=== PATIENT | female | born 1965 | race Caucasian/White ===

== ENCOUNTER 2017-11-04 12:25 | Emergency (ER) | payer SELFPAY ==
[2017-11-04] MEDS ORDERED: DIAZEPAM 5 MG TABLET ONE (14:01)
[2017-11-04] MEDS ORDERED: DEXAMETHASONE 10 MG/ML VIAL ONE (14:01)
[2017-11-04] MEDS ORDERED: NA CHLORIDE 0.9% 1,000 ML ONE (14:02)
[2017-11-04] MEDS ORDERED: MORPHINE 4 MG/ML SYR ONE (14:02)
[2017-11-04] MEDS ORDERED: KETOROLAC 30 MG/ML INJ ONE (14:02)
[2017-11-04] MEDS ORDERED: ONDANSETRON 4 MG/2 ML VIAL ONE (14:02)
[2017-11-04 14:11] LABS: Absolute Lymphocytes (CBC) 2.2 K/uL (0.7-4.9); Absolute Monocytes 0.5 K/uL (0.1-1.3); Absolute Neutrophil 5.7 K/uL (1.8-8.0); Basophils % 0.7 % (0-1.3); Eosinophils % 1.9 % (0-4.4); Hematocrit 48.3 % (36.0-45.0); Lymphocytes % 25.2 % (15.3-44.8); MCH 28.8 pg (27.0-35.0); MPV 9.6 fL (7.6-11.3); Monocytes % 6.2 % (3.3-12.3); RBC Red Blood Cell Count 5.62 M/uL (3.86-4.86)
[2017-11-04 14:25] LABS: Albumin 3.5 g/dL (3.4-5.0); Bilirubin Total 0.6 mg/dL (0.2-1.0); Potassium 4.2 mmol/L (3.5-5.1); Protein, Total 7.4 g/dL (6.4-8.2)
[2017-11-04 15:02] LABS: Urine Blood NEGATIVE (NEG); Urine Glucose TRACE (NEG); Urine Protein NEGATIVE (NEG)
--- NOTE | 2017-11-04 15:19 | RAD REPORT ---
EXAM DESCRIPTION: CT - Spine Lumbar Wo Con - 11/04/2017 2:54 pm CLINICAL HISTORY: Back pain, right lower extremity radiculopathy. COMPARISON: None. TECHNIQUE: Thin section axial imaging of the lumbar spine was performed. Sagittal and coronal recon struction images were generated and reviewed. All CT scans are performed using dose optimization technique as appropriate and may include automated exposure control or mA/KV adjustment according to patient size. FINDINGS: Lumbar bodies are normal in height and alignment. No fracture is identified. No lytic, s clerotic or expansile bony destructive process. No paraspinal mass or other paraspinal abnormality. No disc space narrowing and no degenerative gas in the disc space. No gross evidence of the large central canal disc herniation. Central canal detail is limited seconda ry to inherent CT technical limitation and large body habitus. IMPRESSION: CT lumbar spine study shows no significant bone, disc or soft tissue finding. Central ca nal detail is inherently limited.
--- NOTE | 2017-11-04 15:25 | EDPHYS ---
Physician Documentation [facility] Name: Anjana Cordova Age: 52 yrs Sex: Female : 1965 Arrival Date: 11/04/2017 Time: 12:26 Bed 25 Private MD: MARLYN ESTRELLA ED Physician Raul Urena HPI: 11/04 13:36 This 52 yrs old Female presents to ER via Ambulatory with complaints of Back maria de jesus Pain, Leg Pain. 13:36 The patient presents with pain that is acute, and decreased range of motion, and an maria de jesus injury. The symptoms are located in the low back, lumbar area and right low back. Onset: The symptoms/episode began/occurred 3 day(s) ago. The pain radiates to the lumbar area and left low back. Associated signs and symptoms: The patient has no apparent associated signs or symptoms. The problem was sustained when lifting boxes. Severity of symptoms: At their worst the symptoms were moderate, in the emergency department the symptoms are unchanged. The patient has not experienced similar symptoms in the past. 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 - Social history:: Smoking status: Patient/guardian denies using tobacco. - Ebola Screening: : Patient negative for fever greater than or equal to 101.5 degrees Fahrenheit, and additional compatible Ebola Virus Disease symptoms Patient denies exposure to infectious person Patient denies travel to an Ebola-affected area in the 21 days before illness onset No symptoms or risks identified at this time. - Family history:: not pertinent. ROS: 13:36 Constitutional: Negative for fever, chills, and weight loss, Eyes: Negative for injury, mariad e jesus pain, redness, and discharge, ENT: Negative for injury, pain, and discharge, Neck: Negative for injury, pain, and swelling, Cardiovascular: Negative for chest pain, palpitations, and edema, Respiratory: Negative for shortness of breath, cough, wheezing, and pleuritic chest pain, Abdomen/GI: Negative for abdominal pain, nausea, vomiting, diarrhea, and constipation, : Negative for injury, bleeding, discharge, and swelling, MS/Extremity: Negative for injury and deformity, Skin: Negative for injury, rash, and discoloration, Neuro: Negative for headache, weakness, numbness, tingling, and seizure, Psych: Negative for depression, anxiety, suicide ideation, homicidal ideation, and hallucinations, Allergy/Immunology: Negative for hives, rash, and allergies, Endocrine: Negative for neck swelling, polydipsia, polyuria, polyphagia, and marked weight changes, Hematologic/Lymphatic: Negative for swollen nodes, abnormal bleeding, and unusual bruising. 13:36 Back: Positive for pain at rest, pain with movement, of the lumbar area and left low back. Exam: 13:36 Constitutional: This is a well developed, well nourished patient who is awake, alert, maria de jesus and in no acute distress. Head/Face: Normocephalic, atraumatic. Eyes: Pupils equal round and reactive to light, extra-ocular motions intact. Lids and lashes normal. Conjunctiva and sclera are non-icteric and not injected. Cornea within normal limits. Periorbital areas with no swelling, redness, or edema. ENT: Nares patent. No nasal discharge, no septal abnormalities noted. Tympanic membranes are normal and external auditory canals are clear. Oropharynx with no redness, swelling, or masses, exudates, or evidence of obstruction, uvula midline. Mucous membranes moist. Neck: Trachea midline, no thyromegaly or masses palpated, and no cervical lymphadenopathy. Supple, full range of motion without nuchal rigidity, or vertebral point tenderness. No Meningismus. Chest/axilla: Normal chest wall appearance and motion. Nontender with no deformity. No lesions are appreciated. Cardiovascular: Regular rate and rhythm with a normal S1 and S2. No gallops, murmurs, or rubs. Normal PMI, no JVD. No pulse deficits. Respiratory: Lungs have equal breath sounds bilaterally, clear to auscultation and percussion. No rales, rhonchi or wheezes noted. No increased work of breathing, no retractions or nasal flaring. Abdomen/GI: Soft, non-tender, with normal bowel sounds. No distension or tympany. No guarding or rebound. No evidence of tenderness throughout. Female : Normal external genitalia. Skin: Warm, dry with normal turgor. Normal color with no rashes, no lesions, and no evidence of cellulitis. MS/ Extremity: Pulses equal, no cyanosis. Neurovascular intact. Full, normal range of motion. Neuro: Awake and alert, GCS 15, oriented to person, place, time, and situation. Cranial nerves II-XII grossly intact. Motor strength 5/5 in all extremities. Sensory grossly intact. Cerebellar exam normal. Normal gait. 13:36 Back: pain, that is moderate, ROM is painful, normal spinal alignment noted, CVA tenderness, is absent, vertebral tenderness, is appreciated at L1, L2, L3, L4 and L5, muscle spasm, is appreciated in the lumbar area and right low back. Vital Signs: 12:34 BP 214 / 101; Pulse 91; Resp 17; Temp 98.6; Pulse Ox 98% on R/A; Weight 117.93 kg; aj Height 5 ft. 5 in. (165.10 cm); 14:23 BP 184 / 82; Pulse 70; Resp 16; Pulse Ox 97% ; kr2 15:27 BP 162 / 70; Pulse 68; Resp 17; Pulse Ox 97% on R/A; kr2 12:34 Body Mass Index 43.27 (117.93 kg, 165.10 cm) MDM: 13:27 Patient medically screened. [facility] 13:41 Data reviewed: vital signs, nurses notes, lab test result(s), radiologic studies, CT maria de jesus scan. 11/04 13:35 Order name: CBC with Diff; Complete Time: 14:19 [facility] 11/04 13:35 Order name: Comprehensive Metabolic Panel; Complete Time: 15:05 [facility] 11/04 13:48 Order name: CT Lumbar Spine Wo Con; Complete Time: 15:20 [facility] 11/04 14:23 Order name: Urine Dipstick--Ancillary (enter results); Complete Time: 15:05 11/04 13:35 Order name: Urine Dipstick-Ancillary (obtain specimen); Complete Time: 14:24 [facility] Administered Medications: 14:15 Drug: Valium 5 mg Route: PO; kr2 15:25 Follow up: Response: No adverse reaction; Pain is decreased kr2 14:20 Drug: NS 0.9% 1000 ml Route: IV; Rate: 1 bolus; Site: right antecubital; kr2 15:27 Follow up: Response: No adverse reaction; IV Status: Completed infusion kr2 14:20 Drug: TORadol 30 mg Route: IVP; Site: right antecubital; kr2 15:00 Follow up: Response: No adverse reaction; Pain is decreased kr2 14:21 Drug: Zofran 4 mg Route: IVP; Site: right antecubital; kr2 15:00 Follow up: Response: No adverse reaction kr2 14:23 Drug: morphine 4 mg Route: IVP; Site: right antecubital; kr2 15:00 Follow up: Response: No adverse reaction; Pain is decreased kr2 14:24 Drug: Decadron - Dexamethasone 10 mg Route: IVP; Site: right antecubital; kr2 15:00 Follow up: Response: No adverse reaction kr2 Disposition: 11/04/17 15:25 Discharged to Home. Impression: Low back pain, Sciatica, left side, Obesity, unspecified. - Condition is Stable. - Discharge Instructions: Back Pain, Adult, Chronic Back Pain, Musculoskeletal Pain, Obesity, Adult, Sciatica, Back Injury Prevention, [id number], Back Pain, Adult, [id number]. - Prescriptions for Ibuprofen 600 mg Oral Tablet - take 1 tablet by ORAL route every 8 hours As needed take with food; 24 tablet. Tylenol- Codeine #3 300-30 mg Oral Tablet - take 2 tablet by ORAL route every 6 hours As needed; 30 tablet. Valium 5 mg Oral Tablet - take 1 tablet by ORAL route every 8 hours As needed; 20 tablet. Medrol (Arsh) 4 mg Oral Tablets, Dose Pack - take 1 tablet by ORAL route as directed - follow package instructions; 1 packet. - Medication Reconciliation Form, Thank You Letter, Antibiotic Education, Prescription Opioid Use form. - Follow up: MARLYN ESTRELLA; When: 48 Hours; Reason: Recheck today's complaints, Continuance of care, Re-evaluation by your physician. - Problem is new. - Symptoms have improved. Signatures: Dispatcher [employer] EDBonita Pandya RN RN aj Anderson, Corey, MD MD cha Reaves, Karey, RN RN kr2 Corrections: (The following items were deleted from the chart) 15:36 15:25 11/04/2017 15:25 Discharged to Home. Impression: Low back pain; Sciatica, left kr2 side; Obesity, unspecified. Condition is Stable. Discharge Instructions: Back Pain, Adult, Chronic Back Pain, Musculoskeletal Pain, Obesity, Adult, Sciatica, Back Injury Prevention, [id number], Back Pain, Adult, [id number]. Prescriptions for Ibuprofen 600 mg Oral Tablet - take 1 tablet by ORAL route every 8 hours As needed take with food; 24 tablet, Tylenol-Codeine #3 300-30 mg Oral Tablet - take 2 tablet by ORAL route every 6 hours As needed; 30 tablet, Valium 5 mg Oral Tablet - take 1 tablet by ORAL route every 8 hours As needed; 20 tablet, Medrol (Arsh) 4 mg Oral Tablets, Dose Pack - take 1 tablet by ORAL route as directed - follow package instructions; 1 packet. and Forms are Medication Reconciliation Form, Thank You Letter, Antibiotic Education, Prescription Opioid Use. Follow up: MARLYN ESTRELLA; When: 48 Hours; Reason: Recheck today's complaints, Continuance of care, Re-evaluation by your physician. Problem is new. Symptoms have improved. maria de jesus
--- NOTE | 2017-11-04 15:25 | ER ---
Nurse's Notes [facility] Name: Anjana Cordova Age: 52 yrs Sex: Female : 1965 Arrival Date: 11/04/2017 Time: 12:26 Bed 25 Private MD: MARLYN ESTRELLA Diagnosis: Low back pain;Sciatica, left side;Obesity, unspecified Presentation: 11/04 12:33 Presenting complaint: Patient states: Lower back pain that radiates down right leg, aj starting Friday. Transition of care: patient was not received from another setting of care. Onset of symptoms was November 02, 2017. Risk Assessment: Do you want to hurt yourself or someone else? Patient reports no desire to harm self or others. Initial Sepsis Screen: Does the patient meet any 2 criteria? No. Patient's initial sepsis screen is negative. Does the patient have a suspected source of infection? No. Patient's initial sepsis screen is negative. Care prior to arrival: None. 12:33 Method Of Arrival: Ambulatory 12:33 Acuity: HAWK 3 aj Triage Assessment: 12:34 General: Appears in no apparent distress. uncomfortable, Behavior is calm, cooperative, aj appropriate for age. Pain: Complains of pain in coccyx, right lower back, right gluteus anil and right gluteal fold. Neuro: Level of Consciousness is awake, alert, obeys commands, Oriented to person, place, time, situation, Appropriate for age. Respiratory: Airway is patent Respiratory effort is even, unlabored, Respiratory pattern is regular, symmetrical. Derm: Skin is intact, is healthy with good turgor, Skin is pink, warm \\T\\ dry. normal. Musculoskeletal: Range of motion: intact in all extremities, Reports pain in coccyx, right lower back, right gluteus anil and right gluteal fold. 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 - Social history:: Smoking status: Patient/guardian denies using tobacco. - Ebola Screening: : Patient negative for fever greater than or equal to 101.5 degrees Fahrenheit, and additional compatible Ebola Virus Disease symptoms Patient denies exposure to infectious person Patient denies travel to an Ebola-affected area in the 21 days before illness onset No symptoms or risks identified at this time. - Family history:: not pertinent. Screenin:30 Abuse screen: Denies threats or abuse. Denies injuries from another. Nutritional kr2 screening: No deficits noted. Tuberculosis screening: No symptoms or risk factors identified. Fall Risk None identified. Assessment: 13:30 General: Appears in no apparent distress. uncomfortable, well groomed, well developed, kr2 Behavior is calm, cooperative, appropriate for age. Pain: Complains of pain in lower back Pain radiates to right leg. Pain: Pain currently is 8 out of 10 on a pain scale. Neuro: Level of Consciousness is awake, alert, obeys commands, Oriented to person, place, time, situation, Appropriate for age. Cardiovascular: Capillary refill < 3 seconds in bilateral fingers. Respiratory: Airway is patent Respiratory effort is even, unlabored, Respiratory pattern is regular, symmetrical. EENT: Oral mucosa is moist. Derm: Skin is intact, is healthy with good turgor, Skin is pink, warm \\T\\ dry. Musculoskeletal: Circulation, motion, and sensation intact. 15:00 Reassessment: Patient appears in no apparent distress at this time. Patient and/or kr2 family updated on plan of care and expected duration. Pain level reassessed. Patient is alert, oriented x 3, equal unlabored respirations, skin warm/dry/pink. Patient states feeling better. Patient states symptoms have improved. Vital Signs: 12:34 BP 214 / 101; Pulse 91; Resp 17; Temp 98.6; Pulse Ox 98% on R/A; Weight 117.93 kg; aj Height 5 ft. 5 in. (165.10 cm); 14:23 BP 184 / 82; Pulse 70; Resp 16; Pulse Ox 97% ; kr2 15:27 BP 162 / 70; Pulse 68; Resp 17; Pulse Ox 97% on R/A; kr2 12:34 Body Mass Index 43.27 (117.93 kg, 165.10 cm) ED Course: 12:26 Patient arrived in ED. sb2 12:26 MARLYN ESTRELLA is Private Physician. sb2 12:34 Triage completed. aj 12:34 Arm band placed on right wrist. Patient placed in waiting room, Patient notified of aj wait time. 13:27 Raul Urena MD is Attending Physician. maria de jesus 13:30 Patient has correct armband on for positive identification. Call light in reach. kr2 Patient sitting up in chair, "I am more comfortable that way right now". Pulse ox on. NIBP on. Door closed. Verbal reassurance given. 13:41 Ileana Sen, [place] is Primary Nurse. kr2 13:58 Initial lab(s) drawn, by me, sent to lab. Inserted saline lock: 22 gauge in right tm3 antecubital area, using aseptic technique. 14:55 CT Lumbar Spine Wo Con In Process Unspecified. EDMS 15:25 MARLYN ESTRELLA is Referral Physician. maria de jesus 15:35 No provider procedures requiring assistance completed. IV discontinued, intact, kr2 bleeding controlled, No redness/swelling at site. Pressure dressing applied. Administered Medications: 14:15 Drug: Valium 5 mg Route: PO; kr2 15:25 Follow up: Response: No adverse reaction; Pain is decreased kr2 14:20 Drug: NS 0.9% 1000 ml Route: IV; Rate: 1 bolus; Site: right antecubital; kr2 15:27 Follow up: Response: No adverse reaction; IV Status: Completed infusion kr2 14:20 Drug: TORadol 30 mg Route: IVP; Site: right antecubital; kr2 15:00 Follow up: Response: No adverse reaction; Pain is decreased kr2 14:21 Drug: Zofran 4 mg Route: IVP; Site: right antecubital; kr2 15:00 Follow up: Response: No adverse reaction kr2 14:23 Drug: morphine 4 mg Route: IVP; Site: right antecubital; kr2 15:00 Follow up: Response: No adverse reaction; Pain is decreased kr2 14:24 Drug: Decadron - Dexamethasone 10 mg Route: IVP; Site: right antecubital; kr2 15:00 Follow up: Response: No adverse reaction kr2 Outcome: 15:25 Discharge ordered by . maria de jesus 15:36 Discharged to home ambulatory, with family. kr2 15:36 Condition: good 15:36 Discharge instructions given to patient, Instructed on discharge instructions, follow up and referral plans. Demonstrated understanding of instructions, follow-up care, medications, Prescriptions given X 4. 15:36 Patient left the ED. kr2 Signatures: Dispatcher [employer] EDCarlito Ovalle tm3 Bonita Padron RN RN aj Anderson, Corey, MD MD cha Reaves, Karey, RN RN kr2 Esther Webster sb2
== END 2017-11-04 15:36 | disposition home or self-care (01) ==
LOC: ER 12:25
DX: M54.42 Lumbago with sciatica, left side (principal); E11.9 Type 2 diabetes mellitus without complications; I10 Essential (primary) hypertension; E66.9 Obesity, unspecified; Z68.41 Body mass index [BMI] 40.0-44.9, adult; Z79.4 Long term (current) use of insulin
CPT/HCPCS: 36415; 72131; 80053; 81003; 85025; 96361; 96374; 96375; 99284; J1100; J2405; J7030

== ENCOUNTER 2018-03-11 22:33 | Emergency (ER) | payer SELFPAY ==
--- NOTE | 2018-03-12 00:47 | ER ---
Nurse's Notes [facility] Name: Anjana Cordova Age: 52 yrs Sex: Female : 1965 Arrival Date: 03/11/2018 Time: 22:36 Bed Treatment Private MD: Diagnosis: Cutaneous abscess of limb Presentation: 03/12 00:02 Presenting complaint: Patient states: Got bit by a spider 3 days ago and not is ao painfully and throbbing. Patient report the site is turning black. Transition of care: patient was not received from another setting of care. Onset of symptoms was March 08, 2018. Risk Assessment: Do you want to hurt yourself or someone else? Patient reports no desire to harm self or others. Initial Sepsis Screen: Does the patient meet any 2 criteria? No. Patient's initial sepsis screen is negative. Does the patient have a suspected source of infection? No. Patient's initial sepsis screen is negative. Care prior to arrival: None. 00:02 Method Of Arrival: Ambulatory ao 00:02 Acuity: HAWK 4 ao Triage Assessment: 00:34 General: Appears uncomfortable, obese, Behavior is calm, cooperative, appropriate for fc age. Pain: Complains of pain in dorsal aspect of right forearm Pain currently is 9 out of 10 on a pain scale. Quality of pain is described as burning, Pain began 1 week ago Is continuous, Aggravated by palpation. EENT: No deficits noted. Neuro: Level of Consciousness is awake, alert, obeys commands, Oriented to person, place, time, situation. Cardiovascular: No deficits noted. Respiratory: No deficits noted. GI: No deficits noted. : No deficits noted. Derm: Skin is pink, warm \T\ dry. Abscess located on dorsal aspect of right forearm is dime sized, has purulent drainage, is red, is raised, was lanced by patient prior to arrival. Musculoskeletal: Circulation, motion, and sensation intact. Capillary refill < 3 seconds, Range of motion: intact in all extremities. 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 - Social history:: Smoking status: Patient uses tobacco products, smokes one pack cigarettes per day. Patient/guardian denies using alcohol, street drugs. - Ebola Screening: : Patient negative for fever greater than or equal to 101.5 degrees Fahrenheit, and additional compatible Ebola Virus Disease symptoms Patient denies exposure to infectious person Patient denies travel to an Ebola-affected area in the 21 days before illness onset. Screenin:35 Abuse screen: Denies threats or abuse. Nutritional screening: No deficits noted. fc Tuberculosis screening: No symptoms or risk factors identified. Fall Risk None identified. Assessment: 00:35 Reassessment: No changes from previously documented assessment. Patient and/or family fc updated on plan of care and expected duration. Pain level reassessed. Patient is alert, oriented x 3, equal unlabored respirations, skin warm/dry/pink. 00:40 Reassessment: Dr Joshi in to see and examine pt. fc 01:00 Reassessment: Pt wanting to be tested for staph and is concerned about the pain. fc Discussed with Dr Joshi and pt will be covered by discharge antibiotics for staph and can take Alleve OTC. Vital Signs: 00:05 BP 152 / 87; Pulse 84; Resp 20; Temp 98.0; Pulse Ox 100% on R/A; Weight 120.2 kg; ao Height 5 ft. 6 in. (167.64 cm); Pain 10/10; 00:05 Body Mass Index 42.77 (120.20 kg, 167.64 cm) ao ED Course: 03/11 22:36 Patient arrived in ED. ds1 03/12 00:04 Triage completed. ao 00:07 Arm band placed on right wrist. Patient placed in waiting room. ao 00:35 Patient has correct armband on for positive identification. Bed in low position. Call fc light in reach. 00:36 No provider procedures requiring assistance completed. fc 00:38 Akshat Joshi MD is Attending Physician. ps1 00:52 Patient did not have IV access during this emergency room visit. fc Administered Medications: No medications were administered Outcome: 00:45 Discharge ordered by . ps1 00:52 Discharged to home ambulatory, with family. fc 00:52 Condition: good 00:52 Discharge instructions given to patient, family, Instructed on discharge instructions, follow up and referral plans. medication usage, wound care, Demonstrated understanding of instructions, follow-up care, medications, wound care, Prescriptions given X 2. 01:04 Patient left the ED. Signatures: Romina Wiley RN RN Marguerite Eason ds1 Lucius Simon RN RN ao Singer, Phillip, MD MD ps1
--- NOTE | 2018-03-12 00:47 | EDPHYS ---
Physician Documentation [facility] Name: Anjana Cordova Age: 52 yrs Sex: Female : 1965 Arrival Date: 03/11/2018 Time: 22:36 Bed Treatment Private MD: ED Physician Akshat Joshi HPI: 03/12 00:42 This 52 yrs old Female presents to ER via Ambulatory with complaints of ps1 Spider /Diabetic. 00:42 patient has a small abscess that she pulled a plug out of today and now red and ps1 burning. Thinks it may be a spider bite. Appears healing and non purulent at this time. No fever. Has diabetes. . 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 - Social history:: Smoking status: Patient uses tobacco products, smokes one pack cigarettes per day. Patient/guardian denies using alcohol, street drugs. - Ebola Screening: : Patient negative for fever greater than or equal to 101.5 degrees Fahrenheit, and additional compatible Ebola Virus Disease symptoms Patient denies exposure to infectious person Patient denies travel to an Ebola-affected area in the 21 days before illness onset. ROS: 00:42 Constitutional: Negative for fever, chills, and weight loss, Eyes: Negative for injury, ps1 pain, redness, and discharge, Cardiovascular: Negative for chest pain, palpitations, and edema, Respiratory: Negative for shortness of breath, cough, wheezing, and pleuritic chest pain, Abdomen/GI: Negative for abdominal pain, nausea, vomiting, diarrhea, and constipation, MS/Extremity: Negative for injury and deformity. 00:42 Skin: Positive for abscess, ulceration. Exam: 00:42 Constitutional: This is a well developed, well nourished patient who is awake, alert, ps1 and in no acute distress. Head/Face: Normocephalic, atraumatic. Eyes: Pupils equal round and reactive to light, extra-ocular motions intact. Lids and lashes normal. Conjunctiva and sclera are non-icteric and not injected. Chest/axilla: Normal chest wall appearance and motion. Nontender with no deformity. No lesions are appreciated. Cardiovascular: Regular rate and rhythm. No gallops, murmurs, or rubs. Normal PMI, no JVD. No pulse deficits. Respiratory: Lungs have equal breath sounds bilaterally, clear to auscultation and percussion. No rales, rhonchi or wheezes noted. No increased work of breathing, no retractions or nasal flaring. Abdomen/GI: Soft, non-tender, with normal bowel sounds. No distension or tympany. No guarding or rebound. No evidence of tenderness throughout. MS/ Extremity: Pulses equal, no cyanosis. Neurovascular intact. Full, normal range of motion. 00:42 Skin: Appearance: normal except for affected area, abscess, that is small, of the dorsal aspect of right forearm. Vital Signs: 00:05 BP 152 / 87; Pulse 84; Resp 20; Temp 98.0; Pulse Ox 100% on R/A; Weight 120.2 kg; ao Height 5 ft. 6 in. (167.64 cm); Pain 10/10; 00:05 Body Mass Index 42.77 (120.20 kg, 167.64 cm) ao MDM: 00:42 Data reviewed: vital signs, nurses notes, and as a result, I will discharge patient, ps1 administer antibiotics keflex and bactrim. 00:45 Patient medically screened. ps1 Administered Medications: No medications were administered Disposition: 03/12/18 00:45 Discharged to Home. Impression: Cutaneous abscess of limb. - Condition is Stable. - Discharge Instructions: Skin Abscess. - Prescriptions for Keflex 500 mg Oral Capsule - take 1 capsule by ORAL route every 8 hours for 10 days; 30 capsule. Bactrim DS 800- 160 mg Oral Tablet - take 1 tablet by ORAL route every 12 hours for 10 days; 20 tablet. - Medication Reconciliation Form, Thank You Letter, Antibiotic Education, Prescription Opioid Use form. - Follow up: Private Physician; When: As needed; Reason: Recheck today's complaints, Continuance of care, Re-evaluation by your physician. Follow up: Emergency Department; When: As needed; Reason: Fever > 102 F, Worsening of condition. - Problem is new. - Symptoms are unchanged. Signatures: Romina Wiley RN RN fc Lucius Simon RN RN Akshat Chanel MD MD ps1 Corrections: (The following items were deleted from the chart) 01:04 00:45 03/12/2018 00:45 Discharged to Home. Impression: Cutaneous abscess of limb. fc Condition is Stable. Forms are Medication Reconciliation Form, Thank You Letter, Antibiotic Education, Prescription Opioid Use. Follow up: Private Physician; When: As needed; Reason: Recheck today's complaints, Continuance of care, Re-evaluation by your physician. Follow up: Emergency Department; When: As needed; Reason: Fever > 102 F, Worsening of condition. Problem is new. Symptoms are unchanged. ps1
== END 2018-03-12 01:04 | disposition home or self-care (01) ==
LOC: ER 22:33
DX: L02.413 Cutaneous abscess of right upper limb (principal); I10 Essential (primary) hypertension; E11.9 Type 2 diabetes mellitus without complications; F17.210 Nicotine dependence, cigarettes, uncomplicated; Z79.4 Long term (current) use of insulin
CPT/HCPCS: 99282

== ENCOUNTER 2018-05-19 12:31 | Emergency (ER) | payer SELFPAY ==
[2018-05-19] MEDS ORDERED: HYDROCODONE/APAP 10/325 TAB ONE (13:17)
[2018-05-19] MEDS ORDERED: DIAZEPAM 5 MG TABLET ONE (13:18)
[2018-05-19] MEDS ORDERED: KETOROLAC 30 MG/ML INJ ONE (14:21)
--- NOTE | 2018-05-19 15:29 | RAD REPORT ---
EXAM DESCRIPTION: RAD - Knee Right 3 View - 05/19/2018 3:06 pm CLINICAL HISTORY: injury, pain COMPARISON: Knee Right 3 View dated 08/20/2015; Knee Right 3 View dated 11/16/2014 FINDINGS: No bone or joint abnormality of the right knee is seen. No joint effusion.
--- NOTE | 2018-05-19 15:30 | RAD REPORT ---
EXAM DESCRIPTION: RAD - Lumbar Spine 3 Views - 05/19/2018 3:06 pm CLINICAL HISTORY: fall, back pain Radiculopathy COMPARISON: No comparisons FINDINGS: Vertebral body heights appear maintained. No compression fracture noted. Disc thinning is present with small endplate osteophytes at L4-5 and L5-S1. No spondylolysis or spondylolisthesis. IUD is present in the pelvis. IMPRESSION: Mild lower lumbar spondylosis.
--- NOTE | 2018-05-19 15:51 | ER ---
Nurse's Notes [facility] Name: Anjana Cordova Age: 52 yrs Sex: Female : 1965 Arrival Date: 05/19/2018 Time: 12:35 Bed 16 Private MD: MARLYN ESTRELLA Diagnosis: Internal derangement of knee;Sprain of ligaments of lumbar spine Presentation: 05/19 12:44 Presenting complaint: Patient states: Reports low back pain and right knee pain after aj lifting grandchild this AM. Also reports "bulge" to right lower abdomen. Transition of care: patient was not received from another setting of care. Onset of symptoms was May 19, 2018. Risk Assessment: Do you want to hurt yourself or someone else? Patient reports no desire to harm self or others. Initial Sepsis Screen: Does the patient meet any 2 criteria? No. Patient's initial sepsis screen is negative. Does the patient have a suspected source of infection? No. Patient's initial sepsis screen is negative. Care prior to arrival: None. 12:44 Method Of Arrival: Ambulatory aj 12:44 Acuity: HAWK 4 aj Triage Assessment: 12:45 General: Appears in no apparent distress. comfortable, Behavior is calm, cooperative, aj appropriate for age. Pain: Complains of pain in back. Neuro: Level of Consciousness is awake, alert, obeys commands, Oriented to person, place, time, situation, Appropriate for age. Respiratory: Airway is patent Respiratory effort is even, unlabored, Respiratory pattern is regular, symmetrical. Derm: Skin is intact, is healthy with good turgor, Skin is pink, warm \\T\\ dry. normal. Musculoskeletal: Reports pain in back. 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 - Social history:: Smoking status: Patient uses tobacco products, smokes one pack cigarettes per day. - Ebola Screening: : Patient negative for fever greater than or equal to 101.5 degrees Fahrenheit, and additional compatible Ebola Virus Disease symptoms Patient denies exposure to infectious person Patient denies travel to an Ebola-affected area in the 21 days before illness onset No symptoms or risks identified at this time. Screenin:50 Abuse screen: Denies threats or abuse. Nutritional screening: No deficits noted. rb1 Tuberculosis screening: No symptoms or risk factors identified. Fall Risk Fall in past 12 months (25 points). No secondary diagnosis (0 pts). No IV (0 pts). Ambulatory Aid- None/Bed Rest/Nurse Assist (0 pts). Gait- Normal/Bed Rest/Wheelchair (0 pts) Mental Status- Oriented to own ability (0 pts). Total Storey Fall Scale indicates Low Risk Score (25-44 pts). Fall prevention measures have been instituted. Side Rails Up X 2 Placed close to Nursing Station 1:1 attendant Assigned to Pt. Frequent Obs/Assesments occuring Family Present and informed to notify staff if they need to leave bedside As available Patient and Family Educated on Fall Prevention Program and strategies. Assessment: 12:50 General: Appears uncomfortable, obese, Behavior is calm, cooperative. Pain: Complains rb1 of pain in back and right knee Pain currently is 9 out of 10 on a pain scale. Pain began This morning. Neuro: Level of Consciousness is awake, alert, obeys commands, Oriented to person, place, time, situation. Cardiovascular: Capillary refill < 3 seconds is brisk in bilateral fingers. Respiratory: Airway is patent Respiratory effort is even, unlabored, Respiratory pattern is regular, symmetrical. GI: No signs and/or symptoms were reported involving the gastrointestinal system. : No signs and/or symptoms were reported regarding the genitourinary system. Derm: Skin is pink, warm \\T\\ dry. Musculoskeletal: Range of motion: intact in all extremities. 13:30 Reassessment: Patient appears in no apparent distress at this time. No changes from rb1 previously documented assessment. 14:32 Reassessment: Pt. went to X-ray. rb1 15:10 Reassessment: Patient appears in no apparent distress at this time. Patient and/or rb1 family updated on plan of care and expected duration. Pain level reassessed. Patient is alert, oriented x 3, equal unlabored respirations, skin warm/dry/pink. 15:30 Reassessment: Patient appears in no apparent distress at this time. Patient and/or rb1 family updated on plan of care and expected duration. Pain level reassessed. Patient is alert, oriented x 3, equal unlabored respirations, skin warm/dry/pink. 16:15 Reassessment: Patient appears in no apparent distress at this time. No changes from rb1 previously documented assessment. Daughter at bedside. Vital Signs: 12:45 BP 145 / 73; Pulse 94; Resp 20; Temp 98.7; Pulse Ox 98% on R/A; Weight 117.93 kg; aj Height 5 ft. 5 in. (165.10 cm); 13:45 BP 147 / 74; Pulse 91; Resp 18; Pulse Ox 100% on R/A; rb1 14:45 BP 143 / 71; Pulse 89; Resp 17; Pulse Ox 99% on R/A; rb1 15:45 BP 139 / 65; Pulse 78; Resp 18; Pulse Ox 100% on R/A; Pain 5/10; rb1 16:20 BP 141 / 66; Pulse 74; Resp 19; Pulse Ox 99% ; rb1 12:45 Body Mass Index 43.27 (117.93 kg, 165.10 cm) ED Course: 12:35 Patient arrived in ED. sb2 12:36 MARLYN ESTRELLA is Private Physician. sb2 12:45 Triage completed. aj 12:45 Arm band placed on right wrist. Patient placed in an exam room. 12:47 Yung Conde PA is PHCP. [facility] 12:47 Akshat Joshi MD is Attending Physician. [facility] 12:50 Patient has correct armband on for positive identification. Bed in low position. Call [facility] light in reach. Side rails up X 1. Pulse ox on. NIBP on. 13:04 Rochelle Morales, RN is Primary Nurse. rb1 15:07 Lumbar Spine (3 Views) XRAY In Process Unspecified. EDMS 15:07 Knee Right 3 View XRAY In Process Unspecified. EDMS 15:50 Ankur Robles MD is Referral Physician. [facility] 16:26 No provider procedures requiring assistance completed. Patient did not have IV access rb1 during this emergency room visit. Administered Medications: 13:10 Drug: [place] 10 mg-325 mg 1 tabs Route: PO; rb1 13:45 Follow up: Response: No adverse reaction; Pain is unchanged, physician notified rb1 13:10 Drug: Valium 5 mg Route: PO; rb1 13:45 Follow up: Response: No adverse reaction rb1 14:15 Drug: Ketorolac 60 mg Route: IM; Site: right gluteus; aa5 15:10 Follow up: Response: No adverse reaction; Pain is decreased rb1 Outcome: 15:51 Discharge ordered by MD. acevedo 16:26 Patient left the ED. ms 16:26 Discharged to home ambulatory, with family. rb1 16:26 Condition: stable 16:26 Discharge instructions given to patient, Instructed on discharge instructions, follow up and referral plans. medication usage, Demonstrated understanding of instructions, follow-up care, medications, Prescriptions given X 2. Signatures: Dispatcher [employer] Bonita Olsen RN RN aj Mickail, Joel, PA PA jmm Solis, Maria ms Calderon, Audri RN RN aa5 Rochelle Morales RN RN rb1 Esther Webster sb2
--- NOTE | 2018-05-19 15:51 | EDPHYS ---
Physician Documentation [facility] Name: Anjana Cordova Age: 52 yrs Sex: Female : 1965 Arrival Date: 05/19/2018 Time: 12:35 Bed 16 Private MD: MARLYN ESTRELLA ED Physician Akshat Joshi HPI: 05/19 12:54 This 52 yrs old Female presents to ER via Ambulatory with complaints of Fall jmm Injury - KNEE,BACK. 12:54 Details of fall: The patient fell from an upright position. Onset: The symptoms/episode jmm began/occurred acutely, just prior to arrival. This is a 52 year old female with a history of dm, htn that presents to the ED with complaints of pain to her right lower back, right knee, and right lower abdomen after a fall which occurred just prior to arrival. Patient states she lost balance while holding her grandchild falling against furniture and the hardwood floor. . 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 - Social history:: Smoking status: Patient uses tobacco products, smokes one pack cigarettes per day. - Ebola Screening: : Patient negative for fever greater than or equal to 101.5 degrees Fahrenheit, and additional compatible Ebola Virus Disease symptoms Patient denies exposure to infectious person Patient denies travel to an Ebola-affected area in the 21 days before illness onset No symptoms or risks identified at this time. ROS: 12:54 Constitutional: Negative for fever, chills, and weight loss, Cardiovascular: Negative jmm for chest pain, palpitations, and edema, Respiratory: Negative for shortness of breath, cough, wheezing, and pleuritic chest pain. 12:54 Back: Positive for pain with movement. 12:54 MS/extremity: Positive for decreased range of motion, pain. 12:54 All other systems are negative. Exam: 12:54 Head/Face: atraumatic. Eyes: EOMI, no conjunctival erythema appreciated ENT: Moist jmm Mucus Membranes Neck: Trachea midline, Supple Chest/axilla: Normal chest wall appearance and motion. Cardiovascular: Regular rate and rhythm. No edema appreciated Respiratory: Normal respirations, no respiratory distress appreciated 12:54 Constitutional: The patient appears alert, awake, uncomfortable. 12:54 Abdomen/GI: right lower abdomen and groin are soft, mildly tender to palpation, no mass is appreciated. 12:54 Back: ROM is normal, right lower paraspinal lumbar pain on palpation. 12:54 Musculoskeletal/extremity: right anterior knee is tender to palpation, no swelling or ecchymosis is appreciated. 12:54 Skin: Appearance: Color: Temperature: normal temperature. 12:54 Neuro: Orientation: is normal, Mentation: is normal, Memory: is normal. 12:54 Psych: Behavior/mood is pleasant, cooperative. Vital Signs: 12:45 BP 145 / 73; Pulse 94; Resp 20; Temp 98.7; Pulse Ox 98% on R/A; Weight 117.93 kg; aj Height 5 ft. 5 in. (165.10 cm); 13:45 BP 147 / 74; Pulse 91; Resp 18; Pulse Ox 100% on R/A; rb1 14:45 BP 143 / 71; Pulse 89; Resp 17; Pulse Ox 99% on R/A; rb1 15:45 BP 139 / 65; Pulse 78; Resp 18; Pulse Ox 100% on R/A; Pain 5/10; rb1 16:20 BP 141 / 66; Pulse 74; Resp 19; Pulse Ox 99% ; rb1 12:45 Body Mass Index 43.27 (117.93 kg, 165.10 cm) aj MDM: 12:54 Patient medically screened. [facility] 15:48 Data reviewed: vital signs, nurses notes. Counseling: I had a detailed discussion with kristina the patient and/or guardian regarding: the historical points, exam findings, and any diagnostic results supporting the discharge/admit diagnosis, lab results, radiology results, the need for outpatient follow up, to return to the emergency department if symptoms worsen or persist or if there are any questions or concerns that arise at home. Response to treatment: the patient's symptoms have mildly improved after treatment. ED course: Imaging studies negative. Patient is advised to follow up with orthopedics for further evaluation. . 05/19 13:00 Order name: Lumbar Spine (3 Views) XRAY; Complete Time: 15:35 [facility] 05/19 13:00 Order name: Knee Right 3 View XRAY; Complete Time: 15:32 [facility] 05/19 15:38 Order name: Knee Immobilizer; Complete Time: 19:16 [facility] Administered Medications: 13:10 Drug: [place] 10 mg-325 mg 1 tabs Route: PO; rb1 13:45 Follow up: Response: No adverse reaction; Pain is unchanged, physician notified rb1 13:10 Drug: Valium 5 mg Route: PO; rb1 13:45 Follow up: Response: No adverse reaction rb1 14:15 Drug: Ketorolac 60 mg Route: IM; Site: right gluteus; aa5 15:10 Follow up: Response: No adverse reaction; Pain is decreased rb1 Disposition: 20:34 Co-signature as Attending Physician, Akshat Joshi MD Available for consultation at [facility] all times . Disposition: 05/19/18 15:51 Discharged to Home. Impression: Internal derangement of knee, Sprain of ligaments of lumbar spine. - Condition is Stable. - Discharge Instructions: Back Pain, Adult, Knee Pain. - Prescriptions for orphenadrine citrate 100 mg Oral Tablet Sustained Release - take 1 tablet by ORAL route 2 times per day As needed; 20 tablet. Tylenol- Codeine #3 300-30 mg Oral Tablet - take 1 tablet by ORAL route every 6 hours As needed; 12 tablet. - Medication Reconciliation Form, Thank You Letter, Antibiotic Education, Prescription Opioid Use form. - Follow up: Ankur Robles MD; When: 2 - 3 days; Reason: Recheck today's complaints, Continuance of care, Re-evaluation by your physician. Signatures: Dispatcher [employer] Bonita Olsen, RN Yung Monroe PA PA Radha Zhao [email or web address], RN RN aa5 Rochelle Morales, RN RN rb1 Akshat Joshi MD MD ps1 Corrections: (The following items were deleted from the chart) 16:26 15:51 05/19/2018 15:51 Discharged to Home. Impression: Internal derangement of knee; ms Sprain of ligaments of lumbar spine. Condition is Stable. Forms are Medication Reconciliation Form, Thank You Letter, Antibiotic Education, Prescription Opioid Use. Follow up: Dr. Ankur Robles; When: 2 - 3 days; Reason: Recheck today's complaints, Continuance of care, Re-evaluation by your physician. kristina
== END 2018-05-19 16:26 | disposition home or self-care (01) ==
LOC: ER 12:31
DX: M23.91 Unspecified internal derangement of right knee (principal); S39.012A Strain of muscle, fascia and tendon of lower back, initial encounter; W18.30XA Fall on same level, unspecified, initial encounter; E11.9 Type 2 diabetes mellitus without complications; I10 Essential (primary) hypertension; F32.9 Major depressive disorder, single episode, unspecified; Z79.4 Long term (current) use of insulin
CPT/HCPCS: 72100; 96372; 99284

== ENCOUNTER 2018-10-31 14:44 | Emergency (ER) | payer SELFPAY ==
[2018-10-31] MEDS ORDERED: MORPHINE 4 MG/ML SYR ONE (16:08)
--- NOTE | 2018-10-31 17:09 | RAD REPORT ---
EXAM DESCRIPTION: RAD - C Spine Ap/Lat - 10/31/2018 4:58 pm CLINICAL HISTORY: Neck pain status post injury FINDINGS: No fracture or dislocation seen. Mild to moderate spondylosis involves the cervical spine
--- NOTE | 2018-10-31 17:11 | RAD REPORT ---
EXAM DESCRIPTION: RAD - Shoulder Left 2 View - 10/31/2018 4:53 pm CLINICAL HISTORY: Left shoulder pain FINDINGS: No fracture or dislocation is seen.
--- NOTE | 2018-10-31 17:20 | RAD REPORT ---
EXAM DESCRIPTION: RAD - Elbow Left 3 View - 10/31/2018 4:56 pm CLINICAL HISTORY: Left elbow pain status post trauma FINDINGS: No acute fracture or dislocation 4 centimeter bony structure within the distal diaphysis of the left humerus presumably the sequela of old trauma. If the patient has not had a fracture in this region then nonemergent MRI would be recom mended
--- NOTE | 2018-10-31 17:34 | RAD REPORT ---
EXAM DESCRIPTION: RAD - Humerus Left - 10/31/2018 5:24 pm CLINICAL HISTORY: Left arm pain FINDINGS: No acute fracture or dislocation seen. Deformity and Bony formation along mid to distal left humerus likely secondary to an old fracture. Pl ease refer to the left elbow x-ray report for recommendation
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
[2018-10-31] MEDS ORDERED: HYDROCODONE/APAP 10/325 TAB ONE (17:52)
== END 2018-10-31 18:20 | disposition home or self-care (01) ==
LOC: ER 14:44
DX: S46.912A Strain of unspecified muscle, fascia and tendon at shoulder and upper arm level, left arm, initial encounter (principal); W22.8XXA Striking against or struck by other objects, initial encounter; Y93.9 Activity, unspecified; Y92.009 Unspecified place in unspecified non-institutional (private) residence as the place of occurrence of the external cause; Z79.4 Long term (current) use of insulin; I10 Essential (primary) hypertension; F17.210 Nicotine dependence, cigarettes, uncomplicated; E11.9 Type 2 diabetes mellitus without complications
CPT/HCPCS: 72040; 96374; 99284

== ENCOUNTER 2019-01-08 01:56 | Emergency (ER) | payer SELFPAY ==
[2019-01-08] MEDS ORDERED: PROMETHAZINE 25 MG/ML VIAL ONE (02:35)
[2019-01-08] MEDS ORDERED: CIPROFLOXACIN HCL 500 MG TAB ONE (02:35)
[2019-01-08] MEDS ORDERED: LIDOCAINE 2% MPF 5 ML VIAL ONE (02:35)
[2019-01-08] MEDS ORDERED: MEPERIDINE HCL 50 MG/ML ONE (02:35)
[2019-01-08] MEDS ORDERED: CEFTRIAXONE 1000 MG/VIAL ONE (02:35)
--- NOTE | 2019-01-08 02:43 | EDPHYS ---
Physician Documentation [facility] Name: Anjana Cordova Age: 53 yrs Sex: Female : 1965 Arrival Date: 01/08/2019 Time: 01:59 Bed 6 Private MD: HAMLET Physician Raul Urena HPI: 01/08 02:36 This 53 yrs old Female presents to ER via Ambulatory with complaints of maria de jesus Headache, Lower Back Pain. 02:36 The patient complains of pain to the top of head, forehead, left frontal area, left maria de jesus side of the back of head, left occipital area, left base of the skull, right frontal area, right side of the back of head, right occipital area and right base of the skull. The patient describes the headache as constant. Onset: The symptoms/episode began/occurred 1 day(s) ago. Associated signs and symptoms: The patient has no apparent associated signs or symptoms. Severity of symptoms: At its worst the pain was moderate, in the emergency department the pain is unchanged. The symptoms are alleviated by nothing. the symptoms are aggravated by nothing. Historical: - Allergies: 02:15 No Known Allergies; fc - Home Meds: 02:15 Insulin: Novolin 70/30 Sub-Q 30 units in am and 15 units in pm [Active]; lisinopril 10 fc mg Oral tab 1 tab as needed [Active]; - PMHx: 02:15 Depression; Hypertension; Diabetes - IDDM; fc - PSHx: 02:15 left arm surg; Cholecystectomy; ; fc - Immunization history:: Last tetanus immunization: up to date Flu vaccine is not up to date. - Social history:: Smoking status: Patient uses tobacco products, smokes one pack cigarettes per day. Patient/guardian denies using alcohol, street drugs. - Ebola Screening: : Patient negative for fever greater than or equal to 101.5 degrees Fahrenheit, and additional compatible Ebola Virus Disease symptoms Patient denies exposure to infectious person Patient denies travel to an Ebola-affected area in the 21 days before illness onset. - Family history:: not pertinent. ROS: 02:36 Constitutional: Negative for fever, chills, and weight loss, Eyes: Negative for injury, maria de jesus pain, redness, and discharge, ENT: Negative for injury, pain, and discharge, Neck: Negative for injury, pain, and swelling, Cardiovascular: Negative for chest pain, palpitations, and edema, Respiratory: Negative for shortness of breath, cough, wheezing, and pleuritic chest pain, Abdomen/GI: Negative for abdominal pain, nausea, vomiting, diarrhea, and constipation, Back: Negative for injury and pain, : Negative for injury, bleeding, discharge, and swelling, MS/Extremity: Negative for injury and deformity, Skin: Negative for injury, rash, and discoloration, Psych: Negative for depression, anxiety, suicide ideation, homicidal ideation, and hallucinations, Allergy/Immunology: Negative for hives, rash, and allergies, Endocrine: Negative for neck swelling, polydipsia, polyuria, polyphagia, and marked weight changes, Hematologic/Lymphatic: Negative for swollen nodes, abnormal bleeding, and unusual bruising. 02:36 Neuro: Positive for headache. Exam: 02:36 Constitutional: This is a well developed, well nourished patient who is awake, alert, maria de jesus and in no acute distress. Head/Face: Normocephalic, atraumatic. Eyes: Pupils equal round and reactive to light, extra-ocular motions intact. Lids and lashes normal. Conjunctiva and sclera are non-icteric and not injected. Cornea within normal limits. Periorbital areas with no swelling, redness, or edema. ENT: Nares patent. No nasal discharge, no septal abnormalities noted. Tympanic membranes are normal and external auditory canals are clear. Oropharynx with no redness, swelling, or masses, exudates, or evidence of obstruction, uvula midline. Mucous membranes moist. Neck: Trachea midline, no thyromegaly or masses palpated, and no cervical lymphadenopathy. Supple, full range of motion without nuchal rigidity, or vertebral point tenderness. No Meningismus. Chest/axilla: Normal chest wall appearance and motion. Nontender with no deformity. No lesions are appreciated. Cardiovascular: Regular rate and rhythm with a normal S1 and S2. No gallops, murmurs, or rubs. Normal PMI, no JVD. No pulse deficits. Respiratory: Lungs have equal breath sounds bilaterally, clear to auscultation and percussion. No rales, rhonchi or wheezes noted. No increased work of breathing, no retractions or nasal flaring. Abdomen/GI: Soft, non-tender, with normal bowel sounds. No distension or tympany. No guarding or rebound. No evidence of tenderness throughout. Female : Normal external genitalia. Skin: Warm, dry with normal turgor. Normal color with no rashes, no lesions, and no evidence of cellulitis. MS/ Extremity: Pulses equal, no cyanosis. Neurovascular intact. Full, normal range of motion. Neuro: Awake and alert, GCS 15, oriented to person, place, time, and situation. Cranial nerves II-XII grossly intact. Motor strength 5/5 in all extremities. Sensory grossly intact. Cerebellar exam normal. Normal gait. Psych: Awake, alert, with orientation to person, place and time. Behavior, mood, and affect are within normal limits. 02:36 Back: pain, that is very mild, ROM is normal, normal spinal alignment noted, CVA tenderness, that is mild, that is moderate, is noted bilaterally, vertebral tenderness, is not appreciated, muscle spasm, is not present, Straight leg raises: Vital Signs: 02:00 BP 191 / 94; Pulse 84; Resp 18; Temp 97.0(O); Pulse Ox 99% on R/A; Weight 117.93 kg fc (R); Height 5 ft. 5 in. (165.10 cm) (R); Pain 10/10; 02:23 BP 175 / 86; Pulse 81; Resp 18; Pulse Ox 99% on R/A; aa1 02:00 Body Mass Index 43.27 (117.93 kg, 165.10 cm) MDM: 02:17 Patient medically screened. [facility] 02:38 Data reviewed: vital signs, nurses notes, lab test result(s), urinalysis. [facility] 01/08 02:11 Order name: Urine Culture [facility] 01/08 02:11 Order name: Urine Microscopic Only [facility] 01/08 02:52 Order name: Urine Dipstick--Ancillary (enter results) [facility] [place] 01/08 02:11 Order name: Urine Dipstick-Ancillary (obtain specimen); Complete Time: 02:22 [facility] Administered Medications: 02:40 Drug: Demerol 50 mg {Note: RASS 0.} Route: IM; Site: right deltoid; aa1 03:00 Follow up: Response: No adverse reaction; Medication administered at discharge. aa1 02:40 Drug: Phenergan 25 mg Route: IM; Site: right deltoid; aa1 03:00 Follow up: Response: No adverse reaction; Medication administered at discharge. aa1 02:40 Drug: Cipro 500 mg Route: PO; aa1 03:00 Follow up: Response: No adverse reaction; Medication administered at discharge. aa1 02:41 Drug: Rocephin (cefTRIAXone) 1 grams Route: IM; Site: right gluteus; aa1 03:00 Follow up: Response: No adverse reaction; Medication administered at discharge. aa1 Disposition: 01/08/19 02:40 Discharged to Home. Impression: Headache, Urinary tract infection, site not specified, Type 1 diabetes mellitus. - Condition is Stable. - Discharge Instructions: Dysuria, General Headache Without Cause, Urinary Tract Infection, Adult, Urinary Tract Infection, Adult, [id number], General Headache Without Cause, [id number]. - Prescriptions for Tylenol- Codeine #3 300-30 mg Oral Tablet - take 2 tablets by ORAL route every 6 hours As needed; 20 tablet. Zofran 4 mg Oral Tablet - take 1 tablet by ORAL route every 12 hours As needed; 20 tablet. Cipro 500 mg Oral Tablet - take 1 tablet by ORAL route every 12 hours for 7 days; 14 tablet. Fluconazole 200 mg Oral Tablet - take 1 tablet by ORAL route once daily; 3 tablet. - Medication Reconciliation Form, Thank You Letter, Antibiotic Education, Prescription Opioid Use form. - Follow up: Private Physician; When: 2 - 3 days; Reason: Recheck today's complaints, Continuance of care, Re-evaluation by your physician. - Problem is new. - Symptoms have improved. Signatures: Dispatcher [employer] Lisa Ramirez RN RN aa1 Raul Urena MD MD cha Therrien, Shelly, AIRLINE STATION AGENT-C AIRLINE STATION AGENT-Juliow Romina Wiley RN RN fc Corrections: (The following items were deleted from the chart) 03:02 02:40 01/08/2019 02:40 Discharged to Home. Impression: Headache; Urinary tract aa1 infection, site not specified; Type 1 diabetes mellitus. Condition is Stable. Forms are Medication Reconciliation Form, Thank You Letter, Antibiotic Education, Prescription Opioid Use. Follow up: Private Physician; When: 2 - 3 days; Reason: Recheck today's complaints, Continuance of care, Re-evaluation by your physician. Problem is new. Symptoms have improved. maria de jesus
--- NOTE | 2019-01-08 02:43 | ER ---
Nurse's Notes [facility] Name: Anjana Cordova Age: 53 yrs Sex: Female : 1965 Arrival Date: 01/08/2019 Time: 01:59 Bed 6 Private MD: Diagnosis: Headache;Urinary tract infection, site not specified;Type 1 diabetes mellitus Presentation: 01/08 02:00 Presenting complaint: Patient states: that for the past 2 days she has been having a fc migraine. Then today she started noticing that she was having lower back pain with frequency. But states that she feels as if she can't go when she tries. Transition of care: patient was not received from another setting of care. Onset of symptoms was January 06, 2019. Risk Assessment: Do you want to hurt yourself or someone else? Patient reports no desire to harm self or others. Initial Sepsis Screen: Does the patient meet any 2 criteria? No. Patient's initial sepsis screen is negative. Does the patient have a suspected source of infection? No. Patient's initial sepsis screen is negative. Care prior to arrival: None. 02:00 Method Of Arrival: Ambulatory fc 02:00 Acuity: HAWK 3 fc Triage Assessment: 02:00 Headache History: The patient has had previous headaches and this one is similar to previous episodes. Historical: - Allergies: 02:15 No Known Allergies; fc - Home Meds: 02:15 Insulin: Novolin 70/30 Sub-Q 30 units in am and 15 units in pm [Active]; lisinopril 10 fc mg Oral tab 1 tab as needed [Active]; - PMHx: 02:15 Depression; Hypertension; Diabetes - IDDM; fc - PSHx: 02:15 left arm surg; Cholecystectomy; ; fc - Immunization history:: Last tetanus immunization: up to date Flu vaccine is not up to date. - Social history:: Smoking status: Patient uses tobacco products, smokes one pack cigarettes per day. Patient/guardian denies using alcohol, street drugs. - Ebola Screening: : Patient negative for fever greater than or equal to 101.5 degrees Fahrenheit, and additional compatible Ebola Virus Disease symptoms Patient denies exposure to infectious person Patient denies travel to an Ebola-affected area in the 21 days before illness onset. - Family history:: not pertinent. Screenin:13 Abuse screen: Denies threats or abuse. Nutritional screening: No deficits noted. Tuberculosis screening: No symptoms or risk factors identified. Fall Risk None identified. Assessment: 02:10 General: Appears in no apparent distress. comfortable, Behavior is calm, cooperative, aa1 appropriate for age. Pain: Complains of pain in top of head, scalp and low back area Pain began 2-3 days ago. Is continuous. Neuro: Level of Consciousness is awake, alert, obeys commands, Oriented to person, place, time, situation, Moves all extremities. Full function Gait is steady, Speech is normal. Neuro: Reports headache. Cardiovascular: Heart tones S1 S2 present. Respiratory: Airway is patent Respiratory effort is even, unlabored, Respiratory pattern is regular, symmetrical. GI: No signs and/or symptoms were reported involving the gastrointestinal system. : Reports urgency, urinary frequency. EENT: No signs and/or symptoms were reported regarding the EENT system. Derm: Skin is intact, is healthy with good turgor, Skin is pink, warm \T\ dry. Musculoskeletal: Circulation, motion, and sensation intact. Capillary refill < 3 seconds. 03:00 Reassessment: Patient appears in no apparent distress at this time. Patient is alert, aa1 oriented x 3, equal unlabored respirations, skin warm/dry/pink. Discussed d/c \T\ f/u instructions with pt \T\ family; denies questions or concerns at this time. Vital Signs: 02:00 BP 191 / 94; Pulse 84; Resp 18; Temp 97.0(O); Pulse Ox 99% on R/A; Weight 117.93 kg fc (R); Height 5 ft. 5 in. (165.10 cm) (R); Pain 10/10; 02:23 BP 175 / 86; Pulse 81; Resp 18; Pulse Ox 99% on R/A; aa1 02:00 Body Mass Index 43.27 (117.93 kg, 165.10 cm) ED Course: 01:59 Patient arrived in ED. ds1 02:00 Arm band placed on Patient placed in an exam room, on a stretcher. fc 02:09 Lisa Gutierrez, RN is Primary Nurse. aa1 02:10 No provider procedures requiring assistance completed. aa1 02:12 Triage completed. fc 02:13 Patient has correct armband on for positive identification. Bed in low position. Call light in reach. Pulse ox on. NIBP on. 02:17 Raul Urena MD is Attending Physician. [facility] 02:22 Urine Culture Sent. aa 02:22 Urine Microscopic Only Sent. aa 02:22 Urine collected: clean catch specimen, cloudy. aa1 02:40 Patient did not have IV access during this emergency room visit. aa1 Administered Medications: 02:40 Drug: Demerol 50 mg {Note: RASS 0.} Route: IM; Site: right deltoid; aa1 03:00 Follow up: Response: No adverse reaction; Medication administered at discharge. aa1 02:40 Drug: Phenergan 25 mg Route: IM; Site: right deltoid; aa1 03:00 Follow up: Response: No adverse reaction; Medication administered at discharge. aa 02:40 Drug: Cipro 500 mg Route: PO; aa1 03:00 Follow up: Response: No adverse reaction; Medication administered at discharge. aa1 02:41 Drug: Rocephin (cefTRIAXone) 1 grams Route: IM; Site: right gluteus; aa1 03:00 Follow up: Response: No adverse reaction; Medication administered at discharge. aa1 Outcome: 02:40 Discharge ordered by . [facility] 03:00 Discharged to home ambulatory, with family. aa1 03:00 Condition: good 03:00 Discharge instructions given to patient, family, Instructed on discharge instructions, follow up and referral plans. medication usage, Demonstrated understanding of instructions, follow-up care, medications, Prescriptions given X 4. 03:02 Patient left the ED. aa1 Signatures: Lisa Gutierrez, RN RN aa1 Raul Urena MD MD cha Chretien, Felicia, RN RN Marguerite Eason ds1
[2019-01-08 03:03] LABS: Urine Blood 3+ (NEG); Urine Glucose 2+ (NEG); Urine Protein 1+ (NEG)
[2019-01-08 03:04] LABS: Urine Culture Reflex Order NOT NEEDED
[2019-01-08 03:07] LABS: Urine Bacteria 20-50 /HPF (<20); Urine RBC >50 /HPF (NONE SEEN)
[2019-01-08 03:21] VITALS: TEMP 97; O2SAT 99
[2019-01-08 03:23] VITALS: BP 175/86
== END 2019-01-08 03:02 | disposition home or self-care (01) ==
LOC: ER 01:56
DX: N39.0 Urinary tract infection, site not specified (principal); R51 Headache; E10.8 Type 1 diabetes mellitus with unspecified complications; I10 Essential (primary) hypertension; F17.210 Nicotine dependence, cigarettes, uncomplicated; Z79.4 Long term (current) use of insulin
CPT/HCPCS: 81003; 81015; 87077; 87086; 87088; 87186; 96372; 99284; J2175; J2550

== ENCOUNTER 2019-05-03 12:13 | Emergency (ER) | payer SELFPAY ==
[2019-05-03] MEDS ORDERED: HYDROCODONE/APAP 7.5/325 MG TAB ONE (12:50)
--- NOTE | 2019-05-03 13:58 | RAD REPORT ---
EXAM DESCRIPTION: RAD - Humerus Right - 05/03/2019 1:51 pm CLINICAL HISTORY: PAIN Fall, pain COMPARISON: None FINDINGS: Right humerus, forearm and hand - multiple projections are submitted No fracture or dislocation seen.
--- NOTE | 2019-05-03 14:11 | EDPHYS ---
Physician Documentation [facility] Name: Anjana Cordova Age: 53 yrs Sex: Female : 1965 Arrival Date: 05/03/2019 Time: 12:16 Bed 18 Private MD: ED Physician Enedelia Olivo HPI: 05/03 12:55 This 53 yrs old Female presents to ER via Ambulatory with complaints of Hand kb Injury. 12:55 The patient or guardian complains of decreased range of motion, pain, swelling. The kb complaints affect the anterior aspect of right shoulder, right hand, right upper arm and right forearm. Context: The problem was sustained at home, resulted from a fall. Onset: The symptoms/episode began/occurred this morning. Treatment prior to arrival includes: no previous treatment. Modifying factors: The symptoms are alleviated by nothing. the symptoms are aggravated by movement. Associated signs and symptoms: Pertinent positives: decreased range of motion, pain, swelling. Severity of symptoms: At their worst the symptoms were moderate, in the emergency department the symptoms are unchanged. The patient has not experienced similar symptoms in the past. The patient has not recently seen a physician. Pt reports she was going to walk the dog and it pulled her down some stairs. complains of decreased ROM and tenderness of right shoulder, pain to right upper arm and forearm, and pain, decreased ROM and swelling to right hand. Historical: - Allergies: 12:33 No Known Allergies; ss - PMHx: 12:33 Depression; Diabetes - IDDM; Hypertension; ss - PSHx: 12:33 left arm surg; Cholecystectomy; ; ss - Immunization history:: Adult Immunizations up to date. - Social history:: Smoking status: Patient reports the use of cigarette tobacco products, smokes one-half pack cigarettes per day. - Ebola Screening: : Patient denies exposure to infectious person Patient denies travel to an Ebola-affected area in the 21 days before illness onset. ROS: 12:53 Constitutional: Negative for fever, chills, and weight loss, Cardiovascular: Negative kb for chest pain, palpitations, and edema, Respiratory: Negative for shortness of breath, cough, wheezing, and pleuritic chest pain, Abdomen/GI: Negative for abdominal pain, nausea, vomiting, diarrhea, and constipation, Back: Negative for injury and pain, Neuro: Negative for headache, weakness, numbness, tingling, and seizure. 12:53 MS/extremity: Positive for decreased range of motion, pain, swelling, tenderness, of the right arm. Exam: 12:53 Constitutional: This is a well developed, well nourished patient who is awake, alert, kb and in no acute distress. Head/Face: Normocephalic, atraumatic. ENT: Nares patent. No nasal discharge, no septal abnormalities noted. Tympanic membranes are normal and external auditory canals are clear. Oropharynx with no redness, swelling, or masses, exudates, or evidence of obstruction, uvula midline. Mucous membranes moist. Neck: Trachea midline, no thyromegaly or masses palpated, and no cervical lymphadenopathy. Supple, full range of motion without nuchal rigidity, or vertebral point tenderness. No Meningismus. Chest/axilla: Normal chest wall appearance and motion. Nontender with no deformity. No lesions are appreciated. Cardiovascular: Regular rate and rhythm with a normal S1 and S2. No gallops, murmurs, or rubs. Normal PMI, no JVD. No pulse deficits. Respiratory: Lungs have equal breath sounds bilaterally, clear to auscultation and percussion. No rales, rhonchi or wheezes noted. No increased work of breathing, no retractions or nasal flaring. Abdomen/GI: Soft, non-tender, with normal bowel sounds. No distension or tympany. No guarding or rebound. No evidence of tenderness throughout. Neuro: Awake and alert, GCS 15, oriented to person, place, time, and situation. Cranial nerves II-XII grossly intact. Motor strength 5/5 in all extremities. Sensory grossly intact. Cerebellar exam normal. Normal gait. 12:53 Musculoskeletal/extremity: Extremities: grossly normal except: noted in the right arm: decreased ROM, pain, tenderness, ROM: limited active range of motion, in the anterior aspect of right shoulder, Circulation is intact in all extremities. Sensation intact. Vital Signs: 12:30 BP 161 / 86; Pulse 90; Resp 17; Temp 97.9(TE); Pulse Ox 99% ; Weight 120.2 kg; Height 5 ss ft. 5 in. (165.10 cm); Pain 10/10; 14:03 BP 168 / 81; Pulse 76; Resp 16; Pulse Ox 96% ; bp 15:20 BP 138 / 69; Pulse 75; Resp 16; Temp 98; Pulse Ox 96% ; mg2 12:30 Body Mass Index 44.10 (120.20 kg, 165.10 cm) ss MDM: 12:36 Patient medically screened. kb 12:54 Data reviewed: vital signs, nurses notes. Data interpreted: Pulse oximetry: on room air kb is 99 %. Interpretation: normal. Counseling: I had a detailed discussion with the patient and/or guardian regarding: the historical points, exam findings, and any diagnostic results supporting the discharge/admit diagnosis, radiology results, the need for outpatient follow up, a family practitioner, to return to the emergency department if symptoms worsen or persist or if there are any questions or concerns that arise at home. 05/03 12:42 Order name: Humerus Right XRAY; Complete Time: 14:04 kb 05/03 12:42 Order name: Forearm Right XRAY kb 05/03 12:42 Order name: Hand Right 3 View XRAY kb 05/03 14:18 Order name: Sling; Complete Time: 15:19 kb Administered Medications: 12:49 Drug: [place] (7.5 mg-325 mg) 1 tabs Route: PO; bp 14:53 Follow up: Response: Pain is decreased mg2 14:55 Drug: Flexeril 10 mg Route: PO; mg2 15:19 Follow up: Response: Pain is decreased mg2 Disposition: 15:51 Co-signature as Attending Physician, Enedelia Olivo MD. ma2 Disposition: 05/03/19 14:10 Discharged to Home. Impression: Pain in right arm. - Condition is Stable. - Discharge Instructions: Musculoskeletal Pain. - Prescriptions for Cyclobenzaprine 10 mg Oral Tablet - take 1 tablet by ORAL route every 8 hours As needed; 21 tablet. Diclofenac Sodium 75 mg Oral Tablet, Delayed Release (E.C.) - take 1 tablet by ORAL route 2 times per day As needed; 30 tablet. - Medication Reconciliation Form, Thank You Letter, Antibiotic Education, Prescription Opioid Use form. - Follow up: Emergency Department; When: As needed; Reason: Worsening of condition. Follow up: Private Physician; When: 2 - 3 days; Reason: Recheck today's complaints, Continuance of care, Re-evaluation by your physician. Signatures: Dispatcher [employer] Althea Mancia FNP-C FNP-Terrie Walker, RN RN ss Zana Duarte RN RN bp Enedelia Olivo MD MD ma2 Arash Lerma RN RN mg2 Corrections: (The following items were deleted from the chart) 15:26 14:10 05/03/2019 14:10 Discharged to Home. Impression: Pain in right arm. Condition is mg2 Stable. Forms are Medication Reconciliation Form, Thank You Letter, Antibiotic Education, Prescription Opioid Use. Follow up: Emergency Department; When: As needed; Reason: Worsening of condition. Follow up: Private Physician; When: 2 - 3 days; Reason: Recheck today's complaints, Continuance of care, Re-evaluation by your physician. kb
--- NOTE | 2019-05-03 14:11 | ER ---
Nurse's Notes [facility] Name: Anjana Cordova Age: 53 yrs Sex: Female : 1965 Arrival Date: 05/03/2019 Time: 12:16 Bed 18 Private MD: Diagnosis: Pain in right arm Presentation: 05/03 12:32 Presenting complaint: Patient states: R shoulder, arm and wrist pain that began at 0930 ss after getting pulled down steps by dog. Transition of care: patient was not received from another setting of care. Onset of symptoms was May 03, 2019. Risk Assessment: Do you want to hurt yourself or someone else? Patient reports no desire to harm self or others. Initial Sepsis Screen: Does the patient meet any 2 criteria? No. Patient's initial sepsis screen is negative. Does the patient have a suspected source of infection? No. Patient's initial sepsis screen is negative. Care prior to arrival: None. 12:32 Method Of Arrival: Ambulatory ss 12:32 Acuity: HAWK 4 ss Triage Assessment: 12:36 General: Appears in no apparent distress. comfortable, Behavior is cooperative, bp appropriate for age, anxious. Pain: Complains of pain in right arm. EENT: No deficits noted. Neuro: No deficits noted. Cardiovascular: No deficits noted. Respiratory: No deficits noted. GI: No signs and/or symptoms were reported involving the gastrointestinal system. : No signs and/or symptoms were reported regarding the genitourinary system. Derm: No deficits noted. Musculoskeletal: Circulation, motion, and sensation intact. Range of motion: intact in all extremities. Injury Description: RUE PAIN. Historical: - Allergies: 12:33 No Known Allergies; ss - PMHx: 12:33 Depression; Diabetes - IDDM; Hypertension; ss - PSHx: 12:33 left arm surg; Cholecystectomy; ; ss - Immunization history:: Adult Immunizations up to date. - Social history:: Smoking status: Patient reports the use of cigarette tobacco products, smokes one-half pack cigarettes per day. - Ebola Screening: : Patient denies exposure to infectious person Patient denies travel to an Ebola-affected area in the 21 days before illness onset. Screenin:37 Abuse screen: Denies threats or abuse. Denies injuries from another. Nutritional bp screening: No deficits noted. Tuberculosis screening: No symptoms or risk factors identified. Fall Risk None identified. Assessment: 12:37 General: SEE TRIAGE NOTE. bp 13:30 Reassessment: XRAY AT B/S. bp 15:21 Reassessment: PT D/C HOME AMBULATORY WITH FAMILY, DX WITH MUSCULOSKELETAL PAIN. mg2 Vital Signs: 12:30 BP 161 / 86; Pulse 90; Resp 17; Temp 97.9(TE); Pulse Ox 99% ; Weight 120.2 kg; Height 5 ss ft. 5 in. (165.10 cm); Pain 10/10; 14:03 BP 168 / 81; Pulse 76; Resp 16; Pulse Ox 96% ; bp 15:20 BP 138 / 69; Pulse 75; Resp 16; Temp 98; Pulse Ox 96% ; mg2 12:30 Body Mass Index 44.10 (120.20 kg, 165.10 cm) ss ED Course: 12:16 Patient arrived in ED. ds1 12:30 Arm band placed on left wrist. ss 12:33 Triage completed. ss 12:35 Zana Duarte, MARIETTA is Primary Nurse. bp 12:36 Althea Mo FNP-C is PHCP. kb 12:36 Enedelia Olivo MD is Attending Physician. kb 12:37 Patient has correct armband on for positive identification. Bed in low position. Call bp light in reach. Side rails up X2. 13:49 Humerus Right XRAY In Process Unspecified. EDMS 13:49 Forearm Right XRAY In Process Unspecified. EDMS 13:49 Hand Right 3 View XRAY In Process Unspecified. EDMS 15:21 No provider procedures requiring assistance completed. Patient did not have IV access mg2 during this emergency room visit. Administered Medications: 12:49 Drug: [place] (7.5 mg-325 mg) 1 tabs Route: PO; bp 14:53 Follow up: Response: Pain is decreased mg2 14:55 Drug: Flexeril 10 mg Route: PO; mg2 15:19 Follow up: Response: Pain is decreased mg2 Outcome: 14:10 Discharge ordered by MD. kb 15:21 Discharged to home ambulatory, with family. mg2 15:21 Condition: stable 15:21 Discharge instructions given to patient, Instructed on discharge instructions, follow up and referral plans. medication usage, Demonstrated understanding of instructions, follow-up care, medications, Prescriptions given X 2. 15:26 Patient left the ED. mg2 Signatures: Dispatcher [employer] EDMS Althea Mo, BOX ANNEALER-C BOX ANNEALER-Marguerite Uribe ds1 Terrie Gaxiola RN RN ss Zana Duarte, MARIETTA RN bp Arash Lerma, RN RN mg2
[2019-05-03] MEDS ORDERED: CYCLOBENZAPRINE 10 MG TAB ONE (15:01)
--- NOTE | 2019-05-03 15:04 | RAD REPORT ---
EXAM DESCRIPTION: RAD - Forearm Right - 05/03/2019 1:48 pm CLINICAL HISTORY: PAIN Fall, pain COMPARISON: None FINDINGS: Right humerus, forearm and hand - multiple projections are submitted No fracture or dislocation seen.
--- NOTE | 2019-05-03 15:05 | RAD REPORT ---
EXAM DESCRIPTION: RAD - Hand Right 3 View - 05/03/2019 1:49 pm CLINICAL HISTORY: PAIN Fall, pain COMPARISON: None FINDINGS: Right humerus, forearm and hand - multiple projections are submitted No fracture or dislocation seen.
[2019-05-03 16:51] VITALS: O2SAT 96
[2019-05-03 16:59] VITALS: BP 138/69; TEMP 98
== END 2019-05-03 15:26 | disposition home or self-care (01) ==
LOC: ER 12:13
DX: M79.601 Pain in right arm (principal); I10 Essential (primary) hypertension; F17.210 Nicotine dependence, cigarettes, uncomplicated
CPT/HCPCS: 99283

== ENCOUNTER 2020-01-06 13:49 | Emergency (ER) | payer SELFPAY ==
--- NOTE | 2020-01-06 16:00 | RAD REPORT ---
EXAM DESCRIPTION: RAD - Humerus Left - 01/06/2020 3:53 pm CLINICAL HISTORY: Left arm pain FINDINGS: Deformity involves the mid to distal right humerus secondary to an old fracture. No acute fracture seen
--- NOTE | 2020-01-06 16:02 | RAD REPORT ---
EXAM DESCRIPTION: RAD - Forearm Left - 01/06/2020 3:53 pm CLINICAL HISTORY: Left forearm pain status post injury FINDINGS: No fracture or dislocation seen
--- NOTE | 2020-01-06 16:04 | RAD REPORT ---
EXAM DESCRIPTION: RAD -Hand Left 3 View - 01/06/2020 3:53 pm CLINICAL HISTORY: Left hand pain status post injury FINDINGS: No fracture or dislocation is seen.
--- NOTE | 2020-01-06 16:13 | RAD REPORT ---
EXAM DESCRIPTION: CT - Head C Spine Mpr Wo Con - 01/06/2020 3:51 pm CLINICAL HISTORY: Head and neck injury status post fall. Head and neck pain COMPARISON: None. TECHNIQUE: Computed axial tomography of the head and cervical spine was obtained. Sagittal and coronal reconstruction was performed. All CT scans are performed using dose optimization technique as appropriate and may include automated exposure control or mA/KV adjustment according to patient size. FINDINGS: An intracranial bleed is not seen. The ventricles are normal in caliber. An extra-axial fl uid collection is not noted.Fluid within the visualized sinuses and mastoids is not seen A cervical fracture is not visualized. No dislocation is noted. Spondylosis involves the cervical spi ne IMPRESSION: No acute intracranial abnormality is seen. A cervical fracture is not visualized. If the patient continues to have symptoms to suggest intracra nial /spinal cord pathology then MRI would be recommended
--- NOTE | 2020-01-06 16:27 | ER ---
Nurse's Notes [facility] Name: Anjana Cordova Age: 54 yrs Sex: Female : 1965 Arrival Date: 01/06/2020 Time: 13:49 Bed 7 Private MD: Diagnosis: Contusion of left elbow;Fall on same level from slipping, tripping and stumbling Presentation: 01/05 14:05 Chief complaint: Patient states: C/o L elbow pain, R knee pain and neck pain that began ss after falling from standing in shower 2 hours ago. Coronavirus screen: Client denies travel out of the [place] in the last 14 days. Ebola Screen: Patient denies exposure to infectious person. Patient denies travel to an Ebola-affected area in the 21 days before illness onset. Initial Sepsis Screen: Does the patient meet any 2 criteria? No. Patient's initial sepsis screen is negative. Does the patient have a suspected source of infection? No. Patient's initial sepsis screen is negative. Risk Assessment: Do you want to hurt yourself or someone else? Patient reports no desire to harm self or others. Onset of symptoms was January 06, 2020. 14:05 Method Of Arrival: Ambulatory ss 14:05 Acuity: HAWK 3 ss Triage Assessment: 16:50 General: Behavior is calm, cooperative, appropriate for age. tw2 FRUIT GROWER: 16:02 LMP N/A - tw2 Historical: - Allergies: 14:07 No Known Allergies; ss - PMHx: 14:07 Depression; Diabetes - IDDM; Hypertension; ss - PSHx: 14:07 left arm surg; Cholecystectomy; ; ss - Immunization history:: Adult Immunizations up to date. - Social history:: Smoking status: Patient reports the use of cigarette tobacco products, smokes one-half pack cigarettes per day. Screenin:01 Abuse screen: Denies threats or abuse. Nutritional screening: No deficits noted. tw2 Tuberculosis screening: No symptoms or risk factors identified. Fall Risk None identified. Assessment: 14:55 General: Appears in no apparent distress. uncomfortable, obese, well groomed. Pain: tw2 Complains of pain in left elbow. Neuro: Level of Consciousness is awake, alert, obeys commands, Oriented to person, place, time, situation. Cardiovascular: Patient's skin is warm and dry. Respiratory: Airway is patent Respiratory effort is even, unlabored, Respiratory pattern is regular, symmetrical. GI: No signs and/or symptoms were reported involving the gastrointestinal system. : No signs and/or symptoms were reported regarding the genitourinary system. EENT: No signs and/or symptoms were reported regarding the EENT system. Derm: No signs and/or symptoms reported regarding the dermatologic system. Musculoskeletal: Circulation, motion, and sensation intact. Range of motion: limited in left elbow. 16:00 Reassessment: Patient appears in no apparent distress at this time. No changes from tw2 previously documented assessment. Patient and/or family updated on plan of care and expected duration. Pain level reassessed. Patient is alert, oriented x 3, equal unlabored respirations, skin warm/dry/pink. 16:50 Reassessment: Patient appears in no apparent distress at this time. No changes from tw2 previously documented assessment. Patient and/or family updated on plan of care and expected duration. Pain level reassessed. Patient is alert, oriented x 3, equal unlabored respirations, skin warm/dry/pink. Vital Signs: 14:05 BP 194 / 108; Pulse 92; Resp 20; Temp 98.8(TE); Pulse Ox 98% on R/A; Weight 122.47 kg; ss Height 5 ft. 5 in. (165.10 cm); Pain 10/10; 16:00 BP 126 / 82; Pulse 58; Resp 16; Pulse Ox 97% on R/A; tw2 16:50 BP 133 / 87; Pulse 77; Resp 16; Pulse Ox 99% on R/A; tw2 14:05 Body Mass Index 44.93 (122.47 kg, 165.10 cm) ED Course: 13:49 Patient arrived in ED. ag5 14:07 Triage completed. ss 14:07 Arm band placed on right wrist. 14:50 Bed in low position. Call light in reach. Pulse ox on. NIBP on. tw2 15:01 Tresa Deluca, MARIETTA is Primary Nurse. tw2 15:02 Althea Mo FNP-C is PHCP. kb 15:02 Michael Ott MD is Attending Physician. kb 15:51 CT Head C Spine In Process Unspecified. EDMS 15:53 Humerus Left XRAY In Process Unspecified. EDMS 15:53 Forearm Left XRAY In Process Unspecified. EDMS 15:53 Hand Left 3 View XRAY In Process Unspecified. EDMS 16:49 No provider procedures requiring assistance completed. Patient did not have IV access tw2 during this emergency room visit. Administered Medications: 15:20 Drug: [place] (7.5 mg-325 mg) 1 tabs {Note: RASS 0.} Route: PO; tw2 16:44 Follow up: Response: No adverse reaction; Pain is decreased; RASS: Alert and Calm (0) tw2 16:36 Drug: Flexeril 10 mg Route: PO; tw2 16:50 Follow up: Response: No adverse reaction tw2 Outcome: 16:26 Discharge ordered by . juaquin 16:49 Discharged to home ambulatory. tw2 16:49 Condition: stable 16:49 Discharge instructions given to patient, Instructed on discharge instructions, follow up and referral plans. no drinking with medication, no driving heavy equipment, medication usage, safety practices, Demonstrated understanding of instructions, follow-up care, medications, Prescriptions given X 2. 16:51 Patient left the ED. tw2 Signatures: Dispatcher [employer] EDMS Althea Mo, MERCHANDISING EXECUTION ASSOCIATE-C MERCHANDISING EXECUTION ASSOCIATE-Terrie Walker RN RN Tresa Deluca RN RN tw2 Moris Feliciano 5
--- NOTE | 2020-01-06 16:27 | EDPHYS ---
Physician Documentation [facility] Name: Anjana Cordova Age: 54 yrs Sex: Female : 1965 Arrival Date: 01/06/2020 Time: 13:49 Bed 7 Private MD: ED Physician Michael Ott HPI: 01/05 17:15 This 54 yrs old Female presents to ER via Ambulatory with complaints of Fall kb Injury, Elbow Injury, Head Injury-Adult. 17:15 Details of fall: The patient fell from an upright position, while standing. Onset: The kb symptoms/episode began/occurred just prior to arrival. Associated injuries: The patient sustained neck injury, pain, pain with movement, left arm, decreased range of motion, painful injury. Severity of symptoms: At their worst the symptoms were moderate, in the emergency department the symptoms are unchanged. The patient has not experienced similar symptoms in the past. The patient has not recently seen a physician. Pt reports she slipped on some soap and fell. Not sure if she hit her head or not, no loc. states she moved her neck really fast and now has pain. Reports she hit her elbow on shower wall and now has pain radiating up and down arm and pain with ROM of elbow.. 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 - Social history:: Smoking status: Patient reports the use of cigarette tobacco products, smokes one-half pack cigarettes per day. ROS: 17:14 Constitutional: Negative for fever, chills, and weight loss, Cardiovascular: Negative kb for chest pain, palpitations, and edema, Respiratory: Negative for shortness of breath, cough, wheezing, and pleuritic chest pain, Abdomen/GI: Negative for abdominal pain, nausea, vomiting, diarrhea, and constipation, Skin: Negative for injury, rash, and discoloration, Neuro: Negative for headache, weakness, numbness, tingling, and seizure. 17:14 MS/extremity: Positive for injury or acute deformity, decreased range of motion, pain, swelling, tenderness, of the left arm. Exam: 17:14 Constitutional: This is a well developed, well nourished patient who is awake, alert, kb and in no acute distress. Head/Face: Normocephalic, atraumatic. Chest/axilla: Normal chest wall appearance and motion. Nontender with no deformity. No lesions are appreciated. Cardiovascular: Regular rate and rhythm with a normal S1 and S2. No gallops, murmurs, or rubs. Normal PMI, no JVD. No pulse deficits. Respiratory: Lungs have equal breath sounds bilaterally, clear to auscultation and percussion. No rales, rhonchi or wheezes noted. No increased work of breathing, no retractions or nasal flaring. Abdomen/GI: Soft, non-tender, with normal bowel sounds. No distension or tympany. No guarding or rebound. No evidence of tenderness throughout. Skin: Warm, dry with normal turgor. Normal color with no rashes, no lesions, and no evidence of cellulitis. Neuro: Awake and alert, GCS 15, oriented to person, place, time, and situation. Cranial nerves II-XII grossly intact. Motor strength 5/5 in all extremities. Sensory grossly intact. Cerebellar exam normal. Normal gait. 17:14 Musculoskeletal/extremity: Extremities: grossly normal except: noted in the left tricep, left elbow, left hand and palmar aspect of left forearm: decreased ROM, pain, swelling, tenderness, ROM: limited active range of motion due to pain, in the left elbow, Circulation is intact in all extremities. Sensation intact. Vital Signs: 14:05 BP 194 / 108; Pulse 92; Resp 20; Temp 98.8(TE); Pulse Ox 98% on R/A; Weight 122.47 kg; ss Height 5 ft. 5 in. (165.10 cm); Pain 10/10; 16:00 BP 126 / 82; Pulse 58; Resp 16; Pulse Ox 97% on R/A; tw2 16:50 BP 133 / 87; Pulse 77; Resp 16; Pulse Ox 99% on R/A; tw2 14:05 Body Mass Index 44.93 (122.47 kg, 165.10 cm) MDM: 15:03 Patient medically screened. kb 16:16 Data reviewed: vital signs, nurses notes. Data interpreted: Pulse oximetry: on room air kb is 97 %. Interpretation: normal. Counseling: I had a detailed discussion with the patient and/or guardian regarding: the historical points, exam findings, and any diagnostic results supporting the discharge/admit diagnosis, radiology results, the need for outpatient follow up, a orthopedic surgeon, to return to the emergency department if symptoms worsen or persist or if there are any questions or concerns that arise at home. 01/05 15:06 Order name: CT Head C Spine; Complete Time: 16:15 kb 01/05 15:06 Order name: Humerus Left XRAY; Complete Time: 16:07 kb 01/05 15:06 Order name: Forearm Left XRAY; Complete Time: 16:07 kb 01/05 15:06 Order name: Hand Left 3 View XRAY; Complete Time: 16:07 kb 01/05 16:28 Order name: Sling; Complete Time: 16:43 kb Administered Medications: 15:20 Drug: [place] (7.5 mg-325 mg) 1 tabs {Note: RASS 0.} Route: PO; tw2 16:44 Follow up: Response: No adverse reaction; Pain is decreased; RASS: Alert and Calm (0) tw2 16:36 Drug: Flexeril 10 mg Route: PO; tw2 16:50 Follow up: Response: No adverse reaction tw2 Disposition: 17:34 Co-signature as Attending Physician, Michael Ott MD. rn Disposition: 01/06/20 16:26 Discharged to Home. Impression: Contusion of left elbow, Fall on same level from slipping, tripping and stumbling. - Condition is Stable. - Discharge Instructions: Musculoskeletal Pain, Contusion, [id number], Fall Prevention in the Home, [id number]. - Prescriptions for Cyclobenzaprine 10 mg Oral Tablet - take 1 tablet by ORAL route every 8 hours As needed; 21 tablet. Diclofenac Sodium 75 mg Oral Tablet, Delayed Release (E.C.) - take 1 tablet by ORAL route 2 times per day As needed; 30 tablet. - Medication Reconciliation Form, Thank You Letter, Antibiotic Education, Prescription Opioid Use form. - Follow up: Emergency Department; When: As needed; Reason: Worsening of condition. Follow up: Private Physician; When: 2 - 3 days; Reason: Recheck today's complaints, Continuance of care, Re-evaluation by your physician. Signatures: Dispatcher [employer] EDAZ Althea Mo, VENETIAN BLIND MAKER-C VENETIAN BLIND MAKER-Ckb Michael Ott MD MD rn Smirch, Shelby, RN RN Tresa Reynaga RN RN tw2 Corrections: (The following items were deleted from the chart) 16:51 16:26 01/06/2020 16:26 Discharged to Home. Impression: Contusion of left elbow; Fall on tw2 same level from slipping, tripping and stumbling. Condition is Stable. Forms are Medication Reconciliation Form, Thank You Letter, Antibiotic Education, Prescription Opioid Use. Follow up: Emergency Department; When: As needed; Reason: Worsening of condition. Follow up: Private Physician; When: 2 - 3 days; Reason: Recheck today's complaints, Continuance of care, Re-evaluation by your physician. kb
[2020-01-06] MEDS ORDERED: CYCLOBENZAPRINE 10 MG TAB ONE (16:44)
[2020-01-06 17:19] VITALS: BP 133/87; O2SAT 99
[2020-01-06 17:20] VITALS: TEMP 98.8
== END 2020-01-06 16:51 | disposition home or self-care (01) ==
LOC: ER 13:49
DX: S50.02XA Contusion of left elbow, initial encounter (principal); W01.0XXA Fall on same level from slipping, tripping and stumbling without subsequent striking against object, initial encounter; Y93.E1 Activity, personal bathing and showering; Y92.9 Unspecified place or not applicable; I10 Essential (primary) hypertension; F17.210 Nicotine dependence, cigarettes, uncomplicated
CPT/HCPCS: 70450; 72125; 99284

== ENCOUNTER 2020-07-06 18:23 | Emergency (ER) | payer SELFPAY ==
--- OUTSIDE RECORDS SUMMARY | 2020-07-06 18:26 | XMS REPORT | Continuity of Care Document ---
:[address] [facility] t Address [address] [place] [address] Care Team Providers Name Role Phone Unavailable Unavailable Unavailable Problems Condition Condition Condition Status Onset Resolution Last Treating Co mments Source Name Details Category Date Date Treatment Clinician Date Type 2 Type 2 Problem Active [facility] diabetes Diabetes da mellitus [facility] Allergic Allergic Problem Active [facility] rhinitis Rhinitis [facility] Abscess Abscess Problem Active [facility] Insect Insect Problem Active [facility] bite - Bite - da wound Wound Medical Group Allergies, Adverse Reactions, Alerts This patient has no known allergies or adverse reactions. Social History Smoking Status Start Date Stop Date Source Current Every Day Smoker [facility] Medications Ordered Filled Start Stop Current Ordering Indication Dosage Frequency Signature Comments Components Source Medication Medication Date Date Medication? Clinician (SIG) Name Name metformin metformin No metformin [facility] ER 1,000 mg ER 1,000 mg ER 1,000 da tablet,exte tablet,exte mg M edical nded nded tablet,ext Group release release ended 24hr Take 1 24hr Take 1 release tablet tablet 24hr Take every day every day 1 tablet by oral by oral every day route. route. by oral route. Mirena 20 Mirena 20 No Mirena 20 [facility] mcg/24 mcg/24 mcg/24 da hours (6 hours (6 hours (6 Med ical yrs) 52 mg yrs) 52 mg yrs) 52 mg Group intrauterin intrauterin intrauteri e device e device ne device Novolog Mix Novolog Mix No Novolog [facility] 70-30 70-30 Mix 70-30 da FlexPen FlexPen FlexPen Medica l U-100 U-100 U-100 Group Insulin 100 Insulin 100 Insulin unit/mL unit/mL 100 subcutaneou subcutaneou unit/mL s pen s pen subcutaneo us pen Novolog Mix Novolog Mix No Novolog [facility] 70-30 U-100 70-30 U-100 Mix 70-30 da Insulin 100 Insulin 100 U-100 Medical unit/mL unit/mL Insulin Group subcutaneou subcutaneou 100 s solution s solution unit/mL subcutaneo us solution paroxetine paroxetine No paroxetine [facility] 20 mg 20 mg 20 mg da tablet TAKE tablet TAKE tablet Medical 1 TABLET BY 1 TABLET BY TAKE 1 Group MOUTH ONCE MOUTH ONCE TABLET BY DAILY DAILY MOUTH ONCE DAILY ProAir HFA ProAir HFA No ProAir HFA [facility] 90 90 90 da mcg/actuati mcg/actuati mcg/actuat Medical on aerosol on aerosol ion Janette up inhaler inhaler aerosol Inhale 2 Inhale 2 inhaler puffs every puffs every Inhale 2 4-6 hours 4-6 hours puffs by by every 4-6 inhalation inhalation hours by route as route as inhalation needed. needed. route as needed. Tylenol-Cod Tylenol-Cod No Tylenol-Co [facility] eine #3 300 eine #3 300 deine #3 da mg-30 mg mg-30 mg 300 mg-30 Me dical tablet 1-2 tablet 1-2 mg tablet Group tabs p.o. q tabs p.o. q 1-2 tabs 6 hours PRN 6 hours PRN p.o. q 6 pain pain hours PRN pain albuterol albuterol No albuterol [facility] sulfate 2.5 sulfate 2.5 sulfate da mg/3 mL mg/3 mL 2.5 mg/3 Medic al (0.083 %) (0.083 %) mL (0.083 Group solution solution %) for for solution nebulizatio nebulizatio for n Inhale 3 n Inhale 3 nebulizati mL 3 times mL 3 times on Inhale a day by a day by 3 mL 3 nebulizatio nebulizatio times a n route as n route as day by needed. needed. nebulizati on route as needed. amlodipine amlodipine No amlodipine [facility] 5 mg tablet 5 mg tablet 5 mg d a TAKE 1 TAKE 1 tablet Medical TABLET BY TABLET BY TAKE 1 Janette up MOUTH ONCE MOUTH ONCE TABLET BY DAILY DAILY MOUTH ONCE DAILY atorvastati atorvastati No atorvastat [facility] n 20 mg n 20 mg in 20 mg da tablet TAKE tablet TAKE tablet Medical 1 TABLET BY 1 TABLET BY TAKE 1 Group MOUTH AT MOUTH AT TABLET BY NIGHT NIGHT MOUTH AT NIGHT ibuprofen ibuprofen No ibuprofen [facility] 600 mg 600 mg 600 mg da tablet TAKE tablet TAKE tablet Medical 1 TABLET BY 1 TABLET BY TAKE 1 Group MOUTH EVERY MOUTH EVERY TABLET BY 6 HOURS 6 HOURS MOUTH NEEDED FOR NEEDED FOR EVERY 6 PAIN PAIN HOURS NEEDED FOR PAIN ibuprofen ibuprofen No 1 TID ibuprofen [facility] 800 mg 800 mg 800 mg da tablet Take tablet Take tablet Medical 1 tablet 3 1 tablet 3 Take 1 G roup times a day times a day tablet 3 by oral by oral times a route. route. day by oral route. lisinopril lisinopril No lisinopril [facility] 20 mg 20 mg 20 mg da tablet TAKE tablet TAKE tablet Medical 1 TABLET BY 1 TABLET BY TAKE 1 Group MOUTH ONCE MOUTH ONCE TABLET BY DAILY DAILY MOUTH ONCE DAILY metformin metformin No metformin [facility] 1,000 mg 1,000 mg 1,000 mg da tablet TAKE tablet TAKE tablet Medical 1 TABLET BY 1 TABLET BY TAKE 1 Group MOUTH TWICE MOUTH TWICE TABLET BY DAILY DAILY MOUTH TWICE DAILY Vital Signs Vital Name Observation Time Observation Value Comments Source BP Diastolic 2020-04-21 00:00:00 81 mm[Hg] [facility] Height 2020-04-21 00:00:00 65 [in_i] [facility] BMI (Body Mass 2020-04-21 00:00:00 44.1 kg/m2 [facility]) Group BP Systolic 2020-04-21 00:00:00 163 mm[Hg] [facility] Body Weight 2020-04-21 00:00:00 265 [lb_av] [facility] BP Diastolic 2020-02-21 00:00:00 87 mm[Hg] [facility] Height 2020-02-21 00:00:00 65 [in_i] [facility] BMI (Body Mass 2020-02-21 00:00:00 44.1 kg/m2 [facility] BP Systolic 2020-02-21 00:00:00 144 mm[Hg] [facility] Body Weight 2020-02-21 00:00:00 265 [lb_av] [facility] BP Diastolic 2020-01-31 00:00:00 98 mm[Hg] [facility] BP Systolic 2020-01-31 00:00:00 185 mm[Hg] [facility] Body Weight 2020-01-31 00:00:00 275.7 [lb_av] [facility] Procedures Procedure Date / Time Performed Performing Clinician [facility] US, transvaginal 2020-02-21 00:00:00 [facility] US, transvaginal 2020-01-31 00:00:00 [facility] Caesarean [facility] Cholecystectomy [facility] Encounters Start End Encounter Admission Attending Care Care Encounter Source Date/Time Date/Time Type Type Clinicians Facility Department ID 2020-04-21 2020-04-21 [facility] [place] - [id number] [facility] 00:00:00 00:00:00 Ivelisse Markham Medicirene lagunas MD: [address] [id number] , Ph. [phone] 2020-02-21 2020-02-21 [facility] [place] - [id number] [facility] 00:00:00 00:00:00 Ivelisse Markham MD: [address] [address] , Ph. [phone] 2020-01-31 2020-01-31 [facility] [place] - [id number] M [facility] 00:00:00 00:00:00 Ivelisse Markham Medicirene lagunas MD: [address] [id number] , Ph. [phone] Results Test Description Test Time Test Comments Results Result Comments Source Mullerian inhibiting substance [Mass/volume] in Serum or Plasma 2020-01-31 09:32:00 Test Item Value Reference Range Interpretation Comme nts Mullerian inhibiting substance [Moles/volume] in Serum or Plasma (test <0.015 . code = 33879-0) [facility] Serum or [id number] 09:32:00 Test Item Value Reference Range Interpretation Comments Mullerian inhibiting substance <0.015 . [Moles/volume] in Serum or Plasma (test code = 77118-6) [facility]
[2020-07-06 20:40] LABS: Basophils % 0.8 % (0-1.3); Hematocrit 42.3 % (36.0-45.0); Lymphocytes % 30.5 % (15.3-44.8); MPV 9.1 fL (7.6-11.3); RBC Red Blood Cell Count 4.98 M/uL (3.86-4.86)
[2020-07-06] MEDS ORDERED: KETOROLAC 30 MG/ML INJ ONE (20:47)
[2020-07-06 20:53] LABS: BUN Blood Urea Nitrogen 14 mg/dL (7-18); Bicarbonate 30 mmol/L (21-32); Glucose Level 60 mg/dL (74-106); Potassium 4.1 mmol/L (3.5-5.1); Sodium Level 143 mmol/L (136-145)
--- NOTE | 2020-07-06 21:00 | RAD REPORT ---
EXAM DESCRIPTION: CT - Head C Spine Cap Edwar Newman - 07/06/2020 8:40 pm CLINICAL HISTORY: trauma, rlq abd pain right sided chest pain;Pain COMPARISON: No comparisons TECHNIQUE: Axial [address] head images were obtained. Axial [address] cervical spine images were obtaine d with sagittal and coronal reconstruction images reviewed. During dynamic enhancement of 100mL non-i onic contrast, axial 5 mm images of the chest, abdomen and pelvis were obtained. Biphasic technique p erformed of the abdomen and pelvis. All CT scans are performed using dose optimization technique as appropriate and may include automated exposure control or mA/KV adjustment according to patient size. FINDINGS: No intracranial hemorrhage, mass or edema. No midline shift or abnormal fluid collection. Mastoid air cells and paranasal sinuses are clear. No skull fracture. CT cervical spine imaging shows normal height. Normal alignment of the vertebrae. No disc space narro wing. No paraspinal mass or hematoma seen. Central canal detail is inherently limited. Concerns for t raumatic disc herniation or traumatic cord injury can be further addressed with MR imaging. CT chest shows no pneumothorax, pulmonary contusion or pleural fluid collection. No mediastinal hemat andrew and the aorta and pulmonary arteries are unremarkable. No chest will mass or abnormal axillary fi nding. No displaced rib fracture or other significant bony finding. CT abdomen and pelvis show no injury to solid abdominal viscera. Gallbladder is absent. No biliary tr ee dilatation. No bowel injury or significant finding. Diverticulosis present without diverticulitis. No free air, free fluid or abnormal stranding. No urinary bladder abnormality. Uterus and ovaries sh ow no suspicious findings. No significant bony finding. No significant vascular finding. IMPRESSION: No significant CT Head finding. No significant CT Cervical Spine finding. No significant CT Chest finding. No significant CT Abdomen and Pelvis finding.
[2020-07-06] MEDS ORDERED: HYDROCODONE/APAP 10/325 TAB ONE (21:56)
--- NOTE | 2020-07-06 22:58 | ER ---
Nurse's Notes [facility] Name: Anjana Cordova Age: 54 yrs Sex: Female : 1965 Arrival Date: 07/06/2020 Time: 18:25 Bed 25 Private MD: Diagnosis: Abrasion of right upper arm;Abrasion, right knee;Contusion of abdominal wall;Other sprain of right shoulder joint Presentation: 07/06 18:45 Chief complaint: Patient states: I was on a zero turn shade bander and I didn't know what ca1 happened, happened too fast. My was showing me how to use it then I got stuck under my grand daughter's trampoline, they have to help me to get out of. I did not fell off the shade bander. C/O pain on neck, R arm, R hip, R knee, R abdominal area. Denies hitting head. Denies LOC. 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 Coronavirus screen: Client denies travel out of the [place] in the last 14 days. At this time, the client does not indicate any symptoms associated with coronavirus-19. Ebola Screen: Patient negative for fever greater than or equal to 101.5 degrees Fahrenheit, and additional compatible Ebola Virus Disease symptoms Patient denies exposure to infectious person. Patient denies travel to an Ebola-affected area in the 21 days before illness onset. No symptoms or risks identified at this time. Initial Sepsis Screen: Does the patient meet any 2 criteria? No. Patient's initial sepsis screen is negative. Does the patient have a suspected source of infection? No. Patient's initial sepsis screen is negative. Risk Assessment: Do you want to hurt yourself or someone else? Patient reports no desire to harm self or others. Onset of symptoms was July 06, 2020. 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 - Social history:: Smoking status: Patient reports the use of cigarette tobacco products, smokes one pack cigarettes per day. Patient/guardian denies using alcohol, street drugs, The patient lives with family. - Family history:: not pertinent. Screenin:57 Abuse screen: Denies threats or abuse. Denies injuries from another. Nutritional zb screening: No deficits noted. Tuberculosis screening: No symptoms or risk factors identified. Fall Risk None identified. Assessment: 20:30 General: Appears in no apparent distress. uncomfortable, Behavior is calm, cooperative, zb appropriate for age. Pain: Complains of pain in neck, right upper quadrant, right lower quadrant, right arm and right leg Pain does not radiate. Pain currently is 10 out of 10 on a pain scale. Quality of pain is described as sharp, tender, Alleviated by nothing. Aggravated by increased activity. Neuro: Level of Consciousness is awake, alert, obeys commands, Oriented to person, place, situation, Director [employer] are equal bilaterally Moves all extremities. Full function. Cardiovascular: Heart tones S1 S2 present Capillary refill < 3 seconds Patient's skin is warm and dry. Respiratory: Airway is patent Respiratory effort is even, unlabored, Respiratory pattern is regular, symmetrical, Breath sounds are clear bilaterally. GI: Abdomen is obese, bruised on right lower quadrant and left lower quadrant. : No deficits noted. Derm: Bruising that is bright red, dark purple, on abdomen and right leg. Musculoskeletal: Range of motion: intact in all extremities. 21:30 Reassessment: Patient appears in no apparent distress at this time. Patient and/or iw family updated on plan of care and expected duration. Pain level reassessed. Patient is alert, oriented x 3, equal unlabored respirations, skin warm/dry/pink. 21:44 Reassessment: pt requesting more pain medication, has not had any relief, Dr. Smalls iw notified, verbal order for Hinckley 10 mg PO given now. Vital Signs: 18:45 BP 138 / 84; Pulse 98; Resp 16 S; Temp 98.1(TE); Pulse Ox 95% on R/A; Weight 120.2 kg ca1 (R); Height 5 ft. 6 in. (167.64 cm) (R); Pain 9/10; 20:57 BP 155 / 54; Pulse 80; Resp 16; Pulse Ox 94% on R/A; zb 18:45 Body Mass Index 42.77 (120.20 kg, 167.64 cm) ca1 ED Course: 18:25 Patient arrived in ED. am2 18:49 Triage completed. ca1 18:50 Arm band placed on right wrist. ca1 19:45 Enedelia Smalls MD is Attending Physician. ma2 19:54 Ofelia Fletcher RN is Primary Nurse. zb 20:29 Inserted saline lock: 20 gauge in right forearm, using aseptic technique. Blood dh4 collected. 20:40 CT Traumagram (Head C Spine CAP W Con) In Process Unspecified. EDMS 20:57 Patient has correct armband on for positive identification. Bed in low position. Call zb light in reach. Side rails up X 1. Pulse ox on. NIBP on. Door closed. Noise minimized. 21:37 Shoulder Right (2 View) XRAY In Process Unspecified. EDMS 21:37 Knee Right 2 View XRAY In Process Unspecified. EDMS 22:15 Primary Nurse role handed off by Ofelia Fletcher RN iw 22:15 Ann Ferrara RN is Primary Nurse. iw 23:08 No provider procedures requiring assistance completed. IV discontinued, intact, iw bleeding controlled, No redness/swelling at site. Pressure dressing applied. Administered Medications: 20:59 Drug: TORadol 30 mg Route: IVP; Site: right antecubital; zb 21:44 Follow up: Response: No adverse reaction; Pain is unchanged, physician notified iw 21:44 Drug: Hinckley 10 mg-325 mg 1 tabs Route: PO; iw 22:15 Follow up: Response: No adverse reaction iw Outcome: 22:57 Discharge ordered by . ma2 23:08 Discharged to home ambulatory, with family. iw 23:08 Condition: good 23:08 Discharge instructions given to patient, Instructed on discharge instructions, follow up and referral plans. medication usage, Demonstrated understanding of instructions, follow-up care, medications, Prescriptions given X 1. 23:09 Patient left the ED. iw Signatures: Dispatcher [employer] EDMS Ann Ferrara RN RN iw Bonita Kenny am2 Enedelia Smalls MD MD ma2 Acob, Cheryl, RN RN ca1 Lion Latif 4 Brown, Ofelia, RN RN zb Corrections: (The following items were deleted from the chart) 19:12 18:45 Chief complaint: Patient states: I was on a zero turn shade bander and I didn't ca1 know what happened, happened too fast. My was showing me how to use it then I got stuck under my grand daughter's trampoline, they have to help me to get out of. I did not fell off the shade bander. C/O pain on neck, R arm, R hip, R knee, R abdominal area. Denies hitting head. Denies LOC. ca1 22:13 21:44 Reassessment: Patient appears in no apparent distress at this time. Patient iw and/or family updated on plan of care and expected duration. Pain level reassessed. Patient is alert, oriented x 3, equal unlabored respirations, skin warm/dry/pink. iw
--- NOTE | 2020-07-06 22:58 | EDPHYS ---
Physician Documentation [facility] Name: Anjana Cordova Age: 54 yrs Sex: Female : 1965 Arrival Date: 07/06/2020 Time: 18:25 Bed 25 Private MD: ED Physician Enedelia Olivo HPI: 07/06 21:27 This 54 yrs old Female presents to ER via Wheelchair with complaints of Fall ma2 Injury, Arm Pain, Right side pain, Knee Pain. 21:27 Details of fall: The patient fell from seated position. Onset: The symptoms/episode ma2 began/occurred suddenly, 1 day(s) ago. Severity of symptoms: At their worst the symptoms were mild, in the emergency department the symptoms are unchanged. The patient has not experienced similar symptoms in the past. 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 - Social history:: Smoking status: Patient reports the use of cigarette tobacco products, smokes one pack cigarettes per day. Patient/guardian denies using alcohol, street drugs, The patient lives with family. - Family history:: not pertinent. ROS: 21:27 Constitutional: Negative for fever, chills, and weight loss. ma2 21:27 All other systems are negative. Exam: 21:27 Constitutional: This is a well developed, well nourished patient who is awake, alert, ma2 and in no acute distress. Head/Face: Normocephalic, atraumatic. Eyes: Pupils equal round and reactive to light, extra-ocular motions intact. Lids and lashes normal. Conjunctiva and sclera are non-icteric and not injected. Cornea within normal limits. Periorbital areas with no swelling, redness, or edema. ENT: Nares patent. No nasal discharge, no septal abnormalities noted. Tympanic membranes are normal and external auditory canals are clear. Oropharynx with no redness, swelling, or masses, exudates, or evidence of obstruction, uvula midline. Mucous membranes moist. Neck: Trachea midline, no thyromegaly or masses palpated, and no cervical lymphadenopathy. Supple, full range of motion without nuchal rigidity, or vertebral point tenderness. No Meningismus. Chest/axilla: Normal chest wall appearance and motion. Nontender with no deformity. No lesions are appreciated. Cardiovascular: Regular rate and rhythm with a normal S1 and S2. No gallops, murmurs, or rubs. Normal PMI, no JVD. No pulse deficits. Respiratory: Lungs have equal breath sounds bilaterally, clear to auscultation and percussion. No rales, rhonchi or wheezes noted. No increased work of breathing, no retractions or nasal flaring. Abdomen/GI: Soft, non-tender, with normal bowel sounds. No distension or tympany. No guarding or rebound. No evidence of tenderness throughout. Skin: abrasions to right abdomin and both right knee and upper arm, otherwise Warm, dry with normal turgor. Normal color with no rashes, no lesions, and no evidence of cellulitis. MS/ Extremity: right shoulder pain, otherwise Pulses equal, no cyanosis. Neurovascular intact. Full, normal range of motion. Neuro: Awake and alert, GCS 15, oriented to person, place, time, and situation. Cranial nerves II-XII grossly intact. Motor strength 5/5 in all extremities. Sensory grossly intact. Cerebellar exam normal. Normal gait. Vital Signs: 18:45 BP 138 / 84; Pulse 98; Resp 16 S; Temp 98.1(TE); Pulse Ox 95% on R/A; Weight 120.2 kg ca1 (R); Height 5 ft. 6 in. (167.64 cm) (R); Pain 9/10; 20:57 BP 155 / 54; Pulse 80; Resp 16; Pulse Ox 94% on R/A; zb 18:45 Body Mass Index 42.77 (120.20 kg, 167.64 cm) ca1 MDM: 19:45 Patient medically screened. oh2 21:27 Differential diagnosis: abrasion, closed head injury, contusion, fracture. [facility] 22:57 Data reviewed: vital signs, nurses notes. Counseling: I had a detailed discussion with ma2 the patient and/or guardian regarding: the historical points, exam findings, and any diagnostic results supporting the discharge/admit diagnosis, the presence of at least one elevated blood pressure reading (>120/80) during this emergency department visit, the need for outpatient follow up. Response to treatment: the patient's symptoms have markedly improved after treatment. 07/06 20:06 Order name: CBC with Diff [facility] 07/06 20:06 Order name: Basic Metabolic Panel [facility] 07/06 20:06 Order name: Type And Screen [facility] 07/06 20:06 Order name: CBC with Automated Diff; Complete Time: : [facility] 07/06 20:06 Order name: Basic Metabolic Panel; Complete Time: : [facility] 07/06 20:07 Order name: Type and Screen; Complete Time: : [facility] 07/06 20:06 Order name: CT Traumagram (Head C Spine CAP W Con); Complete Time: : [facility] 07/06 20:06 Order name: Labs collected and sent; Complete Time: : [facility] 07/06 20:06 Order name: Shoulder Right (2 View) XRAY [facility] 07/06 20:06 Order name: Knee Right 2 View XRAY [facility] Administered Medications: 20:59 Drug: TORadol 30 mg Route: IVP; Site: right antecubital; zb 21:44 Follow up: Response: No adverse reaction; Pain is unchanged, physician notified iw 21:44 Drug: West 10 mg-325 mg 1 tabs Route: PO; iw 22:15 Follow up: Response: No adverse reaction iw Disposition: 07/06/20 22:57 Discharged to Home. Impression: Abrasion of right upper arm, Abrasion, right knee, Contusion of abdominal wall, Other sprain of right shoulder joint. - Condition is Stable. - Discharge Instructions: Muscle Pain, Adult, Contusion, [id number]. - Prescriptions for Diclofenac Sodium 75 mg Oral Tablet Sustained Release - take 1 tablet by ORAL route 2 times per day; 30 tablet. - Medication Reconciliation Form, Thank You Letter, Antibiotic Education, Prescription Opioid Use form. - Follow up: Private Physician; When: Tomorrow; Reason: Continuance of care. Signatures: Dispatcher [employer] Ann Johnston RN RN iw Alzahri, Mohammad, MD MD oh2 Sarah Gutiérrez RN RN ca1 Brown, Zipporah, RN RN zb Corrections: (The following items were deleted from the chart) 23:09 22:57 07/06/2020 22:57 Discharged to Home. Impression: Abrasion of right upper arm; iw Abrasion, right knee; Contusion of abdominal wall; Other sprain of right shoulder joint. Condition is Stable. Discharge Instructions: Muscle Pain, Adult, Contusion, [id number]. Prescriptions for Diclofenac Sodium 75 mg Oral Tablet Sustained Release - take 1 tablet by ORAL route 2 times per day; 30 tablet. and Forms are Medication Reconciliation Form, Thank You Letter, Antibiotic Education, Prescription Opioid Use. Follow up: Private Physician; When: Tomorrow; Reason: Continuance of care. ma2
[2020-07-07 02:04] VITALS: TEMP 98.1
[2020-07-07 02:16] VITALS: BP 155/54; O2SAT 94
--- NOTE | 2020-07-07 09:00 | RAD REPORT ---
EXAM DESCRIPTION: RAD - Shoulder Right 2 View - 07/06/2020 9:37 pm CLINICAL HISTORY: PAIN COMPARISON: No comparisons FINDINGS: Mild AC joint degenerative changes are present. No acute fracture or dislocation seen.
--- NOTE | 2020-07-07 09:09 | RAD REPORT ---
EXAM DESCRIPTION: RAD - Knee Right 2 View - 07/06/2020 9:37 pm CLINICAL HISTORY: PAIN COMPARISON: Knee Right 3 View dated 05/19/2018; Knee Right 3 View dated 08/20/2015 FINDINGS: No acute fracture or dislocation seen. Small suprapatellar joint effusion.
== END 2020-07-06 23:09 | disposition home or self-care (01) ==
LOC: ER 18:23
DX: S43.491A Other sprain of right shoulder joint, initial encounter (principal); S40.811A Abrasion of right upper arm, initial encounter; S80.211A Abrasion, right knee, initial encounter; S30.1XXA Contusion of abdominal wall, initial encounter; I10 Essential (primary) hypertension; F17.210 Nicotine dependence, cigarettes, uncomplicated; W18.30XA Fall on same level, unspecified, initial encounter; Y93.9 Activity, unspecified; Y92.9 Unspecified place or not applicable
CPT/HCPCS: 36415; 70450; 71260; 72125; 74177; 80048; 82565; 85025; 86850; 86900; 86901; 96374; 99284; Q9967

== ENCOUNTER 2021-04-23 12:19 | Emergency (ER) | payer BC ==
--- OUTSIDE RECORDS SUMMARY | 2021-04-23 12:25 | XMS REPORT | Continuity of Care Document ---
:1965 [address] [facility] t Address [address] [place] [address] Care Team Providers Name Role Phone CAROLINE Attending Clinician Unavailable Rutledge_L Attending Clinician Unavailable Shield Attending Clinician Unavailable CAROLINE Admitting Clinician Unavailable Ruttoño_L Admitting Clinician Unavailable Shield Admitting Clinician Unavailable Payers Payer Name Policy Type Policy Number Effective Date Expiration Date S ource Problems Condition Condition Condition Status Onset Resolution [...] Source BP Diastolic 2020-04-21 00:00:00 81 mm[Hg] [facility] Height 2020-04-21 00:00:00 65 [in_i] [facility] BMI (Body Mass 2020-04-21 00:00:00 44.1 kg/m2 [facility] Medical Index) Group BP Systolic 2020-04-21 00:00:00 163 mm[Hg] [facility] Body Weight 2020-04-21 00:00:00 265 [lb_av] [facility] BP Diastolic 2020-02-21 00:00:00 87 mm[Hg] [facility] Height 2020-02-21 00:00:00 65 [in_i] [facility] BMI (Body Mass 2020-02-21 00:00:00 44.1 kg/m2 [facility] [employer] [facility]) Group BP Systolic 2020-02-21 00:00:00 144 mm[Hg] [facility] Body Weight 2020-02-21 00:00:00 265 [lb_av] [facility] BP Diastolic 2020-01-31 00:00:00 98 mm[Hg] [facility] BP Systolic 2020-01-31 00:00:00 185 mm[Hg] [facility] Body Weight 2020-01-31 00:00:00 275.7 [lb_av] [facility] Procedures Procedure Date / Time Performed Performing Clinician [facility] [place], transvaginal 2020-02-21 00:00:00 [facility] US, transvaginal 2020-01-31 00:00:00 [facility] Caesarean Section [facility] Encounters Start End Encounter Admission Attending Care Care Encounter Source Date/Time Date/Time Type Type Clinicians Facility Department ID 2020-07-19 2020-07-19 Outpatient KAYLIE_MARIANNAI [facility]ANYA [facility] [id number] [place] 12:41:00 12:41:00 [facility] 0407 da [facility] 2020-06-04 2020-06-04 Outpatient Rutledge_L [facility] [id number] [place] 12:22:00 12:22:00 [id number] 2020-04-21 2020-04-21 Outpatient Rutledge_L [facility] [id number] [place] 02:20:00 02:20:00 0108 [facility] 2020-04-21 2020-04-21 [facility] [place] - [id number] M [place] 00:00:00 00:00:00 [facility] janneth ROBERTSON: [address] [facility] [address] [place] [address] , Ph. [phone] 2020-04-17 2020-04-17 Outpatient Rutledge_L [facility] [id number] [place] 11:05:00 11:05:00 0104 [facility] 2020-03-26 2020-03-26 Outpatient Rutledge_L [facility] [id number] [place] 03:57:00 03:57:00 [id number] [facility] 2020-03-01 2020-03-01 Outpatient Rutledge_L [facility] [id number] [place] 02:21:00 02:21:00 [id number] [facility] 2020-02-21 2020-02-21 Outpatient Rutledge_L [facility] [address] [place] 11:57:00 11:57:00 [id number] [facility] 2020-02-21 2020-02-21 Lacy [facility] [place] - [id number] M at[place] 00:00:00 00:00:00 [facility] lagunas MD: [address] [address] , Ph. [phone] 2020-02-15 2020-02-15 Outpatient Rutledge_L MMG [facility] [id number] [place] 11:06:00 11:06:00 1103 [facility] 2020-02-13 2020-02-13 Outpatient Rutledge_L [facility] [id number] [place] 01:16:00 01:16:00 [id number] [facility] 2020-01-31 2020-01-31 Outpatient Rutledge_L [facility] [address] [place] 11:16:00 11:16:00 [id number] [facility] 2020-01-31 2020-01-31 Lacy [facility] [place] - [id number] M [place] 00:00:00 00:00:00 [facility] Pr[facility] lagunas MD: [address] [facility] Suite [facility], [place] [address] , Ph. [phone] 2020-01-25 2020-01-25 [facility] [id number] [place] 12:46:00 12:46:00 1013 [facility] 2019-12-27 2019-12-27 Out[facility] [id number] [place] 04:57:00 04:57:00 [id number] [facility] Results Test Description Test Time Test Comments Results Result Comments Source Mullerian inhibiting substance [Mass/volume] in Serum or Plasma 2020-01-31 09:32:00 Test Item Value Reference Range Interpretation Comme nts Mullerian inhibiting substance [Moles/volume] in Serum or Plasma (test <0.015 . code = 91742-1) [facility]/volume[facility] in Serum or [id number] 09:32:00 Test Item Value Reference Range Interpretation Comments Mullerian inhibiting substance <0.015 . [Moles/volume] in Serum or Plasma (test code = 33782-0) [facility]
--- NOTE | 2021-04-23 12:42 | ER ---
Nurse's Notes [facility] Name: Anjana Cordova Age: 55 yrs Sex: Female : 1965 Arrival Date: 04/23/2021 Time: 12:26 Bed 12 Private MD: Diagnosis: Acute suppurative otitis media Presentation: 04/23 12:30 Chief complaint: Patient states: R ear pain, swelling, and decreased hearing since ll1 Friday night. No fever. Coronavirus screen: Vaccine status: Patient reports receiving the 2nd dose of the covid vaccine. Client denies travel out of the [place] in the last 14 days. At this time, the client does not indicate any symptoms associated with coronavirus-19. Ebola Screen: Patient denies travel to an Ebola-affected area in the 21 days before illness onset. Initial Sepsis Screen: Does the patient meet any 2 criteria? HR > 90 bpm. No. Patient's initial sepsis screen is negative. Does the patient have a suspected source of infection? Yes: Other: ear pain. Risk Assessment: Do you want to hurt yourself or someone else? Patient reports no desire to harm self or others. Onset of symptoms was April 20, 2021. 12:30 Method Of Arrival: Ambulatory ll1 12:30 Acuity: HAWK 4 ll1 Historical: - Allergies: 12:32 No Known Allergies; ll1 - PMHx: 12:32 Depression; Diabetes - IDDM; Hypertension; ll1 - PSHx: 12:32 section; Cholecystectomy; L arm; ll1 - Immunization history:: Client reports receiving the 2nd dose of the Covid vaccine, Flu vaccine is not up to date. - Social history:: Smoking status: Patient reports the use of cigarette tobacco products, smokes one-half pack cigarettes per day. Screenin:47 Abuse screen: Denies threats or abuse. Nutritional screening: No deficits noted. ll3 Tuberculosis screening: No symptoms or risk factors identified. Fall Risk None identified. Assessment: 12:45 General: Appears in no apparent distress. uncomfortable, Behavior is calm, cooperative. ll3 Pain: Complains of pain in right ear Pain currently is 10 out of 10 on a pain scale. Neuro: Level of Consciousness is awake, alert, obeys commands, Oriented to person, place, time, situation, Reports dizziness, Feeling drunk. Cardiovascular: Patient's skin is warm and dry. Respiratory: Respiratory effort is even, unlabored, Respiratory pattern is regular, symmetrical. EENT: Ear canal w/ drainage noted from right ear Reports decreased hearing in right ear pain in right ear. Derm: Skin is pink, warm \T\ dry. Vital Signs: 12:30 BP 165 / 97; Pulse 98; Resp 18; Temp 97.0; Pulse Ox 98% ; Weight 120.66 kg; Height 5 ll1 ft. 6 in. (167.64 cm); Pain 10/10; 12:30 Body Mass Index 42.93 (120.66 kg, 167.64 cm) ll1 ED Course: 12:26 Patient arrived in ED. mr 12:32 Triage completed. ll1 12:32 Arm band placed on Patient placed in an exam room, on a stretcher. ll1 12:33 Lazaro Yancey PA is PHCP. jr8 12:33 Michael Ott MD is Attending Physician. jr8 12:33 Jennifer Gasca RN is Primary Nurse. ll3 12:42 Cheryl Ramirez MD is Referral Physician. jr8 12:47 Patient has correct armband on for positive identification. Bed in low position. Call ll3 light in reach. Side rails up X 1. 12:47 No provider procedures requiring assistance completed. ll3 13:37 Patient did not have IV access during this emergency room visit. ll3 Administered Medications: 12:52 Drug: Ketorolac 30 mg Route: IM; Site: left gluteus; ll3 12:59 Follow up: Response: No adverse reaction ll3 13:37 Drug: Teachey (HYDROcodone-acetaminophen) 10 mg-325 mg 1 tabs Route: PO; ll3 13:37 Follow up: Response: No adverse reaction ll3 Outcome: 12:42 Discharge ordered by . jr8 13:37 Discharged to home ambulatory, with family. ll3 13:37 Condition: stable 13:37 Discharge instructions given to patient, Instructed on discharge instructions, follow up and referral plans. medication usage, Demonstrated understanding of instructions, follow-up care, medications, Prescriptions given X 3. 13:38 Patient left the ED. ll3 Signatures: Michelle Us mr Lazaro Yancey PA PA jr8 Kade Edward RN RN ll1 Elo Jennifer, RN RN ll3
--- NOTE | 2021-04-23 12:43 | EDPHYS ---
Physician Documentation [facility] Name: Anjana Cordova Age: 55 yrs Sex: Female : 1965 Arrival Date: 04/23/2021 Time: 12:26 Bed 12 Private MD: ED Physician Michael Ott HPI: 04/23 13:30 This 55 yrs old Female presents to ER via Ambulatory with complaints of Ear Pain, jr8 Drainage From Ear. 13:30 Onset: The symptoms/episode began/occurred acutely, 2 day(s) ago. Modifying factors: jr8 The symptoms are alleviated by nothing, the symptoms are aggravated by touching. Associated signs and symptoms: The patient has no apparent associated signs or symptoms. Severity of symptoms: At their worst the symptoms were moderate in the emergency department the symptoms are unchanged. The patient has not experienced similar symptoms in the past. The patient has not recently seen a physician. Historical: - Allergies: 12:32 No Known Allergies; ll1 - PMHx: 12:32 Depression; Diabetes - IDDM; Hypertension; ll1 - PSHx: 12:32 section; Cholecystectomy; L arm; ll1 - Immunization history:: Client reports receiving the 2nd dose of the Covid vaccine, Flu vaccine is not up to date. - Social history:: Smoking status: Patient reports the use of cigarette tobacco products, smokes one-half pack cigarettes per day. ROS: 13:30 Eyes: Negative for injury, pain, redness, and discharge, Neck: Negative for injury, jr8 pain, and swelling, Cardiovascular: Negative for chest pain, palpitations, and edema, Respiratory: Negative for shortness of breath, cough, wheezing, and pleuritic chest pain, Abdomen/GI: Negative for abdominal pain, nausea, vomiting, diarrhea, and constipation, Back: Negative for injury and pain, MS/Extremity: Negative for injury and deformity, Skin: Negative for injury, rash, and discoloration, Neuro: Negative for headache, weakness, numbness, tingling, and seizure. 13:30 ENT: Positive for ear pain. Exam: 13:30 Constitutional: This is a well developed, well nourished patient who is awake, alert, jr8 and in no acute distress. Eyes: Pupils equal round and reactive to light, extra-ocular motions intact. Lids and lashes normal. Conjunctiva and sclera are non-icteric and not injected. Cornea within normal limits. Periorbital areas with no swelling, redness, or edema. Neck: Trachea midline, no thyromegaly or masses palpated, and no cervical lymphadenopathy. Supple, full range of motion without nuchal rigidity, or vertebral point tenderness. No Meningismus. Cardiovascular: Regular rate and rhythm with a normal S1 and S2. No gallops, murmurs, or rubs. Normal PMI, no JVD. No pulse deficits. Respiratory: Lungs have equal breath sounds bilaterally, clear to auscultation and percussion. No rales, rhonchi or wheezes noted. No increased work of breathing, no retractions or nasal flaring. Skin: Warm, dry with normal turgor. Normal color with no rashes, no lesions, and no evidence of cellulitis. MS/ Extremity: Pulses equal, no cyanosis. Neurovascular intact. Full, normal range of motion. Neuro: Awake and alert, GCS 15, oriented to person, place, time, and situation. Cranial nerves II-XII grossly intact. Motor strength 5/5 in all extremities. Sensory grossly intact. 13:30 ENT: External ear(s): are unremarkable, Ear canal(s): are normal, clear, TM's: bulging, on the right, dullness, on the right, erythema, that is moderate, on the right, fluid levels, on the right, Examination of the other ear shows no obvious abnormality, Nose: is normal, Mouth: is normal, Posterior pharynx: is normal. Vital Signs: 12:30 BP 165 / 97; Pulse 98; Resp 18; Temp 97.0; Pulse Ox 98% ; Weight 120.66 kg; Height 5 ll1 ft. 6 in. (167.64 cm); Pain 10/10; 12:30 Body Mass Index 42.93 (120.66 kg, 167.64 cm) ll1 MDM: 12:33 Patient medically screened. 8 12:41 Data reviewed: vital signs, nurses notes, and as a result, I will discharge patient. jr8 Data interpreted: Pulse oximetry: on room air is 98 %. Interpretation: normal. Counseling: I had a detailed discussion with the patient and/or guardian regarding: the historical points, exam findings, and any diagnostic results supporting the discharge/admit diagnosis, the need for outpatient follow up, an ENT specialist, to return to the emergency department if symptoms worsen or persist or if there are any questions or concerns that arise at home. Administered Medications: 12:52 Drug: Ketorolac 30 mg Route: IM; Site: left gluteus; ll3 12:59 Follow up: Response: No adverse reaction ll3 13:37 Drug: [place] (HYDROcodone-acetaminophen) 10 mg-325 mg 1 tabs Route: PO; ll3 13:37 Follow up: Response: No adverse reaction ll3 Disposition: 15:17 Co-signature as Attending Physician, Michael Ott MD I agree with the assessment and rn plan of care. Attestation: The patient's history, exam findings, diagnostics, and a summary of any interventions or procedures was reviewed in detail with Lazaro ELLINGTON. Disposition Summary: 04/23/21 12:42 Discharge Ordered Location: Home jr8 Problem: new jr8 Symptoms: have improved jr8 Condition: Stable jr8 Diagnosis - Acute suppurative otitis media jr8 Followup: jr8 - With: Cheryl Ramirez MD - When: 1 week - Reason: Recheck today's complaints, Continuance of care, Re-evaluation by your physician Discharge Instructions: - Discharge Summary Sheet jr8 - Otitis Media, Adult jr8 Forms: - Medication Reconciliation Form jr8 - Thank You Letter jr8 - Antibiotic Education jr8 - Prescription Opioid Use jr8 Prescriptions: - Augmentin 875-125 mg Oral Tablet - take 1 tablet by ORAL route every 12 hours for 10 days; 20 tablet; Refills: 0, jr8 Product Selection Permitted - Ibuprofen 800 mg Oral Tablet - take 1 tablet by ORAL route every 12 hours As needed take with food; 20 tablet; jr8 Refills: 0, Product Selection Permitted - Diflucan 150 mg Oral Tablet - take 1 tablet by ORAL route one time for 1 day; 1 tablet; Refills: 0, Product jr8 Selection Permitted Signatures: Michael Ott MD MD rn Roszak, Josh, PA PA jr8 Kade Edward RN RN ll1 Jennifer Gasca RN RN ll3
[2021-04-23] MEDS ORDERED: KETOROLAC 30 MG/ML INJ ONE (12:45)
[2021-04-23] MEDS ORDERED: HYDROCODONE/APAP 10/325 TAB ONE (13:30)
[2021-04-23 14:11] VITALS: BP 165/97; TEMP 97; O2SAT 98
== END 2021-04-23 13:38 | disposition home or self-care (01) ==
LOC: ER 12:19
DX: H66.009 Acute suppurative otitis media without spontaneous rupture of ear drum, unspecified ear (principal); E11.9 Type 2 diabetes mellitus without complications; I10 Essential (primary) hypertension
CPT/HCPCS: 96372; 99283

== ENCOUNTER 2021-10-15 22:26 | Emergency (ER) | payer BC ==
[2021-10-16] MEDS ORDERED: dexAMETHasone 10 MG/ML VIAL ONE (00:13)
[2021-10-16] MEDS ORDERED: MORPHINE 4 MG/ML SYR ONE (00:13)
[2021-10-16] MEDS ORDERED: DIAZEPAM 2 MG TABLET ONE (00:14)
[2021-10-16] MEDS ORDERED: NA CHLORIDE 0.9% 500 ML ONE (00:14)
[2021-10-16] MEDS ORDERED: KETOROLAC 30 MG/ML INJ ONE (00:14)
[2021-10-16] MEDS ORDERED: ONDANSETRON 4 MG/2 ML VIAL ONE ×2 (00:14→01:31)
[2021-10-16 00:32] LABS: Absolute Lymphocytes (CBC) 3.2 K/uL (0.7-4.9); Lymphocytes % 33.4 % (15.3-44.8); MCV 85.7 fL (80-100); MPV 9.4 fL (7.6-11.3)
[2021-10-16 00:53] LABS: Albumin 3.3 g/dL (3.4-5.0); Bilirubin Total 0.3 mg/dL (0.2-1.0)
[2021-10-16 01:09] LABS: Potassium 3.8 mmol/L (3.5-5.1)
--- NOTE | 2021-10-16 01:27 | EDPHYS ---
Physician Documentation [facility] Name: Anjana Cordova Age: 56 yrs Sex: Female : 1965 Arrival Date: 10/15/2021 Time: 22:29 Bed 15 Private MD: ED Physician Raul Urena HPI: 10/15 23:40 This 56 yrs old Female presents to ER via Wheelchair with complaints of Fall maria de jesus Injury, Back Injury. 23:40 Details of fall: The patient fell from an upright position, while walking. Onset: The maria de jesus symptoms/episode began/occurred just prior to arrival. Associated injuries: The patient sustained injury to the low back, decreased range of motion, pain, tenderness. Severity of symptoms: At their worst the symptoms were moderate, in the emergency department the symptoms have resolved. The patient has not experienced similar symptoms in the past. Historical: - Allergies: 22:54 No Known Allergies; jb4 - PMHx: 22:54 Depression; Diabetes - IDDM; Hypertension; jb4 - PSHx: 22:54 Cholecystectomy; section; L arm; jb4 - Immunization history:: Adult Immunizations up to date. - Social history:: Smoking status: Patient reports the use of cigarette tobacco products, smokes one-half pack cigarettes per day. ROS: 23:41 Constitutional: Negative for fever, chills, and weight loss, Eyes: Negative for injury, maria de jesus pain, redness, and discharge, ENT: Negative for injury, pain, and discharge, Neck: Negative for injury, pain, and swelling, Cardiovascular: Negative for chest pain, palpitations, and edema, Respiratory: Negative for shortness of breath, cough, wheezing, and pleuritic chest pain, Abdomen/GI: Negative for abdominal pain, nausea, vomiting, diarrhea, and constipation, : Negative for injury, bleeding, discharge, and swelling, Skin: Negative for injury, rash, and discoloration, Neuro: Negative for headache, weakness, numbness, tingling, and seizure, Psych: Negative for depression, anxiety, suicide ideation, homicidal ideation, and hallucinations, Allergy/Immunology: Negative for hives, rash, and allergies, Endocrine: Negative for neck swelling, polydipsia, polyuria, polyphagia, and marked weight changes, Hematologic/Lymphatic: Negative for swollen nodes, abnormal bleeding, and unusual bruising. 23:41 Back: Positive for decreased range of motion, pain at rest, of the lumbar area and left low back. 23:41 MS/extremity: Positive for decreased range of motion, pain, swelling, tenderness, of the left hip. Exam: 23:41 Constitutional: This is a well developed, well nourished patient who is awake, alert, maria de jesus and in no acute distress. Head/Face: Normocephalic, atraumatic. Eyes: Pupils equal round and reactive to light, extra-ocular motions intact. Lids and lashes normal. Conjunctiva and sclera are non-icteric and not injected. Cornea within normal limits. Periorbital areas with no swelling, redness, or edema. ENT: Nares patent. No nasal discharge, no septal abnormalities noted. Tympanic membranes are normal and external auditory canals are clear. Oropharynx with no redness, swelling, or masses, exudates, or evidence of obstruction, uvula midline. Mucous membranes moist. Neck: Trachea midline, no thyromegaly or masses palpated, and no cervical lymphadenopathy. Supple, full range of motion without nuchal rigidity, or vertebral point tenderness. No Meningismus. Chest/axilla: Normal chest wall appearance and motion. Nontender with no deformity. No lesions are appreciated. Cardiovascular: Regular rate and rhythm with a normal S1 and S2. No gallops, murmurs, or rubs. Normal PMI, no JVD. No pulse deficits. Respiratory: Lungs have equal breath sounds bilaterally, clear to auscultation and percussion. No rales, rhonchi or wheezes noted. No increased work of breathing, no retractions or nasal flaring. Abdomen/GI: Soft, non-tender, with normal bowel sounds. No distension or tympany. No guarding or rebound. No evidence of tenderness throughout. Back: No spinal tenderness. No costovertebral tenderness. Full range of motion. Female : Normal external genitalia. Neuro: Awake and alert, GCS 15, oriented to person, place, time, and situation. Cranial nerves II-XII grossly intact. Motor strength 5/5 in all extremities. Sensory grossly intact. Cerebellar exam normal. Normal gait. Psych: Awake, alert, with orientation to person, place and time. Behavior, mood, and affect are within normal limits. 23:41 Musculoskeletal/extremity: Circulation is intact in all extremities. Sensation intact. Compartment Syndrome exam of affected extremity: is normal. Weight bearing: is unable to bear weight, DVT Exam: no swelling, negative Homans' sign noted on exam, no appreciated bluish discoloration, no erythema, no increased warmth, pain, tenderness. 23:41 Skin: Appearance: Color: normal in color. Vital Signs: 22:51 BP 184 / 83; Pulse 92; Resp 20; Temp 97.1(TE); Pulse Ox 94% on R/A; Weight 108.41 kg jb4 (R); Height 5 ft. 5 in. (165.10 cm) (R); Pain 10/10; 10/16 02:05 BP 153 / 78; Pulse 77; Resp 16; Pulse Ox 94% on R/A; jb4 10/15 22:51 Body Mass Index 39.77 (108.41 kg, 165.10 cm) jb4 MDM: 10/15 23:30 Patient medically screened. [facility] 23:41 Differential diagnosis: hip fracture, intertrochanteric fracture, femoral neck maria de jesus fracture, femoral shaft fracture, bursitis, arthritis, strain. Differential diagnosis: contusion, fracture, multiple trauma, sprain, strain. Data reviewed: vital signs, nurses notes, lab test result(s), radiologic studies, CT scan, plain films. Data interpreted: cafeteria monitor: rate is 92 beats/min, rhythm is regular, Pulse oximetry: on room air is 94 %. Test interpretation: by ED physician or midlevel provider: plain radiologic studies. Counseling: I had a detailed discussion with the patient and/or guardian regarding: the historical points, exam findings, and any diagnostic results supporting the discharge/admit diagnosis, lab results, radiology results, the need for outpatient follow up, for definitive care, a family practitioner, a orthopedic surgeon. 10/15 23:39 Order name: CBC with Diff; Complete Time: 01:13 [facility] 10/15 23:39 Order name: Comprehensive Metabolic Panel; Complete Time: 01:13 [facility] 10/15 23:39 Order name: CT Lumbar Spine Wo Con maria de jesus 10/15 23:39 Order name: CT Pelvis wo Cont [facility] 10/15 23:39 Order name: Hip Left 2 View XRAY maria de jesus 10/15 23:41 Order name: Knee Right 3 View XRAY [facility] Administered Medications: 10/16 00:19 Drug: Ketorolac 30 mg Route: IVP; Site: right forearm; vc1 00:19 Drug: morphine 4 mg Route: IVP; Infused Over: 4 mins; Site: right forearm; vc1 00:19 Drug: Zofran (Ondansetron) 4 mg Route: IVP; Site: right forearm; vc1 00:19 Drug: Valium (diazepam) 5 mg Route: PO; vc1 00:19 Drug: Decadron - Dexamethasone 10 mg Route: IVP; Site: right forearm; vc1 00:42 Drug: NS 0.9% 500 ml Route: IV; Rate: bolus; Site: right forearm; vc1 01:35 Drug: Dilaudid (HYDROmorphone) 1 mg Route: IVP; Site: right forearm; vc1 01:35 Drug: Zofran (Ondansetron) 4 mg Route: IVP; Site: right wrist; vc1 Disposition Summary: 10/16/21 01:26 Discharge Ordered Location: Home maria de jesus Problem: new maria de jesus Symptoms: have improved maria de jesus Condition: Stable maria de jesus Diagnosis - Fall on same level, unspecified maria de jesus - Contusion of lower back and pelvis maria de jesus - Low back pain maria de jesus - Other injury of muscle, fascia and tendon of lower back maria de jesus - Contusion of right knee maria de jesus - Type 2 diabetes mellitus with hyperglycemia maria de jesus Followup: maria de jesus - With: Private Physician - When: 2 - 3 days - Reason: Recheck today's complaints, Continuance of care, Re-evaluation by your physician Followup: maria de jesus - With: - When: 2 - 3 days - Reason: Recheck today's complaints, Continuance of care, Re-evaluation by your physician Discharge Instructions: - Discharge Summary Sheet maria de jesus - Acute Back Pain, Adult maria de jesus - Musculoskeletal Pain maria de jesus - Hyperglycemia maria de jesus - Obesity, Adult maria de jesus - Obesity, Adult, [id number] maria de jesus - Radicular Pain maria de jesus Forms: - Medication Reconciliation Form maria de jesus - Thank You Letter maria de jesus - Antibiotic Education maria de jesus - Prescription Opioid Use maria de jesus Prescriptions: - Ibuprofen 600 mg Oral Tablet - take 1 tablet by ORAL route every 6 hours As needed take with food; 30 tablet; maria de jesus Refills: 0, Product Selection Permitted - Valium 5 mg Oral Tablet - take 1 tablet by ORAL route every 8 hours As needed; 20 tablet; Refills: 0, maria de jesus Product Selection Permitted - Medrol (Arsh) 4 mg Oral Tablets, Dose Pack - take 1 tablet by ORAL route as directed - follow package instructions; 1 maria de jesus packet; Refills: 0, Product Selection Permitted - Tylenol-Codeine #3 300 mg-30 mg Oral - take 2 tablet by ORAL route every 6 hours; 24 tablet; Refills: 0, Product maria de jesus Selection Permitted Signatures: Dispatcher [employer] Raul Yancey MD MD cha Bryson, James RN RN jb4 Lynn Thompson RN RN vc1
--- NOTE | 2021-10-16 01:27 | ER ---
Nurse's Notes [facility] Name: Anjana Cordova Age: 56 yrs Sex: Female : 1965 Arrival Date: 10/15/2021 Time: 22:29 Bed 15 Private MD: Diagnosis: Fall on same level, unspecified;Contusion of lower back and pelvis;Low back pain;Other injury of muscle, fascia and tendon of lower back;Contusion of right knee;Type 2 diabetes mellitus with hyperglycemia Presentation: 10/15 22:51 Chief complaint: Patient states: I stepped in a puddle of water and slipped on the jb4 floor. I landed on my back and hit my leg. Currently my lower back and left arm and right knee are hurting. Coronavirus screen: At this time, the client does not indicate any symptoms associated with coronavirus-19. Ebola Screen: No symptoms or risks identified at this time. Initial Sepsis Screen: Does the patient meet any 2 criteria? HR > 90 bpm. Yes Does the patient have a suspected source of infection? No. Patient's initial sepsis screen is negative. Risk Assessment: Do you want to hurt yourself or someone else? Patient reports no desire to harm self or others. Onset of symptoms was October 15, 2021. Transition of care: patient was not received from another setting of care. 22:51 Method Of Arrival: Wheelchair jb4 22:51 Acuity: HAWK 3 jb4 Historical: - Allergies: 22:54 No Known Allergies; jb4 - PMHx: 22:54 Depression; Diabetes - IDDM; Hypertension; jb4 - PSHx: 22:54 Cholecystectomy; section; L arm; jb4 - Immunization history:: Adult Immunizations up to date. - Social history:: Smoking status: Patient reports the use of cigarette tobacco products, smokes one-half pack cigarettes per day. Screenin/05 02:05 Abuse screen: Denies threats or abuse. Nutritional screening: No deficits noted. jb4 Tuberculosis screening: No symptoms or risk factors identified. Fall Risk None identified. Assessment: 02:05 Reassessment: Patient appears in no apparent distress at this time. Patient and/or jb4 family updated on plan of care and expected duration. Pain level reassessed. Patient is alert, oriented x 3, equal unlabored respirations, skin warm/dry/pink. Vital Signs: 10/15 22:51 BP 184 / 83; Pulse 92; Resp 20; Temp 97.1(TE); Pulse Ox 94% on R/A; Weight 108.41 kg jb4 (R); Height 5 ft. 5 in. (165.10 cm) (R); Pain 10/10; 07 02:05 BP 153 / 78; Pulse 77; Resp 16; Pulse Ox 94% on R/A; jb4 10/15 22:51 Body Mass Index 39.77 (108.41 kg, 165.10 cm) jb4 ED Course: 10/15 22:29 Patient arrived in ED. bp1 22:54 Triage completed. jb4 22:54 Arm band placed on left wrist. jb4 23:30 Raul Urena MD is Attending Physician. [facility] 23:40 Lynn Thompson RN is Primary Nurse. vc1 07 00:32 Hip Left 2 View XRAY In Process Unspecified. EDMS 00:33 Knee Right 3 View XRAY In Process Unspecified. EDMS 00:47 CT Lumbar Spine Wo Con In Process Unspecified. EDMS 00:47 CT Pelvis wo Cont In Process Unspecified. EDMS 01:26 Sebastien Steiner MD is Referral Physician. [facility] 02:05 Patient has correct armband on for positive identification. Bed in low position. Call jb4 light in reach. Side rails up X 1. Client placed on continuous cardiac and pulse oximetry monitoring. NIBP monitoring applied. 02:05 IV discontinued, intact, bleeding controlled, No redness/swelling at site. Pressure jb4 dressing applied. Administered Medications: 00:19 Drug: Ketorolac 30 mg Route: IVP; Site: right forearm; vc1 00:19 Drug: morphine 4 mg Route: IVP; Infused Over: 4 mins; Site: right forearm; vc1 00:19 Drug: Zofran (Ondansetron) 4 mg Route: IVP; Site: right forearm; vc1 00:19 Drug: Valium (diazepam) 5 mg Route: PO; vc1 00:19 Drug: Decadron - Dexamethasone 10 mg Route: IVP; Site: right forearm; vc1 00:42 Drug: NS 0.9% 500 ml Route: IV; Rate: bolus; Site: right forearm; vc1 01:35 Drug: Dilaudid (HYDROmorphone) 1 mg Route: IVP; Site: right forearm; vc1 01:35 Drug: Zofran (Ondansetron) 4 mg Route: IVP; Site: right wrist; vc1 Medication: 02:05 VIS not applicable for this client. jb4 Outcome: 01:26 Discharge ordered by . maria de jesus 02:05 Discharged to home via wheelchair, with family. jb4 02:05 Condition: stable 02:05 Discharge instructions given to patient, Instructed on discharge instructions, follow up and referral plans. no drinking with medication, no driving heavy equipment, medication usage, Demonstrated understanding of instructions, follow-up care, medications, Prescriptions given X 4. 02:07 Patient left the ED. jb4 Signatures: Dispatcher [employer] EDMS Raul Urena MD MD cha Bryson, James RN RN jb4 Marita Tyler Vanessa RN RN vc1
[2021-10-16] MEDS ORDERED: HYDROMORPHONE HCL 1 MG/ML INJ ONE (01:31)
[2021-10-16 02:55] VITALS: TEMP 97.1; O2SAT 94
[2021-10-16 02:56] VITALS: BP 153/78
--- NOTE | 2021-10-16 12:52 | RAD REPORT ---
EXAM DESCRIPTION: CT - Spine Lumbar Wo Con - 10/16/2021 6:56 am CLINICAL HISTORY: Lumbar radiculopathy, trauma COMPARISON: None. TECHNIQUE: Contiguous axial images of lumbar spine were obtained utilizing 2 mm slice thickness at 2 mm interval reconstruction. In addition multiplanar reformats in the sagittal and coronal plane were generated and reviewed This exam was performed according to our departmental dose-optimization protocol, which includes auto mated exposure control, adjustment of the mA and/or kV according to patient size and/or use of iterat prudencio reconstruction technique. FINDINGS: There is anatomic alignment of the lumbar spine. Vertebral body height is preserved withou t evidence of acute fracture or subluxation. Minimal anterior spondylosis at L3 and L4 vertebral bodi es. Minimal degenerative changes/vacuum effect is noted at L3/L4 L4/L5. No retroperitoneal or wilber charles abnormality is seen. L1-2: Unremarkable L2-3: Unremarkable L3-4: Unremarkable L4-5: Unremarkable L5-S1: Unremarkable IMPRESSION: No acute fracture or subluxation of the lumbar spine. Minimal anterior spondylosis at L3/L4 and L4/L5. Electronically signed by: Deng Draper MD 10/16/2021 1:01 AM CDT Due to temporary technical issues with the PACS/Fluency reporting system, reports are being signed by the in house radiologist without review as a courtesy to ensure prompt reporting. The interpreting r adiologist is fully responsible for the content of the report.
--- NOTE | 2021-10-16 12:57 | RAD REPORT ---
EXAM DESCRIPTION: CT - Pelvis Wo Cont - 10/16/2021 6:55 am CLINICAL HISTORY: 56 years Female Pelvic trauma TECHNIQUE: Axial CT imaging of the pelvis was performed without intravenous contrast. Sagittal and coronal reconstructed images were then performed. The CT study is performed according to ALARA (as l ow as reasonably achievable) or ALARA/IMAGE GENTLY, with automatic adjustment of mA and/or kV accordi ng to patient size. Performed on: 10/16/2021 at 12:39 AM Comparison: X-ray left hip performed on 10/16/2021 at 12:37 AM FINDINGS: Bones: There is no evidence of fracture or dislocation. Bone mineralization is normal. The re are mild degenerative changes of the hip joints with minimal hypertrophic spurring and subchondral cyst formation. There are no pathologic lytic or sclerotic bone lesions. There are mild vacuum maria de jesus nges involving the sacroiliac joints. There are mild degenerative changes of the facet joints involvi ng the lower lumbar spine. Soft tissues: No focal soft tissue swelling is identified. No focal soft tissue mass lesions or fluid collections are seen. There is no evidence of a joint effusion. The visualized structures within the pelvis are unremarkable. The appendix is normal as visualized. IMPRESSION: 1. No evidence of acute fracture or dislocation. 2. Mild degenerative changes of the pelvis and hip joints. Electronically signed by: Kate Motley DO 10/16/2021 1:29 AM CDT Due to temporary technical issues with the PACS/Fluency reporting system, reports are being signed by the in house radiologist without review as a courtesy to ensure prompt reporting. The interpreting r adiologist is fully responsible for the content of the report.
--- NOTE | 2021-10-16 12:59 | RAD REPORT ---
EXAM DESCRIPTION: RAD - Knee Right 3 View - 10/16/2021 12:31 am CLINICAL HISTORY: 56 years, Female, PAIN COMPARISON: None. FINDINGS: 3 X-ray views of the right knee (Frontal, lateral and oblique views) were performed. There is no evidence for fracture or dislocation. There are no gross intraosseous lesions. . Minima l early spurring is identified within the lateral compartment of the right knee. No gross soft tissue abnormality is identified. There is no joint effusion. There is no periostitis. IMPRESSION: No acute bony abnormality. Electronically signed by: Deng Draper MD 10/16/2021 12:43 AM CDT Due to temporary technical issues with the PACS/Fluency reporting system, reports are being signed by the in house radiologist without review as a courtesy to ensure prompt reporting. The interpreting r adiologist is fully responsible for the content of the report.
--- NOTE | 2021-10-16 13:08 | RAD REPORT ---
EXAM DESCRIPTION: RAD - Hip Left 2 View - 10/16/2021 12:31 am CLINICAL HISTORY: 56 years, Female, PAIN COMPARISON: None FINDINGS: 2 views of the hip (frontal view of the left hip and frogleg view of the left hip) were ob tained. No areas of acute bony injuries were demonstrated. There are minimal degenerative changes lef t hip 2 with minimal spur and tiny subchondral cyst anterior superior aspect of the acetabulum No juhi ss soft tissue abnormality is identified. There are no gross intraosseous lesions. No periosteal reaction were seen. No definitive displaced fracture are identified, if symptoms persist, clinical co rrelation and/or further evaluation with CT scan and/or MRI could be of assistance. IMPRESSION: No acute bony injuries were demonstrated. Minimal degenerative changes. Electronically signed by: Deng Draper MD 10/16/2021 12:42 AM CDT Due to temporary technical issues with the PACS/Fluency reporting system, reports are being signed by the in house radiologist without review as a courtesy to ensure prompt reporting. The interpreting r adiologist is fully responsible for the content of the report.
== END 2021-10-16 02:07 | disposition home or self-care (01) ==
LOC: ER 22:26
DX: S39.092A Other injury of muscle, fascia and tendon of lower back, initial encounter (principal); S30.0XXA Contusion of lower back and pelvis, initial encounter; S80.01XA Contusion of right knee, initial encounter; E11.65 Type 2 diabetes mellitus with hyperglycemia; W18.30XA Fall on same level, unspecified, initial encounter; I10 Essential (primary) hypertension; F17.210 Nicotine dependence, cigarettes, uncomplicated
CPT/HCPCS: 85025; 36415; 80053; 72131; 72192; 73502; 73562; J1100; J1170; J7040; J2405 ×2; 99283

== ENCOUNTER 2021-10-26 17:26 | Emergency (ER) | payer BC ==
[2021-10-26] MEDS ORDERED: HYDROCODONE/APAP 10/325 TAB ONE (20:02)
--- NOTE | 2021-10-26 20:44 | RAD REPORT ---
EXAM DESCRIPTION: CTSpine Lumbar Wo Con10/26/2021 8:28 pm CLINICAL HISTORY: Fall with back pain and radiculopathy COMPARISON: October 16, 2021 TECHNIQUE: Computed axial tomography lumbar spine was obtained with coronal and sagittal reconstruct ion. All CT scans are performed using dose optimization technique as appropriate and may include automated exposure control or mA/KV adjustment according to patient size. FINDINGS: No fracture is seen. No dislocation Disc desiccation L3-4. Disc bulge, ligamentum flavum facet hypertrophy. The thecal sac measures appro ximately 8.5 millimeters. There may be a small right lateral disc herniation. Disc bulge, ligamentum flavum facet hypertrophy L4-5 IMPRESSION: Negative for a lumbar fracture. Spondylosis L3-4 resulting in mild central spinal stenosis. There may also be a small right lateral h erniation. If patient's symptoms persist MRI would recommended
--- NOTE | 2021-10-26 21:20 | RAD REPORT ---
EXAM DESCRIPTION: RAD - Hip Right 2 View - 10/26/2021 9:06 pm CLINICAL HISTORY: Right hip pain FINDINGS: No fracture or dislocation is seen.
--- NOTE | 2021-10-26 21:20 | RAD REPORT ---
EXAM DESCRIPTION: RAD - Pelvis - 10/26/2021 9:06 pm CLINICAL HISTORY: Pelvic pain status post injury FINDINGS: No fracture or dislocation is seen.
[2021-10-26] MEDS ORDERED: DIAZEPAM 5 MG TABLET ONE (22:10)
[2021-10-26] MEDS ORDERED: MORPHINE 2 MG/ML SYR ONE (22:13)
[2021-10-26] MEDS ORDERED: dexAMETHasone 10 MG/ML VIAL ONE (22:13)
[2021-10-26] MEDS ORDERED: MORPHINE 4 MG/ML SYR ONE (22:13)
--- NOTE | 2021-10-26 22:35 | ER ---
Nurse's Notes [facility] Name: Anjana Cordova Age: 56 yrs Sex: Female : 1965 Arrival Date: 10/26/2021 Time: 17:31 Bed Treatment Private MD: Diagnosis: Fall on same level from slipping, tripping and stumbling with subsequent striking against object;Contusion of hip-lower back;Other intervertebral disc displacement, lumbar region Presentation: 10/26 18:08 Chief complaint: Patient states: October fell , hurt her back, was seen here and iw was doing better, but grandkids have new puppy and today she slipped in the urine , now my back hurts worse and I can't step down on my right leg and it's numb. 18:08 Acuity: HAWK 3 iw 18:08 Method Of Arrival: Wheelchair iw 18:09 Coronavirus screen: At this time, the client does not indicate any symptoms associated iw with coronavirus-19. Ebola Screen: Patient negative for fever greater than or equal to 101.5 degrees Fahrenheit, and additional compatible Ebola Virus Disease symptoms Patient denies exposure to infectious person. Patient denies travel to an Ebola-affected area in the 21 days before illness onset. No symptoms or risks identified at this time. Initial Sepsis Screen: Does the patient meet any 2 criteria? No. Patient's initial sepsis screen is negative. Does the patient have a suspected source of infection? No. Patient's initial sepsis screen is negative. Risk Assessment: Do you want to hurt yourself or someone else? Patient reports no desire to harm self or others. Onset of symptoms was October 26, 2021. Historical: - Allergies: 18:10 No Known Allergies; iw - PMHx: 18:10 Depression; Diabetes - IDDM; Hypertension; iw - PSHx: 18:10 section; Cholecystectomy; L arm; iw - Immunization history:: Adult Immunizations up to date. - Social history:: Smoking status: Patient reports the use of cigarette tobacco products, smokes one pack cigarettes per day. Screenin:03 Abuse screen: Denies threats or abuse. Denies injuries from another. Nutritional lg3 screening: No deficits noted. Tuberculosis screening: No symptoms or risk factors identified. Fall Risk Fall in past 12 months (25 points). Total Storey Fall Scale indicates Low Risk Score (25-44 pts). Side Rails Up X 2 Frequent Obs/Assesments occuring Family Present and informed to notify staff if they need to leave bedside. Assessment: 20:03 General: Appears in no apparent distress. uncomfortable, Behavior is calm, cooperative. lg3 Pain: Complains of pain in low back area Pain radiates to right leg Pain currently is 10 out of 10 on a pain scale. Neuro: No deficits noted. Level of Consciousness is awake, alert, obeys commands, Oriented to person, place, time, situation. Cardiovascular: No deficits noted. Denies chest pain, shortness of breath, Capillary refill < 3 seconds Clubbing of nail beds is absent JVD is absent Patient's skin is warm and dry. Respiratory: No deficits noted. Airway is patent Trachea midline Respiratory effort is even, unlabored, Respiratory pattern is regular, symmetrical, Breath sounds are clear bilaterally. GI: No deficits noted. No signs and/or symptoms were reported involving the gastrointestinal system. Abdomen is round non-distended. : No deficits noted. No signs and/or symptoms were reported regarding the genitourinary system. EENT: No deficits noted. No signs and/or symptoms were reported regarding the EENT system. Derm: No deficits noted. No signs and/or symptoms reported regarding the dermatologic system. Skin is intact, is healthy with good turgor, Skin is dry, Skin temperature is warm. Musculoskeletal: Reports weakness in right leg pain in low back area. 22:25 Reassessment: Patient appears in no apparent distress at this time. No changes from lg3 previously documented assessment. Patient and/or family updated on plan of care and expected duration. Pain level reassessed. Patient is alert, oriented x 3, equal unlabored respirations, skin warm/dry/pink. Vital Signs: 18:09 BP 112 / 68; Pulse 102; Resp 16; Temp 98.1; Pulse Ox 98% on R/A; iw 22:25 BP 118 / 76; Pulse 88; Resp 16; Pulse Ox 99% on R/A; lg3 ED Course: 17:31 Patient arrived in ED. ja2 18:09 Triage completed. iw 18:10 Arm band placed on. iw 19:31 Rohit Burnett MD is Attending Physician. 7 19:41 Barbara Mendiola, RN is Primary Nurse. lg3 20:03 Patient has correct armband on for positive identification. Bed in low position. Call lg3 light in reach. Side rails up X2. Client placed on continuous cardiac and pulse oximetry monitoring. NIBP monitoring applied. Door closed. Noise minimized. Warm blanket given. Family accompanied patient. 20:30 CT Lumbar Spine Wo Con In Process Unspecified. EDMS 21:08 XRAY Hip RIGHT 2 view In Process Unspecified. EDMS 21:08 XRAY Pelvis In Process Unspecified. EDMS 22:26 No provider procedures requiring assistance completed. Patient did not have IV access lg3 during this emergency room visit. 22:32 Julio Benito MD is Referral Physician. [facility] 22:32 Brice Rodriguez MD is Referral Physician. 7 Administered Medications: 20:03 Drug: [place] (HYDROcodone-acetaminophen) 10 mg-325 mg 1 tabs Route: PO; lg3 22:25 Follow up: Response: No adverse reaction lg3 22:24 Drug: Decadron (dexamethasone) 10 mg Route: IM; Site: left gluteus; lg3 22:25 Follow up: Response: No adverse reaction lg3 22:24 Drug: morphine 5 mg Route: IM; Site: right gluteus; lg3 22:25 Follow up: Response: No adverse reaction lg3 22:24 Drug: Valium (diazepam) 5 mg Route: PO; lg3 22:25 Follow up: Response: No adverse reaction lg3 Medication: 22:26 VIS not applicable for this client. lg3 Outcome: 22:35 Discharge ordered [address] . [facility] 22:55 Discharged to home via wheelchair, with family. lg3 22:55 Condition: stable 22:55 Discharge instructions given to patient, Instructed on discharge instructions, follow up and referral plans. medication usage, Demonstrated understanding of instructions, follow-up care, medications, Prescriptions given X 4. 22:56 Patient left the ED. lg3 Signatures: Dispatcher [employer] EDAnn Lange RN RN iw Barbara Mendiola RN RN lg3 Rohit Burnett MD MD 7 Shayy Dsouza2 Corrections: (The following items were deleted from the chart) 18:10 18:08 Chief complaint: Patient states: October fell , hurt her back, was seen here iw and was doing better, but grandkids have new puppy and she slipped in the urine , no my back hurts worse and I can't step down on my right leg and it's numb iw
--- NOTE | 2021-10-26 22:35 | EDPHYS ---
Physician Documentation [facility] Name: Anjana Cordova Age: 56 yrs Sex: Female : 1965 Arrival Date: 10/26/2021 Time: 17:31 Bed Treatment Private MD: ED Physician Rohit Burnett HPI: 10/26 19:55 This 56 yrs old Female presents to ER via Wheelchair with complaints of Fall Injury, mh7 Back Pain, Leg Pain. 19:55 Details of fall: The patient fell from an upright position, while walking, and struck 7 [address] margaret. Onset: The symptoms/episode began/occurred today, at 15:00. Associated injuries: The patient sustained injury to the low back, pain, pain with movement. Severity of symptoms: At their worst the symptoms were moderate, earlier today, in the emergency department the symptoms are unchanged. The patient has experienced a previous episode, approximately 2 weeks ago. States that she slipped on wet floor and injured her lower back. Denies any head trauma or LOC. Denies any bladder or bowel retention/incontinence, numbness/tingling, or weakness.. Historical: - Allergies: 18:10 No Known Allergies; iw - PMHx: 18:10 Depression; Diabetes - IDDM; Hypertension; iw - PSHx: 18:10 section; Cholecystectomy; L arm; iw - Immunization history:: Adult Immunizations up to date. - Social history:: Smoking status: Patient reports the use of cigarette tobacco products, smokes one pack cigarettes per day. ROS: 19:55 Constitutional: Negative for fever, chills, and weight loss, Eyes: Negative for injury, mh7 pain, redness, and discharge, ENT: Negative for injury, pain, and discharge, Neck: Negative for injury, pain, and swelling, Cardiovascular: Negative for chest pain, palpitations, and edema, Respiratory: Negative for shortness of breath, cough, wheezing, and pleuritic chest pain, Abdomen/GI: Negative for abdominal pain, nausea, vomiting, diarrhea, and constipation, : Negative for injury, bleeding, discharge, and swelling, Skin: Negative for injury, rash, and discoloration, Neuro: Negative for headache, weakness, numbness, tingling, and seizure, Psych: Negative for depression, anxiety, suicide ideation, homicidal ideation, and hallucinations, Allergy/Immunology: Negative for hives, rash, and allergies, Endocrine: Negative for neck swelling, polydipsia, polyuria, polyphagia, and marked weight changes, Hematologic/Lymphatic: Negative for swollen nodes, abnormal bleeding, and unusual bruising. Exam: 19:55 Head/Face: Normocephalic, atraumatic. Eyes: Pupils equal round and reactive to light, mh7 extra-ocular motions intact. Lids and lashes normal. Conjunctiva and sclera are non-icteric and not injected. Cornea within normal limits. Periorbital areas with no swelling, redness, or edema. ENT: Nares patent. No nasal discharge, no septal abnormalities noted. Tympanic membranes are normal and external auditory canals are clear. Oropharynx with no redness, swelling, or masses, exudates, or evidence of obstruction, uvula midline. Mucous membranes moist. Neck: Trachea midline, no thyromegaly or masses palpated, and no cervical lymphadenopathy. Supple, full range of motion without nuchal rigidity, or vertebral point tenderness. No Meningismus. Chest/axilla: Normal chest wall appearance and motion. Nontender with no deformity. No lesions are appreciated. Cardiovascular: Regular rate and rhythm with a normal S1 and S2. No gallops, murmurs, or rubs. Normal PMI, no JVD. No pulse deficits. Respiratory: Lungs have equal breath sounds bilaterally, clear to auscultation and percussion. No rales, rhonchi or wheezes noted. No increased work of breathing, no retractions or nasal flaring. Abdomen/GI: Soft, non-tender, with normal bowel sounds. No distension or tympany. No guarding or rebound. No evidence of tenderness throughout. 19:55 Skin: Warm, dry with normal turgor. Normal color with no rashes, no lesions, and no evidence of cellulitis. Psych: Awake, alert, with orientation to person, place and time. Behavior, mood, and affect are within normal limits. 19:55 Constitutional: The patient appears in no acute distress, alert, awake, uncomfortable. 19:55 Back: pain, that is moderate, of the lumbar area and right low back, ROM is painful, with all movement, normal spinal alignment noted, CVA tenderness, is absent, vertebral tenderness, is appreciated at low back area, muscle spasm, is not present, Straight leg raises: of both lower extremities does not illicit pain. 19:55 Musculoskeletal/extremity: Extremities: noted in the right hip: tenderness, ROM: limited active range of motion due to pain, in the right hip, limited passive range of motion due to pain, in the right hip, Circulation is intact in all extremities. Sensation intact. Compartment Syndrome exam of affected extremity: is normal. no numbness, no tingling, no sensation deficit, no palor, no weak pulses, Joints: the right hip displays painful range of motion, tenderness, Weight bearing: able to fully bear weight, Tendon exam: specific tendon testing normal through active and passive range of motion 19:55 Neuro: Orientation: is normal, Mentation: is normal, Memory: is normal, Cranial nerves: grossly normal, Cerebellar function: is grossly normal, Motor: is normal, Sensation: is normal, Gait: limited by pain, seizure activity, is not displayed by the patient, Abnormal movements: there are no abnormal movements. Vital Signs: 18:09 BP 112 / 68; Pulse 102; Resp 16; Temp 98.1; Pulse Ox 98% on R/A; iw 22:25 BP 118 / 76; Pulse 88; Resp 16; Pulse Ox 99% on R/A; lg3 MDM: 22:30 Differential diagnosis: abrasion, contusion, fracture, sprain, strain. Data reviewed: [facility] vital signs, nurses notes, radiologic studies, CT scan, plain films. Data interpreted: Pulse oximetry: on room air is 99 %. Interpretation: normal. Counseling: I had a detailed discussion with the patient and/or guardian regarding: the historical points, exam findings, and any diagnostic results supporting the discharge/admit diagnosis, radiology results, the need for outpatient follow up, a orthopedic surgeon, to return to the emergency department if symptoms worsen or persist or if there are any questions or concerns that arise at home. Response to treatment: the patient's symptoms have markedly improved after treatment. 22:35 Patient medically screened. [facility] 10/26 19:49 Order name: CT Lumbar Spine Wo Con; Complete Time: 21:43 3 10/26 20:03 Order name: XRAY Hip RIGHT 2 view; Complete Time: 21:43 3 10/26 20:03 Order name: XRAY Pelvis; Complete Time: 21:43 lg3 Administered Medications: 20:03 Drug: [place] (HYDROcodone-acetaminophen) 10 mg-325 mg 1 tabs Route: PO; lg3 22:25 Follow up: Response: No adverse reaction lg3 22:24 Drug: Decadron (dexamethasone) 10 mg Route: IM; Site: left gluteus; lg3 22:25 Follow up: Response: No adverse reaction lg3 22:24 Drug: morphine 5 mg Route: IM; Site: right gluteus; lg3 22:25 Follow up: Response: No adverse reaction lg3 22:24 Drug: Valium (diazepam) 5 mg Route: PO; lg3 22:25 Follow up: Response: No adverse reaction lg3 Disposition Summary: 10/26/21 22:35 Discharge Ordered Location: Home [facility] Problem: new 7 Symptoms: have improved mh Condition: Stable mh7 Diagnosis - Fall on same level from slipping, tripping and stumbling with subsequent striking mh7 against object - Contusion of hip - lower back 7 - Other intervertebral disc displacement, lumbar region [facility] Followup: [facility] - With: Private Physician - When: 1 - 2 days - Reason: Worsening of condition, Recheck today's complaints, Continuance of care, Re-evaluation by your physician Followup: [facility] - With: Julio Benito MD - When: 1 - 2 days - Reason: Worsening of condition, Recheck today's complaints, Continuance of care, Re-evaluation by your physician Followup: [facility] - With: Brice Rodriguez MD - When: 1 - 2 days - Reason: Worsening of condition, Recheck today's complaints Discharge Instructions: - Discharge Summary Sheet [facility] - Acute Back Pain, Adult 7 - Contusion, [id number] [facility] - Fall Prevention in the Home, Adult, [id number] [facility] - Herniated Disk, [id number] [facility] Forms: - Medication Reconciliation Form [facility] - Thank You Letter [facility] - Antibiotic Education [facility] - Prescription Opioid Use [facility] Prescriptions: - Ibuprofen 800 mg Oral Tablet - take 1 tablet by ORAL route every 8 hours As needed take with food; 15 tablet; [facility] Refills: 0, Product Selection Permitted - Cyclobenzaprine 10 mg Oral Tablet - take 1 tablet by ORAL route every 8 hours As needed; 15 tablet; Refills: 0, [facility] Product Selection Permitted - Medrol (Arsh) 4 mg Oral Tablets, Dose Pack - take 1 tablet by ORAL route as directed - follow package instructions; 1 [facility] packet; Refills: 0, Product Selection Permitted - Tylenol-Codeine #3 300 mg-30 mg Oral - take 2 tablet by ORAL route every 6 hours As needed; 20 tablet; Refills: 0, mh7 Product Selection Permitted Signatures: Dispatcher [employer] Ann Johnston RN RN iw Barbara Mendiola RN RN lg3 Rohit Burnett MD MD [facility]
[2021-10-26 23:08] VITALS: TEMP 98.1
[2021-10-26 23:10] VITALS: BP 118/76; O2SAT 99
== END 2021-10-26 22:56 | disposition home or self-care (01) ==
LOC: ER 17:26
DX: S30.0XXA Contusion of lower back and pelvis, initial encounter (principal); S70.01XA Contusion of right hip, initial encounter; M51.26 Other intervertebral disc displacement, lumbar region; W01.10XA Fall on same level from slipping, tripping and stumbling with subsequent striking against unspecified object, initial encounter; E11.9 Type 2 diabetes mellitus without complications; I10 Essential (primary) hypertension; F17.210 Nicotine dependence, cigarettes, uncomplicated
CPT/HCPCS: 72131; 72170; 73502; 96372; 99283; J1100; J2270

== ENCOUNTER 2021-11-23 17:23 | Emergency (ER) | payer BC ==
--- OUTSIDE RECORDS SUMMARY | 2021-11-23 17:26 | XMS REPORT | Continuity of Care Document ---
:1965 Author Organization [facility] t Address [facility] [address] [place] [address] Care Team Providers Name Role Phone Shield Attending Clinician Unavailable Rutledge_L Attending Clinician Unavailable KAYLIE_DANYA Attending Clinician Unavailable Shield Admitting Clinician Unavailable Rutledge_L Admitting Clinician Unavailable KAYLIE_DANYA Admitting Clinician Unavailable Payers Payer Name Policy Type Policy Number Effective Date Expiration Date Ivan jones [place] [id number] 2021 00:00:00 [place] ([place] Problems Condition Condition Condition Status Onset Resolution [...] Smoking Status Start Date Stop Date Source Heavy Tobacco Smoker [facility] Medications Ordered Filled Start Stop Current Ordering Indication Dosage Frequency Signature Comments Components Source Medication Medication Date Date Medication? Clinician (SIG) Name Name Novolog Mix Novolog Mix No Novolog [facility] 70-30 U-100 70-30 U-100 7-18 Mix 70-30 da Insulin 100 Insulin 100 00:00: U-100 Medical unit/mL unit/mL 00 Insulin Group subcutaneou subcutaneou 100 s solution s solution unit/mL subcutaneo us solution phentermine phentermine No phentermin [facility] 37.5 mg 37.5 mg e 37.5 mg da tablet TAKE tablet TAKE tablet Medical 1 TABLET BY 1 TABLET BY TAKE 1 Group MOUTH ONCE MOUTH ONCE TABLET BY DAILY DAILY MOUTH ONCE DAILY Soma 350 mg Soma 350 mg No 1 TID Soma 350 [facility] tablet Take tablet Take mg tablet da 1 tablet 3 1 tablet 3 Take 1 M edical times a day times a day tablet 3 Group by oral by oral times a route as route as day by needed. needed. oral route as needed. acetaminoph acetaminoph No acetaminop [facility] en 300 en 300 hen 300 da mg-codeine mg-codeine mg-codeine Medical 15 mg 15 mg 15 mg Group tablet TAKE tablet TAKE tablet 1 TABLET BY 1 TABLET BY TAKE 1 MOUTH EVERY MOUTH EVERY TABLET BY 6 HOURS 6 HOURS MOUTH NEEDED FOR NEEDED FOR EVERY 6 PAIN PAIN HOURS NEEDED FOR PAIN acetaminoph acetaminoph No acetaminop [place] en 300 en 300 hen 300 da mg-codeine mg-codeine mg-codeine Medical 30 mg 30 mg 30 mg Group tablet TAKE tablet TAKE tablet 2 TABLETS 2 TABLETS TAKE 2 BY MOUTH BY MOUTH TABLETS BY EVERY 6 EVERY 6 MOUTH HOURS FOR HOURS FOR EVERY 6 PAIN PAIN HOURS FOR CONTROL CONTROL PAIN CONTROL amlodipine amlodipine No amlodipine [facility] 5 mg [...] TABLET BY NIGHT NIGHT MOUTH AT NIGHT cyclobenzap cyclobenzap No cyclobenza [place] rine 10 mg rine 10 mg brandon 10 da tablet TAKE tablet TAKE mg tablet Medical 1 TABLET BY 1 TABLET BY TAKE 1 Group MOUTH EVERY MOUTH EVERY TABLET BY 8 HOURS 8 HOURS MOUTH NEEDED FOR NEEDED FOR EVERY 8 MUSCLE MUSCLE HOURS SPASM SPASM NEEDED FOR MUSCLE SPASM diazepam 5 diazepam 5 No diazepam 5 [facility] mg tablet mg tablet mg tablet da Take 1 Take 1 Take 1 Medical tablet tablet tablet Group twice a day twice a day twice a by oral by oral day by route as route as oral route needed. needed. as needed. ibuprofen ibuprofen No ibuprofen [facility] 600 mg 600 mg 600 mg da tablet TAKE tablet TAKE tablet Medical 1 TABLET BY 1 TABLET BY TAKE 1 Group MOUTH EVERY MOUTH EVERY TABLET BY 6 HOURS 6 HOURS MOUTH NEEDED FOR NEEDED FOR EVERY 6 PAIN PAIN HOURS CONTROL CONTROL NEEDED FOR TAKE WITH TAKE WITH PAIN FOOD FOOD CONTROL TAKE WITH FOOD lisinopril lisinopril No lisinopril [facility] 20 mg [...] Time Observation Value Comments Source BP Diastolic 2021-11-14 00:00:00 88 mm[facility]Hg] [facility] Height 2021-11-14 00:00:00 65 [in_i] [facility] BMI (Body Mass 2021-11-14 00:00:00 38.4 kg/m2 [facility] Medical Index) Group BP Systolic 2021-11-14 00:00:00 138 mm[Hg[facility] Body Weight 2021-11-14 00:00:00 3696 [oz_av] [facility] BP Diastolic 2021-10-29 00:00:00 85 mm[Hg] [facility] Height 2021-10-29 00:00:00 65 [in_i] [facility] BMI (Body Mass 2021-10-29 00:00:00 38.3 kg/m2 [facility] Medical Index) Group BP Systolic 2021-10-29 00:00:00 137 mm[Hg] [facility] Body Weight 2021-10-29 00:00:00 3680 [oz_av] [facility] BP Diastolic 2020-04-21 00:00:00 81 mm[Hg] [facility] Height 2020-04-21 00:00:00 65 [in_i] [facility] BMI (Body Mass 2020-04-21 00:00:00 44.1 kg/m2 [facility] BP Systolic 2020-04-21 00:00:00 163 mm[Hg] [facility] Body Weight 2020-04-21 00:00:00 265 [lb_av] [facility] BP Diastolic 2020-02-21 00:00:00 87 mm[Hg] [facility] Height 2020-02-21 00:00:00 65 [in_i] [facility] BMI (Body Mass 2020-02-21 00:00:00 44.1 kg/m2 [facility] BP Systolic 2020-02-21 00:00:00 144 mm[Hg] [facility] Body Weight 2020-02-21 00:00:00 265 [lb_av] [facility] BP Systolic 2020-01-31 00:00:00 185 mm[Hg] [facility] Body Weight 2020-01-31 00:00:00 275.7 [lb_av] [facility] BP Diastolic 2020-01-31 00:00:00 98 mm[Hg] [facility] Procedures Procedure Date / Time Performed Performing Clinician [facility] e unlisted imaging order 2021-10-29 00:00:00 [facility] US, transvaginal 2020-02-21 00:00:00 [facility] US, transvaginal 2020-01-31 00:00:00 [facility] Caesarean [facility] Plan of Care Planned Activity Planned Date Details Comments Source Instructions [facility] Encounters Start End Encounter Admission Attending Care Care Encounter Source Date/Time Date/Time Type Type Clinicians Facility Department ID 2021-11-14 2021-11-14 Outpatient Shield [facility] [id number] [facility] 00:00:00 00:00:00 0803 [facility] 2021-11-14 2021-11-14 [place] - [id number] M [facility] 00:00:00 00:00:00 Discovery flo Leon LEATHER STAMPER: 600 [facility] [address], [place] [address] , Ph. 2021-10-30 2021-10-30 Outpatient Rutledge_L MMG MMG 1777 [facility] 05:47:00 05:47:00 0726 [facility] 2021-10-29 2021-10-29 Outpatient Rutledge_L MMG MMG 1777 [place] 02:23:00 02:23:00 0718 [facility] 2021-10-29 2021-10-29 Marbella MM [place] - [id number] M [facility] 00:00:00 00:00:00 Discovery flo Leon LEATHER STAMPER: 600 [facility] [address], [facility] [address] , Ph. 2020-07-19 2020-07-19 Outpatient LISTER_DANIEL [place] [id number] [facility] 12:41:00 12:41:00 SSA 0407 [facility] Outre [facility] Program 2020-06-04 2020-06-04 Outpatient Rutledge_L MMG MMG 1777 [place] 12:22:00 12:22:00 0221 [facility] 2020-04-21 2020-04-21 Outpatient Rutledge_L MMG MMG 1777 [place] 02:20:00 02:20:00 0108 [facility] 2020-04-21 2020-04-21 Lacy [facility] [place] - [id number] M [facility] 00:00:00 00:00:00 Hugh Pradhan, Medical Medica janneth MD: [address] [facility] [address] [address] , Ph. [phone] 2020-04-17 2020-04-17 Outpatient Rutledge_L MMG MMG 1777 [place] 11:05:00 11:05:00 0104 [facility] 2020-03-26 2020-03-26 Outpatient Rutledge_L MMG MMG 1777 [place] 03:57:00 03:57:00 1213 [facility] 2020-03-01 2020-03-01 Outpatient Rutledge_L MMG MMG 1777 [place] 02:21:00 02:21:00 1118 [facility] 2020-02-21 2020-02-21 Outpatient Rutledge_L MMG MMG 1777 [place] 11:57:00 11:57:00 1109 [facility] 2020-02-21 2020-02-21 Lacy MMG [place] - [id number] M [facility] 00:00:00 00:00:00 Hugh Pradhan Medical Med[facility] janneth MD: [address] [address] , Ph. [phone] 2020-02-15 2020-02-15 Outpatient Rutledge_L MMG MMG 1777 [place] 11:06:00 11:06:00 1103 [facility] 2020-02-13 2020-02-13 Outpatient Rutledge_L MMG MMG 1777 [place] 01:16:00 01:16:00 1101 [facility] 2020-01-31 2020-01-31 Outpatient Rutledge_L MMG MMG 1777 [place] 11:16:00 11:16:00 1019 [facility] 2020-01-31 2020-01-31 Lacy [facility] [place] - [id number] M [facility] 00:00:00 00:00:00 Hugh Pradhan [facility] janneth MD: [address] [address] , Ph. [phone] 2020-01-25 2020-01-25 Outpatient Shield MMG MMG [id number] [place] 12:46:00 12:46:00 1013 [facility] 2019-12-27 2019-12-27 Outpatient Shield MMG MMG [id number] [place] 04:57:00 04:57:00 0914 [facility] Results Test Description Test Time Test Comments Results Result Comments Source Erythrocyte sedimentation rate 2021-11-06 01:27:00 Test Item Value Reference Range Interpretation Comme nts Erythrocyte sedimentation rate by Photometric method (test code = 42 mm/HR 0-40 H 01453-2) [facility] Reflex Culture panel - Urine 2021-10-30 01:24:00 Test Item Value Reference Range Interpretation Comments Color of Urine by Auto (test yellow code = 79209-9) Appearance of Urine (test code clear clear = 5767-9) Glucose [Presence] in Urine by =4+ (1000 negative Automated test strip (test code = 29903-8) Bilirubin.total [Mass/volume] negative negative in Urine (test code = 1978-6) Ketones [Mass/volume] in Urine =2 negative H by Automated test strip (test code = 25678-7) Specific gravity of Urine by 1.032 1.003-1.030 H Automated test strip (test code = 28720-2) blood urine (test code = blood negative negative urine) pH of Urine (test code = 6.000 5-9 2756-5) protein urine (UA) (test code = trace negative protein urine (UA)) Urobilinogen [Presence] in =2.0 0.2-1.0 H Urine (test code = 45790-4) Nitrite [Presence] in Urine by negative negative Test strip (test code = 5802-4) Leukocyte esterase [Presence] negative negative in Urine by Automated test strip (test code = 02477-8) Erythrocytes [#/volume] in =1-5 0-5 Urine by Automated count (test code = 798-9) Leukocytes [#/area] in Urine =6-10 0-5 H sediment by Automated count (test code = 79682-1) Epithelial cells [Presence] in =6-10 0-5 Urine sediment by Light microscopy (test code = 57240-2) Bacteria identified in Urine by small(1 none detect Culture (test code = 630-4) Casts [#/area] in Urine none detected none detect sediment by Automated count (test code = 21330-9) urine culture added? (test code no = urine culture added?) [facility] [Mass/volume] in [id number] 01:24:00 Test Item Value Reference Range Interpretation Comments microalbumin random (test code = 52.9 mg/L 0-20 H microalbumin random) [facility] W Auto Differential panel - [id number] 11:50:00 Test Item Value Reference Range Interpretation Comments white blood count (test code = 14.5 K/uL 4.0-11.5 H white blood count) red blood count (test code = red 6.52 M/uL 3.80-5.20 H blood count) hemoglobin (test code = 18.4 g/dL 10.5-15.7 H hemoglobin) hematocrit (test code = 57.5 % 34.0-50.0 H hematocrit) MCV [Entitic volume] (test code = 88.2 fL 86.0-100.0 91102-5) mean corpuscular hemoglobin (test 28.2 pg 26.2-33.4 code = mean corpuscular hemoglobin) mean corpuscular HGB conc (test 32.0 g/dL 30.0-34.0 code = mean corpuscular HGB conc) red cell distribution width (test 12.8 % 12.0-15.5 code = red cell distribution width) platelet count (test code = 286 K/uL 165-450 platelet count) mean platelet volume (test code = 11.3 fL 9.4-12.6 mean platelet volume) Segmented neutrophils/100 68.4 % 44.4-80.1 leukocytes in Blood (test code = 79773-9) Immature granulocytes [#/volume] 0.11 K/uL 0.00-0.03 H in Blood (test code = 04895-2) lymphocyte% (test code = 22.4 % 10.0-50.0 lymphocyte%) mono % (test code = mono %) 6.8 % 3.6-12.0 eos % (test code = eos %) 1.2 % 0.0-5.4 basophil % (test code = basophil 0.4 % 0.1-1.2 %) Band form neutrophils [#/volume] 9.92 K/uL 1.56-6.13 H in Blood (test code = 33902-8) Lymphocytes [#/volume] in Specimen 3.24 K/uL 1.18-3.74 by Automated count (test code = 46568-3) mono # (test code = mono #) 0.98 K/uL 0.24-0.86 H eos # (test code = eos #) 0.17 K/uL 0.04-0.36 basophil # (test code = basophil 0.06 K/uL 0.01-0.08 #) NRBC% (test code = NRBC%) 0 /100 WBC 0-0.2 NRBC# (test code = NRBC#) 0 K/uL [facility]/Hemoglobin.total in [id number] 11:50:00 Test Item Value Reference Range Interpretation Comments Hemoglobin A1c [Mass/volume] in Blood 9.5 % 4.0-6.0 H (test code = 85734-5) [facility] 2000 panel - Serum or Plasma 2021-10-29 11:50:00 Test Item Value Reference Range Interpretation Comments glucose (test code = glucose) 145 mg/dL 74-106 H Urea nitrogen [Mass/volume] in 24 mg/dL 6-20 H Serum or Plasma (test code = 3094-0) osmolality calculated,serum (test 279 mOsm/kg 280-300 L code = osmolality calculated,serum) creatinine (test code = 0.76 mg/dL 0.50-0.90 creatinine) glomerular filtration rate (test >60.00 code = glomerular filtration rate) BUN/creatinine ratio (test code = 31.6 12.0-20.0 H BUN/creatinine ratio) sodium level (test code = sodium 136 mmol/L 135-145 level) Potassium [Moles/volume] in Body 4.0 mmol/L 3.5-5.2 fluid (test code = 2821-7) chloride level (test code = 95 mmol/L 98-108 L chloride level) CO2 (test code = CO2) 29 mmol/L 21-32 anion gap (test code = anion gap) 16.0 mEq/L 12.0-20.0 calcium level (test code = 9.7 mg/dL 8.6-10.0 calcium level) total protein (test code = total 6.7 g/dL 6.6-8.7 protein) albumin (test code = albumin) 4.0 g/dL 3.5-5.2 globulin (test code = globulin) 2.7 g/dL 1.5-4.5 A/G ratio (test code = A/G ratio) 1.5 >1.0 bilirubin,total (test code = 0.5 mg/dL 0.0-1.2 bilirubin,total) AST/SGOT (test code = AST/SGOT) 13 U/L 15-32 L Alanine aminotransferase 13 U/L 0-33 [Enzymatic activity/volume] in Serum or Plasma (test code = 1742-6) Alkaline phosphatase [Enzymatic 102 U/L 35-105 activity/volume] in Serum or Plasma (test code = 6768-6) [facility] 1996 panel - Serum or [id number] 11:50:00 Test Item Value Reference Range Interpretation Comments cholesterol level (test code = 267 mg/dL 150-200 H cholesterol level) triglycerides level (test code = 324 mg/dL <150 H triglycerides level) HDL cholesterol (test code = HDL 41 mg/dL >65 L cholesterol) LDL cholesterol direct (test code = 169 mg/dL <100 H LDL cholesterol direct) cholesterol risk ratio (test code = 6.512 cholesterol risk ratio) [facility] panel, method unspecified - [id number] 00:00:00NeutrophilsBandLymphocyteAtypical LymphMonocyteEosinophilBasophilMetamyelocyteMyelocytePromyelocyteBlastsNucleated Red Blood CellAbs Neutrophil Count (Man)Abs Lymph Count (Man)Abs Monocyte Count (Man)Abs Eosinophil Count (Man)Abs Basophil Count (Man)Platelet EstimatePlatelet MorphologyPolychromasiaPoikilocytosisAnisocytosisMacrocytosisOvalocytesToxic VacuolationThe [facility] Hospital [facility]idianThyrotropin [Units/volume] in Serum or Plasma 2021-10-29 00:00:00 Test Item Value Reference Range Interpretation Comments Thyrotropin [Units/volume] in 2.51 uIU/mL 0.36-3.74 Serum or Plasma (test code = 3016-3) [facility]idianMullerian inhibiting substance [Mass/volume] in Serum or [id number] 09:32:00 Test Item Value Reference Range Interpretation Comments Mullerian inhibiting substance <0.015 . [Moles/volume] in Serum or Plasma (test code = 64735-3) [facility]Mull[facility]ian inhibiting substance [Mass/volume] in Serum or [id number] 09:32:00 Test Item Value Reference Range Interpretation Comments Mullerian inhibiting substance <0.015 . [Moles/volume] in Serum or Plasma (test code = 18503-4) [facility]
[2021-11-23] MEDS ORDERED: HYDROMORPHONE HCL 1 MG/ML INJ ONE (20:10)
--- NOTE | 2021-11-23 21:30 | RAD REPORT ---
EXAM DESCRIPTION: CT - CTHCSPWOC - 11/23/2021 9:16 pm CLINICAL HISTORY: tingling right upper arm COMPARISON: Head C Spine Mpr Wo Con dated 01/06/2020 TECHNIQUE: Axial 5 mm thick images of the head were obtained. Axial 2 mm thick images of the cervic al spine were obtained with sagittal and coronal reconstruction images generated and reviewed. All CT scans are performed using dose optimization technique as appropriate and may include automated exposure control or mA/KV adjustment according to patient size. FINDINGS: No intracranial hemorrhage, mass, edema or acute intracranial finding. No suspicion for ac [place] river infarction. No extra-axial fluid collections. Mastoid air cells and paranasal sinuses are clear. No globe or orbit abnormality seen. No significant changes from the 2020 study. Cervical body height and alignment are normal. Mild C4-5 disc space narrowing seen with endplate spur ring. No fracture or acute bony abnormality. Central canal detail is inherently limited. No signific ant change from the 2020 study. No paraspinal mass or hematoma. IMPRESSION: Negative CT head examination for acute or significant finding. Negative CT cervical spine examination for acute or significant finding.
--- NOTE | 2021-11-23 21:34 | RAD REPORT ---
EXAM DESCRIPTION: CT - Spine Lumbar Wo Con - 11/23/2021 9:16 pm CLINICAL HISTORY: worsening low back pain after physical therapy COMPARISON: MRI lumbar spine 10/26/2021 TECHNIQUE: Thin section axial imaging of the lumbar spine was performed. Sagittal and coronal recon struction images were generated and reviewed. All CT scans are performed using dose optimization technique as appropriate and may include automated exposure control or mA/KV adjustment according to patient size. FINDINGS: Lumbar body height and alignment are normal. No changes to the vertebral bodies since the prior examination. No paraspinal mass. T12-L1, L1-2 and L2-3 disc spaces show no new findings. Degenerative gas present L3-4 disc level. Circumferential disc bulge is present. Spinal stenosis in c entral canal is again noted. Findings are not clearly different from the recent study. Degenerative gas in circumferential disc bulge L4-5 causing foraminal encroachment and central spinal stenosis similar to comparison. L5-S1 disc bulge contacting the left S1 nerve root. This is similar to comparison. IMPRESSION: Mid and lower lumbar degenerative disc disease as detailed. Canal and foramen stenoses a re similar to October 26 imaging. No acute vertebral body finding.
--- NOTE | 2021-11-23 22:25 | ER ---
Nurse's Notes [facility] Name: Anjana Cordova Age: 56 yrs Sex: Female : 1965 Arrival Date: 11/23/2021 Time: 17:25 Bed 17 Private MD: Diagnosis: Other intervertebral disc disorders, lumbar region;Low back pain;Paresthesia of skin-right upper arm Presentation: 11/23 17:57 Chief complaint: Patient states: "I have narrowing of my spine and Sandra been going vg1 through therapy; I just changed PT and she's been having me do things that Im really unable to, and she pulled up on my leg and my back has been hurting worse ever since." States Right arm is 'tingling and goes numb". Coronavirus screen: Vaccine status: Patient reports receiving the 2nd dose of the covid vaccine. Client denies travel out of the [place] in the last 14 days. Ebola Screen: Patient denies exposure to infectious person. Patient denies travel to an Ebola-affected area in the 21 days before illness onset. Initial Sepsis Screen: Does the patient meet any 2 criteria? HR > 90 bpm. Yes Does the patient have a suspected source of infection? No. Patient's initial sepsis screen is negative. Risk Assessment: Do you want to hurt yourself or someone else? Patient reports no desire to harm self or others. Onset of symptoms was November 22, 2021. 17:57 Method Of Arrival: Wheelchair vg1 17:57 Acuity: HAWK 4 vg1 Triage Assessment: 18:02 General: Appears uncomfortable, Behavior is cooperative, crying. Pain: Complains of vg1 pain in back Pain currently is 10 out of 10 on a pain scale. Noted to be crying. Neuro: Level of Consciousness is awake, alert, obeys commands, Oriented to person, place, time, situation. Musculoskeletal: Circulation, motion, and sensation intact. Historical: - Allergies: 18:02 No Known Allergies; vg1 - Home Meds: 18:02 lisinopril 10 mg Oral tab 1 tab as needed [Active]; Insulin: Novolin 70/30 Sub-Q 30 vg1 units in am and 15 units in pm [Active]; - PMHx: 18:02 Hypertension; Diabetes - IDDM; Depression; Rheumatoid arthritis; Spinal Stenosis; vg1 - PSHx: 18:02 section; Cholecystectomy; L arm; vg1 - Immunization history:: Client reports receiving the 2nd dose of the Covid vaccine. - Social history:: Smoking status: Patient reports the use of cigarette tobacco products, smokes one-half pack cigarettes per day. Screenin:46 Abuse screen: Denies threats or abuse. Denies injuries from another. Nutritional sm5 screening: No deficits noted. Tuberculosis screening: No symptoms or risk factors identified. Fall Risk None identified. Assessment: 22:45 General: Appears uncomfortable, Behavior is cooperative. Pain: Complains of pain in sm5 back. Neuro: Level of Consciousness is awake, alert, obeys commands, Oriented to person, place, time, situation. Cardiovascular: Capillary refill < 3 seconds Patient's skin is warm and dry. Respiratory: Airway is patent Trachea midline Respiratory effort is even, unlabored. Musculoskeletal: Reports pain in back. Vital Signs: 17:57 BP 157 / 80; Pulse 100; Resp 17; Temp 98.6; Pulse Ox 99% on R/A; Weight 103.42 kg; vg1 Height 5 ft. 5 in. (165.10 cm); Pain 10/10; 22:46 BP 149 / 71; Pulse 78; Resp 17; Pulse Ox 99% on R/A; sm5 17:57 Body Mass Index 37.94 (103.42 kg, 165.10 cm) vg1 ED Course: 17:25 Patient arrived in ED. rg4 17:38 Raul Hanson PA is PHCP. cp 17:39 Dallas Silverman MD is Attending Physician. cp 18:02 Triage completed. vg1 18:02 Arm band placed on. vg1 19:35 Kassandra Martínez, MARIETTA is Primary Nurse. sm5 21:19 CT Head C Spine In Process Unspecified. EDMS 21:19 CT Lumbar Spine Wo Con In Process Unspecified. EDMS 22:33 Enrike Henry DO is Attending Physician. cp 22:47 Patient has correct armband on for positive identification. Bed in low position. Call sm5 light in reach. Side rails up X2. 22:47 No provider procedures requiring assistance completed. Patient did not have IV access sm5 during this emergency room visit. Administered Medications: 20:08 Drug: Dilaudid (HYDROmorphone) 1 mg Route: IM; Site: left gluteus; 5 22:45 Drug: HYDROcodone-acetaminophen 10 mg-325 mg 1 tabs Route: PO; sm5 Medication: 22:47 VIS not applicable for this client. 5 Outcome: 22:24 Discharge ordered by . cp 22:47 Discharged to home via wheelchair, with family. sm5 22:47 Condition: stable 22:47 Discharge instructions given to patient, family, Instructed on discharge instructions, follow up and referral plans. medication usage, Demonstrated understanding of instructions, follow-up care, medications, Prescriptions given X 2. 22:49 Patient left the ED. 5 Signatures: Dispatcher [employer] EDMS Raul Hanson PA PA cp Garcia, Rubi rg4 Linda Benítez, RN RN vg1 Kassandra Martínez, RN RN sm5
--- NOTE | 2021-11-23 22:25 | EDPHYS ---
Physician Documentation [facility] Name: Anjana Cordova Age: 56 yrs Sex: Female : 1965 Arrival Date: 11/23/2021 Time: 17:25 Bed 17 Private MD: ED Physician Enrike Henry HPI: 11/23 20:00 This 56 yrs old Female presents to ER via Wheelchair with complaints of Back Pain. cp 20:00 The patient presents with pain that is chronic, worse over past 2 days after new cp physical therapist"pulled up on legs". The symptoms are located in the low back. The pain radiates to the right leg and left leg. Associated signs and symptoms: Pertinent positives: tingling of right upper arm, Pertinent negatives: abdominal pain, chest pain, constipation, fever, incontinence, urinary retention, weakness, saddle anesthesia. Modifying factors: the patient symptoms are aggravated by movement. Severity of symptoms: in the emergency department the symptoms are unchanged, despite home interventions. Historical: - Allergies: 18:02 No Known Allergies; vg1 - Home Meds: 18:02 lisinopril 10 mg Oral tab 1 tab as needed [Active]; Insulin: Novolin 70/30 Sub-Q 30 vg1 units in am and 15 units in pm [Active]; - PMHx: 18:02 Hypertension; Diabetes - IDDM; Depression; Rheumatoid arthritis; Spinal Stenosis; vg1 - PSHx: 18:02 section; Cholecystectomy; L arm; vg1 - Immunization history:: Client reports receiving the 2nd dose of the Covid vaccine. - Social history:: Smoking status: Patient reports the use of cigarette tobacco products, smokes one-half pack cigarettes per day. ROS: 20:05 Constitutional: Negative for body aches, chills, fever, poor PO intake. cp 20:05 Eyes: Negative for injury, pain, redness, and discharge. cp 20:05 ENT: Negative for drainage from ear(s), ear pain, sore throat, difficulty swallowing, difficulty handling secretions. 20:05 Cardiovascular: Negative for chest pain, edema, palpitations. 20:05 Respiratory: Negative for cough, shortness of breath, wheezing. 20:05 Abdomen/GI: Negative for abdominal pain, nausea, vomiting, and diarrhea, constipation, bowel incontinence. 20:05 Back: Positive for pain at rest, pain with movement, of the low back. 20:05 : Negative for urinary symptoms, flank pain, difficulty urinating, bladder incontinence. 20:05 Neuro: Positive for tingling right upper arm, Negative for dizziness, headache, weakness, saddle anesthesia. 20:05 All other systems are negative. Exam: 20:10 Constitutional: The patient appears in no acute distress, alert, awake, cp non-diaphoretic, non-toxic, well developed, well nourished, obese, uncomfortable. 20:10 Head/Face: Normocephalic, atraumatic. cp 20:10 Eyes: Periorbital structures: appear normal, Conjunctiva: normal, no exudate, no injection, Sclera: no appreciated abnormality, Lids and lashes: appear normal, bilaterally. 20:10 ENT: External ear(s): are unremarkable, Nose: is normal, Mouth: Lips: moist, Oral mucosa: pink and intact, moist, Posterior pharynx: Airway: no evidence of obstruction, patent. 20:10 Neck: C-spine: vertebral tenderness, is not appreciated, crepitus, is not appreciated, ROM/movement: is normal, is supple, without pain, no range of motions limitations, no nuchal rigidity. 20:10 Chest/axilla: Inspection: normal. 20:10 Cardiovascular: Rate: tachycardic, Rhythm: regular. 20:10 Respiratory: the patient does not display signs of respiratory distress, Respirations: normal, no use of accessory muscles, no retractions, labored breathing, is not present. 20:10 Abdomen/GI: Inspection: obese Palpation: abdomen is soft and non-tender, in all quadrants. 20:10 Back: pain, that is severe, of the lumbar area, ROM is painful, with all movement, CVA tenderness, is absent. 20:10 Skin: no rash present. 20:10 Neuro: Orientation: to person, place \\T\\ time. Mentation: is normal, Motor: moves all fours, strength is normal, Sensation: tingling, that is mild, of the outer right upper arm, Deep tendon reflexes are 2+ (normal) in the right patellar, right Achilles, left patellar and left Achilles. Vital Signs: 17:57 BP 157 / 80; Pulse 100; Resp 17; Temp 98.6; Pulse Ox 99% on R/A; Weight 103.42 kg; vg1 Height 5 ft. 5 in. (165.10 cm); Pain 10/10; 22:46 BP 149 / 71; Pulse 78; Resp 17; Pulse Ox 99% on R/A; sm5 17:57 Body Mass Index 37.94 (103.42 kg, 165.10 cm) vg1 MDM: 19:30 Patient medically screened. cp 20:15 Differential diagnosis: ruptured disc, vertebral fracture, spinal stenosis, cauda cp equina. 22:24 Data reviewed: vital signs, nurses notes, radiologic studies, CT scan. cp 22:24 Counseling: I had a detailed discussion with the patient and/or guardian regarding: the cp historical points, exam findings, and any diagnostic results supporting the discharge/admit diagnosis, radiology results, the need for outpatient follow up, for definitive care, a neurosurgeon, to return to the emergency department if symptoms worsen or persist or if there are any questions or concerns that arise at home. Response to treatment: the patient's symptoms have markedly improved after treatment, and as a result, I will discharge patient. ED course: VSS. CT results of lumbar spine similar to previous CT with no significant change. Patient unable to provide urine sample but denies any urinary/bowel incontinence, denies saddle anesthesia. Will discharge to home for continued monitoring. 11/23 19:58 Order name: CT Head C Spine; Complete Time: 22:07 cp 11/23 19:58 Order name: CT Lumbar Spine Wo Con; Complete Time: 22:07 11/23 19:58 Order name: Urine Dipstick-Ancillary (obtain specimen) cp Administered Medications: 20:08 Drug: Dilaudid (HYDROmorphone) 1 mg Route: IM; Site: left gluteus; sm5 22:45 Drug: HYDROcodone-acetaminophen 10 mg-325 mg 1 tabs Route: PO; sm5 Disposition Summary: 11/23/21 22:24 Discharge Ordered Location: Home cp Condition: Stable cp Diagnosis - Other intervertebral disc disorders, lumbar region cp - Low back pain cp - Paresthesia of skin - right upper arm cp Followup: cp - With: Private Physician - When: 2 - 3 days - Reason: Recheck today's complaints Discharge Instructions: - Discharge Summary Sheet cp - Chronic Back Pain cp - Herniated Disk cp - Spinal Stenosis cp - Back Exercises cp Forms: - Medication Reconciliation Form cp - Thank You Letter cp - Antibiotic Education cp - Prescription Opioid Use cp Prescriptions: - Lidoderm 5 % Topical adhesive patch,medicated - apply 1 patch by TOPICAL route once daily; 15 patch; Refills: 0, Product cp Selection Permitted - Tylenol-Codeine #3 300 mg-30 mg Oral - take 2 tablet by ORAL route every 8-10 hours; 14 tablet; Refills: 0, Product cp Selection Permitted Addendum: 11/25/2021 04:42 Co-signature as Attending Physician, Enrike CHRISTIE was immediately available on-site m s3 in the Emergency Department for consultation in the care of the patient.. Signatures: Dispatcher [employer] EDMS Raul Hanson PA PA cp Garcia, Victoria, RN RN vg1 Enrike Henry DO DO ms3 Kassandra Martínez RN RN sm5
[2021-11-23] MEDS ORDERED: HYDROCODONE/APAP 10/325 TAB ONE (22:51)
[2021-11-24 00:39] VITALS: TEMP 98.6; O2SAT 99
[2021-11-24 00:41] VITALS: BP 149/71
== END 2021-11-23 22:49 | disposition home or self-care (01) ==
LOC: ER 17:23
DX: M51.86 Other intervertebral disc disorders, lumbar region (principal); R20.2 Paresthesia of skin; I10 Essential (primary) hypertension; E11.9 Type 2 diabetes mellitus without complications; Z79.4 Long term (current) use of insulin
CPT/HCPCS: 72131; 70450; 72125; 96372; 99283; J1170

== ENCOUNTER 2021-12-04 16:11 | Observation (INO) | payer BC ==
--- OUTSIDE RECORDS SUMMARY | 2021-12-04 16:14 | XMS REPORT | Continuity of Care Document ---
:1965 Author Organization [facility] t Address [facility]3 [address] López [address] [place] [id number] Care Team Providers Name Role Phone Shield Attending Clinician Unavailable Rutledge_L Attending Clinician Unavailable KAYLIE_DANYA Attending Clinician Unavailable Shield Admitting Clinician Unavailable Rutledge_L Admitting Clinician Unavailable KAYLIE_DANYA Admitting Clinician Unavailable Payers Payer Name Policy Type Policy Number Effective Date Expiration Date Ivan jones [place] [id number] 2021 00:00:00 [place] Problems Condition Condition [...] Date Stop Date Source Heavy Tobacco Smoker [facility] Medications Ordered Filled Start [...] Source BP Diastolic 2021-11-14 00:00:00 88 mm[facility]Hg[facility] Height 2021-11-14 00:00:00 65 [in_i] [facility] BMI (Body Mass 2021-11-14 00:00:00 38.4 kg/m2 [facility] BP Systolic 2021-11-14 00:00:00 138 mm[Hg[facility] Body Weight 2021-11-14 00:00:00 3696 [oz_av] [facility] BP Diastolic 2021-10-29 00:00:00 85 mm[Hg] [facility] Height 2021-10-29 00:00:00 65 [in_i] [facility] BMI (Body Mass 2021-10-29 00:00:00 38.3 kg/m2 [facility] BP Systolic 2021-10-29 00:00:00 137 mm[Hg] [facility] Body Weight 2021-10-29 00:00:00 3680 [oz_av] [facility] BP Diastolic 2020-04-21 00:00:00 81 mm[Hg] [facility] Height 2020-04-21 00:00:00 65 [in_i] [facility] BMI (Body Mass 2020-04-21 00:00:00 44.1 kg/m2 [facility] BP Systolic 2020-04-21 00:00:00 163 mm[Hg] [facility] Body Weight 2020-04-21 00:00:00 265 [lb_av] [facility] BP Diastolic 2020-02-21 00:00:00 87 mm[Hg] [facility] Height 2020-02-21 00:00:00 65 [in_i] [facility] BMI (Body Mass 2020-02-21 00:00:00 44.1 kg/m2 [facility] BP Systolic 2020-02-21 00:00:00 144 mm[Hg] [facility] Body Weight 2020-02-21 00:00:00 265 [lb_av] [facility] BP Systolic 2020-01-31 00:00:00 185 mm[Hg] [facility] Body Weight 2020-01-31 00:00:00 275.7 [lb_av] [facility] BP Diastolic 2020-01-31 00:00:00 98 mm[Hg] [facility] Procedures Procedure Date / Time Performed Performing Clinician [facility] e unlisted imaging order 2021-10-29 00:00:00 [facility] US, transvaginal 2020-02-21 00:00:00 [facility] US, transvaginal 2020-01-31 00:00:00 [facility] Caes[facility] Plan of Care Planned Activity Planned Date Details Comments Source Instructions [facility] Encounters Start End Encounter Admission Attending Care Care Encounter Source Date/Time Date/Time Type Type Clinicians Facility Department ID 2021-11-14 2021-11-14 Outpatient Shield [facility] [id number] [facility] 00:00:00 00:00:00 [facility] 2021-11-14 2021-11-14 [place]ella [place] - [id number] M atagor 00:00:00 00:00:00 Discovery flo Leon TUBING ASSEMBLER: 600 [facility] [address], [place] [address] , Ph. 2021-10-30 2021-10-30 Outpatient Rutledge_L [facility] 1777 [place] 05:47:00 05:47:00 [facility]26 [facility] 2021-10-29 2021-10-29 Outpatient Rutledge_L [facility]G MMG 1777 [place] 02:23:00 02:23:00 0718 [facility] 2021-10-29 2021-10-29 Marbella MM [place] - [id number] M [facility] 00:00:00 00:00:00 Discovery flo Leon TUBING ASSEMBLER: 600 [facility] [address], [facility] [address] , Ph. 2020-07-19 2020-07-19 Outpatient LISTER_DANIEL [place] [id number] [place] 12:41:00 12:41:00 SSA 0407 [facility] Outre h Program 2020-06-04 2020-06-04 Outpatient Rutledge_L MMG MMG 1777 [place] 12:22:00 12:22:00 0221 [facility] 2020-04-21 2020-04-21 Outpatient Rutledge_L MMG MMG 1777 [place] 02:20:00 02:20:00 0108 [facility] 2020-04-21 2020-04-21 Lacy [facility] [place] - [id number] M at[facility]or 00:00:00 00:00:00 Hugh Pradhan, Medical Medica janneth MD: 600 [facility] [address] [address] , Ph. [phone] 2020-04-17 2020-04-17 Outpatient Rutledge_L MMG MMG 1777 [place] 11:05:00 11:05:00 0104 [facility] 2020-03-26 2020-03-26 Outpatient Rutledge_L MMG MMG 1777 [place] 03:57:00 03:57:00 1213 [facility] 2020-03-01 2020-03-01 Outpatient Rutledge_L MMG MMG 1777 [place] 02:21:00 02:21:00 1118 [facility] 2020-02-21 2020-02-21 Outpatient Rutledge_L MMG MMG 1777 [place] 11:57:00 11:57:00 1109 [facility] 2020-02-21 2020-02-21 Lacy [facility]G [place] - [id number] M [facility] 00:00:00 00:00:00 Hugh Pradhan Medical Medica janneth MD: [address] [address] , Ph. [phone] 2020-02-15 2020-02-15 Outpatient Rutledge_L MMG MMG 1777 [place] 11:06:00 11:06:00 1103 [facility] 2020-02-13 2020-02-13 Outpatient Rutledge_L MMG MMG 1777 [place] 01:16:00 01:16:00 1101 [facility] 2020-01-31 2020-01-31 Outpatient Rutledge_L MMG MMG 1777 [place] 11:16:00 11:16:00 1019 [facility] 2020-01-31 2020-01-31 Lacy [facility] [place] - [id number] M [facility] 00:00:00 00:00:00 Hugh Pradhan [facility] Med[facility] janneth MD: [address] [address] , Ph. [phone] 2020-01-25 2020-01-25 Outpatient Shield MMG MMG [id number] [id number] [place] 12:46:00 12:46:00 1013 [facility] 2019-12-27 2019-12-27 Outpatient Shield MMG MMG [id number] [place] 04:57:00 04:57:00 0914 [facility] Results Test Description Test Time Test Comments Results Result Comments Source Erythrocyte sedimentation rate 2021-11-06 01:27:00 Test Item Value Reference Range Interpretation Comme nts Erythrocyte sedimentation rate by Photometric method (test code = 42 mm/HR 0-40 H 21055-0) [facility] W Reflex Culture panel - Urine 2021-10-30 01:24:00 Test Item Value Reference Range Interpretation Comments Color of Urine by Auto (test yellow code = 53375-0) Appearance of Urine (test code clear clear = 5767-9) Glucose [Presence] in Urine by =4+ (1000 negative Automated test strip (test code = 90908-9) Bilirubin.total [Mass/volume] negative negative in Urine (test code = 1978-6) Ketones [Mass/volume] in Urine =2 negative H by Automated test strip (test code = 02735-5) Specific gravity of Urine by 1.032 1.003-1.030 H Automated test strip (test code = 28134-1) blood urine (test code = blood negative negative urine) pH of Urine (test code = 6.000 5-9 2756-5) protein urine (UA) (test code = trace negative protein urine (UA)) Urobilinogen [Presence] in =2.0 0.2-1.0 H Urine (test code = 92203-9) Nitrite [Presence] in Urine by negative negative Test strip (test code = 5802-4) Leukocyte esterase [Presence] negative negative in Urine by Automated test strip (test code = 02923-8) Erythrocytes [#/volume] in =1-5 0-5 Urine by Automated count (test code = 798-9) Leukocytes [#/area] in Urine =6-10 0-5 H sediment by Automated count (test code = 91719-7) Epithelial cells [Presence] in =6-10 0-5 Urine sediment by Light microscopy (test code = 59322-7) Bacteria identified in Urine by small(1 none detect Culture (test code = 630-4) Casts [#/area] in Urine none detected none detect sediment by Automated count (test code = 69339-0) urine culture added? (test code no = urine culture added?) [facility] [Mass/volume] in [id number] 01:24:00 Test Item Value Reference Range Interpretation Comments microalbumin random (test code = 52.9 mg/L 0-20 H microalbumin random) [facility] W Auto Differential panel - [id number] 11:50:00 Test Item Value Reference Range Interpretation Comments white blood count (test code = 14.5 K/uL 4.0-11.5 H white blood count) red blood count (test code = red 6.52 M/uL 3.80-5.20 H blood count) hemoglobin (test code = 18.4 g/dL 10.5-15.7 H hemoglobin) hematocrit (test code = 57.5 % 34.0-50.0 H hematocrit) MCV [Entitic volume] (test code = 88.2 fL 86.0-100.0 29030-5) mean corpuscular hemoglobin (test 28.2 pg 26.2-33.4 [...] 44.4-80.1 leukocytes in Blood (test code = 16453-4) Immature granulocytes [#/volume] 0.11 K/uL 0.00-0.03 H in Blood (test code = 23379-4) lymphocyte% (test code = 22.4 % 10.0-50.0 lymphocyte%) mono % (test code = mono %) 6.8 % 3.6-12.0 eos % (test code = eos %) 1.2 % 0.0-5.4 basophil % (test code = basophil 0.4 % 0.1-1.2 %) Band form neutrophils [#/volume] 9.92 K/uL 1.56-6.13 H in Blood (test code = 82977-4) Lymphocytes [#/volume] in Specimen 3.24 K/uL 1.18-3.74 by Automated count (test code = 62144-4) mono # (test code = mono #) 0.98 K/uL 0.24-0.86 H eos # (test code = eos #) 0.17 K/uL 0.04-0.36 basophil # (test code = basophil 0.06 K/uL 0.01-0.08 #) NRBC% (test code = NRBC%) 0 /100 WBC 0-0.2 NRBC# (test code = NRBC#) 0 K/uL [facility] A1c/Hemoglobin.total in [id number] 11:50:00 Test Item Value Reference Range Interpretation Comments Hemoglobin A1c [Mass/volume] in Blood 9.5 % 4.0-6.0 H (test code = 83651-5) [facility]prehensive metabolic 2000 panel - Serum or Plasma [...] Serum or Plasma (test code = 6768-6) [facility]port[facility]id 1996 panel - Serum or [id number] 11:50:00 Test Item Value Reference Range Interpretation [...] (test code = 6.512 cholesterol risk ratio) [facility] panel, method unspecified - [id number] 00:00:00NeutrophilsBandLymphocyteAtypical LymphMonocyteEosinophilBasophilMetamyelocyteMyelocytePromyelocyteBlastsNucleated Red Blood CellAbs Neutrophil Count (Man)Abs Lymph Count (Man)Abs Monocyte Count (Man)Abs Eosinophil Count (Man)Abs Basophil Count (Man)Platelet EstimatePlatelet MorphologyPolychromasiaPoikilocytosisAnisocytosisMacrocytosisOvalocytesToxic VacuolationMem[facility]portThyrotropin [Units/volume] in Serum or Plasma 2021-10-29 00:00:00 Test Item Value Reference Range Interpretation Comments Thyrotropin [Units/volume] in 2.51 uIU/mL 0.36-3.74 Serum or Plasma (test code = 3016-3) [facility]portMullerian inhibiting substance [Mass/volume] in Serum or [id number] 09:32:00 Test Item Value Reference Range Interpretation Comments Mullerian inhibiting substance <0.015 . [Moles/volume] in Serum or Plasma (test code = 87746-4) [facility]portMull[facility]ian inhibiting substance [Mass/volume] in Serum or [id number] 09:32:00 Test Item Value Reference Range Interpretation Comments Mullerian inhibiting substance <0.015 . [Moles/volume] in Serum or Plasma (test code = 88284-0) [facility]
[2021-12-04 17:36] LABS: Absolute Lymphocytes (CBC) 2.3 K/uL (0.7-4.9); Hematocrit 48.3 % (36.0-45.0); Lymphocytes % 28.1 % (15.3-44.8); MCV 86.8 fL (80-100); RBC Red Blood Cell Count 5.56 M/uL (3.86-4.86)
[2021-12-04 17:45] LABS: Protime INR 1.08
[2021-12-04 17:55] LABS: Albumin 3.6 g/dL (3.4-5.0); Bilirubin Total 0.5 mg/dL (0.2-1.0); Potassium 4.1 mmol/L (3.5-5.1); Protein, Total 8.2 g/dL (6.4-8.2)
[2021-12-04] MEDS ORDERED: CLINDAMYCIN 600MG/D5W 600 MG/50 ML BAG IV ONE (17:57)
--- NOTE | 2021-12-04 18:05 | RAD REPORT ---
EXAM DESCRIPTION: RAD - Chest Single View - 12/04/2021 5:49 pm CLINICAL HISTORY: preop Chest pain. COMPARISON: Chest Single View dated 11/09/2016 FINDINGS: Portable technique limits examination quality. The lungs are grossly clear. The heart is normal in size. No displaced fractures. IMPRESSION: No acute intrathoracic process suspected.
--- NOTE | 2021-12-04 18:50 | P.HP ---
Certification for Inpatient With expected LOS: >2 Midnights Patient will require the following post-hospital care: None Practitioner: I am a practitioner with admitting privileges, knowledge of patient current condition, hospital course, and medical plan of care. Services: Services provided to patient in accordance with Admission requirements found in Title 42 Section 412.3 of the Code of Federal Regulations Patient History Date of Service: 12/04/21 Reason for admission: abscess with cellulitis History of Present Illness: Mrs. Cordova is a 56 yr old female with IDDM, RA, Spinal stenosis, and Depression who presented to the ED with c/o a draining, foul smelling abscess to the right distal buttock. She is afebrile, has taken Bactrim (left over at her home) x three days. Allergies No Known Allergies Allergy (Unverified 11/23/14 03:28) Home medications list reviewed: Yes (Lisinopril 10mg po q HS, Insulin 70/30 30u in am and 15u in pm) - Past Medical/Surgical History Has patient received pneumonia vaccine in the past: No Diabetic: Yes -: RA, spinal stenosis -: Depression -: C/S -: left forearm -: cholecystectomy Psychosocial/ Personal History: Pt lives as home with her . Two Daughters at bedside - Social History Smoking Status: Current every day smoker Counseled patient to stop smoking for: less than 10 minutes Alcohol use: No CD- Drugs: No Caffeine use: Yes Place of Residence: Home Review of Systems General: Malaise Eyes: Unremarkable ENT: Unremarkable Respiratory: Unremarkable Cardiovascular: Unremarkable Gastrointestinal: Unremarkable Genitourinary: Unremarkable Musculoskeletal: As per HPI (Pt has an appt next week with Neurosurgery), Unremarkable Integumentary: Lesions (abscess to right buttock draining malodorous discharge with tenderness) Neurological: Unremarkable Physical Examination - Physical Exam General: Alert, Oriented x3 HEENT: Atraumatic, Normocephalic Neck: 2+ carotid pulse no bruit Respiratory: Clear to auscultation bilaterally Cardiovascular: No edema, Normal pulses Gastrointestinal: Normal bowel sounds Musculoskeletal: No clubbing, No swelling Neurological: Normal gait, Normal speech, Normal strength at 5/5 x4 extr External genitalia: Tenderness, Other (tender abscess with malodorous dc with surrounding cellulitis, [id number] opening at center) - Studies Laboratory Data (last 24 hrs) 12/04/21 17:17: PT 11.9, INR 1.08, APTT 34.4 12/04/21 17:17: Sodium 134 L, Potassium 4.1, BUN 26 H, Creatinine 1.14, Glucose 251 H, Total Bilirubin 0.5, AST 12 L, ALT 16, Alkaline Phosphatase 113 12/04/21 17:17: WBC 8.10, Hgb 16.2 H, Hct 48.3 H, Plt Count 313 Assessment and Plan - Problems (Diagnosis) (1) Abscess Current Visit: Yes Status: Acute Plan: Clindamycin 600mg IVBP Q8h Morphine 4mg SIVP Q4h prn pain Zofran 4mg SIVP Q6h prn nausea Consult Dr. Grady (2) Diabetes Current Visit: Yes Status: Acute Plan: FSBS q6hr Sliding scale insulin - mild NS at 125ml/hr Daily CBC, CMP Qualifiers: Diabetes mellitus machine long goods helper insulin use: with mcc use Plan to discharge in: 48 Hours - Advance Directives Does patient have a Living Will: No Does patient have a Durable POA for Healthcare: No - Code Status/Comfort Care Code Status Assessed: Yes (full)
[2021-12-04] MEDS ORDERED: MORPHINE 4 MG/ML SYR ONE (18:52)
[2021-12-04] MEDS ORDERED: ONDANSETRON 4 MG/2 ML VIAL ONE (18:52)
--- NOTE | 2021-12-04 19:28 | EDPHYS ---
Physician Documentation [facility] Name: Anjana Cordova Age: 56 yrs Sex: Female : 1965 Arrival Date: 12/04/2021 Time: 16:34 Bed 6 Private MD: ED Physician Harjeet Vazquez HPI: 12/04 17:52 This 56 yrs old Female presents to ER via Ambulatory with complaints of Infection. snw 17:52 the patient presents with a swollen area of the left labia majora. Description: The snw affected area is moderate sized, irregular, draining, erythematous, swollen, warm. Onset: The symptoms/episode began/occurred gradually, 1 day(s) ago, and became worse yesterday. Possible cause(s): unknown. Associated signs and symptoms: Pertinent positives: drainage, erythema, swelling. Severity of symptoms: At their worst the symptoms were moderate, in the emergency department the symptoms are unchanged. The patient has not experienced similar symptoms in the past. It is unknown whether or not the patient has recently seen a physician. hx IDDM. Historical: - Allergies: 17:03 No Known Allergies; tw2 - Home Meds: 16:50 lisinopril 10 mg Oral tab 1 tab as needed [Active]; Insulin: Novolin 70/30 Sub-Q 30 jh5 units in am and 15 units in pm [Active]; - PMHx: 16:50 Depression; Diabetes - IDDM; Hypertension; Rheumatoid Arthritis; spinal stenosis; jh5 - PSHx: 16:50 section; Cholecystectomy; L arm; jh5 - Immunization history:: Adult Immunizations up to date. - Social history:: Smoking status: Patient reports the use of cigarette tobacco products. ROS: 17:49 Constitutional: Negative for fever, chills, and weight loss, Eyes: Negative for injury, snw pain, redness, and discharge, ENT: Negative for injury, pain, and discharge, Neck: Negative for injury, pain, and swelling, Cardiovascular: Negative for chest pain, palpitations, and edema, Respiratory: Negative for shortness of breath, cough, wheezing, and pleuritic chest pain, Abdomen/GI: Negative for abdominal pain, nausea, vomiting, diarrhea, and constipation, Back: Negative for injury and pain, : Negative for injury, bleeding, discharge, and swelling, MS/Extremity: Negative for injury and deformity, Skin: Negative for injury, rash, and discoloration, pt had an ingrown hair to right outer labial fold. used black salve to bring to a head and popped the area. took Bactrim she had at home x 3 days and yesterday noted the area was draining. + tenderness, foul odor, drainage today Neuro: Negative for headache, weakness, numbness, tingling, and seizure, Psych: Negative for depression, anxiety, suicide ideation, homicidal ideation, and hallucinations. Exam: 17:09 Constitutional: This is a well developed, well nourished patient who is awake, alert, snw and in no acute distress. Head/Face: Normocephalic, atraumatic. Eyes: Pupils equal round and reactive to light, extra-ocular motions intact. Lids and lashes normal. Conjunctiva and sclera are non-icteric and not injected. Cornea within normal limits. Periorbital areas with no swelling, redness, or edema. ENT: Nares patent. No nasal discharge, no septal abnormalities noted. Tympanic membranes are normal and external auditory canals are clear. Oropharynx with no redness, swelling, or masses, exudates, or evidence of obstruction, uvula midline. Mucous membranes moist. Neck: Trachea midline, no thyromegaly or masses palpated, and no cervical lymphadenopathy. Supple, full range of motion without nuchal rigidity, or vertebral point tenderness. No Meningismus. Chest/axilla: Normal chest wall appearance and motion. Nontender with no deformity. No lesions are appreciated. 17:09 Respiratory: Lungs have equal breath sounds bilaterally, clear to auscultation and percussion. No rales, rhonchi or wheezes noted. No increased work of breathing, no retractions or nasal flaring. Abdomen/GI: Soft, non-tender, with normal bowel sounds. No distension or tympany. No guarding or rebound. No evidence of tenderness throughout. Back: No spinal tenderness. No costovertebral tenderness. Full range of motion. MS/ Extremity: Pulses equal, no cyanosis. Neurovascular intact. Full, normal range of motion. Neuro: Awake and alert, GCS 15, oriented to person, place, time, and situation. Cranial nerves II-XII grossly intact. Motor strength 5/5 in all extremities. Sensory grossly intact. Cerebellar exam normal. Normal gait. Psych: Awake, alert, with orientation to person, place and time. Behavior, mood, and affect are within normal limits. 17:09 Cardiovascular: Rate: tachycardic, Rhythm: regular, Pulses: no pulse deficits are appreciated, Heart sounds: normal. 17:09 ECG was reviewed by the Attending Physician. 17:09 Skin: Appearance: normal except for affected area, lesion(s), noted, and can be described as erythematous, draining thick, yellow exudate. Vital Signs: 16:50 BP 138 / 58; Pulse 103; Resp 16; Temp 98.1; Pulse Ox 100% ; Weight 102.06 kg; Height 5 5 ft. 5 in. (165.10 cm); Pain 10/10; 17:30 BP 180 / 75; Pulse 96; Resp 17; Pulse Ox 100% on R/A; tw2 18:42 BP 146 / 79; Pulse 87; Resp 17; Pulse Ox 100% on R/A; tw2 19:17 BP 131 / 68; Pulse 84; Resp 17; Pulse Ox 100% ; vc1 19:45 BP 147 / 65; Pulse 89; Resp 18; Pulse Ox 98% ; vc1 21:41 BP 141 / 72; Pulse 78; Temp 97.1(O); Pulse Ox 100% on R/A; vc1 16:50 Body Mass Index 37.44 (102.06 kg, 165.10 cm) [facility] MDM: 17:48 Patient medically screened. snw 18:41 Data reviewed: vital signs, nurses notes. Data interpreted: Pulse oximetry: on room air snw is 100 %. Interpretation: normal. Counseling: I had a detailed discussion with the patient and/or guardian regarding: the historical points, exam findings, and any diagnostic results supporting the discharge/admit diagnosis, lab results, the need for further work-up and treatment in the hospital. Physician consultation: Brice Grady MD was called at 18:41, regarding consult, would like admission per Dr. Enedelia Warren MD. 12/04 16:54 Order name: Blood Culture Adult (2) snw 12/04 16:54 Order name: CBC with Diff; Complete Time: 17:48 snw 12/04 16:54 Order name: CMP; Complete Time: 17:56 snw 12/04 16:54 Order name: Lactate; Complete Time: 17:56 snw 12/04 16:54 Order name: Protime (+inr); Complete Time: 17:48 snw 12/04 16:54 Order name: Ptt, Activated; Complete Time: 17:48 snw 12/04 16:54 Order name: Urine Microscopic Only; Complete Time: 22:03 snw 12/04 21:31 Order name: SARS RAPID vc1 12/04 21:42 Order name: Urine Dipstick-Ancillary; Complete Time: 21:46 EDMS 12/04 22:18 Order name: SARS-COV-2 Antigen Rapid; Complete Time: 22:21 EDMS 12/05 01:10 Order name: Glucose, Ancillary Testing EDMS 12/05 02:59 Order name: CBC with Automated Diff EDMS 12/05 03:20 Order name: Hemoglobin A1c EDMS 12/05 03:27 Order name: Comprehensive Metabolic Panel EDMS 12/04 16:54 Order name: Chest Single View XRAY; Complete Time: 18:17 snw 12/04 16:54 Order name: Cardiac monitoring; Complete Time: 17:03 snw 12/04 16:54 Order name: EKG - Nurse/Tech; Complete Time: 17:07 snw 12/04 16:54 Order name: IV Saline Lock - Large Bore; Complete Time: 17:47 snw 12/04 16:54 Order name: Labs collected and sent; Complete Time: 17:47 snw 12/04 16:54 Order name: O2 Per Protocol; Complete Time: 17:03 snw 12/04 16:54 Order name: O2 Sat Monitoring; Complete Time: 17:03 snw 12/05 03:27 Order name: Lipid Profile EDMS 12/05 03:27 Order name: Magnesium EDMS 12/05 05:50 Order name: Glucose, Ancillary Testing EDMS 12/05 07:36 Order name: Glucose, Ancillary Testing EDMS 12/05 11:46 Order name: Wound Culture EDMS 12/05 13:03 Order name: Glucose, Ancillary Testing EDMS EC:09 Rate is 100 beats/min. Rhythm is regular. QRS [place] is Normal. MT interval is normal. QT snw interval is normal. T waves are Normal. No ST changes noted. Clinical impression: Normal ECG. Administered Medications: 17:50 Drug: Clindamycin 600 mg Route: IVPB; Infused Over: 30 mins; Site: right antecubital; tw2 19:00 Drug: morphine 4 mg Route: IVP; Infused Over: 4 mins; Site: right antecubital; ph 19:19 Follow up: Response: No adverse reaction ph 19:00 Drug: Zofran (Ondansetron) 4 mg Route: IVP; Site: right antecubital; ph 19:19 Follow up: Response: No adverse reaction ph Disposition: 12/05 17:57 Co-signature as Attending Physician, Harjeet Vazquez MD I agree with the assessment and kdr plan of care. Disposition Summary: 12/04/21 19:27 Hospitalization Ordered Hospitalization Status: Inpatient Admission snw Provider: Anibal Renner snkevin Condition: Stable snw Problem: an acute exacerbation snw Symptoms: have worsened snw Bed/Room Type: Standard snw Location: [facility] ER HOLD(12/04/21 22:31) cg Room Assignment: ERHOLD-(12/04/21 22:31) cg Diagnosis - Cutaneous abscess of groin snw - Other specified diabetes mellitus with hyperglycemia snw Forms: - Medication Reconciliation Form snw - SBAR form snw Signatures: Dispatcher [employer] EDMS Harjeet Vazquez MD MD kdr Jany Krishnamurthy FNP-C [employer] Thalia Rodarte, RN RN Jamila Leary, RN RN Tresa Deluca RN RN tw2 Shayy Santillan RN RN jh5 Corrections: (The following items were deleted from the chart) 12/04 22:31 19:27 Telemetry/MedSurg (Inpatient) snw cg 22:31 19:27 snw cg
--- NOTE | 2021-12-04 19:28 | ER ---
Nurse's Notes [facility] Name: Anjana Cordova Age: 56 yrs Sex: Female : 1965 Arrival Date: 12/04/2021 Time: 16:34 Bed 6 Private MD: Diagnosis: Cutaneous abscess of groin;Other specified diabetes mellitus with hyperglycemia Presentation: 12/04 16:46 Chief complaint: Patient states: i thought i had a boil in my "back groin area" and i jh5 put salve on it and now it's very bad; pt smells. Coronavirus screen: Vaccine status: Patient reports receiving the 2nd dose of the covid vaccine. Client denies travel out of the [place] in the last 14 days. Ebola Screen: Patient negative for fever greater than or equal to 101.5 degrees Fahrenheit, and additional compatible Ebola Virus Disease symptoms Patient denies exposure to infectious person. Patient denies travel to an Ebola-affected area in the 21 days before illness onset. Initial Sepsis Screen: Does the patient meet any 2 criteria? No. Patient's initial sepsis screen is negative. Does the patient have a suspected source of infection? No. Patient's initial sepsis screen is negative. Risk Assessment: Do you want to hurt yourself or someone else? Patient reports no desire to harm self or others. Onset of symptoms was November 20, 2021. 16:46 Method Of Arrival: Ambulatory [facility] 16:46 Acuity: HAWK 3 jh5 Triage Assessment: 16:50 General: Appears obese, unkempt, Behavior is calm, cooperative, appropriate for age. jh5 Pain: Complains of pain in buttocks. Historical: - Allergies: 17:03 No Known Allergies; tw2 - Home Meds: 16:50 lisinopril 10 mg Oral tab 1 tab as needed [Active]; Insulin: Novolin 70/30 Sub-Q 30 jh5 units in am and 15 units in pm [Active]; - PMHx: 16:50 Depression; Diabetes - IDDM; Hypertension; Rheumatoid Arthritis; spinal stenosis; jh5 - PSHx: 16:50 section; Cholecystectomy; L arm; jh5 - Immunization history:: Adult Immunizations up to date. - Social history:: Smoking status: Patient reports the use of cigarette tobacco products. Screenin:55 Abuse screen: Denies threats or abuse. Denies injuries from another. Nutritional [facility] screening: No deficits noted. Tuberculosis screening: No symptoms or risk factors identified. Fall Risk Fall in past 12 months (25 points). Secondary diagnosis (15 points) impaired mobility. Assessment: 17:26 Reassessment: Patient appears in no apparent distress at this time. No changes from tw2 previously documented assessment. Patient and/or family updated on plan of care and expected duration. Pain level reassessed. Patient is alert, oriented x 3, equal unlabored respirations, skin warm/dry/pink. 18:42 Reassessment: Patient appears in no apparent distress at this time. No changes from tw2 previously documented assessment. Patient and/or family updated on plan of care and expected duration. Pain level reassessed. Patient is alert, oriented x 3, equal unlabored respirations, skin warm/dry/pink. Vital Signs: 16:50 BP 138 / 58; Pulse 103; Resp 16; Temp 98.1; Pulse Ox 100% ; Weight 102.06 kg; Height 5 [facility] ft. 5 in. (165.10 cm); Pain 10/10; 17:30 BP 180 / 75; Pulse 96; Resp 17; Pulse Ox 100% on R/A; tw2 18:42 BP 146 / 79; Pulse 87; Resp 17; Pulse Ox 100% on R/A; tw2 19:17 BP 131 / 68; Pulse 84; Resp 17; Pulse Ox 100% ; vc1 19:45 BP 147 / 65; Pulse 89; Resp 18; Pulse Ox 98% ; vc1 21:41 BP 141 / 72; Pulse 78; Temp 97.1(O); Pulse Ox 100% on R/A; vc1 16:50 Body Mass Index 37.44 (102.06 kg, 165.10 cm) [facility] ED Course: 16:34 Patient arrived in ED. mr 16:50 Triage completed. [facility] 16:50 Arm band placed on right wrist. [facility] 16:53 Jany Krishnamurthy FNP-C [facility] 16:53 Harjeet Vazquez MD is Attending Physician. [facility] 16:55 Patient has correct armband on for positive identification. Adult w/ patient. [facility] 16:55 No provider procedures requiring assistance completed. [facility] 17:07 Thalia Rodarte, MAR[place] is Primary Nurse. ph 17:07 EKG done, by ED staff, reviewed by Jany BOONE. mb7 17:17 Inserted saline lock: 22 gauge in right antecubital area, using aseptic technique. tw2 Blood collected. 17:47 Blood Culture Adult (2) Sent. tw2 17:51 Chest Single View XRAY In Process Unspecified. EDMS 19:26 Anibal Renner is Hospitalizing Provider. snw 20:00 Patient admitted, IV remains in place. vc1 12/05 07:03 Primary Nurse role handed off by Thalia Rodarte RN bd Administered Medications: 12/04 17:50 Drug: Clindamycin 600 mg Route: IVPB; Infused Over: 30 mins; Site: right antecubital; tw2 19:00 Drug: morphine 4 mg Route: IVP; Infused Over: 4 mins; Site: right antecubital; ph 19:19 Follow up: Response: No adverse reaction ph 19:00 Drug: Zofran (Ondansetron) 4 mg Route: IVP; Site: right antecubital; ph 19:19 Follow up: Response: No adverse reaction ph Medication: 23:39 VIS not applicable for this client. vc1 Outcome: 19:27 Decision to Hospitalize by Provider. snw 20:00 Admitted to ER Hold. Please see [facility] for further documentation. vc1 20:00 Condition: good 20:00 Instructed on the need for admit. 12/05 16:17 Patient left the ED. ll1 Signatures: Dispatcher [employer] EDMS Denise Esquivel Jany Loyd FNP-C FNP-[facility] Michelle Us Thalia Rodarte RN RN Tresa Deluca RN RN tw2 Kade Edward RN RN ll1 Shayy Santillan RN RN [facility] Michelle Palacio mb7 Lynn Thompson RN RN vc1
[2021-12-04 21:42] LABS: Urine Blood Trace-lysed (Negative); Urine Glucose Negative (Negative); Urine Protein Negative (Negative)
[2021-12-04 21:58] LABS: Urine Bacteria <20 /HPF (<20); Urine RBC <5 /HPF (None Seen)
[2021-12-04 22:17] LABS: SARS-CoV-2 Antigen Rapid Res Negative (Negative)
[2021-12-04] MEDS ORDERED: ACETAMINOPHEN 325 MG TABLET PO PRN (23:40)
[2021-12-04] MEDS ORDERED: ONDANSETRON 4 MG/2 ML VIAL IV PRN (23:40)
[2021-12-04] MEDS: NA CHLORIDE 0.9% 1,000 ML IV SCH (23:40)
[2021-12-04] MEDS ORDERED: MORPHINE 2 MG/ML SYR IV PRN (23:40)
[2021-12-04] MEDS ORDERED: NICOTINE 21 MG/PAT TD PRN (23:53)
[2021-12-04] MEDS ORDERED: NA CHLORIDE 0.9% 1,000 ML ONE (23:53)
[2021-12-05 00:44] VITALS: BMI 37.4
[2021-12-05] MEDS ORDERED: MORPHINE 2 MG/ML SYR ONE (00:58)
[2021-12-05 02:54] LABS: Absolute Lymphocytes (CBC) 2.4 K/uL (0.7-4.9); Hematocrit 41.2 % (36.0-45.0); Lymphocytes % 32.5 % (15.3-44.8); MCV 86.8 fL (80-100); MPV 9.3 fL (7.6-11.3); RBC Red Blood Cell Count 4.75 M/uL (3.86-4.86)
[2021-12-05 03:10] LABS: Potassium 4.1 mmol/L (3.5-5.1)
[2021-12-05 03:11] LABS: Albumin 2.7 g/dL (3.4-5.0); Bilirubin Total 0.3 mg/dL (0.2-1.0); Magnesium 2.1 mg/dL (1.8-2.4); Protein, Total 6.4 g/dL (6.4-8.2)
[2021-12-05] MEDS: INSULIN -REGULAR HUMAN 50 UNIT/0.5 ML ML SQ SCH ×3 (06:20→09:11)
[2021-12-05] MEDS ORDERED: INSULIN -REGULAR HUMAN 50 UNIT/0.5 ML ML ONE ×3 (06:24→14:56)
[2021-12-05] MEDS ORDERED: NA CHLORIDE 0.9% 1,000 ML ONE (08:09)
[2021-12-05] MEDS ORDERED: D50W 25 GM/50 ML SYRINGE IV PRN (08:16)
[2021-12-05] MEDS ORDERED: GLUCAGON 1 MG/VIAL IM PRN (08:16)
[2021-12-05] MEDS ORDERED: DEXTROSE 10%-WATER 125 ML IV PRN (08:23)
[2021-12-05] MEDS ORDERED: HOME MED 1 EA UNK (Phentermine Hcl [Adipex-P] 37.5 MG Tablet) PO SCH (08:30)
[2021-12-05] MEDS ORDERED: GABAPENTIN 300 MG CAP ONE (08:48)
[2021-12-05] MEDS ORDERED: AMLODIPINE 5 MG TAB ONE (08:48)
[2021-12-05] MEDS ORDERED: CEFEPIME 1 GM/VIAL ONE (08:49)
[2021-12-05] MEDS ORDERED: NA CHLORIDE 0.9% 100 ML ONE (08:49)
[2021-12-05] MEDS ORDERED: AMLODIPINE 5 MG TAB PO SCH (09:00)
[2021-12-05] MEDS ORDERED: CEFEPIME 1 GM in NA CHLORIDE 0.9% 100 ML IV SCH (09:00)
[2021-12-05] MEDS ORDERED: GABAPENTIN 300 MG CAP PO SCH (09:00)
[2021-12-05] MEDS ORDERED: VANCOMYCIN 1.75 GM in NA CHLORIDE 0.9% 500 ML IVPB SCH (09:00)
[2021-12-05] MEDS ORDERED: VANCOMYCIN 1.25 GM in NA CHLORIDE 0.9% 250 ML IVPB SCH (09:00)
[2021-12-05] MEDS ORDERED: INSULIN 70/30 100 UNITS/ML SQ SCH (09:00)
[2021-12-05] MEDS: NA CHLORIDE 0.9% 1,000 ML IV SCH (09:40)
[2021-12-05] MEDS ORDERED: INSULIN 70/30 100 UNITS/ML SQ ONE (11:43)
[2021-12-05] MEDS ORDERED: ONDANSETRON 4 MG/2 ML VIAL ONE (11:43)
--- NOTE | 2021-12-05 14:02 | P.CNS ---
Date of Consult: 12/05/21
--- NOTE | 2021-12-05 14:26 | P.CNS ---
Date of Consult: 12/04/21 PC: This 56-year-old female presented to the emergency room with severe perineal pain. HPC: Patient has had a lump in this area over the last week. Had intensified in size. Came to the emergency room for evaluation and treatment. PMHx: Diabetes Social Hx: No known allergies Sys R: No cough, wheeze, shortness of breath. No chest pain or palpitations. Has had a lot of back issues, and is supposed to see a neurologist next week. O/E: Awake alert vital signs are stable HEENT: Comfortable at the moment Chest: Chest movement equal bilaterally Abd: Negative Citra: In the perineal area just between the labia majora and the anus there is an area that showed abscess. The area is firm and indurated however the central area has opened and apparently a lot of foul-smelling purulent pus drained from this. The patient has felt much relieved since that has happened. Impression: Perineal abscess Plan: Patient is in the hospital right now for some IV antibiotics and some pain medicine. This will not require surgical debridement as it has drained spontaneously. She will be able to be discharged soon, and is more than welcome to follow-up in my office should she have any questions or problems. She is comfortable with this arrangement.
--- NOTE | 2021-12-05 15:17 | P.DS ---
Admission Date: 12/04/21 Discharge Date: 12/05/21 Reason for Admission: abscess with cellulitis - Problems (1) Perineal abscess Current Visit: Yes Status: Acute (2) Type 2 diabetes mellitus with hyperglycemia Current Visit: Yes Status: Acute Brief History of Present Illness: Mrs. Cordova is a 56 yr old female with IDDM, RA, Spinal stenosis, and Depression who presented to the ED with c/o a draining, foul smelling abscess to the right perineal area. She took Bactrim for 3 days. Patient was afebrile in the ED. no leukocytosis. General surgery was contacted who saw and evaluated patient. Patient hospitalized for further management. Hospital Course: Patient was started on IV antibiotics-clindamycin. General surgery Dr. Grady reevaluated the patient and recommended only medical management, no indication for I&D or debridement. At this point patient considered stable for discharge per Dr. Grady. She is prescribed ciprofloxacin and Flagyl. She will follow-up with Dr. Grady in the office within 1 week. Patient with hemoglobin A1c of 8.8 with blood sugar between 200-300. Her Novolin 70/30 is resumed on discharge. Also added metformin to improve blood sugar control. Vital Signs/Physical Exam: Temp Pulse Resp BP Pulse Ox 97.5 F 79 18 116/66 98 12/05/21 12:00 12/05/21 12:00 12/05/21 12:00 12/05/21 12:00 12/05/21 12:00 General: Alert, In no apparent distress, Oriented x3 HEENT: Mucous membr. moist/pink Neck: JVD not distended Respiratory: Clear to auscultation bilaterally, Normal air movement Cardiovascular: Regular rate/rhythm, Normal S1 S2 Gastrointestinal: Soft and benign, Non-distended Musculoskeletal: No swelling Integumentary: Other (Right perineal/medial thigh abscess-serous drainage.) Neurological: Normal strength at 5/5 x4 extr Laboratory Data at Discharge: WBC 7.30 K/uL (4.3-10.9) 12/05/21 01:57 Hgb 13.6 g/dL (12.0-15.0) D 12/05/21 01:57 Hct 41.2 % (36.0-45.0) 12/05/21 01:57 Plt Count 247 K/uL (152-406) D 12/05/21 01:57 PT 11.9 SECONDS (9.5-12.5) 12/04/21 17:17 INR 1.08 12/04/21 17:17 APTT 34.4 SECONDS (24.3-36.9) 12/04/21 17:17 Sodium 136 mmol/L (136-145) 12/05/21 01:57 Potassium 4.1 mmol/L (3.5-5.1) 12/05/21 01:57 BUN 22 mg/dL (7-18) H 12/05/21 01:57 Creatinine 0.94 mg/dL (0.55-1.3) 12/05/21 01:57 Glucose 323 mg/dL (74-106) H 12/05/21 01:57 Magnesium 2.1 mg/dL (1.8-2.4) 12/05/21 01:57 Total Bilirubin 0.3 mg/dL (0.2-1.0) 12/05/21 01:57 AST 12 U/L (15-37) L 12/05/21 01:57 ALT 13 U/L (12-78) 12/05/21 01:57 Alkaline Phosphatase 89 U/L (45-117) 12/05/21 01:57 Triglycerides 279 mg/dL (<150) H 12/05/21 01:57 Cholesterol 201 mg/dL (<200) H 12/05/21 01:57 HDL Cholesterol 23 mg/dL (40-60) L 12/05/21 01:57 Cholesterol/HDL Ratio 8.74 12/05/21 01:57 Home Medications: Amlodipine [Norvasc*] 5 mg PO DAILY 12/05/21 Ciprofloxacin HCl [Cipro] 500 mg PO BID #14 tab 12/05/21 Codeine/APAP [Tylenol W/Codeine #3 tab] 1 tab PO Q6HP PRN #15 tab 12/05/21 Gabapentin 300 mg PO BID 12/05/21 Insulin 70/30 NPH/Reg Human [Novolin 70/30*] 15 units SQ BID 12/05/21 Metformin HCl [Glucophage*] 500 mg PO BIDWM #60 tab 12/05/21 Phentermine HCl [Adipex-P] 37.5 mg PO SEECOM 12/05/21 diazePAM [Diazepam] 5 mg PO PRN 12/05/21 metroNIDAZOLE [Flagyl] 500 mg PO Q8H #21 tab 12/05/21 New Medications: Codeine/APAP [Tylenol W/Codeine #3 tab] 1 tab PO Q6HP PRN #15 tab PRN Reason: Pain Ciprofloxacin HCl [Cipro] 500 mg PO BID #14 tab metroNIDAZOLE [Flagyl] 500 mg PO Q8H #21 tab Metformin HCl [Glucophage*] 500 mg PO BIDWM #60 tab Diet: ADA Activity: Ad candice Followup: Brice Grady MD [ACTIVE - CAN ADMIT] - 1 Week OOT,FuentesOT [Primary Care Provider] -
--- NOTE | 2021-12-05 15:43 | EKG ---
Test Date: 2021-12-04 Test Time: 17:01:26 Aircraft Captain: MB MEASUREMENT RESULTS: Intervals: Rate: 100 NM: 160 QRSD: 78 QT: 316 QTc: 407 F[place]in: P: 73 NM: 160 QRS: 88 T: 36 INTERPRETIVE STATEMENTS: Normal sinus rhythm Low voltage QRS Borderline ECG Compared to ECG 11/09/2016 00:34:32 No significant changes Electronically Signed On 12-05-21 15:42:05 CDT by Allan Roldan
[2021-12-05 17:07] VITALS: BP 141/72; TEMP 97.1; O2SAT 100
== END 2021-12-05 16:19 | disposition home or self-care (01) ==
LOC: ER 16:11 → ERHOLD 19:19 → INTOOBSV 19:19 → ERHOLD 12-05 06:30
PROVIDERS: ADMIT Internal Medicine; ATTEND Internal Medicine
DX: L02.215 Cutaneous abscess of perineum (principal); E11.65 Type 2 diabetes mellitus with hyperglycemia; M06.9 Rheumatoid arthritis, unspecified; M48.00 Spinal stenosis, site unspecified; F32.A Depression, unspecified; F17.210 Nicotine dependence, cigarettes, uncomplicated; Z71.6 Tobacco abuse counseling; Z79.4 Long term (current) use of insulin; Z90.49 Acquired absence of other specified parts of digestive tract; Z20.822 Contact with and (suspected) exposure to COVID-19
CPT/HCPCS: 93005; 87040 ×2; 87070; 85025 ×2; 36415 ×2; 83735; 87205; 85610; 80061; 82947 ×4; 83605; 85730; 83036; 80053 ×2; 71045; 96375; 96374; 99285; 87811; J1815 ×4; J3370; J2270; J7040; J7030 ×2; J2405 ×2; J0692; G0378 ×3; 81003; 81015

== ENCOUNTER 2022-03-11 14:55 | Emergency (ER) | payer BC ==
--- OUTSIDE RECORDS SUMMARY | 2022-03-11 14:59 | XMS REPORT | Continuity of Care Document ---
:1965 Author Organization [facility] t Address [address] [place] [address] Care Team Providers Name Role Phone MARBELLA LEON Attending Clinician Unavailable Edward Attending Clinician Unavailable Lilian_Janneth Attending Clinician Unavailable CAROLINE Attending Clinician Unavailable Edward Admitting Clinician Unavailable Olya Admitting Clinician Unavailable CAROLINE Admitting Clinician Unavailable Payers Payer Name Policy Type Policy Number Effective Date Expiration Date Ivan jones [place] [id number] 2021 00:00:00 [place] ([place] Problems Condition Condition [...] Date Stop Date Source Heavy Tobacco Smoker [facility] Medications Ordered Filled Start Stop Current Ordering Indication Dosage Frequency Signature Comments Components Source Medication Medication Date Date Medication? Clinician (SIG) Name Name Novolog Mix Novolog Mix No Novolog [place] 70-30 U-100 70-30 U-100 7-18 Mix 70-30 da Insulin 100 Insulin 100 00:00: U-100 Medical unit/mL unit/mL 00 Insulin Group subcutaneou subcutaneou 100 s solution s solution unit/mL subcutaneo us solution Novolog Mix Novolog Mix No Novolog [place] 70-30 U-100 70-30 U-100 7-18 Mix 70-30 da Insulin 100 Insulin 100 00:00: U-100 Medical unit/mL unit/mL 00 Insulin Group subcutaneou subcutaneou 100 s solution s solution unit/mL subcutaneo us solution ibuprofen ibuprofen No ibuprofen [place] 600 mg 600 mg 600 mg da tablet TAKE tablet TAKE tablet Medical 1 TABLET BY 1 TABLET BY TAKE 1 Group MOUTH EVERY MOUTH EVERY TABLET BY 6 HOURS 6 HOURS MOUTH NEEDED FOR NEEDED FOR EVERY 6 PAIN PAIN HOURS CONTROL CONTROL NEEDED FOR TAKE WITH TAKE WITH PAIN FOOD FOOD CONTROL TAKE WITH FOOD ibuprofen ibuprofen No ibuprofen [place] 800 mg 800 mg 800 mg da tablet TAKE tablet TAKE tablet Medical 1 TABLET BY 1 TABLET BY TAKE 1 Group MOUTH EVERY MOUTH EVERY TABLET BY 8 HOURS 8 HOURS MOUTH WITH FOOD WITH FOOD EVERY 8 NEEDED NEEDED HOURS WITH FOR PAIN FOR PAIN FOOD NEEDED FOR PAIN lisinopril lisinopril No lisinopril [place] 20 mg 20 mg 20 mg da tablet TAKE tablet TAKE tablet Medical 1 TABLET BY 1 TABLET BY TAKE 1 Group MOUTH ONCE MOUTH ONCE TABLET BY DAILY DAILY MOUTH ONCE DAILY nystatin nystatin No nystatin [place] 100,000 100,000 100,000 da unit/gram unit/gram unit/gram Medical topical topical topical Group cream APPLY cream APPLY cream TO THE TO THE APPLY TO AFFECTED AFFECTED THE AREA(S) BY AREA(S) BY AFFECTED TOPICAL TOPICAL AREA(S) BY ROUTE 2 ROUTE 2 TOPICAL TIMES PER TIMES PER ROUTE 2 DAY DAY TIMES PER DAY phentermine phentermine No phentermin [place] 37.5 mg 37.5 mg e 37.5 mg da tablet TAKE tablet TAKE tablet Medical 1 TABLET BY 1 TABLET BY TAKE 1 Group MOUTH ONCE MOUTH ONCE TABLET BY DAILY DAILY MOUTH ONCE DAILY Soma 350 mg Soma 350 mg No Soma 350 [place] tablet Take tablet Take mg tablet da 1 tablet 3 1 tablet 3 Take 1 M edical times a day times a day tablet 3 Group by oral by oral times a route as route as day by needed. needed. oral route as needed. amlodipine amlodipine No amlodipine [...] TABLET BY NIGHT NIGHT MOUTH AT NIGHT diazepam 5 diazepam 5 No 1 BID diazepam 5 [place] mg tablet mg tablet mg tablet da Take 1 Take 1 Take 1 Medical tablet tablet tablet Group twice a day twice a day twice a by oral by oral day by route as route as oral route needed. needed. as needed. lisinopril lisinopril No lisinopril [place] 20 mg 20 mg 20 mg da tablet TAKE tablet TAKE tablet Medical 1 TABLET BY 1 TABLET BY TAKE 1 Group MOUTH ONCE MOUTH ONCE TABLET BY DAILY DAILY MOUTH ONCE DAILY nystatin nystatin No nystatin [place] 100,000 100,000 100,000 da unit/gram unit/gram unit/gram Medical topical topical topical Group cream APPLY cream APPLY cream TO THE TO THE APPLY TO AFFECTED AFFECTED THE AREA(S) BY AREA(S) BY AFFECTED TOPICAL TOPICAL AREA(S) BY ROUTE 2 ROUTE 2 TOPICAL TIMES PER TIMES PER ROUTE 2 DAY DAY TIMES PER DAY phentermine phentermine No 1 Q1D phentermin [place] 37.5 mg 37.5 mg e 37.5 mg da tablet Take tablet Take tablet Medical 1 tablet 1 tablet Take 1 Group every day every day tablet by oral by oral every day route in route in by oral the morning the morning route in for 30 for 30 the days. days. morning for 30 days. Soma 350 mg Soma 350 mg No Soma 350 [place] tablet Take tablet Take mg tablet da 1 tablet 3 1 tablet 3 Take 1 M edical times a day times a day tablet 3 Group by oral by oral times a route as route as day by needed. needed. oral route as needed. Tylenol-Cod Tylenol-Cod No Tylenol-Co [place] eine #3 300 eine #3 300 deine #3 da mg-30 mg mg-30 mg 300 mg-30 Me dical tablet 1-2 tablet 1-2 mg tablet Group tabs p.o. q tabs p.o. q 1-2 tabs 6 hours PRN 6 hours PRN p.o. q 6 pain pain hours PRN pain acetaminoph acetaminoph No acetaminop [place] en 300 en 300 hen 300 da mg-codeine mg-codeine mg-codeine Medical 30 mg 30 mg 30 mg Group tablet TAKE tablet TAKE tablet 1 TABLET BY 1 TABLET BY TAKE 1 MOUTH EVERY MOUTH EVERY TABLET BY 6 HOURS 6 HOURS MOUTH NEEDED FOR NEEDED FOR EVERY 6 PAIN PAIN HOURS NEEDED FOR PAIN amlodipine amlodipine No amlodipine [place] 5 mg [...] as oral route needed. needed. as needed. fluconazole fluconazole No 1 fluconazol [place] 150 mg 150 mg e 150 mg da tablet Take tablet Take tablet Medical 1 tablet 1 tablet Take 1 Group every 72 every 72 tablet hours by hours by every 72 oral route. oral route. hours by oral route. Vital Signs Vital Name Observation Time Observation Value Comments Source BP Diastolic 2022-01-03 00:00:00 81 mm[Hg] [facility] Height 2022-01-03 00:00:00 65 [in_i] [facility] BMI (Body Mass 2022-01-03 00:00:00 37.4 kg/m2 [facility] BP Systolic 2022-01-03 00:00:00 152 mm[Hg] [facility] Body Weight 2022-01-03 00:00:00 3600 [oz_av] [facility] BP Diastolic 2021-12-19 00:00:00 44 mm[Hg] [facility] Height 2021-12-19 00:00:00 65 [in_i] [facility] BMI (Body Mass 2021-12-19 00:00:00 37.6 kg/m2 [facility] Group BP Systolic 2021-12-19 00:00:00 158 mm[Hg] [facility] Body Weight 2021-12-19 00:00:00 226 [lb_av] [facility] BP Diastolic 2021-11-14 00:00:00 88 mm[Hg] [facility] Height 2021-11-14 00:00:00 65 [in_i] [facility] BMI (Body Mass 2021-11-14 00:00:00 38.4 kg/m2 [facility] Group BP Systolic 2021-11-14 00:00:00 138 mm[Hg] [facility] Body Weight 2021-11-14 00:00:00 3696 [oz_av] [facility] BP Diastolic 2021-10-29 00:00:00 85 mm[Hg] [facility] Height 2021-10-29 00:00:00 65 [in_i] [facility] BMI (Body Mass 2021-10-29 00:00:00 38.3 kg/m2 [facility] Group BP Systolic 2021-10-29 00:00:00 137 mm[Hg] [facility] Body Weight 2021-10-29 00:00:00 3680 [oz_av] [facility] BP Diastolic 2020-04-21 00:00:00 81 mm[Hg] [facility] Height 2020-04-21 00:00:00 65 [in_i] [facility] BMI (Body Mass 2020-04-21 00:00:00 44.1 kg/m2 [facility] BP Systolic 2020-04-21 00:00:00 163 mm[Hg] [facility] Body Weight 2020-04-21 00:00:00 265 [lb_av] [facility] BP Diastolic 2020-02-21 00:00:00 87 mm[Hg] [facility] Height 2020-02-21 00:00:00 65 [in_i] [facility] BMI (Body Mass 2020-02-21 00:00:00 44.1 kg/m2 [facility] BP Systolic 2020-02-21 00:00:00 144 mm[Hg] [facility] Body Weight 2020-02-21 00:00:00 265 [lb_av] [facility] BP Diastolic 2020-01-31 00:00:00 98 mm[Hg] [facility] BP Systolic 2020-01-31 00:00:00 185 mm[Hg] [facility] Body Weight 2020-01-31 00:00:00 275.7 [lb_av] [facility] Procedures Procedure Date / Time Performed Performing Clinician [facility] e unlisted imaging order 2021-10-29 00:00:00 [facility] US, transvaginal 2020-02-21 00:00:00 [facility] US, transvaginal 2020-01-31 00:00:00 [facility] Caes[facility] Plan of Care Planned Activity Planned Date Details Comments Source Diagnostic Test 2021-12-19 urinalysis, Malika Arias dical Pending 00:00:00 dipstick [code = Group urinalysis, dipstick] Diagnostic Test 2021-12-19 STI panel [code = [facility] Pending 00:00:00 STI panel] Group Instructions [facility] Encounters Start End Encounter Admission Attending Care Care Encounter Source Date/Time Date/Time Type Type Clinicians Facility Department ID 2022-03-05 2022-03-05 Outpatient EL SHIELD, [facility] [id number] [place] 11:00:00 11:00:00 MARBELLA -[id number] [facility] 2022-03-04 2022-03-04 Outpatient EL SHIELD, [facility] [id number] [place] 09:00:00 09:00:00 MARBELLA -[id number] [facility] 2022-02-28 2022-02-28 Outpatient EL SHIELD, [facility] [id number] [place] 13:00:00 13:00:00 MARBELLA -[id number] [facility] 2022-02-26 2022-02-26 Outpatient EL SHIELD, [facility] [id number] [place] 11:00:00 11:00:00 MARBELLA -[id number] [facility] 2022-02-19 2022-02-19 Outpatient EL SHIELD, [facility] [id number] [place] 10:51:00 10:51:00 MARBELLA -[id number] [facility] 2022-01-18 2022-02-11 ambulatory [id number] M [id number] 11:00:00 23:59:00 [id number] [id number] -[id number]-e8d [id number] bcd 2022-01-18 2022-02-11 Outpatient EL SHIELD, [facility] [id number] [place] 11:00:00 00:01:00 MARBELLA -[id number] [facility] 2022-01-11 2022-01-11 ambulatory [id number] M [id number] 15:00:00 23:59:00 [id number] [id number]-80c 72 -80cd-e8d d-[id number] d 2022-01-08 2022-01-08 Outpatient [facility]G [id number] [place] 00:00:00 00:00:00 0927 [facility] 2022-01-03 2022-01-03 Outpatient [facility] MMG [id number] [place] 00:00:00 00:00:00 09 [facility] 2022-01-03 2022-01-03 [facility] [facility] [place] - [id number] M [facility] 00:00:00 00:00:00 Discovery flo Leon [employer]: 600 [facility] [address], [facility] [place] [address] , Ph. 2021-12-26 2021-12-26 Outpatient [facility] MMG [id number] [place] 00:00:00 00:00:00 0914 [facility] 2021-12-19 2021-12-19 Outpatient [facility] MMG [id number] [place] 00:00:00 00:00:00 0907 [facility] 2021-12-19 2021-12-19 Roxie MMG [place] - [id number] M at[facility] 00:00:00 00:00:00 Discovery flo Angel [facility]: [address], [place] [address] , Ph. 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 2021-10-30 2021-10-30 Outpatient Rutledge_L MMG MMG [id number] [place] 05:47:00 05:47:00 0726 [facility] 2021-10-29 2021-10-29 Outpatient Rutledge_L MMG MMG 1777 [place] 02:23:00 02:23:00 0718 [facility] 2021-10-29 2021-10-29 Marbella MM [place] - [id number] M [facility] 00:00:00 00:00:00 Discovery flo Leon [employer] EXHIBITOR: [address] [facility] [address] [place] [address] , Ph. 2020-07-19 2020-07-19 Outpatient LISTER_MARIANNAI CHAITANYA [facility] [id number] [place] 12:41:00 12:41:00 SSA 0407 da [facility] Outre h Program 2020-06-04 2020-06-04 Outpatient Rutledge_L MMG MMG [id number] [place] 12:22:00 12:22:00 0221 [facility] 2020-04-21 2020-04-21 Outpatient Rutledge_L MMG MMG 1777 [place] 02:20:00 02:20:00 0108 [facility] 2020-04-21 2020-04-21 Lacy MM [place] - [id number] [facility] 00:00:00 00:00:00 Ivelisse Markham Medica janneth MD: 600 [facility] [address] [address] , Ph. [phone] 2020-04-17 2020-04-17 Outpatient Rutledge_L MMG MMG [id number] [place] 11:05:00 11:05:00 0104 [facility] 2020-03-26 2020-03-26 Outpatient Rutledge_L MMG MMG 1777 [place] 03:57:00 03:57:00 1213 [facility] 2020-03-01 2020-03-01 Outpatient Rutledge_L MMG MMG 1777 [place] 02:21:00 02:21:00 1118 [facility] 2020-02-21 2020-02-21 Outpatient Rutledge_L MMG MMG 1777 [place] 11:57:00 11:57:00 1109 [facility] 2020-02-21 2020-02-21 Lacy MMG [place] - [id number] M [facility] 00:00:00 00:00:00 Ivelisse Markham Medicirene lagunas MD: [address] [address] , Ph. [phone] 2020-02-15 2020-02-15 Outpatient Rutledge_L MMG MMG 1777 [place] 11:06:00 11:06:00 1103 Medical Group 2020-02-13 2020-02-13 Outpatient Rutledge_L MMG MMG 1777 [place] 01:16:00 01:16:00 1101 Medical Group 2020-01-31 2020-01-31 Outpatient Rutledge_L MMG MMG 1777 [place] 11:16:00 11:16:00 1019 Medical Group 2020-01-31 2020-01-31 Lacy [facility] [place] - [id number] M at[facility] 00:00:00 00:00:00 Ivelisse Markham MD: [address] [address] , Ph. [phone] 2020-01-25 2020-01-25 [place] [id number] [place] 12:46:00 12:46:00 1013 Medical Group 2019-12-27 2019-12-27 Outpatient [facility] MMG [id number] [place] 04:57:00 04:57:00 0914 Medical [facility] Results Test Description Test Time Test Comments Results Result Comments Source STI panel 2021-12-20 00:00:00 Test Item Value Reference Range Interpretation Comme nts damien - swab (test code = damien - swab) abnormal A gardnerella (test code = gardnerella) normal CT/NG (test code = CT/NG) normal trichomonas vaginalis addon - swab (test code = trichomonas vaginal is normal addon - swab) damien species reflex (test code = damien species reflex) abnorma l A [facility]dipstick) panel - [id number] 14:59:00 Test Item Value Reference Range Interpretation Comments Leukocytes (test code = Leukocytes) Negative Nitrite (test code = Nitrite) negative Urobilinogen (test code = .2 Urobilinogen) Protein (test code = Protein) Negative pH (test code = pH) 6.0 Blood (test code = Blood) Negative Specific [place] (test code = 1.025 Specific [address]) Ketone (test code = Ketone) Trace Bilirubin (test code = Bilirubin) Negative Glucose (test code = Glucose) 250 Appearance (test code = Appearance) Clear Color (test code = Color) Yellow [facility] sedimentation [id number] 01:27:00 Test Item Value Reference Range Interpretation Comments Erythrocyte sedimentation rate by 42 mm/HR 0-40 H Photometric method (test code = 83976-0) [facility] complete W Reflex Culture panel - Urine 2021-10-30 01:24:00 Test Item Value Reference Range Interpretation Comments Color of Urine by Auto (test yellow code = 99431-2) Appearance of Urine (test code clear clear = 5767-9) Glucose [Presence] in Urine by =4+ (1000 negative Automated test strip (test code = 42212-6) Bilirubin.total [Mass/volume] negative negative in Urine (test code = 1977-) Ketones [Mass/volume] in Urine =2 negative H by Automated test strip (test code = 75190-4) Specific gravity of Urine by 1.032 1.003-1.030 H Automated test strip (test code = 15065-0) blood urine (test code = blood negative negative urine) pH of Urine (test code = 6.000 5-9 2756-5) protein urine (UA) (test code = trace negative protein urine (UA)) Urobilinogen [Presence] in =2.0 0.2-1.0 H Urine (test code = 70729-6) Nitrite [Presence] in Urine by negative negative Test strip (test code = 5802-4) Leukocyte esterase [Presence] negative negative in Urine by Automated test strip (test code = 60690-6) Erythrocytes [#/volume] in =1-5 0-5 Urine by Automated count (test code = 798-9) Leukocytes [#/area] in Urine =6-10 0-5 H sediment by Automated count (test code = 32928-0) Epithelial cells [Presence] in =6-10 0-5 Urine sediment by Light microscopy (test code = 35785-6) Bacteria identified in Urine by small(1 none detect Culture (test code = 630-4) Casts [#/area] in Urine none detected none detect sediment by Automated count (test code = 69511-4) urine culture added? (test code no = urine culture added?) [facility]album[facility] [Mass/volume] in [id number] 01:24:00 Test Item Value Reference Range Interpretation Comments microalbumin random (test code = 52.9 mg/L 0-20 H microalbumin random) [facility] W Auto Differential panel - [id number] 11:50:00 Test Item Value Reference Range Interpretation Comments white blood count (test code = 14.5 K/uL 4.0-11.5 H white blood count) red blood count (test code = red 6.52 M/uL 3.80-5.20 H blood count) hemoglobin (test code = 18.4 g/dL 10.5-15.7 H hemoglobin) hematocrit (test code = 57.5 % 34.0-50.0 H hematocrit) MCV [Entitic volume] (test code = 88.2 fL 86.0-100.0 21633-4) mean corpuscular hemoglobin (test 28.2 pg 26.2-33.4 [...] 44.4-80.1 leukocytes in Blood (test code = 06879-8) Immature granulocytes [#/volume] 0.11 K/uL 0.00-0.03 H in Blood (test code = 20296-2) lymphocyte% (test code = 22.4 % 10.0-50.0 lymphocyte%) mono % (test code = mono %) 6.8 % 3.6-12.0 eos % (test code = eos %) 1.2 % 0.0-5.4 basophil % (test code = basophil 0.4 % 0.1-1.2 %) Band form neutrophils [#/volume] 9.92 K/uL 1.56-6.13 H in Blood (test code = 33673-1) Lymphocytes [#/volume] in Specimen 3.24 K/uL 1.18-3.74 by Automated count (test code = 88298-9) mono # (test code = mono #) 0.98 K/uL 0.24-0.86 H eos # (test code = eos #) 0.17 K/uL 0.04-0.36 basophil # (test code = basophil 0.06 K/uL 0.01-0.08 #) NRBC% (test code = NRBC%) 0 /100 WBC 0-0.2 NRBC# (test code = NRBC#) 0 K/uL [facility]em[facility] A1c/Hemoglobin.total in [id number] 11:50:00 Test Item Value Reference Range Interpretation Comments Hemoglobin A1c [Mass/volume] in Blood 9.5 % 4.0-6.0 H (test code = 65705-3) [facility]Comprehensive metabolic 2000 panel - Serum or Plasma [...] Serum or Plasma (test code = 6768-6) [facility] HospitalLipid 1996 panel - Serum or [id number] 11:50:00 Test Item Value Reference Range Interpretation [...] (test code = 6.512 cholesterol risk ratio) [facility] HospitalDifferential panel, method unspecified - [id number] 00:00:00NeutrophilsBandLymphocyteAtypical LymphMonocyteEosinophilBasophilMetamyelocyteMyelocytePromyelocyteBlastsNucleated Red Blood CellAbs Neutrophil Count (Man)Abs Lymph Count (Man)Abs Monocyte Count (Man)Abs Eosinophil Count (Man)Abs Basophil Count (Man)Platelet EstimatePlatelet MorphologyPolychromasiaPoikilocytosisAnisocytosisMacrocytosisOvalocytesToxic VacuolationMethodist [facility] HospitalThyrotropin [Units/volume] in Serum or Plasma 2021-10-29 00:00:00 Test Item Value Reference Range Interpretation Comments Thyrotropin [Units/volume] in 2.51 uIU/mL 0.36-3.74 Serum or Plasma (test code = 3016-3) [facility] HospitalMullerian inhibiting substance [Mass/volume] in Serum or [id number] 09:32:00 Test Item Value Reference Range Interpretation Comments Mullerian inhibiting substance <0.015 . [Moles/volume] in Serum or Plasma (test code = 62951-8) [facility] HospitalMullerian inhibiting substance [Mass/volume] in Serum or [id number] 09:32:00 Test Item Value Reference Range Interpretation Comments Mullerian inhibiting substance <0.015 . [Moles/volume] in Serum or Plasma (test code = 97507-1) [facility]
[2022-03-11] MEDS ORDERED: HYDROCODONE/APAP 10/325 TAB ONE (15:44)
--- NOTE | 2022-03-11 18:50 | ER ---
Nurse's Notes [facility] Name: Anjana Cordova Age: 56 yrs Sex: Female : 1965 Arrival Date: 03/11/2022 Time: 14:58 Bed Treatment Private MD: Diagnosis: Fall on same level from slipping, tripping and stumbling with subsequent striking against object;Dorsalgia, unspecified;Radiculopathy, lumbar region Presentation: 03/11 15:38 Chief complaint: Patient states: back pain after falling from standing last night. HX ss of spinal stenosis. Coronavirus screen: Client denies travel out of the [place] in the last 14 days. Ebola Screen: Patient denies exposure to infectious person. Patient denies travel to an Ebola-affected area in the 21 days before illness onset. Initial Sepsis Screen: Does the patient meet any 2 criteria? No. Patient's initial sepsis screen is negative. Does the patient have a suspected source of infection? No. Patient's initial sepsis screen is negative. Risk Assessment: Do you want to hurt yourself or someone else? Patient reports no desire to harm self or others. Onset of symptoms was March 10, 2022. 15:38 Method Of Arrival: Ambulatory ss 15:38 Acuity: HAWK 3 ss Historical: - Allergies: 15:40 No Known Allergies; ss - PMHx: 15:40 Depression; Diabetes - IDDM; Hypertension; Rheumatoid Arthritis; spinal stenosis; ss - PSHx: 15:40 section; Cholecystectomy; L arm; ss Assessment: 19:07 General: called, no answer. tw5 Vital Signs: 15:40 BP 155 / 92; Pulse 109; Resp 19; Temp 98.0(TE); Pulse Ox 100% on R/A; Height 5 ft. 5 ss in. (165.10 cm); Pain 10/10; 15:41 Weight 102.06 kg; ss 15:41 Body Mass Index 37.44 (102.06 kg, 165.10 cm) ss ED Course: 14:58 Patient arrived in ED. rg4 15:08 Raul Hanson PA is PHCP. cp 15:08 Enrike Henry DO is Attending Physician. cp 15:40 Triage completed. ss 15:40 Arm band placed on right wrist. ss 18:47 No provider procedures requiring assistance completed. Patient did not have IV access ss during this emergency room visit. Administered Medications: 15:57 Drug: HYDROcodone-acetaminophen 10 mg-325 mg 1 tabs Route: PO; ss 18:47 Follow up: Response: No adverse reaction ss 18:47 Not Given (Pt elopedd): Valium (diazepam) 2 mg PO once ss Outcome: 18:49 Discharge ordered by MD. nunez 19:09 Discharged to home tw5 19:09 Condition: good 19:09 Discharge instructions given to Patient left before signing d/c instructions. 19:10 Patient left the ED. tw5 Signatures: Terrie Gaxiola RN RN Raul Briceno PA PA cp Garcia, Rubi 4 Trupti Abernathy tw5
--- NOTE | 2022-03-11 18:50 | EDPHYS ---
Physician Documentation [facility] Name: Anjana Cordova Age: 56 yrs Sex: Female : 1965 Arrival Date: 03/11/2022 Time: 14:58 Bed Treatment Private MD: ED Physician Enrike Henry HPI: 03/11 15:55 This 56 yrs old Female presents to ER via Ambulatory with complaints of Fall Injury. cp 15:55 Details of fall: The patient fell from an upright position, while walking. cp 15:55 Onset: The symptoms/episode began/occurred yesterday. Associated injuries: The patient cp sustained injury to the low back, pain. Severity of symptoms: in the emergency department the symptoms are unchanged, despite home interventions. Patient reports history of chronic low back pain due to injuries sustained from fall in October 2021 in which she sustained fracture of low back. Patient reports she was scheduled for surgery but it was canceled when she went into respiratory failure. Historical: - Allergies: 15:40 No Known Allergies; ss - PMHx: 15:40 Depression; Diabetes - IDDM; Hypertension; Rheumatoid Arthritis; spinal stenosis; ss - PSHx: 15:40 section; Cholecystectomy; L arm; ss ROS: 16:00 Back: Positive for decreased range of motion, pain at rest, pain with movement. cp 16:00 Constitutional: Negative for body aches, chills, fever, poor PO intake. cp 16:00 Cardiovascular: Negative for chest pain, palpitations. 16:00 Eyes: Negative for injury, pain, redness, and discharge. cp 16:00 Neck: Positive for pain with movement, stiffness. cp 16:00 Respiratory: Negative for cough, shortness of breath, wheezing. 16:00 Abdomen/GI: Negative for abdominal pain, nausea, vomiting, and diarrhea, bowel incontinence. 16:00 : Negative for urinary symptoms, difficulty urinating, bladder incontinence. 16:00 Neuro: Positive for weakness, of the right leg and left leg, Negative for altered mental status, dizziness, numbness. 16:00 All other systems are negative. Exam: 16:05 Constitutional: The patient appears in no acute distress, alert, awake, non-toxic, well cp developed, well nourished, uncomfortable. 16:05 Head/Face: Normocephalic, atraumatic. cp 16:05 Eyes: Periorbital structures: appear normal, Conjunctiva: normal, no exudate, no injection, Sclera: no appreciated abnormality, Lids and lashes: appear normal, bilaterally. 16:05 ENT: External ear(s): are unremarkable, Nose: is normal, Mouth: Lips: moist, Oral mucosa: pink and intact, moist, Posterior pharynx: Airway: no evidence of obstruction, patent. 16:05 Neck: C-spine: vertebral tenderness, is not appreciated, crepitus, is not appreciated, ROM/movement: pain, that is mild, with rotation to the right, limited range of motion, is not appreciated. 16:05 Chest/axilla: Inspection: normal, Palpation: is normal, no crepitus, no tenderness. 16:05 Cardiovascular: Rate: tachycardic, Rhythm: regular, Edema: is not appreciated, JVD: is not appreciated. 16:05 Respiratory: the patient does not display signs of respiratory distress, Respirations: normal, no use of accessory muscles, no retractions, labored breathing, is not present, Breath sounds: are clear throughout, no decreased breath sounds, no stridor, no wheezing. 16:05 Abdomen/GI: Inspection: obese Palpation: abdomen is soft and non-tender, in all quadrants. 16:05 Back: pain, that is severe, of the lumbar area, ROM is painful, with all movement. 16:05 Neuro: Orientation: to person, place \T\ time. Mentation: is normal, Motor: moves all fours, Sensation: no obvious gross deficits, Gait: is unsteady. Vital Signs: 15:40 BP 155 / 92; Pulse 109; Resp 19; Temp 98.0(TE); Pulse Ox 100% on R/A; Height 5 ft. 5 ss in. (165.10 cm); Pain 10/10; 15:41 Weight 102.06 kg; ss 15:41 Body Mass Index 37.44 (102.06 kg, 165.10 cm) ss MDM: 16:06 Patient medically screened. cp 18:45 Data reviewed: vital signs, nurses notes. cp 18:45 ED course: Patient left w/o reevaluation after pain meds were given. Radiology studies cp not performed. Will discharge. Patient can return to ED at any time for reevaluation. Administered Medications: 15:57 Drug: HYDROcodone-acetaminophen 10 mg-325 mg 1 tabs Route: PO; ss 18:47 Follow up: Response: No adverse reaction ss 18:47 Not Given (Pt elopedd): Valium (diazepam) 2 mg PO once ss Disposition: 19:16 Co-signature as Attending Physician, Enrike Henry DO I was immediately available on-site ms3 in the Emergency Department for consultation in the care of the patient.. Disposition Summary: 03/11/22 18:49 Discharge Ordered Location: Home cp Problem: new cp Symptoms: have improved cp Condition: Stable cp Diagnosis - Fall on same level from slipping, tripping and stumbling with subsequent striking cp against object - Dorsalgia, unspecified cp - Radiculopathy, lumbar region cp Followup: cp - With: Private Physician - When: 1 - 2 days - Reason: Recheck today's complaints Discharge Instructions: - Discharge Summary Sheet cp - Chronic Back Pain cp - Fall Prevention in the Home, Adult cp - Lumbosacral Radiculopathy cp Forms: - Medication Reconciliation Form cp - Thank You Letter cp - Antibiotic Education cp - Prescription Opioid Use cp Signatures: Dispatcher [employer] EDMS Terrie Gaxiola RN RN ss Raul Hanson PA PA cp Enrike Henry DO DO ms3 Corrections: (The following items were deleted from the chart) 17:38 15:53 Head C Spine Cap Wo [id number].RAD.[id number] ordered. EDMS EDMS
[2022-03-11 19:15] VITALS: BP 155/92; TEMP 98; O2SAT 100
== END 2022-03-11 19:10 | disposition home or self-care (01) ==
LOC: ER 14:55
DX: M54.16 Radiculopathy, lumbar region (principal); W01.10XA Fall on same level from slipping, tripping and stumbling with subsequent striking against unspecified object, initial encounter
CPT/HCPCS: 99283

== ENCOUNTER 2022-04-21 22:04 | Emergency (ER) | payer BC ==
--- OUTSIDE RECORDS SUMMARY | 2022-04-21 22:08 | XMS REPORT | Continuity of Care Document ---
:1965 Author Organization [facility] t Address [address] [place] [address] Care Team Providers Name Role Phone Venkat Gillespie MD Primary Care Physician MARBELLA GONCALVES Attending Clinician Unavailable Kevin ROBERTSON, Rosa Perez Attending Clinician Vickie MCMANUS, Katherine Attending Clinician Unavailable Angelo Elizondo MD Attending Clinician Power ROBERTSON, Julio Cesar Attending Clinician Bonita Gonzalez APRN Attending Clinician Edward Attending Clinician Unavailable Venkat Gillespie MD Attending Clinician Olya Attending Clinician Unavailable CAROLINE Attending Clinician Unavailable ANGELO ELIZONDO Admitting Clinician Unavailable Edward Admitting Clinician Unavailable Olya Admitting Clinician Unavailable KAYLIE_DANYA Admitting Clinician Unavailable Payers Payer Name Policy Type Policy Number Effective Date Expiration Date Ivan jones [place] [id number] 2021 00:00:00 [place] Problems Condition Condition Condition Status Onset Resolution Last Treating Co mments Source Name Details Category Date Date Treatment Clinician Date Bronchospa Bronchospa Disease Active 2021-04 M ethodi sm sm 0-11 st 00:00: Hospita 00 l Type 2 Type 2 Problem Active [place] diabetes Diabetes da mellitus [facility] Allergic Allergic Problem Active [facility] [facility] rhinitis [facility]initis [facility] Abscess Abscess Problem Active [facility] Insect Insect Problem Active [place] bite - Bite - da wound [facility] Allergies, Adverse Reactions, Alerts This patient has no known allergies or adverse reactions. Social History Social Habit Start Date Stop Date Quantity Comments Source History of tobacco Smokes tobacco [facility] use daily Hospital Alcohol intake 2022-01-22 2022-01-22 Ex-drinker [facility] 00:00:00 00:00:00 (finding) [facility] Cigarettes smoked 2022-01-16 2022-01-16 [facility] current (pack per 00:00:00 00:00:00 Hospita l day) - Reported Cigarette 2022-01-16 2022-01-16 [facility] pack-years 00:00:00 00:00:00 Hospital Tobacco use and 2022-01-16 2022-01-16 Smokeless tobacco [facility] exposure 00:00:00 00:00:00 non-user Hospital Sex Assigned At [birth year] [facility] 00:00:00 00:00:00 Hospital Smoking Status Start Date Stop Date Source Heavy Tobacco Smoker [facility] Smokes tobacco daily 2022-01-16 00:00:00 [facility] Medications Ordered Filled Start Stop Current Ordering Indication Dosage Frequency Signature Comments Components Source Medication Medication Date Date Medication? Clinician (SIG) Name Name albuterol 2021-04 Yes 2{puff} Q6H Inhale 2 M ethodi (PROAIR 0-[address] HFA) 90 12:28: every 6 Hospita mcg/actuati 01 (six) l on inhaler hours as needed for wheezing or shortness of breath. fexofenadin 2021-04 Yes 180mg Q24H Take 180 M ethodi e HCl 0-[address] (MUCINEX 12:28: mouth Hospita ALLERGY 01 daily as l ORAL) needed (For allergies) . cetirizine 2021-04 Yes 10mg Q24H Take 1 Metho di (ZyrTEC) 10 0-14 tablet (10 st MG tablet 12:28: mg total) Hos onofre 01 by mouth l daily as needed for allergies. fluticasone 2021-04 Yes QD Inhale 1 Me thodi furoate-rio 0-[address] anteroL 00:00: s once Hospita (BREO 00 daily. l ELLIPTA) 100-25 mcg/dose blister with device powder for inhalation carisoprodo 2021-04 No 350mg [id number] Take 1 Methodi L (SOMA) 0-13 10-[id number] 350 MG 12:28: 00:00 3D (350 mg Hospita tablet 13 :00 total) by l mouth 3 (three) times a day as needed for muscle spasms. insulin 2021-04 Yes 15U QD Inject 15 Metho di aspart 0-[address] prot/insuln 12:28: under the H ospita asp 08 skin every l (NOVOLOG evening. MIX 70-30 U-100 INSULN SUBQ) methocarbam 2021-04- No 500mg Q.25D Take 1 M ethodi oL 0-13 10-[address] (ROBAXIN) 00:00: 04:59 (500 mg Hosp jaime 500 MG 00 :00 total) by l tablet mouth 4 (four) times a day as needed for muscle spasms for up to 10 days. ibuprofen 2021-04 No ibuprofen Me thodi (ADVIL) 800 0-12 10-[address] MG tablet 16:40: 00:00 tablet Hospi ta 23 :00 TAKE 1 l TABLET BY MOUTH EVERY 8 HOURS WITH FOOD NEEDED FOR PAIN phentermine 2021-04- No Q24H daily. Met hodi (ADIPEX-P) 0-12 10-12 st 37.5 mg 16:34: 00:00 Hospita tablet 44 :00 l Novolog Mix Novolog Mix 2022-0 No Novolog [place] 70-30 U-100 70-30 U-100 7-18 Mix 70-30 da Insulin 100 Insulin 100 00:00: U-100 Medical unit/mL unit/mL 00 Insulin Group subcutaneou subcutaneou 100 s solution s solution unit/mL subcutaneo us solution Novolog Mix Novolog Mix 2021-0 No Novolog [place] 70-30 U-100 70-30 U-100 7-18 Mix 70-30 da Insulin 100 Insulin 100 00:00: U-100 Medical unit/mL unit/mL 00 Insulin Group subcutaneou subcutaneou 100 s solution s solution unit/mL subcutaneo us solution amLODIPine Yes 5mg QD Take 1 Metho di (NORVASC) 5 7-18 tablet (5 st mg tablet 00:00: mg total) Hos onofre 00 by mouth l daily. lisinopriL Yes 20mg QD Take 1 Metho di (PRINIVIL) 7-18 tablet (20 st 20 mg 00:00: mg total) Hospita tablet 00 by mouth l daily. insulin asp Yes 30U QD Inject 30 M ethodi prt-insulin 7-[address] ASPART 00:00: under the Hospit a (NovoLOG 00 skin every l 70/30) 100 morning. unit/mL (70-30) injection atorvastati Yes 20mg QD Take 1 Meth betty n (LIPITOR) 7-18 tablet (20 st 20 mg 00:00: mg total) Hospita tablet 00 by mouth l daily. Default OP ins acetaminoph Yes 1{tbl} Q6H Take 1 Me thodi en-codeine 7-[address] (TYLENOL 00:00: mouth Hospita WITH 00 every 6 l CODEINE #3) (six) 300-30 mg hours as per tablet needed for moderate pain. diazePAM 0 Yes 5mg Q6H Take 1 Methodi (VALIUM) 5 7-07 tablet (5 st MG tablet 00:00: mg total) Hos onofre 00 by mouth l every 6 (six) hours as needed for muscle spasms. acetaminoph acetaminoph No acetaminop [place] en 300 [...] route. oral route. hours by oral route. ibuprofen ibuprofen No ibuprofen [place] 600 mg [...] q 6 pain pain hours PRN pain Vital Signs Vital Name Observation Time Observation Value Comments Source BP Diastolic 2022-01-03 00:00:00 81 mm[facility]Hg] [facility] Height 2022-01-03 00:00:00 65 [in_i] [facility] BMI (Body Mass 2022-01-03 00:00:00 37.4 kg/m2 [facility] BP Systolic 2022-01-03 00:00:00 152 mm[Hg] [facility] Body Weight 2022-01-03 00:00:00 3600 [oz_av] [facility] BP Diastolic 2021-12-19 00:00:00 44 mm[Hg] [facility] Height 2021-12-19 00:00:00 65 [in_i] [facility] BMI (Body Mass 2021-12-19 00:00:00 37.6 kg/m2 [facility] Group BP Systolic 2021-12-19 00:00:00 158 mm[Hg] [facility] Body Weight 2021-12-19 00:00:00 226 [lb_av] [facility] BP Diastolic 2021-11-14 00:00:00 88 mm[Hg] [facility] Height 2021-11-14 00:00:00 65 [in_i] [facility] BMI (Body Mass 2021-11-14 00:00:00 38.4 kg/m2 [facility] Group BP Systolic 2021-11-14 00:00:00 138 mm[Hg] [facility] Body Weight 2021-11-14 00:00:00 3696 [oz_av] [facility] BP Diastolic 2021-10-29 00:00:00 85 mm[Hg] [facility] Height 2021-10-29 00:00:00 65 [in_i] [facility] BMI (Body Mass 2021-10-29 00:00:00 38.3 kg/m2 [facility] Group BP Systolic 2021-10-29 00:00:00 137 mm[Hg] [facility] Body Weight 2021-10-29 00:00:00 3680 [oz_av] [facility] BP Diastolic 2020-04-21 00:00:00 81 mm[Hg] [facility] Height 2020-04-21 00:00:00 65 [in_i] [facility] BMI (Body Mass 2020-04-21 00:00:00 44.1 kg/m2 [facility] BP Systolic 2020-04-21 00:00:00 163 mm[Hg] [facility] Body Weight 2020-04-21 00:00:00 265 [lb_av] [facility] BP Diastolic 2020-02-21 00:00:00 87 mm[Hg] [facility] Height 2020-02-21 00:00:00 65 [in_i] [facility] BMI (Body Mass 2020-02-21 00:00:00 44.1 kg/m2 [facility] BP Systolic 2020-02-21 00:00:00 144 mm[Hg] [facility] Body Weight 2020-02-21 00:00:00 265 [lb_av] [facility] BP Diastolic 2020-01-31 00:00:00 98 mm[Hg] [facility] BP Systolic 2020-01-31 00:00:00 185 mm[Hg] [facility] Body Weight 2020-01-31 00:00:00 275.7 [lb_av] [facility] Systolic blood 2022-01-24 16:51:58 166 mm[Hg] [facility] pressure Diastolic blood 2022-01-24 16:51:58 79 mm[Hg] [facility] pressure Heart rate 2022-01-24 16:51:58 87 /min [facility] Body temperature 2022-01-24 16:51:58 36.83 Dalia [facility] Respiratory rate 2022-01-24 16:51:58 19 /min [facility] Oxygen saturation in 2022-01-24 16:51:58 98 /min [facility] Arterial blood by Pulse oximetry Body height 2022-01-22 17:24:00 165.1 cm [facility] Body weight 2022-01-22 17:24:00 102.513 kg [facility] BMI 2022-01-22 17:24:00 37.61 kg/m2 [facility] Procedures Procedure Date / Time Performing Clinician Source Performed CT CHEST LUNG CANCER 2022-03-24 19:14:49 Rosa Colon [facility] SCREENING POC GLUCOSE 2022-01-24 16:48:00 Angelo Elizondo POC GLUCOSE 2022-01-24 13:33:00 Angelo Elizondo POC GLUCOSE 2022-01-24 10:21:00 Angelo Elizondo CBC WITH PLATELET AND 2022-01-24 09:44:00 Art Rosenthal [facility] DIFFERENTIAL Dario BASIC METABOLIC PANEL 2022-01-24 09:44:00 Galo, Art [facility] Bishop MAGNESIUM LEVEL 2022-01-24 09:44:00 Art Rosenthal-Nida SEROLOGY 2022-01-24 09:44:00 Brant Mejia [facility] PATIENT SURVEILLANCE Angelo ESTIMATED GFR 2022-01-24 09:44:00 Art Rosenthal-19 ANTI-SPIKE IGG 2022-01-24 09:44:00 Brant Mejia [facility] ANTIBODY TITER Angelo POC GLUCOSE 2022-01-24 02:30:00 Angelo Elizondo POC GLUCOSE 2022-01-23 22:35:00 Angelo Elizondo POC GLUCOSE 2022-01-23 18:12:00 Angelo Elizondo URINALYSIS SCREEN AND 2022-01-23 16:34:00 Mikhail [facility] MICROSCOPY, WITH REFLEX TO Brice CULTURE BETA HYDROXYBUTYRATE 2022-01-23 16:34:00 [facility] Brice URINE CULTURE 2022-01-23 16:34:00 Angelo Elizondo POC GLUCOSE 2022-01-23 13:44:00 Angelo Elizondo POC GLUCOSE 2022-01-23 12:09:00 Angelo Elizondo PHOSPHORUS LEVEL 2022-01-23 09:42:00 Galo [facility] Bishop ESTIMATED GFR 2022-01-23 09:42:00 Galo [facility] Bishop CBC WITH PLATELET AND 2022-01-23 09:42:00 [facility] DIFFERENTIAL Bishop BASIC METABOLIC PANEL 2022-01-23 09:42:00 [facility] Bishop B NATRIURETIC PEPTIDE 2022-01-23 09:42:00 [facility] Bishop MAGNESIUM LEVEL 2022-01-23 09:42:00 [facility] Wins[facility] Bishop POC GLUCOSE 2022-01-23 08:22:00 Angelo Elizondo POC GLUCOSE 2022-01-23 05:40:00 Angelo Elizondo POC GLUCOSE 2022-01-23 05:25:00 Angelo Elizondo POC GLUCOSE 2022-01-23 05:23:00 Angelo Elizondo POC GLUCOSE 2022-01-23 01:45:00 Angelo Elizondo XR CHEST 1 VW PORTABLE 2022-01-22 22:16:12 [facility] Brice POC GLUCOSE 2022-01-22 21:45:00 Angelo Elizondo rashi Narvaez GA AN ELECTIVE 2022-01-22 20:30:00 Alexia Perezalise [facility] ENDOTRACHEAL AIRWAY POC GLUCOSE 2022-01-22 17:03:00 Angelo Elizondo COVID-19 QUALITATIVE 2022-01-17 14:15:00 Angelo Elizondo [facility] RT-PCR Brice HEMOGLOBIN A1C 2022-01-17 14:11:00 [facility] PARTIAL THROMBOPLASTIN 2022-01-17 14:11:00 [facility] TIME (PTT) PROTHROMBIN TIME WITH INR 2022-01-17 14:11:00 [facility] CBC WITH PLATELET AND 2022-01-17 14:11:00 [facility] DIFFERENTIAL COMPREHENSIVE METABOLIC 2022-01-17 14:11:00 [facility] PANEL ESTIMATED GFR 2022-01-17 14:11:00 [facility] ECG PRE/POST OP 2022-01-17 14:01:47 [facility] XR LUMBAR SPINE COMPLETE W 2021-12-10 17:39:07 [facility] BENDING Brice XR SPINE SCOLIOSIS 2-3 2021-12-10 17:38:52 [facility] VIEWS Brice MRI SPINE EXTERNAL STUDY 2021-11-02 19:22:00 [facility] Brice unlisted imaging order 2021-10-29 00:00:00 [facility] US, transvaginal 2020-02-21 00:00:00 [facility] US, transvaginal 2020-01-31 00:00:00 [facility] Caesarean Section [facility] Cholecyst[facility] Plan of Care Planned Activity Planned Date Details Comments Source Future Scheduled Test 2022-04-10 COVID-19 VACCINE (#1) [facility] 10:37:30 [code = COVID-19 VACCINE (#1)] Future Scheduled Test 2022-04-10 Pneumococcal Vaccine: [facility] 10:37:30 Pediatrics (0 to 5 Years) and At-Risk Patients (6 to 64 Years) (1 - PCV) [code = Pneumococcal Vaccine: Pediatrics (0 to 5 Years) and At-Risk Patients (6 to 64 Years) (1 - PCV)] Future Scheduled Test 2022-04-10 DIABETES: RETINAL EYE [facility] 10:37:30 EXAM [code = DIABETES: RETINAL EYE EXAM] Future Scheduled Test 2022-04-10 DIABETIC FOOT EXAM [facility] 10:37:30 [code = DIABETIC FOOT EXAM] Future Scheduled Test 2022-04-10 URINE MICROALBUMIN [facility] 10:37:30 [code = URINE MICROALBUMIN] Future Scheduled Test 2022-04-10 Hepatitis C screening [facility] 10:37:30 (procedure) [code = 258452073] Future Scheduled Test 2022-04-[address] [facility] 10:37:30 malignant neoplasm of cervix (procedure) [code = 497089979] Future Scheduled Test 2022-04-[address] [facility] 10:37:30 SCREENING [code = BREAST CANCER SCREENING] Future Scheduled Test 2022-04-10 COLONOSCOPY SCREENING [facility] 10:37:30 [code = COLONOSCOPY SCREENING] Future Scheduled Test 2022-04-[address] [facility] 10:37:30 malignant neoplasm of lung (procedure) [code = 731942392] Future Scheduled Test 2022-04-10 SHINGLES VACCINES (1 [facility] 10:37:30 of 2) [code = SHINGLES VACCINES (1 of 2)] Future Scheduled Test 2022-04-10 INFLUENZA VACCINE [facility] 10:37:30 [code = INFLUENZA VACCINE] Diagnostic Test 2021-12-19 urinalysis, dipstick [facility]ending 00:00:00 [code = urinalysis, Group dipstick] Diagnostic Test 2021-12-19 STI panel [code = STI [facility] 00:00:00 panel] Group Instructions [facility] Encounters Start End Encounter Admission Attending Care Care Encounter Source Date/Time Date/Time Type Type Clinicians Facility Department ID 2022-04-11 2022-04-13 Outpatient [facility] [id number] [place] 11:00:00 00:01:00 MARBELLA -[id number] [facility] 2022-04-09 2022-04-09 Outpatient [facility] [id number] [place] 11:00:00 11:00:00 MARBELLA -[id number] [facility] 2022-04-02 2022-04-02 Outpatient [facility] [id number] [place] 11:00:00 11:00:00 MARBELLA -[id number] [facility] 2022-03-28 2022-03-28 Outpatient [facility] [id number] [place] 13:00:00 13:00:00 MARBELLA -[id number] [facility] 2022-03-26 2022-03-26 Outpatient [facility] [id number] [place] 11:00:00 11:00:00 MARBELLA -[id number] [facility] 2022-03-24 2022-03-24 [facility] Rosa Colon 1.2.840.1 [id number] Methodi 12:40:27 23:59:00 Encounter Ana 75003.1.[address] 3.430.2.7 Hospit a .3.171445 l .8 2022-03-24 2022-03-24 Outpatient ROSA COLON [facility] [id number] [place] 00:00:00 00:00:[address] 2022-03-24 2022-03-24 Travel 1.2.840.1 1.2.321.295 [id number] Methodi 00:00:00 00:00:[address] 3.430.2.7 0.2.7.3.698 Ho spita .3.374859 084.8 l .8 2022-03-22 2022-03-22 Travel 1.2.840.1 1.2.203.647 [id number] Methodi 00:00:00 00:00:[address] 3.430.2.7 0.2.7.3.698 Ho spita .3.747040 084.8 l .8 2022-03-21 2022-03-21 Outpatient [facility] [id number] [place] 11:00:00 11:00:00 MARBELLA -[id number] [facility] 2022-03-19 2022-03-19 Outpatient [facility] [id number] [place] 11:00:00 11:00:00 MARBELLA -[id number] [facility] 2022-03-14 2022-03-14 Outpatient [facility] [id number] [place] 07:19:00 07:19:00 MARBELLA -[id number] [facility] 2022-03-05 2022-03-13 ambulatory [id number] M [id number] 11:00:00 23:59:00 [id number] 21-532f-80c 74 -80cd-e8d d-[id number] [id number] bcd 2022-03-05 2022-03-13 Outpatient [facility] [id number] [place] 11:00:00 00:01:00 MARBELLA -[id number] [facility] 2022-03-04 2022-03-04 Outpatient [facility] [id number] [place] 09:00:00 09:00:00 MARBELLA -[id number] [facility] 2022-02-28 2022-02-28 Outpatient [facility] [id number] [place] 13:00:00 13:00:00 MARBELLA -[id number] [facility] 2022-02-26 2022-02-26 Outpatient [facility] [id number] [place] 11:00:00 11:00:00 MARBELLA -[id number] [facility] 2022-02-19 2022-02-19 Outpatient [facility] [id number] [place] 10:51:00 10:51:00 MARBELLA -[id number] [facility] 2022-01-18 2022-02-11 ambulatory [id number] M [id number] 11:00:00 23:59:00 [id number] 21-532f-80c 11 -80cd-e8d d-[id number] [id number] bcd 2022-01-18 2022-02-11 Outpatient [facility] [id number] 00:01:00 MARBELLA -[id number] [facility] 2022-01-25 2022-01-25 Patient Vickie, 1.2.840.1 [id number] Methodi 00:00:00 00:00:00 Outreach Katherine 38679.1.[address] 3.430.2.7 Hospit a .3.524976 l .8 2022-01-22 2022-01-24 [facility] 1.2.840.1 [id number] Methodi 09:28:00 12:28:00 Encounter Angelo 56823.1.[address] Brice 3.430.2.7 Hospit a .3.847906 l .8 2022-01-22 2022-01-24 Outpatient [facility] [id number] [place] 00:00:00 00:00:00 ANGELO [address] 2022-01-22 2022-01-22 Anesthesia Julio Cesar Steve 1.2.840.1 [id number] Methodi 15:12:00 16:46:00 Event Bonita Gonzalez 16045.1.[address] 3.430.2.7 Hospit a .3.332577 l .8 2022-01-22 2022-01-22 Surgery [facility] 1.2.840.1 [id number] Methodi 13:15:00 16:45:[address] [place] 3.430.2.7 Hospit a .3.552569 l .8 2022-01-22 2022-01-22 Travel 1.2.840.1 1.2.658.784 [id number] Methodi 00:00:00 00:00:[address] 3.430.2.7 0.2.7.3.698 Ho spita .3.664004 084.8 l .8 2022-01-17 2022-01-17 Pre-Admiss Mikhail, 1.2.840.1 [id number] Methodi 08:30:00 09:30:00 deshawn Pratt [address]50.1.[address] Testing [place] 3.430.2.7 Hospit a .3.477358 l .8 2022-01-17 2022-01-17 Outpatient MIKHAIL [facility] [id number] 176 [place] 00:00:00 00:00:[address]O [address] 2022-01-17 2022-01-17 Travel 1.2.840.1 1.2.856.651 [id number] Methodi 00:00:00 00:00:[address] 3.430.2.7 0.2.7.3.698 Ho spita .3.113712 084.8 l .8 2022-01-11 2022-01-11 ambulatory [id number] 15:00:00 23:59:00 [id number] 21-532f-80c 72 -80cd-e8d d-j2lr8xu8e s7wv3vdyu bcd 2022-01-08 2022-01-08 [place] [id number] 022 [place] 00:00:00 00:00:00 [facility] 2022-01-08 2022-01-08 Outpatient [facility] MMG [id number] 022 [place] 00:00:00 00:00:00 1222 [facility] 2022-01-08 2022-01-08 Travel 1.2.840.1 1.2.254.848 [id number] Methodi 00:00:00 00:00:[address] 3.430.2.7 0.2.7.3.698 [facility]8 [facility] .8 2022-01-03 2022-01-03 [place] [id number] 022 [place] 00:00:00 00:00:00 0922 da [facility] 2022-01-03 2022-01-03 Marbella [facility] [place] - [id number] M atagor 00:00:00 00:00:00 Discovery flo Goncalves [employer]: [address] [place] [address] - [address] [address] , Ph. 2021-12-26 2021-12-26 [place] 17097.2.840.1 [id number] Methodi 15:10:10 23:59:00 Encounter Angelo 76889.1.[address] [facility] 3.430.2.7 Hospit a .3.542962 l .8 2021-12-26 2021-12-26 [place] [id number] 022 [place] 00:00:00 00:00:00 0914 [facility] 2021-12-26 2021-12-26 Outpatient MIKHAIL [facility] [id number] [address] [place] [address] 00:00:00 00:00:00 ANGELO [address] 2021-12-19 2021-12-19 [place] [id number] 022 [place] 00:00:00 00:00:00 0907 [facility] 2021-12-19 2021-12-19 Roxie [facility] [place] - [id number] M at[place] 00:00:00 00:00:[address] [facility]-: [address] OBGYN [address] [address] , Ph. [phone] 2021-12-13 2021-12-13 Outpatient [facility]G MMG [id number] 022 [place] 00:00:00 00:00:00 0901 [facility] 2021-12-10 2021-12-10 [place] [address].2.840.1 [id number] Methodi 12:10:56 23:59:00 Encounter Angelo 66970.1.[address] [place] 3.430.2.7 Hospit a .3.655253 l .8 2021-12-10 2021-12-10 [facility] Mikhail, 1.2.840.1 [id number] Methodi 11:30:00 12:09:00 Encounter Angelo 12834.1.[address] [place] 3.430.2.7 Hospit a .3.186195 l .8 2021-12-10 2021-12-10 Outpatient MIKHAIL [facility] [id number] [place] 00:00:00 00:00:00 ANGELO [address] 2021-12-10 2021-12-10 [id number] [place] 00:00:00 00:00:[address] ANGELO [address] 2021-12-10 2021-12-10 Travel 1.2.840.1 1.2.210.683 [id number] Methodi 00:00:00 00:00:[address] 3.430.2.7 0.2.7.3.698 Ho spita .3.028794 084.8 l .8 2021-12-10 2021-12-10 Transcribe Elizondo 1.2.840.1 [id number] [facility] 00:00:00 00:00:00 Orders Angelo [address]1556.1.[address] [facility] 3.430.2.7 Hospit a .3.526574 l .8 2021-11-14 2021-11-14 [place] [id number] [address] [place] 00:00:00 00:00:00 [facility] 2021-11-14 2021-11-14 Marbella NICHOLAS [place] - [id number] M [place] 00:00:00 00:00:00 Discovery flo Goncalves [employer]: [address] [facility] - [address], [facility] [address] , Ph. 2021-11-09 2021-11-09 Transcribe Gillespie, Venkat 1.2.840.1 [id number] Methodi 00:00:00 00:00:00 Orders Curt [address]373.1.[address] 3.430.2.7 Hospit a .3.996715 l .8 2021-10-30 2021-10-30 Outpatient Rutledge_L MMG MMG [address] [place] 05:47:00 05:47:00 [facility] 2021-10-29 2021-10-29 Outpatient Rutledge_L MMG MMG [address] [place] 02:23:00 02:23:00 [facility] 2021-10-29 2021-10-29 Marbella MM [place] - [id number] M [place] 00:00:00 00:00:00 Discovery flo Goncalves [employer]: [address] [facility] - [address] [address] , Ph. 2020-07-19 2020-07-19 Outpatient KAYLIE_DANIEL [facility] [address] [place] 12:41:00 12:41:00 SSA [facility] [facility] 2020-06-04 2020-06-04 Outpatient [facility] [address] [place] 12:22:00 12:22:00 0[facility] 2020-04-21 2020-04-21 Outpatient [facility] [address] [place] 02:20:00 02:20:00 0108 [facility] 2020-04-21 2020-04-21 [place] [facility] [place] - [id number] [facility] [place] 00:00:00 00:00:00 Ivelisse Markham MD: 600 [facility] [address] [address] , Ph. [phone] 2020-04-17 2020-04-17 Outpatient [facility] [address] [place] 11:05:00 11:05:00 0104 [facility] 2020-03-26 2020-03-26 Outpatient [facility] [address] [place] 03:57:00 03:57:00 1213 [facility] 2020-03-01 2020-03-01 Outpatient [facility] [address] [place] 02:21:00 02:21:00 1118 [facility] 2020-02-21 2020-02-21 Outpatient [facility] [address] [place] 11:57:00 11:57:00 1109 [facility] 2020-02-21 2020-02-21 [place] [facility] [place] - [id number] M [place] 00:00:00 00:00:00 [facility] janneth MD: [address] [address] , Ph. [phone] 2020-02-15 2020-02-15 Outpatient [facility] [address] [place] 11:06:00 11:06:00 [facility] 2020-02-13 2020-02-13 Outpatient [facility] [address] [place] 01:16:00 01:16:00 1101 [facility] 2020-01-31 2020-01-31 Outpatient [facility] [address] [place] 11:16:00 11:16:00 1019 [facility] 2020-01-31 2020-01-31 [place] [facility] [place] - [id number] [facility] [place] 00:00:00 00:00:00 [facility] jann[facility] MD: [address] [address] , Ph. 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 Interpretation (test code = Abnormal 27412-2) [facility], with reflex to culture 2022-01-23 19:44:00 Test Item Value Reference Range Interpretation Comments Specimen site (test Random void code = 1399057) Color, UA (test code = Yellow 5778-6) Appearance, UA (test Clear code = 5767-9) Specific gravity, UA 1.001-1.035 (test code = 5811-5) pH, UA (test code = 5.0-8.5 5803-2) Protein, UA (test code Negative Negative = 03511-3) Glucose, UA (test code 3+ Negative A = 13542-4) Ketones, UA (test code Negative Negative = 2514-8) Bilirubin, UA (test Negative Negative code = 5770-3) Blood, UA (test code = Negative Negative 5794-3) Nitrite, UA (test code Negative Negative = 5802-4) Urobilinogen, UA (test <2.0 See_Comment [Aut omated code = 07780-7) message] The system which generated this result transmitted reference range : <=2.0. The reference range was not used to interpret this result as normal/abnormal . Leukocyte esterase, UA Negative Negative (test code = 5799-2) Epithelial cells, UA <1 See_Comment [Autom ated (test code = 5787-7) message ] The system which generated this result transmitted reference range : /HPF. The refer ence range was not u sed to interpret th is result as normal/abnormal . WBC, UA (test code = See_Comment [Autom ated 5821-4) message] The sy stem which generated this result transmitted reference range : 0 - 4 /HPF. The reference range was not used to interpret this result as normal/abnormal . RBC, UA (test code = None seen See_Comment [Autom ated 15674-5) message] The sy stem which generated this result transmitted reference range : /HPF. The refer ence range was not u sed to interpret th is result as normal/abnormal . Bacteria, UA (test code None seen None seen = 35665-2) Yeast, UA (test code = Few A 68766-1) Yeast with None seen pseudohyphae, UA (test code = 87683-0) Lab Interpretation Abnormal (test code = 64385-2) [facility] [id number] 17:06:00 Test Item Value Reference Range Interpretation Comments Urine culture (test SEE COMMENT Bacteriu gil screen code = 9554565) negative. [facility]Post [id number] 19:23:31 Test Item Value Reference Range Interpretation Comments Ventricular rate (test code = 253) Atrial rate (test code = 255) GA interval (test code = 266) QRSD interval (test code = 260) QT interval (test code = 264) QTC interval (test code = 265) P axis 1 (test code = 267) QRS axis 1 (test code = 268) T wave axis (test code = 270) EKG impression (test Normal sinus code = 273) rhythm-Low voltage QRS-Borderline ECG-No previous ECGs available-Electronica lly Signed By Joaquina Tripp MD ([id number]) on 01/17/2022 2:23:30 PM [facility] [Presence] in Respiratory specimen by LUDWIG with probe [id number] 12:41:34 Test Item Value Reference Range Interpretation Comments SARS-CoV-2 (COVID-19) RNA Not detected [Presence] in Respiratory specimen by LUDWIG with probe detection (test code = 61197-8) Whether patient is employed in a Unknown healthcare setting (test code = 90519-0) Whether the patient has symptoms Unknown related to condition of interest (test code = 85287-0) Whether the patient was Unknown hospitalized for condition of interest (test code = 81253-6) Whether the patient was admitted Unknown to intensive care unit (ICU) for condition of interest (test code = 72601-8) Whether patient resides in a Unknown congregate care setting (test code = 71414-1) status (test code = Unknown 08213-1) Date and time of symptom onset Unknown (test code = 33797-5) MICKIE LOWERY [id number] 00:00:00 Test Item Value Reference Range Interpretation Comments damien - swab (test code = damien abnormal A - swab) gardnerella (test code = normal gardnerella) CT/NG (test code = CT/NG) normal trichomonas vaginalis addon - swab normal (test code = trichomonas vaginalis addon - swab) damien species reflex (test code = abnormal A damien species reflex) [facility] - [id number] 14:59:00 Test Item Value Reference Range Interpretation Comments Leukocytes (test code = Leukocytes) Negative Nitrite (test code = Nitrite) negative Urobilinogen (test code = .2 Urobilinogen) Protein (test code = Protein) Negative pH (test code = pH) 6.0 Blood (test code = Blood) Negative Specific [place] (test code = 1.025 Specific [place]) Ketone (test code = Ketone) Trace Bilirubin (test code = Bilirubin) Negative Glucose (test code = Glucose) 250 Appearance (test code = Appearance) Clear Color (test code = Color) Yellow [facility] CenterErythrocyte sedimentation [id number] 01:27:00 Test Item Value Reference Range Interpretation Comments Erythrocyte sedimentation rate by 42 mm/HR 0-40 H Photometric method (test code = 42463-4) [facility] Center[facility]inal[facility] complete W Reflex Culture panel - Urine 2021-10-30 01:24:00 Test Item Value Reference Range Interpretation Comments Color of Urine by Auto (test yellow code = 60466-1) Appearance of Urine (test code clear clear = 5767-9) Glucose [Presence] in Urine by =4+ (1000 negative Automated test strip (test code = 89620-8) Bilirubin.total [Mass/volume] negative negative in Urine (test code = 1978-6) Ketones [Mass/volume] in Urine =2 negative H by Automated test strip (test code = 86766-4) Specific gravity of Urine by 1.032 1.003-1.030 H Automated test strip (test code = 85783-0) blood urine (test code = blood negative negative urine) pH of Urine (test code = 6.000 5-9 2756-5) protein urine (UA) (test code = trace negative protein urine (UA)) Urobilinogen [Presence] in =2.0 0.2-1.0 H Urine (test code = 49234-2) Nitrite [Presence] in Urine by negative negative Test strip (test code = 5802-4) Leukocyte esterase [Presence] negative negative in Urine by Automated test strip (test code = 44712-5) Erythrocytes [#/volume] in =1-5 0-5 Urine by Automated count (test code = 798-9) Leukocytes [#/area] in Urine =6-10 0-5 H sediment by Automated count (test code = 02763-3) Epithelial cells [Presence] in =6-10 0-5 Urine sediment by Light microscopy (test code = 78866-9) Bacteria identified in Urine by small(1 none detect Culture (test code = 630-4) Casts [#/area] in Urine none detected none detect sediment by Automated count (test code = 77214-0) urine culture added? (test code no = urine culture added?) [facility] Center[facility]albumin [Mass/volume] in [id number] 01:24:00 Test Item Value Reference Range Interpretation Comments microalbumin random (test code = 52.9 mg/L 0-20 H microalbumin random) [facility] W Auto Differential panel - [id number] 11:50:00 Test Item Value Reference Range Interpretation Comments white blood count (test code = 14.5 K/uL 4.0-11.5 H white blood count) red blood count (test code = red 6.52 M/uL 3.80-5.20 H blood count) hemoglobin (test code = 18.4 g/dL 10.5-15.7 H hemoglobin) hematocrit (test code = 57.5 % 34.0-50.0 H hematocrit) MCV [Entitic volume] (test code = 88.2 fL 86.0-100.0 20832-8) mean corpuscular hemoglobin (test 28.2 pg 26.2-33.4 [...] 44.4-80.1 leukocytes in Blood (test code = 54100-6) Immature granulocytes [#/volume] 0.11 K/uL 0.00-0.03 H in Blood (test code = 78086-8) lymphocyte% (test code = 22.4 % 10.0-50.0 lymphocyte%) mono % (test code = mono %) 6.8 % 3.6-12.0 eos % (test code = eos %) 1.2 % 0.0-5.4 basophil % (test code = basophil 0.4 % 0.1-1.2 %) Band form neutrophils [#/volume] 9.92 K/uL 1.56-6.13 H in Blood (test code = 07217-1) Lymphocytes [#/volume] in Specimen 3.24 K/uL 1.18-3.74 by Automated count (test code = 24432-8) mono # (test code = mono #) 0.98 K/uL 0.24-0.86 H eos # (test code = eos #) 0.17 K/uL 0.04-0.36 basophil # (test code = basophil 0.06 K/uL 0.01-0.08 #) NRBC% (test code = NRBC%) 0 /100 WBC 0-0.2 NRBC# (test code = NRBC#) 0 K/uL [facility] CenterHemoglobin A1c/Hemoglobin.total in [id number] 11:50:00 Test Item Value Reference Range Interpretation Comments Hemoglobin A1c [Mass/volume] in Blood 9.5 % 4.0-6.0 H (test code = 90817-6) [facility] CenterComprehensive metabolic 2000 panel - Serum or Plasma [...] Serum or Plasma (test code = 6768-6) [facility] CenterLipid 1996 panel - Serum or [id number] 11:50:00 Test Item Value Reference Range Interpretation [...] (test code = 6.512 cholesterol risk ratio) [facility] CenterDifferential panel, method unspecified - [id number] 00:00:00NeutrophilsBandLymphocyteAtypical LymphMonocyteEosinophilBasophilMetamyelocyteMyelocytePromyelocyteBlastsNucleated Red Blood CellAbs Neutrophil Count (Man)Abs Lymph Count (Man)Abs Monocyte Count (Man)Abs Eosinophil Count (Man)Abs Basophil Count (Man)Platelet EstimatePlatelet MorphologyPolychromasiaPoikilocytosisAnisocytosisMacrocytosisOvalocytesToxic VacuolationDelta Regional Medical CenterThyrotropin [Units/volume] in Serum or Plasma 2021-10-29 00:00:00 Test Item Value Reference Range Interpretation Comments Thyrotropin [Units/volume] in 2.51 uIU/mL 0.36-3.74 Serum or Plasma (test code = 3016-3) [facility] CenterMullerian inhibiting substance [Mass/volume] in Serum or [id number] 09:32:00 Test Item Value Reference Range Interpretation Comments Mullerian inhibiting substance <0.015 . [Moles/volume] in Serum or Plasma (test code = 97995-2) [facility] CenterMullerian inhibiting substance [Mass/volume] in Serum or [id number] 09:32:00 Test Item Value Reference Range Interpretation Comments Mullerian inhibiting substance <0.015 . [Moles/volume] in Serum or Plasma (test code = 82697-4) [facility]
[2022-04-21] MEDS ORDERED: CYCLOBENZAPRINE 10 MG TAB ONE (22:43)
[2022-04-21] MEDS ORDERED: MORPHINE 4 MG/ML SYR ONE (22:43)
[2022-04-21] MEDS ORDERED: KETOROLAC 30 MG/ML INJ ONE (22:43)
[2022-04-21] MEDS ORDERED: ONDANSETRON 4 MG/2 ML VIAL ONE (22:43)
[2022-04-22] MEDS ORDERED: FENTANYL CITR 100 MCG/2 ML ONE ×2 (00:02→00:03)
--- NOTE | 2022-04-22 01:08 | ER ---
Nurse's Notes [facility] Name: Anjana Cordova Age: 56 yrs Sex: Female : 1965 Arrival Date: 04/21/2022 Time: 22:08 Bed 15 Private MD: Diagnosis: Fall on same level, unspecified;Low back pain;Contusion of right knee Presentation: 04/21 22:25 Chief complaint: Patient states: right leg gave out while pt was walking and she fell kb3 to the ground. Reports back pain, right knee pain and right forearm pain. Care prior to arrival: None. Mechanism of Injury: Fall from standing position. Trauma event details: Injury occurred in the [facility], Injury occurred: at home. Injury occurred: April 21, 2022 Injury occurred at: 21:30. 22:25 Acuity: HAWK 3 kb3 22:25 Method Of Arrival: Wheelchair kb3 22:28 Coronavirus screen: Vaccine status: Patient reports receiving the 2nd dose of the covid kb3 vaccine. Client denies travel out of the [place] in the last 14 days. Ebola Screen: Patient negative for fever greater than or equal to 101.5 degrees Fahrenheit, and additional compatible Ebola Virus Disease symptoms Patient denies exposure to infectious person. Patient denies travel to an Ebola-affected area in the 21 days before illness onset. No symptoms or risks identified at this time. Initial Sepsis Screen: Does the patient meet any 2 criteria? No. Patient's initial sepsis screen is negative. Does the patient have a suspected source of infection? No. Patient's initial sepsis screen is negative. Risk Assessment: Do you want to hurt yourself or someone else? Patient reports no desire to harm self or others. Onset of symptoms was April 21, 2022 at 21:30. Historical: - Allergies: 22:29 No Known Allergies; kb3 - PMHx: 22:29 Depression; Diabetes - IDDM; Hypertension; Rheumatoid Arthritis; spinal stenosis; kb3 Chronic back pain; Hypercholesterolemia; COPD; - PSHx: 22:29 section; Cholecystectomy; L arm; kb3 - Immunization history: Last tetanus immunization: - up to date. - Social history:: Smoking status: Patient reports the use of cigarette tobacco products, smokes one pack cigarettes per day. - Family history:: not pertinent. Screenin:25 Abuse screen: Denies threats or abuse. Denies injuries from another. Nutritional kb3 screening: No deficits noted. Tuberculosis screening: No symptoms or risk factors identified. 22:30 [facility] ED Fall Risk Assessment (Adult) History of falling in the last 3 months, pf1 including since admission Yes- single mechanical fall (1 pt) Confusion or Disorientation No (0 pts) Intoxicated or Sedated No (0 pts) Impaired Gait No (0 pts) Mobility Assist Device Used No (0 pt) Altered Elimination No (0 pt) Score/Fall Risk Level 0 - 2 = Low Risk Oriented to surroundings, Maintained a safe environment, Educated pt \T\ family on fall prevention, incl call for assistance when getting out of bed, Assessed \T\ reinforced patient's understanding of fall precautions, Provided non-skid footwear, Hourly rounding (assess needs \T\ fall precautionary measures) done, Used ambulatory aids as needed (educated on \T\ assisted with), Used gait belt as appropriate. Primary Survey: 22:25 NO uncontrolled hemorrhage observed. A: The client is awake and alert. The airway is kb3 patent. Breathing/Chest: Spontaneous respiratory effort, equal unlabored respirations, breath sounds clear bilaterally, regular pattern, symmetrical chest rise and fall. Circulation: No external hemorrhage present. Regular and strong central pulse, skin warm/dry/normal color. Disability Client is alert. Exposure/Environment: There is no evidence of uncontrolled external bleeding. Assessment: 22:25 General: Appears in no apparent distress. uncomfortable, Behavior is calm, cooperative. kb3 Pain: Complains of pain in lumbar area, left low back, right low back and right knee Pain does not radiate. Pain currently is 10 out of 10 on a pain scale. Quality of pain is described as throbbing, Pain began 1 hour ago. 22:30 General: Appears in no apparent distress. uncomfortable, well groomed, well developed, pf1 Behavior is calm, cooperative, quiet. 22:30 Pain: Complains of pain in right knee and lumbar area Pain currently is 10 out of 10 on pf1 a pain scale. Neuro: No deficits noted. Level of Consciousness is awake, alert, obeys commands, Oriented to person, place, time, situation. Cardiovascular: No deficits noted. Capillary refill < 3 seconds Patient's skin is warm and dry. Respiratory: No deficits noted. Airway is patent Trachea midline Respiratory effort is even, unlabored, Respiratory pattern is regular, symmetrical. GI: No deficits noted. No signs and/or symptoms were reported involving the gastrointestinal system. : No deficits noted. No signs and/or symptoms were reported regarding the genitourinary system. EENT: No deficits noted. No signs and/or symptoms were reported regarding the EENT system. Derm: No deficits noted. No signs and/or symptoms reported regarding the dermatologic system. Musculoskeletal: Circulation, motion, and sensation intact. Capillary refill < 3 seconds, Reports pain in right knee and lumbar area. 22:30 General: Patient stated fell when right knee gave out when walking and fell forward pf1 onto right knee,onset 2 hours ago. Patient denies any head injury or LOC.. Vital Signs: 22:25 BP 152 / 79; Pulse 94; Resp 20; Temp 98.2; Pulse Ox 99% ; Weight 104.33 kg; Height 5 kb3 ft. 6 in. (167.64 cm); Pain 10/10; 23:30 BP 132 / 71; Pulse 89; Resp 16; Pulse Ox 100% on R/A; Pain 10/10; pf1 04/22 00:00 BP 141 / 82; Pulse 90; Resp 16; Pulse Ox 99% on R/A; Pain 10/10; pf1 01:00 BP 145 / 80; Pulse 86; Resp 18; Temp 98.1; Pulse Ox 100% ; Pain 9/10; pf1 04/21 22:25 Body Mass Index 37.12 (104.33 kg, 167.64 cm) kb3 [place] Coma Score: 04/21 22:25 Eye Response: spontaneous(4). Verbal Response: oriented(5). Motor Response: obeys kb3 commands(6). Total: 15. Trauma Score (Adult): 22:25 Eye Response: spontaneous(1); Verbal Response: oriented(1); Motor Response: obeys kb3 commands(2); Systolic BP: > 89 mm Hg(4); Respiratory Rate: 10 to 29 per min(4); Braden Score: 15; Trauma Score: 12 ED Course: 22:08 Patient arrived in ED. ja2 22:10 Ernie Silver MD is Attending Physician. rt 22:25 Patient has correct armband on for positive identification. Call light in reach. kb3 22:25 Patient maintains SpO2 saturation greater than 95% on room air. kb3 22:26 Triage completed. kb3 22:29 Arm band placed on right wrist. Patient placed in an exam room. kb3 22:36 Isabel sheppard, RN is Primary Nurse. pf1 23:00 Inserted saline lock: 22 gauge in right antecubital area, using aseptic technique. pf1 Blood collected. 23:10 IV discontinued, intact, bleeding controlled, No redness/swelling at site. Pressure pf1 dressing applied. 23:15 Missed attempt(s): 22 gauge in right forearm. pf1 23:31 Accessed peripheral vein via ultrasound, utilizing dynamic ultrasound technique using kb3 20G Nexia IV catheter Clean \T\ dry. Dressing intact. Good blood return. Flushes easily. 23:46 Knee Right 3 View XRAY In Process Unspecified. EDMS 04/22 00:00 No provider procedures requiring assistance completed. pf1 00:26 CT Lumbar Spine Wo Con In Process Unspecified. EDMS 01:20 IV discontinued, intact, bleeding controlled, No redness/swelling at site. Pressure pf1 dressing applied, 20 gauge removed from RAC. Administered Medications: 04/21 23:10 Drug: Flexeril (cyclobenzaprine) 10 mg Route: PO; pf1 04/22 00:00 Follow up: Response: No adverse reaction; Pain is unchanged, physician notified; RASS: pf1 Alert and Calm (0) 04/21 23:30 Drug: morphine 4 mg Route: IVP; Infused Over: 4 mins; Site: right antecubital; pf1 04/22 00:30 Follow up: Response: No adverse reaction; Pain is unchanged, physician notified; RASS: pf1 Alert and Calm (0) 04/21 23:30 Drug: Zofran (Ondansetron) 4 mg Route: IVP; Site: right antecubital; pf1 04/22 00:30 Follow up: Response: No adverse reaction pf1 04/21 23:30 Drug: Ketorolac 30 mg Route: IVP; Site: right antecubital; pf1 04/22 00:30 Follow up: Response: No adverse reaction; Pain is unchanged, physician notified; RASS: pf1 Alert and Calm (0) 00:06 Drug: fentaNYL (PF) 100 mcg Route: IVP; Site: right antecubital; pf1 01:00 Follow up: Response: No adverse reaction; Pain is decreased; RASS: Alert and Calm (0) pf1 Medication: 01:20 VIS not applicable for this client. pf1 Outcome: 01:07 Discharge ordered by . rt 01:22 Discharged to home via wheelchair, with family. pf1 01:22 Condition: improved 01:22 Discharge instructions given to patient, family, Instructed on discharge instructions, follow up and referral plans. Demonstrated understanding of instructions, follow-up care. 01:23 Patient left the ED. pf1 Signatures: Dispatcher [employer] EDMS Shayy Dsouza2 Christina Birch, RN RN kb3 Ernie Silver MD MD rt Isabel sheppard RN RN pf1
--- NOTE | 2022-04-22 01:08 | EDPHYS ---
Physician Documentation [facility] Name: Anjana Cordova Age: 56 yrs Sex: Female : 1965 Arrival Date: 04/21/2022 Time: 22:08 Bed 15 Private MD: ED Physician Ernie Silver HPI: 04/21 23:11 This 56 yrs old Female presents to ER via Wheelchair with complaints of Fall Injury. rt 23:11 Details of fall: The patient fell from an upright position, while standing. Onset: The rt symptoms/episode began/occurred acutely, just prior to arrival. Severity of symptoms: At their worst the symptoms were moderate. Patient with chronic back pain due to known fracture presents to the ED with a mechanical fall. This fall occurred just prior to her arrival. She denies any syncopal events. She denies hitting her head. The patient states that she landed onto her right knee where she has pain. She reports continued worsening pain to her back. Patient is trying to get surgery for her back, however, is currently undergoing medical clearance for it. The patient denies other acute complaints at this time. Pain is aching nature, nonradiating, no other aggravating alleviating factors, symptoms are moderate in severity . Historical: - Allergies: 22:29 No Known Allergies; kb3 - PMHx: 22:29 Depression; Diabetes - IDDM; Hypertension; Rheumatoid Arthritis; spinal stenosis; kb3 Chronic back pain; Hypercholesterolemia; COPD; - PSHx: 22:29 section; Cholecystectomy; L arm; kb3 - Immunization history: Last tetanus immunization: - up to date. - Social history:: Smoking status: Patient reports the use of cigarette tobacco products, smokes one pack cigarettes per day. - Family history:: not pertinent. ROS: 23:11 Constitutional: Negative for fever, chills, and weight loss, Eyes: Negative for injury, rt pain, redness, and discharge, ENT: Negative for injury, pain, and discharge, Cardiovascular: Negative for chest pain, palpitations, and edema, Respiratory: Negative for shortness of breath, cough, wheezing, and pleuritic chest pain, Abdomen/GI: Negative for abdominal pain, nausea, vomiting, diarrhea, and constipation, Skin: Negative for injury, rash, and discoloration, Neuro: Negative for headache, weakness, numbness, tingling, and seizure, Psych: Negative for depression, anxiety, suicide ideation, homicidal ideation, and hallucinations. 23:11 Back: Positive for pain at rest, Negative for radiated pain. 23:11 MS/extremity: Positive for r knee pain, neg for deformity. Exam: 23:11 Constitutional: This is a well developed, well nourished patient who is awake, alert, rt and in no acute distress. Head/Face: Normocephalic, atraumatic. ENT: Nares patent. No nasal discharge, no septal abnormalities noted. Tympanic membranes are normal and external auditory canals are clear. Oropharynx with no redness, swelling, or masses, exudates, or evidence of obstruction, uvula midline. Mucous membranes moist. Neck: Trachea midline, no thyromegaly or masses palpated, and no cervical lymphadenopathy. Supple, full range of motion without nuchal rigidity, or vertebral point tenderness. No Meningismus. Chest/axilla: Normal chest wall appearance and motion. Nontender with no deformity. No lesions are appreciated. Cardiovascular: Regular rate and rhythm with a normal S1 and S2. No gallops, murmurs, or rubs. Normal PMI, no JVD. No pulse deficits. Respiratory: Lungs have equal breath sounds bilaterally, clear to auscultation and percussion. No rales, rhonchi or wheezes noted. No increased work of breathing, no retractions or nasal flaring. Abdomen/GI: Soft, non-tender, with normal bowel sounds. No distension or tympany. No guarding or rebound. No evidence of tenderness throughout. Neuro: Awake and alert, GCS 15, oriented to person, place, time, and situation. Cranial nerves II-XII grossly intact. Motor strength 5/5 in all extremities. Sensory grossly intact. Cerebellar exam normal. Normal gait. Psych: Awake, alert, with orientation to person, place and time. Behavior, mood, and affect are within normal limits. 23:11 Back: Right paraspinal and midline tenderness at mid lumbar spine, no other tenderness, no step-offs. 23:11 Musculoskeletal/extremity: Tenderness and mild swelling to the right knee without deformity, pulse, motor, sensation intact. Vital Signs: 22:25 BP 152 / 79; Pulse 94; Resp 20; Temp 98.2; Pulse Ox 99% ; Weight 104.33 kg; Height 5 kb3 ft. 6 in. (167.64 cm); Pain 10/10; 23:30 BP 132 / 71; Pulse 89; Resp 16; Pulse Ox 100% on R/A; Pain 10/10; pf1 04/22 00:00 BP 141 / 82; Pulse 90; Resp 16; Pulse Ox 99% on R/A; Pain 10/10; pf1 01:00 BP 145 / 80; Pulse 86; Resp 18; Temp 98.1; Pulse Ox 100% ; Pain 9/10; pf1 04/21 22:25 Body Mass Index 37.12 (104.33 kg, 167.64 cm) kb3 Braden Coma Score: 04/21 22:25 Eye Response: spontaneous(4). Verbal Response: oriented(5). Motor Response: obeys kb3 commands(6). Total: 15. Trauma Score (Adult): 22:25 Eye Response: spontaneous(1); Verbal Response: oriented(1); Motor Response: obeys kb3 commands(2); Systolic BP: > 89 mm Hg(4); Respiratory Rate: 10 to 29 per min(4); Braden Score: 15; Trauma Score: 12 MDM: 22:31 Patient medically screened. rt 04/22 01:11 Differential diagnosis: contusion, fracture. Data reviewed: vital signs, nurses notes, rt old medical records, radiologic studies, CT scan, plain films. ED course: With history of rheumatoid arthritis, chronic back pain try to get surgery presents to the ED with mechanical fall. She has no new neurologic deficits. No bowel, bladder incontinence. The patient no acute findings on the CT scan of her spine, x-ray of the knee is unremarkable. There is no other evidence for trauma. No neck tenderness. Denies head trauma, syncope. She does not require work-up for syncope to include EKG, labs. She is stable for outpatient care, return precautions discussed. 04/21 22:32 Order name: CT Lumbar Spine Wo Con rt 04/21 22:32 Order name: Knee Right 3 View XRAY rt Administered Medications: 04/21 23:10 Drug: Flexeril (cyclobenzaprine) 10 mg Route: PO; pf1 04/22 00:00 Follow up: Response: No adverse reaction; Pain is unchanged, physician notified; RASS: pf1 Alert and Calm (0) 04/21 23:30 Drug: morphine 4 mg Route: IVP; Infused Over: 4 mins; Site: right antecubital; pf1 04/22 00:30 Follow up: Response: No adverse reaction; Pain is unchanged, physician notified; RASS: pf1 Alert and Calm (0) 04/21 23:30 Drug: Zofran (Ondansetron) 4 mg Route: IVP; Site: right antecubital; pf1 04/22 00:30 Follow up: Response: No adverse reaction pf1 04/21 23:30 Drug: Ketorolac 30 mg Route: IVP; Site: right antecubital; pf1 04/22 00:30 Follow up: Response: No adverse reaction; Pain is unchanged, physician notified; RASS: pf1 Alert and Calm (0) 00:06 Drug: fentaNYL (PF) 100 mcg Route: IVP; Site: right antecubital; pf1 01:00 Follow up: Response: No adverse reaction; Pain is decreased; RASS: Alert and Calm (0) pf1 Disposition Summary: 04/22/22 01:07 Discharge Ordered Location: Home rt Problem: an ongoing problem rt Symptoms: have improved rt Condition: Stable rt Diagnosis - Fall on same level, unspecified rt - Low back pain rt - Contusion of right knee rt Followup: rt - With: Private Physician - When: 2 - 3 days - Reason: Discharge Instructions: - Discharge Summary Sheet rt - Chronic Back Pain rt Forms: - Medication Reconciliation Form rt - Thank You Letter rt - Antibiotic Education rt - Prescription Opioid Use rt Signatures: Dispatcher [employer] Christina Allen, RN RN kb3 Ernie Silver MD MD rt Isabel sheppard, RN RN pf1
[2022-04-22 01:33] VITALS: BP 152/79; TEMP 98.2; O2SAT 99
--- NOTE | 2022-04-23 10:46 | RAD REPORT ---
EXAM DESCRIPTION: RAD - Knee Right 3 View - 04/21/2022 11:44 pm CLINICAL HISTORY: 56 years Female, PAIN TECHNIQUE: 3 views COMPARISON: 10/16/2021 FINDINGS: BONES/JOINT: No acute fracture or dislocation. Mild tricompartment joint space narrowin g. No marginal osteophytes or subchondral sclerosis. SOFT TISSUES: No suprapatellar joint effusion. No radiopaque foreign body. IMPRESSION: 1. No acute fracture. 2. Mild tricompartment joint space narrowing. 3. No significant interval change. 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 The interpreting radiologist is fully responsible for the content of the report.
--- NOTE | 2022-04-23 10:54 | RAD REPORT ---
EXAM DESCRIPTION: CT - Spine Lumbar Wo Con - 04/22/2022 6:42 am CLINICAL HISTORY: Low back pain, trauma COMPARISON: 11/23/2021-10/16/2021 TECHNIQUE: Contiguous axial images of lumbar spine were obtained utilizing 2 mm slice thickness at 2 mm interval reconstruction. In addition multiplanar reformats in the sagittal and coronal plane were generated and reviewed This exam was performed according to our departmental dose-optimization protocol, which includes auto mated exposure control, adjustment of the mA and/or kV according to patient size and/or use of iterat prudencio reconstruction technique. FINDINGS: There is anatomic alignment of the lumbar spine. Vertebral body height is preserved withou t evidence of acute fracture or subluxation. Minimal anterior spondylosis at L3 and L4 vertebral bodi es. Minimal degenerative changes/vacuum effect is noted at L3/L4 L4/L5 with perhaps spinal canal narr owing/stenosis. No retroperitoneal or paraspinal abnormality is seen. No significant interval change. IMPRESSION: No acute fracture or subluxation of the lumbar spine. Minimal degenerative changes/vacuum effect at L3/L4 L4/L5 with perhaps spinal canal narrowing. No sig nificant interval change in comparison with prior studies. Electronically signed by: Deng Draper MD 04/22/2022 12:40 AM CHARGE RN Due to temporary technical issues with the PACS/Fluency reporting system, reports are being signed by the in house radiologists without review as a courtesy to insure prompt reporting. The interpreting radiologist is fully responsible for the content of the report.
== END 2022-04-22 01:23 | disposition home or self-care (01) ==
LOC: ER 22:04
DX: M54.50 Low back pain, unspecified (principal); S80.01XA Contusion of right knee, initial encounter; W18.30XA Fall on same level, unspecified, initial encounter; I10 Essential (primary) hypertension; E11.9 Type 2 diabetes mellitus without complications; F17.210 Nicotine dependence, cigarettes, uncomplicated
CPT/HCPCS: 72131; 73562; 96375; 96374; 99285; J3010; J2405

== ENCOUNTER 2022-07-04 10:37 | Emergency (ER) | payer BC ==
--- OUTSIDE RECORDS SUMMARY | 2022-07-04 10:43 | XMS REPORT | Continuity of Care Document ---
:1965 Author Organization [facility] t Address [address] [facility] [address] [place] [address] Care Team Providers Name Role Phone Jose Miguel ROBERTSON, Venkat Elias Primary Care Physician ANTONETTE GONCALVES Attending Clinician Unavailable Edward Attending Clinician Unavailable Sherry Keita Attending Clinician Kailey Foreman MA Attending Clinician Unavailable rBuce ROBERTSON, Terence Narvaez Attending Clinician Avril Garcia MD Attending Clinician Kevin ROBERTSON, Rosa Perez Attending Clinician Katherine Johnston RN Attending Clinician Unavailable Power ROBERTSON, Julio Cesar Attending Clinician Bonita Gonzalez APRN Attending Clinician Venkat Gillespie MD Attending Clinician Lilian_Janneth Attending Clinician Unavailable CAROLINE Attending Clinician Unavailable Edward Admitting Clinician Unavailable TERENCE ELIZONDO Admitting Clinician Unavailable Olya Admitting Clinician Unavailable CAROLINE Admitting Clinician Unavailable Payers Payer Name Policy Type Policy Number Effective Date Expiration Date S robert BCBSTX PPO AND [id number] 2021 00:00:00 OUT OF [place] [id number] 2021 00:00:00 [place] ([place]) Problems Condition Condition [...] Date Quantity Comments Source History of tobacco Cigarette Smoker [facility] Alcohol intake 2022-04-30 2022-04-30 Ex-drinker [facility] 00:00:00 00:00:00 (finding) Hospital Cigarettes smoked 2022-01-16 2022-01-[address] current (pack per 00:00:00 00:00:00 Hospita l day) - Reported Cigarette 2022-01-16 2022-01-16 [facility] pack-years 00:00:00 00:00:00 Hospital Tobacco use and 2022-01-16 2022-01-16 Smokeless tobacco [facility] exposure 00:00:00 00:00:00 non-user Hospital Sex Assigned At [birth year] [facility] 00:00:00 00:00:00 Hospital Smoking Status Start Date Stop Date Source Heavy Tobacco Smoker [facility] Smokes tobacco daily 2022-01-16 00:00:00 [facility] Medications Ordered Filled Start Stop Current Ordering Indication Dosage Frequency Signature Comments Components Source Medication Medication Date Date Medication? Clinician (SIG) Name Name insulin Yes [id number] Use as per [facility] ASPART 3-[address] (NovoLOG 00:00: scale Hospita FlexPen 00 three l U-100 times a Insulin) day with 100 unit/mL meals (3 mL) 0-150: 0 insulin pen units 150-200: 2 units 200-250: 4 units 250-300: 6 units insulin 2022- No [id number] Take 1-4 [facility] ASPART 3-06 03-[address] (NovoLOG 00:00: 00:00 meals per Hos onofre FlexPen 00 :00 sliding l U-100 scale If Insulin) blood 100 unit/mL sugar (3 mL) <150: 0 insulin pen units 150- 200: 1 units 200- 250: 2 units 250-300: 3 units 300-350: 4 units insulin 2022- No 15U QD Inject 15 Meth betty aspart 1-17 01-[address] prot/insuln 11:30: 00:00 under the Hospita asp 49 :00 skin every l (NOVOLOG evening. MIX 70-30 U-100 INSULN SUBQ) fluticasone Yes Trelegy Met hodi -umeclidin- 1-[address] vilanter 10:43: 100 Hospita (TRELEGY 06 mcg-62.5 l ELLIPTA) mcg-25 mcg 100-62.5-25 powder for mcg blister inhalation with device powder for inhalation albuterol Yes 2{puff} Q6H Inhale 2 M ethodi (PROAIR 1-[address] HFA) 90 10:40: every 6 Hospita mcg/actuati 02 (six) l on inhaler hours as needed for wheezing or shortness of breath. insulin Yes [id number] 20U QD Inject 20 [facility] DETEMIR 1-[address] (Levemir 00:00: under the Hosp jaime FlexTouch 00 skin daily l U-100 before Insuln) 100 breakfast. unit/mL (3 mL) insulin pen insulin Yes [id number] 6U [id number] Inject 6 [facility] ASPART 1-[id number] (NovoLOG 00:00: 3D under the Hosp jaime FlexPen 00 skin 3 l U-100 (three) Insulin) times a 100 unit/mL day with (3 mL) meals. insulin pen semaglutide Yes [id number] .5mg Q7D Inject Method[facility] (Ozempic) 1-[address] 0.25 mg or 00:00: (0.5 mg Hosp jaime 0.5 mg(2 00 total) l mg/1.5 mL) under the subcutaneou skin once s pen a week. albuterol 2021-04 Yes 2{puff} Q6H Inhale 2 [...] mouth l daily as needed for allergies. fexofenadin 2021-04 Yes 180mg Q24H Take 180 [...] mcg/dose blister with device powder for inhalation fluticasone 2021-04 Yes QD Inhale 1 Me thodi furoate-rio 0-[address] anteroL 00:00: s once Hospita (BREO 00 daily. l ELLIPTA) 100-25 mcg/dose blister with device powder for inhalation carisoprodo 2021-04- No 350mg [id number] Take 1 Methodi L (SOMA) 0-13 10-[id number] 350 MG 12:28: 00:00 3D (350 mg Hospita tablet 13 :00 total) by l mouth 3 (three) times a day as needed for muscle spasms. carisoprodo 2021-04- No 350mg [id number] Take 1 Methodi L (SOMA) 0-13 10-[id number] 350 MG 12:28: 00:00 3D [...] muscle spasms for up to 10 days. methocarbam 2021-04 No 500mg Q.25D Take 1 M ethodi oL 0-13 10-[address] (ROBAXIN) 00:00: 04:59 (500 mg Hosp jaime 500 MG 00 :00 total) by l tablet mouth 4 (four) times a day as needed for muscle spasms for up to 10 days. ibuprofen 2021-04- No ibuprofen Me thodi (ADVIL) 800 0-12 10-[address] MG tablet 16:40: 00:00 tablet Hospi ta 23 :00 TAKE 1 l TABLET BY MOUTH EVERY 8 HOURS WITH FOOD NEEDED FOR PAIN ibuprofen 2021-04- No ibuprofen Me thodi (ADVIL) 800 0-12 10-[address] MG tablet 16:40: 00:00 tablet Hospi ta 23 :00 TAKE 1 l TABLET BY MOUTH EVERY 8 HOURS WITH FOOD NEEDED FOR PAIN phentermine 2021-04- No Q24H daily. Met hodi (ADIPEX-P) 0-12 10-12 st 37.5 mg 16:34: 00:00 Hospita tablet 44 :00 l phentermine 2021-04- No Q24H daily. Met hodi (ADIPEX-P) 0-12 10-12 st 37.5 mg 16:34: 00:00 Hospita tablet 44 :00 l amLODIPine Yes 5mg QD Take 1 Metho [...] by mouth l daily. Default OP ins Novolog Mix Novolog Mix No Novolog [place] [...] s solution unit/mL subcutaneo us solution amLODIPine 0 Yes 5mg QD Take 1 Metho di (NORVASC) 5 7-18 tablet (5 st mg tablet 00:00: mg total) Hos onofre 00 by mouth l daily. lisinopriL 0 Yes 20mg QD Take 1 Metho di (PRINIVIL) 7-18 tablet (20 st 20 mg 00:00: mg total) Hospita tablet 00 by mouth l daily. atorvastati Yes 20mg QD Take 1 Meth betty n (LIPITOR) 7-18 tablet (20 st 20 mg 00:00: mg total) Hospita tablet 00 by mouth l daily. Default OP ins insulin asp 2022- No 30U QD Inject 0.3 Methodi prt-insulin 18 01-17 mL (30 st ASPART 00:00: 00:00 Units Hospita (NovoLOG 00 :00 total) l 70/30) 100 under the unit/mL skin every (70-30) morning. injection acetaminoph Yes 1{tbl} Q6H Take 1 Me [...] hours as needed for muscle spasms. acetaminoph Yes 1{tbl} Q6H Take 1 Me [...] Source BP Diastolic 2022-01-03 00:00:00 81 mm[Hg] [facility] Height 2022-01-03 00:00:00 65 [in_i] [facility] BMI (Body Mass 2022-01-03 00:00:00 37.4 kg/m2 [facility] Medical Index) Group BP Systolic 2022-01-03 00:00:00 152 mm[Hg] [facility] Body Weight 2022-01-03 00:00:00 3600 [oz_av] [facility] BP Diastolic 2021-12-19 00:00:00 44 mm[Hg] [facility] Height 2021-12-19 00:00:00 65 [in_i] [facility] BMI (Body Mass 2021-12-19 00:00:00 37.6 kg/m2 [facility] Medical Index) Group BP Systolic 2021-12-19 00:00:00 158 mm[Hg] [facility] Body Weight 2021-12-19 00:00:00 226 [lb_av] [facility] BP Diastolic 2021-11-14 00:00:00 88 mm[Hg] [facility] Height 2021-11-14 00:00:00 65 [in_i] [facility] BMI (Body Mass 2021-11-14 00:00:00 38.4 kg/m2 [facility] Medical Index) Group BP Systolic 2021-11-14 00:00:00 138 mm[Hg] [facility] Body Weight 2021-11-14 00:00:00 3696 [oz_av] [facility] BP Diastolic 2021-10-29 00:00:00 85 mm[Hg] [facility] Height 2021-10-29 00:00:00 65 [in_i] [facility] BMI (Body Mass 2021-10-29 00:00:00 38.3 kg/m2 [facility] Medical Index) Group BP Systolic 2021-10-29 00:00:00 137 mm[Hg] [facility] Body Weight 2021-10-29 00:00:00 3680 [oz_av] [facility] BP Diastolic 2020-04-21 00:00:00 81 mm[Hg] [facility] Height 2020-04-21 00:00:00 65 [in_i] [facility] BMI (Body Mass 2020-04-21 00:00:00 44.1 kg/m2 [facility] Medical Index) Group BP Systolic 2020-04-21 00:00:00 163 mm[Hg] [facility] Body Weight 2020-04-21 00:00:00 265 [lb_av] [facility] BP Diastolic 2020-02-21 00:00:00 87 mm[Hg] [facility] Height 2020-02-21 00:00:00 65 [in_i] [facility] BMI (Body Mass 2020-02-21 00:00:00 44.1 kg/m2 [facility] Medical Index) Group BP Systolic 2020-02-21 00:00:00 144 mm[Hg] [facility] Body Weight 2020-02-21 00:00:00 265 [lb_av] [facility] BP Diastolic 2020-01-31 00:00:00 98 mm[Hg] [facility] BP Systolic 2020-01-31 00:00:00 185 mm[Hg] [facility] Body Weight 2020-01-31 00:00:00 275.7 [lb_av] [facility] Systolic blood 2022-04-30 16:39:00 160 mm[Hg] [facility] pressure Diastolic blood 2022-04-30 16:39:00 89 mm[Hg] [facility] pressure Heart rate 2022-04-30 16:39:00 90 /min [facility] Body height 2022-04-30 16:39:00 167.6 cm [facility] Body weight 2022-04-30 16:39:00 107.049 kg [facility] BMI 2022-04-30 16:39:00 38.09 kg/m2 [facility] Oxygen saturation in 2022-04-30 16:39:00 97 /min [facility] Arterial blood by Pulse oximetry Systolic blood 2022-01-24 16:51:58 166 mm[Hg] [facility] pressure Diastolic blood 2022-01-24 16:51:58 79 mm[Hg] [facility] pressure Heart rate 2022-01-24 16:51:58 87 /min [facility] Oxygen saturation in 2022-01-24 16:51:58 98 /min [facility] Arterial blood by Pulse oximetry Body temperature 2022-01-24 16:51:58 36.83 Dalia [facility] Respiratory rate 2022-01-24 16:51:58 19 /min [facility] Body height 2022-01-22 17:24:00 165.1 cm [facility] Body weight 2022-01-22 17:24:00 102.513 kg [facility] BMI 2022-01-22 17:24:00 37.61 kg/m2 [facility] Procedures Procedure Date / Time Performing Clinician Source Performed XR LUMBAR SPINE COMPLETE W 2022-05-23 22:22:59 ElizondoTerence aguilar [facility] METABOLIC 2022-04-30 18:20:00 Neela [facility] PANEL HEMOGLOBIN A1C 2022-04-30 18:20:00 Neela [facility] LIPID PANEL 2022-04-30 18:20:00 Neela [facility] ALBUMIN WITH CREATININE 2022-04-30 18:20:00 [facility], RANDOM URINE ESTIMATED GFR 2022-04-30 18:20:[address] CHEST LUNG CANCER 2022-03-24 19:14:49 Rosa Colon [facility] SCREENING POC GLUCOSE 2022-01-24 16:48:00 Terence Elizondo POC GLUCOSE 2022-01-24 13:33:00 Terence Elizondo POC GLUCOSE 2022-01-24 10:21:00 Terence Elizondo ZZCOVID-19 ANTI-SPIKE IGG 2022-01-24 09:44:00 Brant Mejia [facility] ANTIBODY TITER Terence CBC WITH PLATELET AND 2022-01-24 09:44:00 [facility] DIFFERENTIAL Bishop BASIC METABOLIC PANEL 2022-01-24 09:44:00 [facility] Bishop MAGNESIUM LEVEL 2022-01-24 09:44:00 [facility] Cristofer Bishop ZZCOVID-19 SEROLOGY 2022-01-24 09:44:00 Barnt Mejia [facility] PATIENT SURVEILLANCE Terence ESTIMATED GFR 2022-01-24 09:44:00 Galo, [facility] Winsome Bishop POC GLUCOSE 2022-01-24 02:30:00 Terence Elizondo POC GLUCOSE 2022-01-23 22:35:00 Terence Elizondo POC GLUCOSE 2022-01-23 18:12:00 Terence Elizondo URINE CULTURE 2022-01-23 16:34:00 Terence Elizondo URINALYSIS SCREEN AND 2022-01-23 16:34:00 Bruce [facility] MICROSCOPY, WITH REFLEX TO Brice CULTURE BETA HYDROXYBUTYRATE 2022-01-23 16:34:00 [facility] POC GLUCOSE 2022-01-23 13:44:00 Terence Elizondo POC GLUCOSE 2022-01-23 12:09:00 Terence Elizondo CBC WITH PLATELET AND 2022-01-23 09:42:00 [facility] DIFFERENTIAL Bishop BASIC METABOLIC PANEL 2022-01-23 09:42:00 [facility] Bishop B NATRIURETIC PEPTIDE 2022-01-23 09:42:00 [facility] Dario MAGNESIUM LEVEL 2022-01-23 09:42:00 [facility] Winsome Bishop PHOSPHORUS LEVEL 2022-01-23 09:42:00 [facility] Bishop ESTIMATED GFR 2022-01-23 09:42:00 [facility] Winsome Bishop POC GLUCOSE 2022-01-23 08:22:00 Terence Elizondo POC GLUCOSE 2022-01-23 05:40:00 Terence Elizondo POC GLUCOSE 2022-01-23 05:25:00 Terence Elizondo POC GLUCOSE 2022-01-23 05:23:00 Terence Elizondo POC GLUCOSE 2022-01-23 01:45:00 Terence Elizondo XR CHEST 1 VW PORTABLE 2022-01-22 22:16:12 Terence Elizondo [facility] Brice POC GLUCOSE 2022-01-22 21:45:00 Terence Elizondo [place] AN ELECTIVE 2022-01-22 20:30:00 Raul Perez ENDOTRACHEAL AIRWAY POC GLUCOSE 2022-01-22 17:03:00 Terence Elizondo COVID-19 QUALITATIVE 2022-01-17 14:15:00 Bruce [facility] RT-PCR Brice HEMOGLOBIN A1C 2022-01-17 14:11:00 [facility] PARTIAL THROMBOPLASTIN 2022-01-17 14:11:00 Carlos Bonita [facility] TIME (PTT) PROTHROMBIN TIME WITH INR 2022-01-17 14:11:00 [facility] CBC WITH PLATELET AND 2022-01-17 14:11:00 Bonita Gonzalez [facility] DIFFERENTIAL COMPREHENSIVE METABOLIC 2022-01-17 14:11:00 [facility] PANEL ESTIMATED GFR 2022-01-17 14:11:00 [facility] ECG PRE/POST OP 2022-01-17 14:01:47 [facility] XR LUMBAR SPINE COMPLETE W 2021-12-10 17:39:07 [facility] BENDING Brice XR SPINE SCOLIOSIS 2-3 2021-12-10 17:38:52 [facility] VIEWS [facility] MRI SPINE EXTERNAL STUDY 2021-11-02 19:22:00 [facility] unlisted imaging order 2021-10-29 00:00:00 [facility] US, transvaginal 2020-02-21 00:00:00 [facility] US, transvaginal 2020-01-31 00:00:00 [facility] Caesarean Section [facility] Cholecystectomy [facility] Plan of Care Planned Activity Planned Date Details Comments Source Future Scheduled Test 2022-06-19 Screening for [facility] 10:53:57 malignant neoplasm of cervix (procedure) [code = 119279389] Future Scheduled Test 2022-06-19 BREAST CANCER [facility] 10:53:57 SCREENING [code = BREAST CANCER SCREENING] Future Scheduled Test 2022-06-19 COLONOSCOPY SCREENING [facility] 10:53:57 [code = COLONOSCOPY SCREENING] Future Scheduled Test 2022-06-19 Screening for [facility] 10:53:57 malignant neoplasm of lung (procedure) [code = 723317714] Future Scheduled Test 2022-06-19 SHINGLES VACCINES (1 [facility] 10:53:57 of 2) [code = SHINGLES VACCINES (1 of 2)] Future Scheduled Test 2022-06-19 INFLUENZA VACCINE [facility] 10:53:57 [code = INFLUENZA VACCINE] Future Scheduled Test 2022-06-19 URINE MICROALBUMIN [facility] 10:53:57 [code = URINE MICROALBUMIN] Future Scheduled Test 2022-06-19 COVID-19 VACCINE (#1) [facility] 10:53:57 [code = COVID-19 VACCINE (#1)] Future Scheduled Test 2022-06-19 Pneumococcal Vaccine: [facility] 10:53:57 Pediatrics (0 to 5 Years) and At-Risk Patients (6 to 64 Years) (1 - PCV) [code = Pneumococcal Vaccine: Pediatrics (0 to 5 Years) and At-Risk Patients (6 to 64 Years) (1 - PCV)] Future Scheduled Test 2022-06-19 DIABETES: RETINAL EYE [facility] 10:53:57 EXAM [code = DIABETES: RETINAL EYE EXAM] Future Scheduled Test 2022-06-19 DIABETIC FOOT EXAM [facility] 10:53:57 [code = DIABETIC FOOT EXAM] Future Scheduled Test 2022-06-19 Hepatitis C screening [facility] 10:53:57 (procedure) [code = 271152089] Future Scheduled Test 2022-04-10 COVID-19 VACCINE (#1) [facility] 10:37:30 [code = COVID-19 VACCINE (#1)] Future Scheduled Test 2022-04-10 Pneumococcal Vaccine: [facility] 10:37:30 Pediatrics (0 to 5 Years) and At-Risk Patients (6 to 64 Years) (1 - PCV) [code = Pneumococcal Vaccine: Pediatrics (0 to 5 Years) and At-Risk Patients (6 to 64 Years) (1 - PCV)] Future Scheduled Test 2022-04-10 DIABETES: RETINAL EYE [facility] 10:37:30 EXAM [code = DIABETES: RETINAL EYE EXAM] Future Scheduled Test 2022-04-10 DIABETIC FOOT EXAM [facility] 10:37:30 [code = DIABETIC FOOT EXAM] Future Scheduled Test 2022-04-10 URINE MICROALBUMIN [facility] 10:37:30 [code = URINE MICROALBUMIN] Future Scheduled Test 2022-04-10 Hepatitis C screening [facility] 10:37:30 (procedure) [code = 612446810] Future Scheduled Test 2022-04-10 Screening for [facility] 10:37:30 malignant neoplasm of cervix (procedure) [code = 865895596] Future Scheduled Test 2022-04-10 BREAST CANCER [facility] 10:37:30 SCREENING [code = BREAST CANCER SCREENING] Future Scheduled Test 2022-04-10 COLONOSCOPY SCREENING [facility] 10:37:30 [code = COLONOSCOPY SCREENING] Future Scheduled Test 2022-04-10 Screening for [facility] 10:37:30 malignant neoplasm of lung (procedure) [code = 502242688] Future Scheduled Test 2022-04-10 SHINGLES VACCINES (1 [facility] 10:37:30 of 2) [code = SHINGLES VACCINES (1 of 2)] Future Scheduled Test 2022-04-10 INFLUENZA VACCINE [facility] 10:37:30 [code = INFLUENZA VACCINE] Diagnostic Test 2021-12-19 urinalysis, dipstick [facility]ending 00:00:00 [code = urinalysis, Group dipstick] Diagnostic Test 2021-12-19 STI panel [code = STI [facility] 00:00:00 panel] Group Instructions [facility] Encounters Start End Encounter Admission Attending Care Care Encounter Source Date/Time Date/Time Type Type Clinicians Facility Department ID 2022-06-05 Outpatient [facility] [id number] [place] 13:51:58 [id number] [facility] 2022-06-26 2022-06-26 Outpatient EL SHIELD, [facility] [id number] [place] 15:18:00 15:18:00 ANTONETTE -[id number] [facility] 2022-06-26 2022-06-26 Outpatient Shield MM MMG [id number] [place] 00:00:00 00:00:00 [facility] 2022-06-26 2022-06-26 Outpatient [facility] MMG MMG [id number] [place] 00:00:00 00:00:00 [facility] 2022-06-19 2022-06-19 Orders Saand, 1.2.840.1 [id number] Methodi 00:00:00 00:00:00 Only Sherry 20058.1.[address] [place] 3.430.2.7 Hospit a .3.173218 l .8 2022-06-17 2022-06-17 Orders Saand, 1.2.840.1 [id number] Methodi 00:00:00 00:00:00 Only Sherry 76780.1.[address] [place] 3.430.2.7 Hospit a .3.185226 l .8 2022-05-29 2022-05-29 Telephone Ahsan, 1.2.840.1 [id number] [facility] 00:00:00 00:00:[address] 3.430.2.7 Hospit a .3.497081 l .8 2022-05-23 2022-05-23 [facility], 1.2.840.1 [id number] Methodi 15:58:44 23:59:00 Encounter Terence 29579.1.[address] Brice 3.430.2.7 Hospit a .3.815258 l .8 2022-05-23 2022-05-23 [facility] [id number] [place] 00:00:00 00:00:[address] TER[address] 2022-05-23 2022-05-23 Travel 1.2.840.1 1.2.551.441 [id number] Methodi 00:00:00 00:00:[address] 3.430.2.7 0.2.7.3.698 Ho spita .3.107676 084.8 l .8 2022-05-23 2022-05-23 [facility] 1.2.840.1 [id number] Methodi 00:00:00 00:00:00 Orders Terence 96762.1.[address] Brice 3.430.2.7 Hospit a .3.748237 l .8 2022-04-30 2022-05-06 Office [facility], 1.2.840.1 [id number] Methodi 10:30:00 13:16:07 Visit Sherry 29266.1.[address] [place] 3.430.2.7 Hospit a .3.294692 l .8 2022-04-30 2022-04-30 Lab Tano, 1.2.840.1 [id number] Methodi 12:00:00 12:05:[address] 3.430.2.7 Hospit a .3.072148 l .8 2022-04-30 2022-04-30 Outpatient [facility] [id number] [place] 00:00:00 00:00:[address] 2022-04-30 2022-04-30 Outpatient TANO, [facility] [id number] [place] 00:00:00 00:00:[address] 2022-04-30 2022-04-30 Travel 1.2.840.1 1.2.657.432 [id number] Methodi 00:00:00 00:00:[address] 3.430.2.7 0.2.7.3.698 Ho spita .3.454214 084.8 l .8 2022-04-11 2022-04-13 Outpatient [facility] [id number] [place] 11:00:00 00:01:00 ANTONETTE -[id number] [facility] 2022-04-09 2022-04-09 Outpatient [facility] [id number] [place] 11:00:00 11:00:00 ANTONETTE -[id number] [facility] 2022-04-02 2022-04-02 Outpatient [facility] [id number] [place] 11:00:00 11:00:00 ANTONETTE -[id number] [facility] 2022-03-28 2022-03-28 Outpatient [facility] [id number] 402 [place] 13:00:00 13:00:00 ANTONETTE -[id number] [facility] 2022-03-26 2022-03-26 Outpatient [facility] [id number] [place] 11:00:00 11:00:00 ANTONETTE -[id number] [facility] 2022-03-24 2022[facility]03-24 [facility].840[facility]1 [id number] Methodi 12:40:27 23:59:00 Encounter Ana 01302.1.[address] 3.430.2.7 Hospit a .3.704015 l .8 2022-03-24 2022-03-24 [facility] ROSA COLON 1.2.840.1 [id number] [place] 00:00:00 00:00:00 Encounter 71053.1.[address] .3.917821 .8 2022-03-24 2022-03-24 Travel 1.2.840.1 1.2.784.948 [id number] Methodi 00:00:00 00:00:[address] 3.430.2.7 0.2.7.3.698 Ho spita .3.979746 084.8 l .8 2022-03-24 2022-03-24 Travel 1.2.840.1 1.2.430.388 [id number] Methodi 00:00:00 00:00:[address] 3.430.2.7 0.2.7.3.698 Ho spita .3.205907 084.8 l .8 2022-03-22 2022-03-22 Travel 1.2.840.1 1.2.119.915 [id number] Methodi 00:00:00 00:00:[address] 3.430.2.7 0.2.7.3.698 Ho spita .3.697504 084.8 l .8 2022-03-22 2022-03-22 Travel 1.2.840.1 1.2.752.356 [id number] [facility]i 00:00:00 00:00:[address] 3.430.2.7 0.2.7.3.698 Ho spita .3.405049 084.8 l .8 2022-03-21 2022-03-21 [facility] [id number] [facility] 11:00:00 11:00:00 ANTONETTE -[id number] da [facility] 2022-03-19 2022-03-19 Outpatient EL SHIELD, [facility] [id number] [place] 11:00:00 11:00:00 ANTONETTE -[id number] da [facility] 2022-03-14 2022-03-14 Outpatient [facility]ELD, [facility] [id number] [place] 07:19:00 07:19:00 ANTONETTE -[id number] [facility] 2022-03-05 2022-03-13 ambulatory [id number] 11:00:00 23:59:00 [id number] 2022-03-05 2022-03-13 Outpatient EL SHIELD, [facility] [id number] 11:00:00 00:01:00 ANTONETTE -[id number] [facility] 2022-03-04 2022-03-04 Outpatient EL SHIELD, [facility] [id number] 09:00:00 09:00:00 ANTONETTE -[id number] [facility] 2022-02-28 2022-02-28 Outpatient EL SHIELD, [facility] [id number] 13:00:00 13:00:00 ANTONETTE -[id number] [facility] 2022-02-26 2022-02-26 Outpatient EL SHIELD, [facility] [id number] 11:00:00 11:00:00 ANTONETTE -[id number] [facility] 2022-02-19 2022-02-19 Outpatient EL SHIELD, [facility] [id number] [place] 10:51:00 10:51:00 ANTONETTE -[id number] [facility] 2022-01-18 2022-02-11 ambulatory [id number]- [id number] M [id number] 11:00:00 23:59:00 1g14-329g 21-532f-80c 11 -80cd-e8d d-u7qc9uc9z v5gn9eyjl bcd 2022-01-18 2022-02-11 Outpatient [facility] [id number] [place] 11:00:00 00:01:00 ANTONETTE -[id number] [facility] 2022-01-25 2022-01-25 Patient Vickie, 1.2.840.1 [id number] Methodi 00:00:00 00:00:00 Outreach Katherine 86272.1.[address] 3.430.2.7 Hospit a .3.864986 l .8 2022-01-25 2022-01-25 Patient Vickie, 1.2.840.1 [id number] Methodi 00:00:00 00:00:00 Outreach Katherine 81623.1.[address] 3.430.2.7 Hospit a .3.453965 l .8 2022-01-22 2022-01-24 [facility] 1.2.840.1 [id number] Methodi 09:28:00 12:28:00 Encounter Terence 85330.1.[address] Brice 3.430.2.7 Hospit a .3.917314 l .8 2022-01-22 2022-01-24 [facility] 1.2.840.1 [id number] Methodi 09:28:00 12:28:00 Encounter Terence 10364.1.[address] Brice 3.430.2.7 Hospit a .3.850487 l .8 2022-01-22 2022-01-22 Anesthesia Julio Cesar Steve 1.2.840.1 104 [id number] Methodi 15:12:00 16:46:00 Event Bonita Gonzalez 91181.1.[address] 3.430.2.7 Hospit a .3.767780 l .8 2022-01-22 2022-01-22 Anesthesia Julio Cesar Steve 1.2.840.1 104 [id number] Methodi 15:12:00 16:46:00 Event Bonita Gonzalez 12110.1.[address] 3.430.2.7 Hospit a .3.090289 l .8 2022-01-22 2022-01-22 Surgery Elizondo, 1.2.840.1 [id number] 4089 Methodi 13:15:00 16:45:[address] Brice 3.430.2.7 Hospit a .3.520485 l .8 2022-01-22 2022-01-22 Surgery [place], 1.2.840.1 [id number] 8913 Methodi 13:15:00 16:45:[address] Brice 3.430.2.7 Hospit a .3.914508 l .8 2022-01-22 2022-01-22 Travel 1.2.840.1 1.2.502.545 7772 [id number] Methodi 00:00:00 00:00:[address] 3.430.2.7 0.2.7.3.698 Ho spita .3.726733 084.8 l .8 2022-01-22 2022-01-22 Travel 1.2.840.1 1.2.770.389 4224 155549 Methodi 00:00:00 00:00:[address] 3.430.2.7 0.2.7.3.698 Ho spita .3.081097 084.8 l .8 2022-01-17 2022-01-17 Pre-Admiss [place], 1.2.840.1 [id number] Methodi 08:30:00 09:30:00 ion Terence 19931.1.[address] Testing Brice 3.430.2.7 Hospit a .3.847603 l .8 2022-01-17 2022-01-17 Pre-Admiss [place], 1.2.840.1 [id number] Methodi 08:30:00 09:30:00 ion Terence 95673.1.[address] Testing Brice 3.430.2.7 Hospit a .3.660618 l .8 2022-01-17 2022-01-17 Travel 1.2.840.1 1.2.049.603 6664 344337 Methodi 00:00:00 00:00:[address] 3.430.2.7 0.2.7.3.698 Ho spita .3.031384 084.8 l .8 2022-01-17 2022-01-17 Travel 1.2.840.1 1.2.991.963 2377 580034 Methodi 00:00:00 00:00:[address] 3.430.2.7 0.2.7.3.698 Ho spita .3.389659 084.8 l .8 2022-01-11 2022-01-11 [facility] 71659ukv- 66225rhp-9e M [id number] 15:00:00 23:59:00 7h13-021e 21-532f-80c 72 -80cd-e8d d-g2jf4mc1k x0ya1tjzx bcd 2022-01-08 2022-01-08 Outpatient Shield MMG MMG 95534-6 022 [place] 00:00:00 00:00:00 0927 [facility] 2022-01-08 2022-01-08 Outpatient Shield MMG MMG 21547-7 022 [place] 00:00:00 00:00:00 1222 [facility] Group 2022-01-08 2022-01-08 Travel 1.2.840.1 1.2.449.150 9120 [id number] Methodi 00:00:00 00:00:[address] 3.430.2.7 0.2.7.3.698 Ho spita .3.296565 084.8 l .8 2022-01-08 2022-01-08 Travel 1.2.840.1 1.2.505.799 6073 [id number] Methodi 00:00:00 00:00:[address] 3.430.2.7 0.2.7.3.698 spita .3.814511 084.8 l .8 2022-01-03 2022-01-03 [place] [id number] 022 [place] 00:00:00 00:00:00 0922 [facility] 2022-01-03 2022-01-03 Antonette MM [place] - [id number] M [place] 00:00:00 00:00:00 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 2021-12-26 2021-12-26 [facility], 1.2.840.1 [id number] Methodi 15:10:10 23:59:00 Encounter Terence 04131.1.[address] Brice 3.430.2.7 Hospit a .3.391512 l .8 2021-12-26 2021-12-26 [facility], 1.2.840.1 [id number] 82899 Methodi 15:10:10 23:59:00 Encounter Terence 33312.1.[address] Brice 3.430.2.7 Hospit a .3.695459 l .8 2021-12-26 2021-12-26 [place] [address]-6 022 [place] 00:00:00 00:00:00 0914 [facility] 2021-12-19 2021-12-19 [place] [address]-6 022 [place] 00:00:00 00:00:00 0907 [facility] 2021-12-19 2021-12-19 Roxie [facility] [place] - [id number] M [place] 00:00:00 00:00:00 Discovery flo Angel [facility]: [address], [place] [address] , Ph. [phone] 2021-12-13 2021-12-13 Outpatient Shield MMG MMG 77860-5 022 [place] 00:00:00 00:00:00 0901 [facility] 2021-12-10 2021-12-10 [facility], 1.2.840.1 35521 Methodi 12:10:56 23:59:00 Encounter Terence 82312.1.[address] Brice 3.430.2.7 Hospit a .3.027978 l .8 2021-12-10 2021-12-10 [facility], 1.2.840.1 60 Methodi 12:10:56 23:59:00 Encounter Terence 18078.1.[address] Brice 3.430.2.7 Hospit a .3.425794 l .8 2021-12-10 2021-12-10 [facility], 1.2.840.1 51227 Methodi 11:30:00 12:09:00 Encounter Terence 90025.1.[address] Brice 3.430.2.7 Hospit a .3.451439 l .8 2021-12-10 2021-12-10 [facility], 1.2.840.1 [id number] 21001 11096 Methodi 11:30:00 12:09:00 Encounter Terence 98119.1.[address] Brice 3.430.2.7 Hospit a .3.314814 l .8 2021-12-10 2021-12-10 Travel 1.2.840.1 1.2.003.947 3115 [id number] Methodi 00:00:00 00:00:[address] 3.430.2.7 0.2.7.3.698 Ho spita .3.896674 084.8 l .8 2021-12-10 2021-12-10 [facility] 1.2.840.1 [id number] Methodi 00:00:00 00:00:00 Orders Terence 59348.1.[address] Brice 3.430.2.7 Hospit a .3.128310 l .8 2021-12-10 2021-12-10 Travel 1.2.840.1 1.2.853.156 5415 [id number] Methodi 00:00:00 00:00:[address] 3.430.2.7 0.2.7.3.698 Ho spita .3.719182 084.8 l .8 2021-12-10 2021-12-10 Transcribe Bruce 1.2.840.1 [id number] [id number] Methodi 00:00:00 00:00:00 Orders Terence 86599.1.[address] Brice 3.430.2.7 Hospit a .3.733006 l .8 2021-11-14 2021-11-14 [facility]22 [place] 00:00:00 00:00:00 0803 [facility] 2021-11-14 2021-11-14 Antonette [facility] [place] - [id number] M [place] 00:00:00 00:00:00 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 2021-11-09 2021-11-09 Transcribe Venkat Gillespie 1.2.840.1 [id number] Methodi 00:00:00 00:00:00 Orders Curt 26870.1.[address] 3.430.2.7 Hospit a .3.937443 l .8 2021-11-09 2021-11-09 Transcribe Venkat Gillespie 1.2.840.1 [id number] Methodi 00:00:00 00:00:00 Orders Curt 29037.1.[address] 3.430.2.7 Hospit a .3.984268 l .8 2021-10-30 2021-10-30 Outpatient Rutledge_L MMG MM 1777 [place] 05:47:00 05:47:00 0726 Medical Group 2021-10-29 2021-10-29 Outpatient Rutledge_L MMG MMG 1777 [place] 02:23:00 02:23:00 0718 [facility] 2021-10-29 2021-10-29 Antonette MM [place] - [id number] M [place] 00:00:00 00:00:00 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 2020-07-19 2020-07-19 Outpatient LISTER_MARIANNAI [facility] 958 [place] 12:41:00 12:41:00 SSA 0407 [facility] h Program 2020-06-04 2020-06-04 Outpatient Rutledge_L MMG MMG 1777 [place] 12:22:00 12:22:00 0221 [facility] 2020-04-21 2020-04-21 Outpatient Rutledge_L MMG MMG 1777 [place] 02:20:00 02:20:00 0108 [facility] 2020-04-21 2020-04-21 Lacy MM [place] - [id number] M [place] 00:00:00 00:00:00 Hugh Pradhan [facility] janneth MD: [address] [facility] [address], [place] [address] , Ph. [phone] 2020-04-17 2020-04-17 Outpatient Rutledge_L MMG MMG 1777 [place] 11:05:00 11:05:00 0104 [facility] 2020-03-26 2020-03-26 Outpatient Rutledge_L MMG MMG 1777 [place] 03:57:00 03:57:00 1213 [facility] 2020-03-01 2020-03-01 Outpatient Rutledge_L MMG MMG 1777 [place] 02:21:00 02:21:00 1118 [facility] 2020-02-21 2020-02-21 Outpatient Rutledge_L MMG MMG 1777 [place] 11:57:00 11:57:00 1109 [facility] 2020-02-21 2020-02-21 Lacy MMG [place] - [id number] M [place] 00:00:00 00:00:00 Hugh Pradhan Medical Medicirene lagunas MD: [address] [address] , Ph. [phone] 2020-02-15 2020-02-15 Outpatient Rutledge_L MMG MMG 1777 [place] 11:06:00 11:06:00 1103 [facility] 2020-02-13 2020-02-13 Outpatient Rutledge_L MMG MMG 7 [place] 01:16:00 01:16:00 1101 [facility] 2020-01-31 2020-01-31 Outpatient Rutledge_L MMG MMG 1777 [place] 11:16:00 11:16:00 1019 [facility] 2020-01-31 2020-01-31 Lacy [facility] [place] - [id number] [place] 00:00:00 00:00:00 Ivelisse Markham MD: [address] [address] , Ph. [phone] 2020-01-25 2020-01-25 Outpatient Shield MMG MMG [id number] 020 [place] 12:46:00 12:46:00 1013 [facility] 2019-12-27 2019-12-27 Outpatient Shield MMG MMG [id number] 020 [place] 04:57:00 04:57:00 0914 Medical Group Results Test Description Test Time Test Comments Results Result Comments Source Albumin with creatinine and ratio, random urine 2022-04-30 2 2:36:00 Test Item Value Reference Range Interpretation Comme nts Total volume, urine (test code = No volume mL 12577-5) Urine creatinine concentration 192 mg/dL (test code = 06817-5) Urine microalbumin concentration mg/dL (test code = 78828-6) Urine microalbumin/creatinine ratio SEE COMMENT mg/g Unable to calculate due to too (test code = 38409-3) low an alyte concentration. [facility] [id number] 16:50:00 Test Item Value Reference Range Interpretation Comments POC glucose (test code = 203 mg/dL 65-99 H Ope rator Name: 57515-4) Mata Mace ice ID: [id number] able: [facility] Notified returned case inspector Interpretation (test Abnormal code = 63549-8) [facility] [id number] 16:50:00 Test Item Value Reference Range Interpretation Comments POC glucose (test code = 203 mg/dL 65-99 H Ope rator Name: 36434-3) Mata Mace ice ID: [id number] able: [facility] Notified returned case inspector Interpretation (test Abnormal code = 29228-5) [facility], with reflex to culture 2022-01-23 19:44:00 Test Item Value Reference Range Interpretation Comments Specimen site (test Random void code = 8149430) Color, UA (test code = Yellow 5778-6) Appearance, UA (test Clear code = 5767-9) Specific gravity, UA 1.001-1.035 (test code = 5811-5) pH, UA (test code = 5.0-8.5 5803-2) Protein, UA (test code Negative Negative = 16403-8) Glucose, UA (test code 3+ Negative A = 69103-8) Ketones, UA (test code Negative Negative = 2514-8) Bilirubin, UA (test Negative Negative code = 5770-3) Blood, UA (test code = Negative Negative 5794-3) Nitrite, UA (test code Negative Negative = 5802-4) Urobilinogen, UA (test <2.0 See_Comment [Aut omated code = 80028-2) message] The system which generated this result [...] code = None seen See_Comment [Autom ated 27214-0) message] The sy stem which generated this result transmitted reference range : /HPF. The refer ence range was not u sed to interpret th is result as normal/abnormal . Bacteria, UA (test code None seen None seen = 84040-2) Yeast, UA (test code = Few A 34072-0) Yeast with None seen pseudohyphae, UA (test code = 96031-0) Lab Interpretation Abnormal (test code = 88388-7) [facility], with reflex to culture 2022-01-23 19:44:00 Test Item Value Reference Range Interpretation Comments Specimen site (test Random void code = 8793029) Color, UA (test code = Yellow 5778-6) Appearance, UA (test Clear code = 5767-9) Specific gravity, UA 1.015 1.001-1.035 (test code = 5811-5) pH, UA (test code = 6.0 5.0-8.5 5803-2) Protein, UA (test code Negative Negative = 75935-8) Glucose, UA (test code 3+ Negative A = 54388-0) Ketones, UA (test code Negative Negative = 2514-8) Bilirubin, UA (test Negative Negative code = 5770-3) Blood, UA (test code = Negative Negative 5794-3) Nitrite, UA (test code Negative Negative = 5802-4) Urobilinogen, UA (test <2.0 <=2.0 code = 97981-8) Leukocyte esterase, UA Negative Negative (test code [...] code = None seen See_Comment [Autom ated 05593-2) message] The sy stem which generated this result transmitted reference range : /HPF. The refer ence range was not u sed to interpret th is result as normal/abnormal . Bacteria, UA (test code None seen None seen = 17424-8) Yeast, UA (test code = Few A 94652-9) Yeast with None seen pseudohyphae, UA (test code = 98959-9) Lab Interpretation Abnormal (test code = 03500-0) [facility] [id number] 17:06:00 Test Item Value Reference Range Interpretation Comments Urine culture (test SEE COMMENT Bacteriu gil screen code = 7728164) negative. [facility] [id number] 17:06:00 Test Item Value Reference Range Interpretation Comments Urine culture (test SEE COMMENT Bacteriu gil screen code = 0778617) negative. [facility] Pre/Post [id number] 19:23:31 Test Item Value Reference Range Interpretation Comments Ventricular rate (test code = 253) Atrial rate (test code = 255) [place] interval (test code = 266) QRSD interval [...] available-Electronica lly Signed By Joaquina Tripp MD ([id number]) on 01/17/2022 2:23:30 PM [facility] Pre/Post [id number] 19:23:31 Test Item Value Reference Range Interpretation Comments Ventricular rate (test 82 code = 253) Atrial rate (test code = 82 255) AZ interval (test code = 158 266) QRSD interval (test code 88 = 260) QT interval (test code = 350 264) QTC interval (test code 408 = 265) P axis 1 (test code = 52 267) QRS axis 1 (test code = 64 268) T wave axis (test code = 16 270) EKG impression (test Normal sinus code = 273) rhythm-Low voltage QRS-Borderline ECG-No previous ECGs available-Electronica lly Signed By Joaquina Tripp MD ([id number]) on 01/17/2022 2:23:30 PM Winsome PulliamARS-CoV-2 (COVID-19) RNA [Presence] in Respiratory specimen by LUDWIG with probe [id number] 12:41:34 Test Item Value Reference Range Interpretation Comments SARS-CoV-2 (COVID-19) RNA Not detected [Presence] in Respiratory specimen by LUDWIG with probe detection (test code = 41413-3) Whether patient is employed in a Unknown healthcare setting (test code = 88778-6) Whether the patient has symptoms Unknown related to condition of interest (test code = 11832-6) Whether the patient was Unknown hospitalized for condition of interest (test code = 13695-4) Whether the patient was admitted Unknown to intensive care unit (ICU) for condition of interest (test code = 31198-2) Whether patient resides in a Unknown congregate care setting (test code = 46197-1) status (test code = Unknown 11300-6) Date and time of symptom onset Unknown (test code = 55664-8) MICKIE BECKERI [id number] 00:00:00 Test Item Value Reference Range Interpretation Comments damien - swab (test code = damien abnormal A - swab) gardnerella (test code = normal gardnerella) CT/NG (test code = CT/NG) normal trichomonas vaginalis addon - swab normal (test code = trichomonas vaginalis addon - swab) damien species reflex (test code = abnormal A damien species reflex) [facility] - [id number] 14:59:00 Test Item Value Reference Range Interpretation Comments Leukocytes (test code = Leukocytes) Negative Nitrite (test code = Nitrite) negative Urobilinogen (test code = .2 Urobilinogen) Protein (test code = Protein) Negative pH (test code = pH) 6.0 Blood (test code = Blood) Negative Specific [place] (test code = 1.025 Specific [place]) Ketone (test code = Ketone) Trace Bilirubin (test code = Bilirubin) Negative Glucose (test code = Glucose) 250 Appearance (test code = Appearance) Clear Color (test code = Color) Yellow [facility] [id number] 01:27:00 Test Item Value Reference Range Interpretation Comments Erythrocyte sedimentation rate by 42 mm/HR 0-40 H Photometric method (test code = 60402-4) [facility] W Reflex Culture panel - Urine 2021-10-30 01:24:00 Test Item Value Reference Range Interpretation Comments Color of Urine by Auto (test yellow code = 05167-9) Appearance of Urine (test code clear clear = 5767-9) Glucose [Presence] in Urine by =4+ (1000 negative Automated test strip (test code = 99941-1) Bilirubin.total [Mass/volume] negative negative in Urine (test code = 1978-6) Ketones [Mass/volume] in Urine =2 negative H by Automated test strip (test code = 84392-5) Specific gravity of Urine by 1.032 1.003-1.030 H Automated test strip (test code = 15912-4) blood urine (test code = blood negative negative urine) pH of Urine (test code = 6.000 5-9 2756-5) protein urine (UA) (test code = trace negative protein urine (UA)) Urobilinogen [Presence] in =2.0 0.2-1.0 H Urine (test code = 57143-5) Nitrite [Presence] in Urine by negative negative Test strip (test code = 5802-4) Leukocyte esterase [Presence] negative negative in Urine by Automated test strip (test code = 16808-8) Erythrocytes [#/volume] in =1-5 0-5 Urine by Automated count (test code = 798-9) Leukocytes [#/area] in Urine =6-10 0-5 H sediment by Automated count (test code = 09040-0) Epithelial cells [Presence] in =6-10 0-5 Urine sediment by Light microscopy (test code = 24309-3) Bacteria identified in Urine by small(1 none detect Culture (test code = 630-4) Casts [#/area] in Urine none detected none detect sediment by Automated count (test code = 26229-1) urine culture added? (test code no = urine culture added?) [facility] [Mass/volume] in [id number] 01:24:00 Test Item Value Reference Range Interpretation Comments microalbumin random (test code = 52.9 mg/L 0-20 H microalbumin random) [facility] W Auto Differential panel - [id number] 11:50:00 Test Item Value Reference Range Interpretation Comments white blood count (test code = 14.5 K/uL 4.0-11.5 H white blood count) red blood count (test code = red 6.52 M/uL 3.80-5.20 H blood count) hemoglobin (test code = 18.4 g/dL 10.5-15.7 H hemoglobin) hematocrit (test code = 57.5 % 34.0-50.0 H hematocrit) MCV [Entitic volume] (test code = 88.2 fL 86.0-100.0 45568-3) mean corpuscular hemoglobin (test 28.2 pg 26.2-33.4 [...] 44.4-80.1 leukocytes in Blood (test code = 65978-8) Immature granulocytes [#/volume] 0.11 K/uL 0.00-0.03 H in Blood (test code = 23969-1) lymphocyte% (test code = 22.4 % 10.0-50.0 lymphocyte%) mono % (test code = mono %) 6.8 % 3.6-12.0 eos % (test code = eos %) 1.2 % 0.0-5.4 basophil % (test code = basophil 0.4 % 0.1-1.2 %) Band form neutrophils [#/volume] 9.92 K/uL 1.56-6.13 H in Blood (test code = 27877-3) Lymphocytes [#/volume] in Specimen 3.24 K/uL 1.18-3.74 by Automated count (test code = 87696-3) mono # (test code = mono #) 0.98 K/uL 0.24-0.86 H eos # (test code = eos #) 0.17 K/uL 0.04-0.36 basophil # (test code = basophil 0.06 K/uL 0.01-0.08 #) NRBC% (test code = NRBC%) 0 /100 WBC 0-0.2 NRBC# (test code = NRBC#) 0 K/uL [facility] A[facility]/Hemoglobin.total in [id number] 11:50:00 Test Item Value Reference Range Interpretation Comments Hemoglobin A1c [Mass/volume] in Blood 9.5 % 4.0-6.0 H (test code = 93609-0) [facility] 2000 panel - Serum or Plasma [...] Serum or Plasma (test code = 6768-6) [facility] 1996 panel - Serum or [id number] 11:50:00 Test Item Value Reference Range Interpretation [...] (test code = 6.512 cholesterol risk ratio) [facility], method unspecified - [id number] 00:00:00NeutrophilsBandLymphocyteAtypical LymphMonocyteEosinophilBasophilMetamyelocyteMyelocytePromyelocyteBlastsNucleated Red Blood CellAbs Neutrophil Count (Man)Abs Lymph Count (Man)Abs Monocyte Count (Man)Abs Eosinophil Count (Man)Abs Basophil Count (Man)Platelet EstimatePlatelet MorphologyPolychromasiaPoikilocytosisAnisocytosisMacrocytosisOvalocytesToxic VacuolationUmmc Holmes CountyThyrotropin [Units/volume] in Serum or Plasma 2021-10-29 00:00:00 Test Item Value Reference Range Interpretation Comments Thyrotropin [Units/volume] in 2.51 uIU/mL 0.36-3.74 Serum or Plasma (test code = 3016-3) [facility]Mullerian inhibiting substance [Mass/volume] in Serum or [id number] 09:32:00 Test Item Value Reference Range Interpretation Comments Mullerian inhibiting substance <0.015 . [Moles/volume] in Serum or Plasma (test code = 81306-5) [facility] inhibiting substance [Mass/volume] in Serum or [id number] 09:32:00 Test Item Value Reference Range Interpretation Comments Mullerian inhibiting substance <0.015 . [Moles/volume] in Serum or Plasma (test code = 95839-6) [facility]
[2022-07-04] MEDS ORDERED: DIAZEPAM 5 MG TABLET ONE (11:21)
[2022-07-04] MEDS ORDERED: KETOROLAC 30 MG/ML INJ ONE (11:21)
--- NOTE | 2022-07-04 12:23 | EDPHYS ---
Physician Documentation [facility] Name: Anjana Cordova Age: 56 yrs Sex: Female : 1965 Arrival Date: 07/04/2022 Time: 10:42 Bed 5 Private MD: ED Physician Dallas Silverman HPI: 07/04 15:34 This 56 yrs old Female presents to ER via Ambulatory with complaints of Back Pain, Back snw Injury. 15:34 The patient presents with pain that is chronic, pt with spinal stenosis, possible RA, snw chronic back pain was picking up grandchild in a van and her back brace caught on the sliding door mechanism and twisted her right knee and back. Pt c/o severe pain to lower back, states right knee is numb. The symptoms are located in the low back. The problem was sustained as noted. Severity of symptoms: At their worst the symptoms were moderate, severe. The patient has experienced similar episodes in the past. It is unknown whether or not the patient has recently seen a physician. Historical: - Allergies: 10:50 No Known Allergies; ss - Home Meds: 10:52 Lisinopril [Active]; Amlodipine [Active]; Atorvastatin [Active]; Novalog [Active]; ss Ozempic subcutaneous [Active]; Trelegy Ellipta inhalation [Active]; 10:53 Augmentin [Active]; ss - PMHx: 10:50 chronic back pain; COPD; Depression; Diabetes - IDDM; Hypercholesterolemia; ss Hypertension; Rheumatoid Arthritis; spinal stenosis; - PSHx: 10:50 section; Cholecystectomy; L arm; ss - Immunization history:: Client reports receiving the 2nd dose of the Covid vaccine. - Social history:: Smoking status: Patient reports the use of cigarette tobacco products, smokes one-half pack cigarettes per day. ROS: 12:06 Eyes: Negative for injury, pain, redness, and discharge, ENT: Negative for injury, snw pain, and discharge, Neck: Negative for injury, pain, and swelling, Cardiovascular: Negative for chest pain, palpitations, and edema, Respiratory: Negative for shortness of breath, cough, wheezing, and pleuritic chest pain, Abdomen/GI: Negative for abdominal pain, nausea, vomiting, diarrhea, and constipation. 12:06 : Negative for injury, bleeding, discharge, and swelling, MS/Extremity: Negative for injury and deformity, Skin: Negative for injury, rash, and discoloration, Neuro: Negative for headache, weakness, numbness, tingling, and seizure. 12:06 Constitutional: Positive for body aches, malaise. 12:06 Back: Positive for pain at rest, pain with movement, radiated pain, of the low back area, to left knee. 12:06 Psych: Positive for anxiety, tired of hurting. Exam: 12:01 Head/Face: Normocephalic, atraumatic. Eyes: Pupils equal round and reactive to light, snw extra-ocular motions intact. Lids and lashes normal. Conjunctiva and sclera are non-icteric and not injected. Cornea within normal limits. Periorbital areas with no swelling, redness, or edema. Neck: Trachea midline, no thyromegaly or masses palpated, and no cervical lymphadenopathy. Supple, full range of motion without nuchal rigidity, or vertebral point tenderness. No Meningismus. Chest/axilla: Normal chest wall appearance and motion. Nontender with no deformity. No lesions are appreciated. Abdomen/GI: Soft, non-tender, with normal bowel sounds. No distension or tympany. No guarding or rebound. No evidence of tenderness throughout. 12:01 Respiratory: Lungs have equal breath sounds bilaterally, clear to auscultation and percussion. No rales, rhonchi or wheezes noted. No increased work of breathing, no retractions or nasal flaring. 12:01 Skin: Warm, dry with normal turgor. Normal color with no rashes, no lesions, and no evidence of cellulitis. Neuro: Awake and alert, GCS 15, oriented to person, place, time, and situation. Cranial nerves II-XII grossly intact. Motor strength 5/5 in all extremities. Sensory grossly intact. Cerebellar exam normal. Normal gait. 12:01 Constitutional: The patient appears alert, anxious, uncomfortable. 12:01 Cardiovascular: Rate: tachycardic, Rhythm: regular, Pulses: no pulse deficits are appreciated. 12:01 Back: pain, that is moderate, of the low back area. 12:01 Musculoskeletal/extremity: Extremities: grossly normal except: decreased sensation to left knee, Circulation is intact in all extremities. the left knee Tingling of extremity. 12:03 Neuro: Orientation: to person, place \T\ time. snw 12:03 Psych: Behavior/mood is anxious, Affect is animated. Vital Signs: 10:49 Pulse 110; Resp 20; Temp 97.6(TE); Pulse Ox 96% on R/A; ss 10:51 BP 196 / 106; ss 10:51 Weight 92.08 kg; Height 5 ft. 6 in. ; ss 12:34 BP 156 / 79; Pulse 89; Resp 15; Pulse Ox 94% ; jl7 10:51 Body Mass Index 32.76 (92.08 kg, 167.64 cm) ss MDM: 10:43 Patient medically screened. snw 15:33 Differential diagnosis: arthritis, Fatigue Fracture Joint Injury Osteoarthritis. Data snw reviewed: vital signs, nurses notes. Counseling: I had a detailed discussion with the patient and/or guardian regarding: the historical points, exam findings, and any diagnostic results supporting the discharge/admit diagnosis, the presence of at least one elevated blood pressure reading (>120/80) during this emergency department visit, the need for outpatient follow up, for definitive care, to return to the emergency department if symptoms worsen or persist or if there are any questions or concerns that arise at home. Special discussion: I have referred the patient to see his PCP for further evaluation of high blood pressure. Based on the history and exam findings, there is no indication for further emergent testing or inpatient evaluation. I discussed with the patient/guardian the need to see the dial painter for further evaluation of the symptoms. I discussed with the patient/guardian the need to see the primary care provider for further evaluation of the symptoms. I discussed with the patient/guardian the need to see the public aid eligibility assistant for further evaluation of the symptoms. 15:45 ED course: encouraged PT/OT. snw 07/04 12:25 Order name: Recheck VS; Complete Time: 12:33 snw Administered Medications: 11:10 Drug: Ketorolac IM 15 mg Route: IM; Site: right deltoid; bp 12:34 Follow up: Response: No adverse reaction; Pain is decreased jl7 11:10 Drug: Diazepam PO 10 mg Route: PO; bp 12:33 Follow up: Response: No adverse reaction; Pain is decreased jl7 Disposition: 13:03 I reviewed the patient's care provided by the Advanced Practice Provider and agree with jr11 the diagnosis and treatment plan. Disposition Summary: 07/04/22 12:22 Discharge Ordered Location: Home snw Condition: Stable snw Diagnosis - Low back pain snw - Pain in right knee snw Followup: snw - With: Emergency Department - When: As needed - Reason: Worsening of condition Followup: snw - With: Private Physician - When: 1 - 2 days - Reason: Recheck today's complaints, Continuance of care, Re-evaluation by your physician Discharge Instructions: - Discharge Summary Sheet snw - Chronic Back Pain snw - Knee Sprain, Adult snw - RICE Therapy for Routine Care of Injuries snw - How to Use Cold Therapy snw - Form - Physical Therapy Referral snw Forms: - Medication Reconciliation Form snw - Thank You Letter snw - Antibiotic Education snw - Prescription Opioid Use snw Prescriptions: - orphenadrine citrate 100 mg Oral Tablet Sustained Release - take 1 tablet by ORAL route 2 times per day As needed; 20 tablet; Refills: 0, snw Product Selection Permitted Signatures: Jany Krishnamurthy FNP-C LYE TREATER-Csnw Terrie Gaxiola RN RN ss Zana Duarte RN RN bp Dallas Silverman MD MD [email or web address] Natalio Estrella RN jl7 Corrections: (The following items were deleted from the chart) 12:05 12:01 Skin: Warm, dry with normal turgor. Normal color with no rashes, no lesions, and snw no evidence of cellulitis. Neuro: Awake and alert, GCS 15, oriented to person, place, time, and situation. Cranial nerves II-XII grossly intact. Motor strength 5/5 in all extremities. Sensory grossly intact. Cerebellar exam normal. Normal gait. snw
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
[2022-07-04 15:53] VITALS: TEMP 97.6
[2022-07-04 15:56] VITALS: BP 156/79; O2SAT 94
== END 2022-07-04 12:35 | disposition home or self-care (01) ==
LOC: ER 10:37
DX: M54.50 Low back pain, unspecified (principal); M25.561 Pain in right knee; J44.9 Chronic obstructive pulmonary disease, unspecified; E11.9 Type 2 diabetes mellitus without complications; E78.00 Pure hypercholesterolemia, unspecified; I10 Essential (primary) hypertension; M48.00 Spinal stenosis, site unspecified; G89.29 Other chronic pain

== ENCOUNTER → 2023-06-30 | Emergency (ER) | payer BC ==
[~2023-06-30] MED LIST: KETOROLAC 30 MG/ML INJ ONE; MORPHINE 2 MG/ML SYR ONE; MORPHINE 4 MG/ML SYR ONE; dexAMETHasone 10 MG/ML VIAL ONE
--- NOTE | 2023-06-30 19:41 | RAD REPORT ---
EXAM DESCRIPTION: RAD - Knee Right 3 View - 06/30/2023 7:19 pm CLINICAL HISTORY: PAIN COMPARISON: Knee Right 3 View dated 04/21/2022; Knee Right 3 View dated 10/16/2021 TECHNIQUE: Right knee, 3 views. FINDINGS: No fracture, dislocation or periosteal reaction.No joint effusion seen. No joint space perla rowing. No soft tissue abnormality. Clinical concerns for internal derangement or occult bony injury could be further assessed with MR im aging. IMPRESSION: Negative right knee.
--- NOTE | 2023-06-30 19:57 | ER ---
Nurse's Notes [facility] Name: Anjana Cordova Age: 57 yrs Sex: Female : 1965 Arrival Date: 06/30/2023 Time: 17:57 Bed 12 Private MD: Diagnosis: Pain in right knee;Dorsalgia, unspecified Presentation: 06/29 18:50 Chief complaint: Patient states: pt was at PT, felt her back pop and then fell to her iw right knee. Coronavirus screen: At this time, the client does not indicate any symptoms associated with coronavirus-19. Ebola Screen: Patient negative for fever greater than or equal to 101.5 degrees Fahrenheit, and additional compatible Ebola Virus Disease symptoms Patient denies exposure to infectious person. Patient denies travel to an Ebola-affected area in the 21 days before illness onset. No symptoms or risks identified at this time. Initial Sepsis Screen: Does the patient meet any 2 criteria? No. Patient's initial sepsis screen is negative. Does the patient have a suspected source of infection? No. Patient's initial sepsis screen is negative. Risk Assessment: Do you want to hurt yourself or someone else? Patient reports no desire to harm self or others. Onset of symptoms was June 30, 2023. 18:50 Method Of Arrival: Ambulatory iw 18:50 Acuity: HAWK 4 iw Triage Assessment: 19:02 General: Appears uncomfortable, Behavior is calm, cooperative. Pain: Complains of pain tl4 in back and right leg. Musculoskeletal: Range of motion: limited in left hip and right hip. Historical: - Allergies: 18:52 No Known Allergies; iw - Home Meds: 21:15 Amlodipine [Active]; atorvastatin [Active]; Lisinopril [Active]; novalog [Active]; tl4 Trelegy Ellipta inhalation [Active]; - PMHx: 18:52 chronic back pain; COPD; Depression; Diabetes - IDDM; Hypercholesterolemia; iw Hypertension; Rheumatoid Arthritis; spinal stenosis; - PSHx: 18:52 section; Cholecystectomy; L arm; iw - Immunization history:: Adult Immunizations up to date. - Social history:: Smoking status: Patient reports the use of cigarette tobacco products, smokes one pack cigarettes per day. Screenin:08 [facility] ED Fall Risk Assessment (Adult) History of falling in the last 3 months, tl4 including since admission Yes- fall prone (multiple falls) (3 pts) Confusion or Disorientation No (0 pts) Intoxicated or Sedated No (0 pts) Impaired Gait Yes (1 pt) Mobility Assist Device Used No (0 pt) Altered Elimination No (0 pt) Score/Fall Risk Level 3 or more points = High Risk Oriented to surroundings, Maintained a safe environment, Educated pt \T\ family on fall prevention, incl call for assistance when getting out of bed, Assessed \T\ reinforced patient's understanding of fall precautions, Hourly rounding (assess needs \T\ fall precautionary measures) done, Used ambulatory aids as needed (educated on \T\ assisted with), Used gait belt as appropriate. Abuse screen: Denies threats or abuse. Denies injuries from another. Nutritional screening: No deficits noted. Tuberculosis screening: No symptoms or risk factors identified. Assessment: 18:55 General: Appears uncomfortable, Behavior is cooperative. Pain: Complains of pain in tl4 back and right leg. Neuro: Level of Consciousness is awake, alert, obeys commands, Oriented to person, place, time, situation, Gait is steady, Speech is normal, Facial symmetry appears normal. Cardiovascular: No deficits noted. Capillary refill < 3 seconds Patient's skin is warm and dry. Respiratory: Airway is patent Respiratory effort is even, unlabored, Respiratory pattern is regular, symmetrical, Breath sounds are clear bilaterally. GI: No deficits noted. No signs and/or symptoms were reported involving the gastrointestinal system. : No deficits noted. No signs and/or symptoms were reported regarding the genitourinary system. EENT: No deficits noted. No signs and/or symptoms were reported regarding the EENT system. Derm: No deficits noted. No signs and/or symptoms reported regarding the dermatologic system. Musculoskeletal: Reports pain in back and right leg. 20:03 Reassessment: No changes from previously documented assessment. Patient and/or family tl4 updated on plan of care and expected duration. Pain level reassessed. Patient is alert, oriented x 3, equal unlabored respirations, skin warm/dry/pink. Pain is tolerable. Vital Signs: 18:39 BP 167 / 91; Pulse 94; Resp 16; Pulse Ox 99% on R/A; Pain 10/10; tl4 18:50 BP 167 / 101; Pulse 89; Resp 16; Temp 98; Pulse Ox 100% on R/A; Weight 92.53 kg; Height iw 5 ft. 6 in. ; Pain 10/10; 19:00 BP 139 / 77; Pulse 79; Resp 20; Pulse Ox 97% on R/A; tl4 18:50 Body Mass Index 32.93 (92.53 kg, 167.64 cm) iw 18:39 Pain Scale: Adult tl4 18:50 Pain Scale: Adult iw ED Course: 18:01 Patient arrived in ED. ae5 18:02 Kelley Fletcher PA-C is PHCP. sb4 18:02 PHCP role handed off by Kelley Fletcher PA-C cp 18:02 Raul Hanson PA is PHCP. cp 18:02 Rob Cueto MD is Attending Physician. cp 18:52 Triage completed. iw 18:53 Arm band placed on. iw 18:58 Carlito García, RN is Primary Nurse. tl4 19:01 XRAY Knee RIGHT 3 view Sent. tl4 19:20 No provider procedures requiring assistance completed. Patient did not have IV access tl4 during this emergency room visit. 19:21 XRAY Knee RIGHT 3 view In Process Unspecified. EDMS 19:23 Patient has correct armband on for positive identification. Call light in reach. pt tl4 sitting in chair for her comfort, unable to tolerate being on the stretcher. Provided Education on: ed process. Client placed on continuous cardiac and pulse oximetry monitoring. NIBP monitoring applied. Door closed. Noise minimized. Lights dimmed. Moved to private room. Administered Medications: 19:21 Drug: morphine IM 6 mg IM once Route: IM; Site: right ventrogluteal; tl4 20:14 Follow up: Response: No adverse reaction; Pain is decreased tl4 20:25 Drug: Dexamethasone IM 10 mg IM once Route: IM; Site: left ventrogluteal; tl4 20:49 Follow up: Response: No adverse reaction tl4 20:48 Drug: Ketorolac IM 30 mg IM once Route: IM; Site: left ventrogluteal; tl4 20:49 Follow up: Response: No adverse reaction tl4 Medication: 20:39 VIS not applicable for this client. tl4 Outcome: 19:56 Discharge ordered by . cp 20:39 Discharged to home ambulatory, with family, tl4 20:39 Condition: stable 20:39 Discharge instructions given to patient, family, Instructed on discharge instructions, follow up and referral plans. medication usage, Demonstrated understanding of instructions, follow-up care, medications, Prescriptions given X 1, 20:49 Patient left the ED. tl4 Signatures: Dispatcher [employer] EDAnn Lange, RN RN Raul Wilcox PA PA cp Brown, Sophia, Carlito Dyer PA-C, RN RN tl4 Samara Urbina ae5
--- NOTE | 2023-06-30 19:57 | EDPHYS ---
Physician Documentation [facility] Name: Anjana Cordova Age: 57 yrs Sex: Female : 1965 Arrival Date: 06/30/2023 Time: 17:57 Bed 12 Private MD: ED Physician Rob Cueto HPI: 06/29 19:00 This 57 yrs old Female presents to ER via Ambulatory with complaints of Knee Pain, Back cp Pain. 19:00 The patient presents with pain, that is acute. cp 19:00 The complaints affect the right knee. Context: resulted from the patient falling, onto cp knee while at physical therapy, the patient can fully bear weight, the patient is able to ambulate, with moderate difficulty. Onset: The symptoms/episode began/occurred today. Associated signs and symptoms: Pertinent positives: chronic back pain. Patient reports misstep while performing physical therapy exercises for back pain that caused her to fall onto right knee causing pain. Historical: - Allergies: 18:52 No Known Allergies; iw - Home Meds: 21:15 Amlodipine [Active]; atorvastatin [Active]; Lisinopril [Active]; novalog [Active]; tl4 Trelegy Ellipta inhalation [Active]; - PMHx: 18:52 chronic back pain; COPD; Depression; Diabetes - IDDM; Hypercholesterolemia; iw Hypertension; Rheumatoid Arthritis; spinal stenosis; - PSHx: 18:52 section; Cholecystectomy; L arm; iw - Immunization history:: Adult Immunizations up to date. - Social history:: Smoking status: Patient reports the use of cigarette tobacco products, smokes one pack cigarettes per day. ROS: 19:05 Constitutional: Negative for body aches, chills, fever, poor PO intake, cp 19:05 Eyes: Negative for injury, pain, redness, and discharge, cp 19:05 Cardiovascular: Negative for chest pain, 19:05 Respiratory: Negative for cough, shortness of breath, wheezing, 19:05 Abdomen/GI: Negative for abdominal pain, vomiting, diarrhea, constipation, 19:05 Back: Positive for chronic pain, 19:05 MS/extremity: Positive for pain, tenderness, of the right knee, Negative for decreased range of motion, deformity, 19:05 Neuro: Negative for altered mental status, headache, loss of consciousness, syncope, 19:05 All other systems are negative, Exam: 19:10 Constitutional: The patient appears in no acute distress, alert, awake, non-toxic, well cp developed, well nourished, obese, uncomfortable, 19:10 Head/Face: Normocephalic, atraumatic. cp 19:10 Eyes: Periorbital structures: appear normal, Conjunctiva: normal, no exudate, no injection, Lids and lashes: appear normal, bilaterally, 19:10 ENT: External ear(s): are unremarkable, Nose: is normal, Mouth: Lips: moist, Oral mucosa: moist, Posterior pharynx: Airway: no evidence of obstruction, patent, 19:10 Neck: ROM/movement: no acute changes, 19:10 Chest/axilla: Inspection: normal, 19:10 Cardiovascular: Rate: normal, 19:10 Respiratory: the patient does not display signs of respiratory distress, Respirations: normal, no use of accessory muscles, no retractions, labored breathing, is not present, Breath sounds: are clear throughout, no decreased breath sounds, no stridor, no wheezing, 19:10 Abdomen/GI: Inspection: obese 19:10 Back: pain, that is moderate, ROM is painful, with all movement, 19:10 Musculoskeletal/extremity: Extremities: noted in the right knee: pain, tenderness, There is no evidence of decreased ROM, deformity, ROM: limited passive range of motion due to pain, in the right knee, Weight bearing: able to fully bear weight, 19:10 Neuro: Orientation: to person, place \T\ time. Mentation: is normal, Motor: moves all fours, strength is normal, Sensation: no obvious gross deficits, Gait: is steady, Vital Signs: 18:39 BP 167 / 91; Pulse 94; Resp 16; Pulse Ox 99% on R/A; Pain 10/10; tl4 18:50 BP 167 / 101; Pulse 89; Resp 16; Temp 98; Pulse Ox 100% on R/A; Weight 92.53 kg; Height iw 5 ft. 6 in. ; Pain 10/10; 19:00 BP 139 / 77; Pulse 79; Resp 20; Pulse Ox 97% on R/A; tl4 18:50 Body Mass Index 32.93 (92.53 kg, 167.64 cm) iw 18:39 Pain Scale: Adult tl4 18:50 Pain Scale: Adult iw MDM: 18:44 Patient medically screened. cp 19:30 Differential diagnosis: dislocation, closed fracture, contusion, ligament injury. cp 19:55 Data reviewed: vital signs, nurses notes, radiologic studies, plain films. cp 19:55 I considered the following discharge prescriptions or medication management in the cp emergency department Medications were administered in the Emergency Department. See MAR. Independent interpretation of the following test(s) in the Emergency Department X-Ray: My interpretation is images of right knee negative for fracture. Care significantly affected by the following chronic conditions: Diabetes, Hypertension, Obesity, chronic back pain. Counseling: I had a detailed discussion with the patient and/or guardian regarding the historical points, exam findings, and any diagnostic results supporting the discharge/admit diagnosis, radiology results, the need for outpatient follow up, a family practitioner, to return to the emergency department if symptoms worsen or persist or if there are any questions or concerns that arise at home. Response to treatment: the patient's symptoms have markedly improved after treatment, and as a result, I will discharge patient. 06/29 18:48 Order name: XRAY Knee RIGHT 3 view; Complete Time: 19:57 06/29 19:57 Interpretation: Report reviewed. cp Administered Medications: 19:21 Drug: morphine IM 6 mg IM once Route: IM; Site: right ventrogluteal; tl4 20:14 Follow up: Response: No adverse reaction; Pain is decreased tl4 20:25 Drug: Dexamethasone IM 10 mg IM once Route: IM; Site: left ventrogluteal; tl4 20:49 Follow up: Response: No adverse reaction tl4 20:48 Drug: Ketorolac IM 30 mg IM once Route: IM; Site: left ventrogluteal; tl4 20:49 Follow up: Response: No adverse reaction tl4 Disposition Summary: 06/30/23 19:56 Discharge Ordered Notes: Location: Home cp Problem: new cp Symptoms: have improved cp Condition: Stable cp Diagnosis - Pain in right knee cp - Dorsalgia, unspecified cp Followup: cp - With: Private Physician - When: 2 - 3 days - Reason: Recheck today's complaints Discharge Instructions: - Discharge Summary Sheet cp - Elastic Bandage and RICE Therapy cp - Chronic Back Pain cp - Acute Knee Pain, Adult cp - Back Exercises cp Forms: - Medication Reconciliation Form cp - Thank You Letter cp - Antibiotic Education cp - Prescription Opioid Use cp - Patient Portal Instructions cp - Leadership Thank You Letter cp Prescriptions: - Medrol (Arsh) 4 mg Oral Tablets, Dose Pack - take 1 tablet ORAL route as directed - follow package instructions; 1 packet; cp Refills: 0, Product Selection Permitted - methocarbamol 750 mg Oral tablet - take 1 tablet ORAL route 3 times per day; 30 tablet; Refills: 0, Product cp Selection Permitted Addendum: 07/02/2023 14:26 I was immediately available for consultation during this patient's visit. I did not e c2 personally see the patient or discuss the patient with the QUENTIN. . Signatures: Dispatcher [employer] Ann Johnston RN RN iw Raul Hanson PA PA Rob Lee MD MD ec2 Carlito García RN RN tl4
[2023-06-30 21:33] VITALS: BP 167/101; TEMP 98; O2SAT 100
== END ==
LOC: ER 17:57
DX: M25.561 Pain in right knee (principal); M54.9 Dorsalgia, unspecified; F17.210 Nicotine dependence, cigarettes, uncomplicated
CPT/HCPCS: 73562; 96372; 99284; J1100; J2270

== ENCOUNTER 2023-12-31 17:11 | Emergency (ER) | payer BC ==
[2023-12-31] MEDS ORDERED: METHOCARBAMOL 1,000 MG/10 ML VIAL ONE (19:22)
[2023-12-31] MEDS ORDERED: NA CHLORIDE 0.9% 100 ML ONE (19:22)
[2023-12-31] MEDS ORDERED: HYDROMORPHONE HCL 1 MG/ML INJ ONE ×2 (19:22→22:05)
[2023-12-31 20:07] LABS: Absolute Basophils 0.1 K/uL (0-0.5); Absolute Eosinophils 0.3 K/uL (0-0.5); Absolute Lymphocytes (CBC) 2.6 K/uL (0.7-4.9); Absolute Monocytes 0.7 K/uL (0.1-1.3); Absolute Neutrophil 5.6 K/uL (1.8-8.0); Basophils % 1.1 % (0-1.3); Eosinophils % 2.8 % (0-4.4); Hematocrit 45.2 % (36.0-45.0); Hemoglobin 15.1 g/dL (12.0-15.0); Lymphocytes % 28.1 % (15.3-44.8); MCH 28.6 pg (27.0-35.0); MCHC 33.4 g/dL (32.0-36.0); MCV 85.6 fL (80-100); MPV 9.4 fL (7.6-11.3); Monocytes % 7.6 % (3.3-12.3); Neutrophils % 60.4 % (41.7-73.7); Nucleated Red Blood Cells % 0.1 % (0-0); Platelets 217 thou/uL (152-406); RBC Red Blood Cell Count 5.28 M/uL (3.86-4.86); Red Cell Distribution Width 13.7 % (12.1-15.2)
[2023-12-31 20:51] LABS: Anion Gap 8.4 mEq/L (5.0-15.0); Potassium 3.4 mEq/L (3.5-5.1)
--- NOTE | 2023-12-31 21:45 | RAD REPORT ---
EXAM: CT brain without contrast HISTORY: Head and neck injury status post fall COMPARISON: 2021 TECHNIQUE: Multiple contiguous axial images were obtained and a CT of the brain without contrast. EXA MINATION: CT HEAD WITHOUT CONTRAST CT CERVICAL SPINE WITHOUT CONTRAST CLINICAL INDICATION: Head and neck injury with pain status post fall TECHNIQUE: Axial CT images from the skull base to the vertex without intravenous contrast. Axial CT i mages through the cervical spine were obtained without intravenous contrast. Sagittal and coronal reformatted images were created from the data set. Coronal and sagittal reformatted images were creat ed from the data set. One or more of the following dose reduction techniques were used: Automated exposure control, adjustment of the mA and/or kV according to patient size, and/or iterative reconstr uction. Unless otherwise specified, incidental findings do not require dedicated imaging follow-up. [id number]. FINDINGS: Intracranial bleed not noted. Ventricles are normal in caliber. No significant hyperdensity within the brain No extra-axial fluid collection. Fluid within the sinuses/mastoid No fracture or dislocation is seen involving the cervical spine. 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
--- NOTE | 2023-12-31 21:58 | RAD REPORT ---
EXAM: CT CHEST, ABDOMEN AND PELVIS WITHOUT CONTRAST CLINICAL INDICATION: Chest and abdominal pain status post fall TECHNIQUE: CT chest, abdomen and pelvis was performed, with IV contrast, as per department protocol. Axial, sagittal and coronal reconstructions were obtained. One or more of the following dose reduction techniques were used: Automated exposure control, adjustment of the mA and/or kV according to the patient size, and/or iterative reconstruction. Unless otherwise specified, incidental findings do not require dedicated imaging follow-up. [id number]. COMPARISON: No prior exam. FINDINGS: A pulmonary contusion is present. No pleural effusion. No pericardial effusion A mediastinal hematoma not seen Liver, spleen, pancreas, adrenals, kidneys and bladder do not demonstrate any traumatic injury. No evidence of diverticulitis. IMPRESSION: No acute traumatic injury involving chest, abdomen or pelvis seen
[2023-12-31 22:46] LABS: Sqamous Epithelial <5 /HPF (None Seen); Urine Bacteria None Seen /HPF (<20); Urine Bilirubin NEGATIVE (Negative); Urine Blood Negative (Negative); Urine Clarity Clear (Clear); Urine Color Colorless (Yellow); Urine Culture Reflex Order NOT NEEDED; Urine Glucose NEGATIVE (Negative); Urine Ketones NEGATIVE (Negative); Urine Microscopic Reflex YN ORDER UMIC; Urine Nitrite NEGATIVE (Negative); Urine Protein NEGATIVE (Negative); Urine RBC <5 /HPF (None Seen); Urine Urobilinogen Normal (Normal); Urine WBC <5 /HPF (<5)
[2023-12-31 22:47] LABS: Specific Gravity > 1.030 (1.005-1.030)
--- NOTE | 2023-12-31 22:55 | EDPHYS ---
Physician Documentation [facility] Name: Anjana Cordova Age: 58 yrs Sex: Female : 1965 Arrival Date: 12/31/2023 Time: 17:11 Bed 23 Private MD: ED Physician Raul Urena HPI: 12/30 19:05 This 58 yrs old Female presents to ER via Ambulatory with complaints of Fall Injury - cp LOC. 19:05 Details of fall: The patient fell from an upright position, while standing, and struck cp a tile surface. Onset: The symptoms/episode began/occurred today. 19:05 Associated injuries: The patient sustained injury to the head, pain, neck and back and cp hip. Severity of symptoms: in the emergency department the symptoms are unchanged, despite home interventions. Historical: - Allergies: 17:53 No Known Allergies; tm6 - Home Meds: 22:41 lisinopril 40 mg Oral tablet daily [Active]; Insulin 70/30 [Active]; amlodipine 5 mg tl4 tablet daily [Active]; atorvastatin oral daily [Active]; Soma Oral [Active]; methocarbamol 750 mg Oral tablet [Active]; Tylenol #3 Oral [Active]; Trelegy Ellipta inhalation daily [Active]; - PMHx: 17:53 chronic back pain; COPD; Depression; Diabetes - IDDM; Hypercholesterolemia; tm6 Hypertension; Rheumatoid Arthritis; spinal stenosis; - PSHx: 17:53 section; Cholecystectomy; L arm; tm6 - Immunization history:: Client reports receiving the 2nd dose of the Covid vaccine. - Infectious Disease History:: Denies. - Social history:: Smoking status: Patient reports the use of cigarette tobacco products, smokes one-half pack cigarettes per day. ROS: 19:10 Constitutional: HX per HPI cp 19:10 Neck: Positive for pain with movement, pain at rest, cp 19:10 Back: Positive for pain at rest, pain with movement, 19:10 MS/extremity: Positive for right hip pain, 19:10 Neuro: Positive for loss of consciousness, Negative for altered mental status, 19:10 All other systems are negative, Exam: 19:15 Constitutional: The patient appears in no acute distress, alert, awake, non-toxic, well cp developed, well nourished, uncomfortable, 19:15 Head/face: Exam is negative for deformity, cp 19:15 Eyes: Periorbital structures: appear normal, Pupils: equal, round, and reactive to light and accomodation, Extraocular movements: intact throughout, Sclera: no appreciated abnormality, Lids and lashes: appear normal, bilaterally, 19:15 ENT: External ear(s): are unremarkable, Nose: is normal, Mouth: Lips: moist, Oral mucosa: moist, Posterior pharynx: Airway: no evidence of obstruction, patent, 19:15 Neck: External neck: tenderness, that is moderate, of the occiput, left mid cervical area, right mid cervical area and lower cervical area, ROM/movement: limited range of motion, is not appreciated, 19:15 Chest/axilla: Inspection: normal, 19:15 Cardiovascular: Rate: normal, Rhythm: regular, 19:15 Respiratory: the patient does not display signs of respiratory distress, Respirations: normal, no use of accessory muscles, no retractions, labored breathing, is not present, Breath sounds: are clear throughout, no decreased breath sounds, no stridor, no wheezing, 19:15 Abdomen/GI: Inspection: obese Palpation: abdomen is soft and non-tender, in all quadrants, 19:15 Back: pain, that is moderate, of the thoracic area and lumbar area, ROM is painful, with all movement, 19:15 Musculoskeletal/extremity: Extremities: noted in the right hip: pain, There is no evidence of decreased ROM, deformity, 19:15 Neuro: Orientation: to person, place \T\ time. Mentation: is normal, Motor: moves all fours, strength is normal, Sensation: no obvious gross deficits, Vital Signs: 17:50 BP 159 / 76; Pulse 95; Resp 18; Temp 97.8(O); Pulse Ox 96% on R/A; Weight 92.99 kg; tm6 Height 5 ft. 5 in. ; Pain 10/10; 18:53 BP 202 / 95; Pulse 84; Resp 18; Pulse Ox 98% on R/A; Pain 10/10; tl4 19:30 BP 190 / 89; Pulse 74; Resp 20; Pulse Ox 98% on R/A; tl4 20:00 BP 185 / 94; Pulse 75; Resp 16; Pulse Ox 99% on R/A; tl4 20:30 BP 190 / 73; Pulse 72; Resp 20; Pulse Ox 97% on R/A; Pain 8/10; tl4 21:00 BP 183 / 88; Pulse 72; Resp 18; Pulse Ox 98% on R/A; tl4 22:00 BP 190 / 87; Pulse 76; Resp 18; Pulse Ox 100% on R/A; tl4 22:54 BP 155 / 84; Pulse 72; Resp 16; Pulse Ox 100% ; kmf 17:50 Body Mass Index 34.11 (92.99 kg, 165.1 cm) tm6 17:50 Pain Scale: Adult tm6 18:53 Pain Scale: Adult tl4 20:30 Pain Scale: Adult tl4 MDM: 17:55 Patient medically screened. 22:53 Data reviewed: vital signs, nurses notes, lab test result(s), radiologic studies, CT cp scan, plain films, and as a result, I will discharge patient. 22:53 Differential diagnosis: closed head injury, contusion, fracture, laceration, multiple cp trauma. I considered the following discharge prescriptions or medication management in the emergency department Medications were administered in the Emergency Department. See MAR. Care significantly affected by the following chronic conditions: Diabetes, Hypertension. 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 Response to treatment: the patient's symptoms have markedly improved after treatment, and as a result, I will discharge patient. 12/30 19:00 Order name: Basic Metabolic Panel; Complete Time: 22:04 12/30 22:04 Interpretation: Normal except: K 3.4; CL 108. 12/30 19:00 Order name: CBC with Diff; Complete Time: 22:04 12/30 22:04 Interpretation: Normal except: RBC 5.28; HGB 15.1; HCT 45.2. 12/30 19:00 Order name: Type And Screen; Complete Time: 22:04 12/30 19:00 Order name: Urinalysis w/ reflexes; Complete Time: 22:50 12/30 22:50 Interpretation: Normal except: Urine SG > 1.030; UESTR 250. cp 12/30 19:00 Order name: Ptt, Activated; Complete Time: 22:04 cp 12/30 19:04 Order name: Head C Spine Mpr Wo Con; Complete Time: 22:04 EDMS 12/30 22:05 Interpretation: Report reviewed. cp 12/30 19:06 Order name: Chest Abdomen Pelvis W Cont; Complete Time: 22:04 EDMS 12/30 22:05 Interpretation: Report reviewed. cp 12/30 22:07 Order name: XRAY Forearm RIGHT cp 12/30 19:00 Order name: Labs collected and sent; Complete Time: 20:26 cp 12/30 22:51 Order name: Sling; Complete Time: 23:10 cp Administered Medications: 20:07 Drug: Methocarbamol IVPB 1 grams IVPB once over 1 hrs; (mix in NS 100 mL) Route: IVPB; tl4 Infused Over: 1 hrs; Site: right antecubital; Delivery: Primary tubing; 21:02 Follow up: Response: No adverse reaction; Pain is decreased; IV Status: Completed tl4 infusion; IV Intake: 100ml 20:10 Drug: HYDROmorphone IVP 1 mg IVP once Route: IVP; Infused Over: 2 mins; Site: right tl4 antecubital; 21:02 Follow up: Response: No adverse reaction; Pain is decreased tl4 22:05 Drug: HYDROmorphone IVP 1 mg IVP once Route: IVP; Infused Over: 2 mins; Site: right tl4 antecubital; 22:39 Follow up: Response: No adverse reaction; Pain is decreased tl4 Disposition: 12/31 23:23 Chart complete. cp Disposition Summary: 12/31/23 22:54 Discharge Ordered Notes: Location: Home cp Problem: new cp Symptoms: have improved cp Condition: Stable cp Diagnosis - Fall on same level from slipping, tripping and stumbling without subsequent cp striking against object - Pain in right forearm cp - Dorsalgia, unspecified cp - Cervicalgia cp Followup: cp - With: Private Physician - When: 2 - 3 days - Reason: Recheck today's complaints Discharge Instructions: - Discharge Summary Sheet cp - Musculoskeletal Pain cp - Neck Exercises cp Forms: - Medication Reconciliation Form cp - Antibiotic Education cp - Prescription Opioid Use cp - Patient Portal Instructions cp - Leadership Thank You Letter cp Signatures: Dispatcher [employer] EDMS Raul Hanson PA PA cp Masterson, Tawney RN RN tm6 Carlito García RN RN tl4 Corrections: (The following items were deleted from the chart) 12/30 19:02 19:01 Head C Spine CAP W Con+CT.RAD.BRZ ordered. EDMS EDMS
--- NOTE | 2023-12-31 22:55 | ER ---
Nurse's Notes [facility] Name: Anjana Cordova Age: 58 yrs Sex: Female : 1965 Arrival Date: 12/31/2023 Time: 17:11 Bed 23 Private MD: Diagnosis: Fall on same level from slipping, tripping and stumbling without subsequent striking against object;Pain in right forearm;Dorsalgia, unspecified;Cervicalgia Presentation: 12/30 17:51 Chief complaint: Patient states: fell around 1630, not sure what happened. I remember tm6 hitting my head, lost consciousness for a minute or two. My right hip hurts. I lose my balance often. My spine surgeon said I needed to come up here. Not on blood thinners. Coronavirus screen: Vaccine status: Patient reports receiving the 2nd dose of the covid vaccine. Ebola Screen: Patient negative for fever greater than or equal to 101.5 degrees Fahrenheit, and additional compatible Ebola Virus Disease symptoms Patient denies exposure to infectious person. Patient denies travel to an Ebola-affected area in the 21 days before illness onset. No symptoms or risks identified at this time. Initial Sepsis Screen: Does the patient meet any 2 criteria? No. Patient's initial sepsis screen is negative. Does the patient have a suspected source of infection? No. Patient's initial sepsis screen is negative. Risk Assessment: Do you want to hurt yourself or someone else? Patient reports no desire to harm self or others. Onset of symptoms was December 31, 2023 at 16:30. 17:51 Method Of Arrival: Ambulatory tm6 17:51 Acuity: HAWK 3 tm6 Triage Assessment: 17:53 General: Appears uncomfortable, Behavior is calm, cooperative. Pain: Complains of pain tm6 in face, right hip and right arm, back Pain currently is 10 out of 10 on a pain scale. Quality of pain is described as aching, Pain began 2 hours ago. EENT: No signs and/or symptoms were reported regarding the EENT system. Neuro: Level of Consciousness is awake, alert, obeys commands, Oriented to person, place, time, situation, Reports a syncopal episode. Cardiovascular: Patient's skin is warm and dry. Respiratory: Airway is patent Respiratory effort is even, unlabored, Respiratory pattern is regular, symmetrical. GI: No signs and/or symptoms were reported involving the gastrointestinal system. Abdomen is round non-distended. : No signs and/or symptoms were reported regarding the genitourinary system. Derm: No signs and/or symptoms reported regarding the dermatologic system. Musculoskeletal: Reports pain in face, back, pelvis, right arm and right leg since fall at 1630. Pain is 10 out of 10 on a pain scale. Historical: - Allergies: 17:53 No Known Allergies; tm6 - Home Meds: 22:41 lisinopril 40 mg Oral tablet daily [Active]; Insulin 70/30 [Active]; amlodipine 5 mg tl4 tablet daily [Active]; atorvastatin oral daily [Active]; Soma Oral [Active]; methocarbamol 750 mg Oral tablet [Active]; Tylenol #3 Oral [Active]; Trelegy Ellipta inhalation daily [Active]; - PMHx: 17:53 chronic back pain; COPD; Depression; Diabetes - IDDM; Hypercholesterolemia; tm6 Hypertension; Rheumatoid Arthritis; spinal stenosis; - PSHx: 17:53 section; Cholecystectomy; L arm; tm6 - Immunization history:: Client reports receiving the 2nd dose of the Covid vaccine. - Infectious Disease History:: Denies. - Social history:: Smoking status: Patient reports the use of cigarette tobacco products, smokes one-half pack cigarettes per day. Screenin:52 [facility] ED Fall Risk Assessment (Adult) History of falling in the last 3 months, tl4 including since admission Yes- single mechanical fall (1 pt) Confusion or Disorientation No (0 pts) Intoxicated or Sedated No (0 pts) Impaired Gait No (0 pts) Mobility Assist Device Used No (0 pt) Altered Elimination No (0 pt) Score/Fall Risk Level 0 - 2 = Low Risk Oriented to surroundings, Maintained a safe environment, Educated pt \T\ family on fall prevention, incl call for assistance when getting out of bed, Assessed \T\ reinforced patient's understanding of fall precautions. Abuse screen: Denies threats or abuse. Denies injuries from another. Nutritional screening: No deficits noted. Tuberculosis screening: No symptoms or risk factors identified. Assessment: 20:28 General: Appears uncomfortable, Behavior is cooperative. Pain: Complains of pain in tl4 right leg and back and right arm and pelvis and face and right hip. Neuro: Level of Consciousness is awake, alert, obeys commands, Oriented to person, place, time, situation. Cardiovascular: Capillary refill < 3 seconds Patient's skin is warm and dry. Respiratory: Airway is patent Respiratory effort is even, unlabored, Respiratory pattern is regular, symmetrical. GI: No signs and/or symptoms were reported involving the gastrointestinal system. : No signs and/or symptoms were reported regarding the genitourinary system. EENT: No signs and/or symptoms were reported regarding the EENT system. Derm: No signs and/or symptoms reported regarding the dermatologic system. Musculoskeletal: Reports pain in right leg and back and right arm and pelvis and face and right hip. Vital Signs: 17:50 BP 159 / 76; Pulse 95; Resp 18; Temp 97.8(O); Pulse Ox 96% on R/A; Weight 92.99 kg; tm6 Height 5 ft. 5 in. ; Pain 10/10; 18:53 BP 202 / 95; Pulse 84; Resp 18; Pulse Ox 98% on R/A; Pain 10/10; tl4 19:30 BP 190 / 89; Pulse 74; Resp 20; Pulse Ox 98% on R/A; tl4 20:00 BP 185 / 94; Pulse 75; Resp 16; Pulse Ox 99% on R/A; tl4 20:30 BP 190 / 73; Pulse 72; Resp 20; Pulse Ox 97% on R/A; Pain 8/10; tl4 21:00 BP 183 / 88; Pulse 72; Resp 18; Pulse Ox 98% on R/A; tl4 22:00 BP 190 / 87; Pulse 76; Resp 18; Pulse Ox 100% on R/A; tl4 22:54 BP 155 / 84; Pulse 72; Resp 16; Pulse Ox 100% ; kmf 17:50 Body Mass Index 34.11 (92.99 kg, 165.1 cm) tm6 17:50 Pain Scale: Adult tm6 18:53 Pain Scale: Adult tl4 20:30 Pain Scale: Adult tl4 ED Course: 17:17 Patient arrived in ED. mg5 17:53 Triage completed. tm6 17:55 Raul Hanson PA is PHCP. cp 17:55 Raul Urena MD is Attending Physician. cp 17:55 Arm band placed on left wrist. tm6 18:51 Carlito García RN is Primary Nurse. tl4 18:53 Patient has correct armband on for positive identification. Placed in gown. Bed in low tl4 position. Call light in reach. Side rails up X2. Adult w/ patient. Provided Education on: ed process, call malagon. Client placed on continuous cardiac and pulse oximetry monitoring. NIBP monitoring applied. Door closed. Noise minimized. Lights dimmed. Moved to private room. Warm blanket given. 18:53 No provider procedures requiring assistance completed. tl4 20:05 Initial lab(s) drawn, by me, sent to lab. Inserted saline lock: 22 gauge in right tl4 antecubital area, using aseptic technique. Blood collected. Flushed with 10 mL NS. 20:26 Ptt, Activated Sent. tl4 20:26 Basic Metabolic Panel Sent. tl4 20:26 Type And Screen Sent. tl4 20:27 Lab(s) recollected, by me, sent to lab. tl4 21:15 Head C Spine Mpr Wo Con In Process Unspecified. EDMS 21:15 Chest Abdomen Pelvis W Cont In Process Unspecified. EDMS 22:39 Urinalysis w/ reflexes Sent. tl4 22:39 Urine collected: clean catch specimen, clear. tl4 22:46 XRAY Forearm RIGHT In Process Unspecified. EDMS 23:09 IV discontinued, intact, bleeding controlled, No redness/swelling at site. Pressure tl4 dressing applied. 23:09 Sling applied to right arm. tl4 Administered Medications: 20:07 Drug: Methocarbamol IVPB 1 grams IVPB once over 1 hrs; (mix in NS 100 mL) Route: IVPB; tl4 Infused Over: 1 hrs; Site: right antecubital; Delivery: Primary tubing; 21:02 Follow up: Response: No adverse reaction; Pain is decreased; IV Status: Completed tl4 infusion; IV Intake: 100ml 20:10 Drug: HYDROmorphone IVP 1 mg IVP once Route: IVP; Infused Over: 2 mins; Site: right tl4 antecubital; 21:02 Follow up: Response: No adverse reaction; Pain is decreased tl4 22:05 Drug: HYDROmorphone IVP 1 mg IVP once Route: IVP; Infused Over: 2 mins; Site: right tl4 antecubital; 22:39 Follow up: Response: No adverse reaction; Pain is decreased tl4 Medication: 18:52 VIS not applicable for this client. tl4 Intake: 21:02 IV: 100ml; Total: 100ml. tl4 Outcome: 22:54 Discharge ordered by . cp 23:15 Discharged to home via wheelchair, with family, tl4 23:15 Condition: stable 23:15 Discharge instructions given to patient, Instructed on discharge instructions, follow up and referral plans. Demonstrated understanding of instructions, follow-up care, 23:25 Patient left the ED. tl4 Signatures: Dispatcher [employer] EDMS Raul Hanson PA PA cp [place], [place] mg5 Nela Santana [facility] Edd Camarillo RN RN tm6 Carlito García RN RN tl4 Corrections: (The following items were deleted from the chart) 17:55 17:51 Chief complaint: Patient states: fell around 1630, not sure what happened. I tm6 remember hitting my head, lost consciousness for a minute or two. My right hip hurts. I lose my balance often. My spine surgeon said I needed to come up here. tm6
[2023-12-31 23:34] VITALS: TEMP 97.8
[2023-12-31 23:54] VITALS: O2SAT 100
[2023-12-31 23:56] VITALS: BP 155/84
--- NOTE | 2024-01-01 00:06 | RAD REPORT ---
EXAM: Forearm Right CLINICAL INDICATION: 58-year-old female status post fall with pain. TECHNIQUE: 2 views right forearm. COMPARISON: None. FINDINGS: There is no fracture or dislocation. The joint spaces are preserved. No soft tissue abnorma lities are seen. IMPRESSION: No acute radiographic abnormality. Electronically signed by: Kassandra Daniels MD 12/31/2023 10:57 PM CDT RP Due to temporary technical issues with the PACS/SuddenValues reporting system, reports are being tim d by the in-house radiologist without review as a courtesy to ensure prompt reporting the interpreting radiologist is fully responsible for the content of the report. Transcribed Date/Time: 01/01/2024 12:06 AM
== END 2023-12-31 23:25 | disposition home or self-care (01) ==
LOC: ER 17:11
DX: M79.631 Pain in right forearm (principal); M54.9 Dorsalgia, unspecified; M54.2 Cervicalgia; W01.0XXA Fall on same level from slipping, tripping and stumbling without subsequent striking against object, initial encounter; I10 Essential (primary) hypertension; E11.9 Type 2 diabetes mellitus without complications; E78.00 Pure hypercholesterolemia, unspecified; J44.9 Chronic obstructive pulmonary disease, unspecified; G89.29 Other chronic pain; M06.9 Rheumatoid arthritis, unspecified; F17.210 Nicotine dependence, cigarettes, uncomplicated; Z79.899 Other long term (current) drug therapy
CPT/HCPCS: 96365; 85025; 81001; 80048; 36415; 86900; 86850; 86901; 85730; 70450; 72125; 71260; 74177; 73090; 96375; 99284; Q9967; J1170 ×2; J2800

== ENCOUNTER 2024-04-26 18:35 | Emergency (ER) | payer BC ==
--- NOTE | 2024-04-26 20:04 | RAD REPORT ---
EXAMINATION: XR Lumbar Spine 3 Views CLINICAL INDICATION: Female, 58 years old. [facility] MAIN Pain;Lower back pain Bed Name: 6 TECHNIQUE: AP, lateral, focused lateral lumbosacral views of the lumbar spine were obtained. COMPARISON: 05/19/2018 FINDINGS: For purposes of this dictation, it is assumed that there are 5 lumbar type vertebral bodies. ALIGNMENT: Mild levoconvex curvature centered at L3-4. BONES: Vertebral bodies are normal in height. No aggressive osseous lesions. Degenerative changes inv olving the endplates and facet articulations, progressive since the prior exam. DISCS: Asymmetric disc height loss on the right at L3-4, contributing to mild levoconvex curvature. IMPRESSION: No acute lumbar spine abnormality. Degenerative changes as above.
[2024-04-26] MEDS ORDERED: KETOROLAC 30 MG/ML INJ ONE (20:08)
[2024-04-26] MEDS ORDERED: HYDROCODONE/APAP 5/325 MG TAB ONE (20:09)
[2024-04-26] MEDS ORDERED: DIAZEPAM 5 MG TABLET ONE (20:09)
--- NOTE | 2024-04-26 21:26 | RAD REPORT ---
EXAM: CT C Spine Wo Con HISTORY: PAIN COMPARISON: None TECHNIQUE: Multiple contiguous axial images were obtained in a CT of the cervical spine without IV co ntrast. Sagittal and coronal reformats were performed. One or more of the following dose reduction techniques were used: Automated exposure control, adjustment of the mA and kV according to patient si ze, and iterative reconstruction. Unless otherwise specified, incidental findings do not require dedicated imaging follow-up. FINDINGS: Sequelae of anterior plating with interbody spacer at C4-5, in satisfactory alignment, new since the prior exam. The vertebral bodies and intervertebral discs demonstrate normal height and alignment without fractur e or subluxation. Mild scattered endplate and uncovertebral joint remodeling noted, contributing to mild degrees of bony neural foraminal narrowing on the right at C3-4 and C4-5 and on the left at C4-5 . No prevertebral soft tissue swelling is seen. The posterior facets are well aligned. Normal alignment of the skull base with the cervical spine is seen. Bilateral maxillary sinus mucus retention cysts. The lung apices are unremarkable. The cervical soft tissues are unremarkable. IMPRESSION: No evidence of acute osseous abnormality of the cervical spine. Postsurgical and mild degenerative ch anges as above.
--- NOTE | 2024-04-26 21:44 | EDPHYS ---
Physician Documentation [facility] Name: Lurdes Cordova Age: 58 yrs Sex: Female : 1965 Arrival Date: 04/26/2024 Time: 18:35 Bed 14 Private MD: ED Physician Michael Ott HPI: 04/26 18:59 This 58 yrs old Female presents to ER via Unassigned with complaints of Fall Injury - kb Post neck Sx. 18:59 Pt is a 58 year old female who presents for low back and neck pain after a fall. States kb she had a fusion on February 12 in her c-spine and has had fractures in lower back. States her dog knocked her down and she fell onto her back about 1 hour ago. Denies loc. . Historical: - Allergies: 19:01 No Known Allergies; cm10 - PMHx: 19:01 chronic back pain; COPD; Depression; Diabetes - IDDM; Hypercholesterolemia; cm10 Hypertension; Rheumatoid Arthritis; spinal stenosis; - PSHx: 19:01 section; Cholecystectomy; L arm; cm10 - Immunization history:: Adult Immunizations up to date. - Infectious Disease History:: Denies. - Social history:: Smoking status: unknown. ROS: 19:02 Constitutional: As per HPI kb Exam: 19:03 Constitutional: This is a well developed, well nourished patient who is awake, alert, kb and in no acute distress. Head/Face: Normocephalic, atraumatic. ENT: Moist Mucous membranes Cardiovascular: Regular rate Respiratory: Respirations even and unlabored. No increased work of breathing. Talking in full sentences Skin: Warm, dry with normal turgor. Normal color. MS/ Extremity: Pulses equal, no cyanosis. Neurovascular intact. Full, normal range of motion. Neuro: Awake and alert, GCS 15, oriented to person, place, time, and situation. 19:03 Neck: External neck: tenderness, that is moderate, of the left mid cervical area, left trapezius, lower cervical area and left posterior aspect of neck, C-spine: appears grossly normal, ROM/movement: is normal, 19:03 Back: vertebral tenderness, is appreciated at lumbar spine, Vital Signs: 18:58 BP 161 / 92; Pulse 95; Resp 15; Temp 97.1(TE); Pulse Ox 100% on R/A; Weight 90.72 kg; cm10 Height 5 ft. 5 in. ; Pain 10/10; 22:09 BP 182 / 91; Pulse 85; Resp 16; Pulse Ox 100% ; cp4 18:58 Body Mass Index 33.28 (90.72 kg, 165.1 cm) cm10 18:58 Pain Scale: Adult cm10 [place] Coma Score: 20:14 Eye Response: spontaneous(4). Motor Response: obeys commands(6). Verbal Response: dd2 oriented(5). Total: 15. MDM: 18:55 Medical Screening Exam initiated kb 21:42 Differential diagnosis: fracture, sprain, strain. Data reviewed: vital signs, nurses kb notes. Counseling: I had a detailed discussion with the patient and/or guardian regarding the historical points, exam findings, and any diagnostic results supporting the discharge/admit diagnosis, radiology results, the need for outpatient follow up, a family practitioner, to return to the emergency department if symptoms worsen or persist or if there are any questions or concerns that arise at home. 04/26 19:03 Order name: Lumbar Spine (3 Views) XRAY; Complete Time: 20:05 kb 04/26 19:03 Order name: CT C Spine; Complete Time: 21:37 kb Administered Medications: 20:14 Drug: HYDROcodone-acetaminophen PO 5 mg-325 mg 1 tabs PO once Route: PO; ha1 20:44 Follow up: Response: No adverse reaction dd2 20:14 Drug: Diazepam PO 5 mg PO once Route: PO; ha1 20:44 Follow up: Response: No adverse reaction dd2 20:14 Drug: Ketorolac IM 30 mg IM once Route: IM; Site: right deltoid; ha1 20:29 Follow up: Response: No adverse reaction dd2 21:58 Drug: morphine IM 4 mg IM once Route: IM; Site: left vastus lateralis; dd2 22:10 Follow up: Response: No adverse reaction cp4 Disposition Summary: 04/26/24 21:43 Discharge Ordered Notes: Location: Home kb Condition: Stable kb Diagnosis - Strain of muscle, fascia and tendon at neck level kb - Low back pain kb - Fall on same level, unspecified kb Followup: kb - With: Emergency Department - When: As needed - Reason: Worsening of condition Followup: kb - With: Private Physician - When: 2 - 3 days - Reason: Recheck today's complaints, Continuance of care, Re-evaluation by your physician Discharge Instructions: - Discharge Summary Sheet kb - Musculoskeletal Pain kb Forms: - Medication Reconciliation Form kb - Antibiotic Education kb - Prescription Opioid Use kb - Patient Portal Instructions kb - Leadership Thank You Letter kb Addendum: 04/30/2024 10:06 Co-signature as Attending Physician, Michael Ott MD I reviewed the patient's care r n provided by the Advanced Practice Provider and agree with the diagnosis and treatment plan. Signatures: Dispatcher [employer] EDAlthea Carreno, FIELD MECHANICAL METER TESTER-C FIELD MECHANICAL METER TESTER-Ckb Michael Ott MD MD rn Ayala, Heidy RN RN ha1 Barbie Joradn RN RN cm10 LEONA VARGAS RN RN dd2 Imelda Baron cp4 Corrections: (The following items were deleted from the chart) 04/26 19:03 19:03 C Spine Wo Con+CT.RAD.BRZ ordered. EDMT EDMT
--- NOTE | 2024-04-26 21:44 | ER ---
Nurse's Notes [facility] Name: Lurdes Cordova Age: 58 yrs Sex: Female : 1965 Arrival Date: 04/26/2024 Time: 18:35 Bed 14 Private MD: Diagnosis: Strain of muscle, fascia and tendon at neck level;Low back pain;Fall on same level, unspecified Presentation: 04/26 18:58 Chief complaint: Patient states: Walking home and pt's dog hit her in the middle of the cm10 back and she fell backwards. pt states that when she fell she twisted her neck. pt had neck surgery 02/13/24. Coronavirus screen: Client denies travel out of the [place] in the last 14 days. Ebola Screen: Patient denies travel to an Ebola-affected area in the 21 days before illness onset. Initial Sepsis Screen: Does the patient meet any 2 criteria? HR > 90 bpm. Does the patient have a suspected source of infection? No. Patient's initial sepsis screen is negative. Risk Assessment: Do you want to hurt yourself or someone else? Patient reports no desire to harm self or others. Onset of symptoms was April 26, 2024. 18:58 Method Of Arrival: Ambulatory 10 18:58 Acuity: HAWK 3 cm10 Triage Assessment: 19:01 General: Appears in no apparent distress. comfortable, Behavior is calm, cooperative. cm10 Neuro: No deficits noted. Level of Consciousness is awake, alert, obeys commands, Oriented to person, place, time, situation, Appropriate for age. Respiratory: No deficits noted. Airway is patent Respiratory effort is even, unlabored, Respiratory pattern is regular, symmetrical. Historical: - Allergies: 19:01 No Known Allergies; cm10 - PMHx: 19:01 chronic back pain; COPD; Depression; Diabetes - IDDM; Hypercholesterolemia; cm10 Hypertension; Rheumatoid Arthritis; spinal stenosis; - PSHx: 19:01 section; Cholecystectomy; L arm; cm10 - Immunization history:: Adult Immunizations up to date. - Infectious Disease History:: Denies. - Social history:: Smoking status: unknown. Screenin:23 Abuse screen: Denies threats or abuse. Denies injuries from another. Nutritional ha1 screening: No deficits noted. Tuberculosis screening: No symptoms or risk factors identified. 21:23 [facility] ED Fall Risk Assessment (Adult) History of falling in the last 3 months, ha1 including since admission Yes- single mechanical fall (1 pt) Confusion or Disorientation No (0 pts) Intoxicated or Sedated No (0 pts) Impaired Gait Yes (1 pt) Mobility Assist Device Used No (0 pt) Altered Elimination No (0 pt) Score/Fall Risk Level 3 or more points = High Risk Oriented to surroundings, Maintained a safe environment, Educated pt \T\ family on fall prevention, incl call for assistance when getting out of bed, Hourly rounding (assess needs \T\ fall precautionary measures) done. Assessment: 20:14 Pain: Complains of pain in lumbar spine and left posterior aspect of neck and lower dd2 cervical area and left mid cervical area Pain does not radiate. Pain currently is 8 out of 10 on a pain scale. Neuro: Level of Consciousness is awake, alert, obeys commands, Oriented to person, place, time, situation, Appropriate for age. Cardiovascular: No deficits noted. Respiratory: No deficits noted. Airway is patent Respiratory effort is even, unlabored, Respiratory pattern is regular, symmetrical. GI: No deficits noted. No signs and/or symptoms were reported involving the gastrointestinal system. : No deficits noted. No signs and/or symptoms were reported regarding the genitourinary system. EENT: No deficits noted. No signs and/or symptoms were reported regarding the EENT system. Derm: No deficits noted. No signs and/or symptoms reported regarding the dermatologic system. Musculoskeletal: Circulation, motion, and sensation intact. Range of motion: intact in all extremities, Reports pain in lumbar spine and left posterior aspect of neck and lower cervical area and left mid cervical area. Vital Signs: 18:58 BP 161 / 92; Pulse 95; Resp 15; Temp 97.1(TE); Pulse Ox 100% on R/A; Weight 90.72 kg; cm10 Height 5 ft. 5 in. ; Pain 10/10; 22:09 BP 182 / 91; Pulse 85; Resp 16; Pulse Ox 100% ; cp4 18:58 Body Mass Index 33.28 (90.72 kg, 165.1 cm) cm10 18:58 Pain Scale: Adult cm10 [place] Coma Score: 20:14 Eye Response: spontaneous(4). Motor Response: obeys commands(6). Verbal Response: dd2 oriented(5). Total: 15. ED Course: 18:38 Patient arrived in ED. ra3 18:53 Althea Mo F[facility]-C [facility] kb 18:53 Michael Ott MD is Attending Physician. kb 19:01 Triage completed. cm10 19:01 Arm band placed on right wrist. Patient placed in waiting room. cm10 19:25 Patient has correct armband on for positive identification. Bed in low position. Call ha1 light in reach. Side rails up X 1. Adult w/ patient. 19:25 Provided Education on: plan of care . ha1 19:30 Lumbar Spine (3 Views) XRAY In Process Unspecified. EDMS 20:03 LEONA VARGAS, RN is Primary Nurse. dd2 20:14 Client placed on continuous cardiac and pulse oximetry monitoring. NIBP monitoring dd2 applied. Door closed. Noise minimized. Pillow given. Verbal reassurance given. 20:14 No provider procedures requiring assistance completed. Patient did not have IV access dd2 during this emergency room visit. Patient maintains SpO2 saturation greater than 95% on room air. 20:40 CT C Spine In Process Unspecified. EDMS Administered Medications: 20:14 Drug: HYDROcodone-acetaminophen PO 5 mg-325 mg 1 tabs PO once Route: PO; ha1 20:44 Follow up: Response: No adverse reaction dd2 20:14 Drug: Diazepam PO 5 mg PO once Route: PO; ha1 20:44 Follow up: Response: No adverse reaction dd2 20:14 Drug: Ketorolac IM 30 mg IM once Route: IM; Site: right deltoid; ha1 20:29 Follow up: Response: No adverse reaction dd2 21:58 Drug: morphine IM 4 mg IM once Route: IM; Site: left vastus lateralis; dd2 22:10 Follow up: Response: No adverse reaction cp4 Medication: 21:24 VIS not applicable for this client. ha1 Outcome: 21:43 Discharge ordered by . kb 22:10 Discharged to home ambulatory, cp4 22:10 Condition: stable 22:10 Discharge instructions given to patient, family, Instructed on discharge instructions, follow up and referral plans. Demonstrated understanding of instructions, follow-up care, 22:11 Patient left the ED. cp4 Signatures: Dispatcher [employer] EDMS Althea Mo FNP-C FNP-Carina Shi RN RN ha1 Barbie Jordan RN RN cm10 Imelda Baron cp4 Lena Colindres ra3 LEONA VARGAS RN RN dd2 Corrections: (The following items were deleted from the chart) 19:02 18:58 BP 161 / 92; Pulse 95bpm; Resp 15bpm; Pulse Ox 100% RA; Temp 97.1F Temporal; cm10 cm10
[2024-04-26] MEDS ORDERED: MORPHINE 4 MG/ML SYR ONE (21:52)
[2024-04-27 17:10] VITALS: BP 182/91; TEMP 97.1; O2SAT 100
== END 2024-04-26 22:11 | disposition home or self-care (01) ==
LOC: ER 18:35
DX: S16.1XXA Strain of muscle, fascia and tendon at neck level, initial encounter (principal); M54.50 Low back pain, unspecified; W18.30XA Fall on same level, unspecified, initial encounter
CPT/HCPCS: 72100; 72125; 96372; 99284

== ENCOUNTER 2024-06-20 19:41 | Emergency (ER) | payer BC ==
--- OUTSIDE RECORDS SUMMARY | 2024-06-20 19:44 | XMS REPORT | Clinical Summary ---
Author Name Unknown Organization [facility] Address [address] [place] [address] Care Team Providers Care Fiscal Agent Name Role Phone Marbella Leon NICOLA Unavailable [phone] Robert West MD Primary Care Provider [phone] Thony Kim MD Unavailable [phone] Noel Diaz MD Unavailable [phone] Allergies No known active allergies Medications * This document contains information received from the source organization and may not represent a complete record from that organization. acetaminophen- codeine (TYLENOL #3) 300 mg-30 mg tablet 1-2 tabs p.o. q 8 hours PRN pain 10/19/19 22 Active ALPRAZolam (XANAX) 0.5 mg tablet Take 1 tablet every day by oral route as needed. 05/10/19 25 Active amLODIPine (NORVASC) 5 mg tablet TAKE 1 TABLET BY MOUTH ONCE DAILY 10/30/19 22 Active atorvastatin (LIPITOR) 20 mg tablet TAKE 1 TABLET BY MOUTH AT NIGHT 10/30/19 22 Active Dexcom G6 Radiology Resident kit USE DIRECTED TO CHECK SUGARS 09/09/19 24 Active carisoprodol (SOMA) 350 mg tablet Take 1 tablet by mouth three times daily as needed 04/12/20 24 Active cetirizine (ZyrTEC) 10 mg tablet Take 1 tablet (10 mg) by mouth. Active ergocalciferol (DRISDOL) 50,000 units capsule Take 1 capsule every week by oral route. Active fluticasone-um eclidin-vilant er 100-62.5-25 mcg dsdv INHALE 1 PUFF BY MOUTH ONCE DAILY Active HYDROcodone-ac etaminophen (NORCO) 10 mg-325 mg per tablet 02/13/20 24 Active insulin aspart U-100 (NovoLOG) 100 unit/mL (3 mL) insulin pen Use as per sliding scale three times a day with meals 0-150: 0 units 150-200: 2 units 200-250: 4 units 250-300: 6 units 04/30/19 23 Active insulin detemir U-100 (Levemir FlexPen) 100 unit/mL (3 mL) insulin pen Inject 20 Units under the skin. 04/30/19 23 Active lidocain-me.sa tqyyc-notw-ioc th 08-01-0.025-5 % ptmd APPLY 1 PATCH TOPICALLY ONCE DAILY (MAY WEAR UP TO 12 HOURS) Active lisinopril (PRINIVIL,ZEST RIL) 40 mg tablet Take 1 tablet every day by oral route. 04/12/20 24 Active LORazepam (ATIVAN) 0.5 mg tablet Take 1 tablet (0.5 mg) by mouth. 09/27/19 23 Active methocarbamol (ROBAXIN) 500 mg tablet TAKE 1 TABLET BY MOUTH EVERY 6 HOURS FOR 5 DAYS NEEDED FOR SPASM 11/05/19 24 Active Trulance 3 mg tab Take 1 tablet every day by oral route. Active promethazine (Phenergan) 50 mg/mL injection Inject 50 mg every day by intramuscular route for 1 day. 04/20/19 15 Active Ozempic 1 mg/dose (4 mg/3 mL) pnij INJECT 1 MG SUBCUTANEOUSLY ONCE A WEEK 09/27/19 24 Active varenicline tartrate (CHANTIX) 1 mg tablet TAKE 1 TABLET BY MOUTH TWICE DAILY FOR 30 DAYS Active naloxone (NARCAN) 4 mg/actuation nasal spray ADMINISTER A SINGLE SPRAY INTRANASALLY INTO ONE NOSTRIL OF VICTIM SUSPECTED OF EXPERIENCING AN OPIOID-RELATED OVERDOSE. CALL 911. REPEAT WITH SECOND DEVICE INTO OTHER NOSTRIL AFTER 2-3 MINUTES IF NO OR MINIMAL RESPONSE. 025 Discontin ued(Other /Not Applicabl e) Encounters * This document contains information received from the source organization and may not represent a complete record from that organization. Date Type Department Care Team Description 06/17/2024 Orders Only [facility] [address] [place] [address], [address] [facility] [place] [address] Milvia Quintana APRN Mass of soft tissue of right upper limb (Primary Dx) 05/26/2024 Travel 05/24/2024 Telephone [facility] [address] [place] [address], [address] [place] [address] [place] [address] Silvana Lopez PA 05/24/2024 Orders Only Orthopaedic [address], [address] [place] [address] [place] [address] Silvana Lopez PA Mass of soft tissue of right upper limb (Primary Dx) 05/19/2024 10:30 AM WAREHOUSE TECHNICIAN Ancillary Procedure General Ultrasound [facility], 5th [place] [address] Robert West MD Mass of soft tissue of right upper limb 05/19/2024 Travel 05/14/2024 1:10 PM WAREHOUSE TECHNICIAN Ancillary Procedure CT Imaging [facility], 7th [facility] [place] [address] Silvana Lopez PA Mass of soft tissue 05/14/2024 12:45 PM WAREHOUSE TECHNICIAN Ancillary Procedure X-Ray Outpatient Center [facility], [facility] [place] [address] Silvana Lopez PA Mass of soft tissue 05/14/2024 12:30 PM WAREHOUSE TECHNICIAN Ancillary Procedure X-Ray Outpatient Center [address] [place] [address], [address] [place], [place] [address] [address] Silvana Lopez PA Mass of soft tissue 05/14/2024 10:40 AM WAREHOUSE TECHNICIAN Office Visit [facility] [address] [place] [address], [address] [facility] [place] [place] [address] Robert West MD Mass of soft tissue of right upper limb (Primary Dx) 05/14/2024 9:30 AM WAREHOUSE TECHNICIAN NPR [facility] PATIENT ACCESS 05/14/2024 Orders Only [facility] [address] [place] [address] Main Bldg, 9th [place] [address] Silvana Lopez PA Mass of soft tissue (Primary Dx) 05/14/2024 Travel 05/11/2024 1:30 AM WAREHOUSE TECHNICIAN Ancillary Procedure [facility] [address] [place] [address] Cancer 05/11/2024 Orders Only Orthopaedic [address] Main Bldg, 9th [place] [address] Silvana Lopez PA Mass of soft tissue (Primary Dx) 05/07/2024 Telephone [facility] PATIENT ACCESS Yareli Guo RN after 06/21/2023 Surgical History Surgery Date Site/Laterality Comments BACK SURGERY Medical History Medical History Date Comments Hypertension 4years Difficulty talking Swallowing problem Chronic bronchitis Arthritis Type 2 diabetes mellitus Anxiety Family History Medical History Relation Name Comments Skin cancer Father Donovan stager -Unknown cancer Maternal Grandmother Denise deleon Uterine cancer Mother Michelle mckeon stager Lung cancer Paternal Aunt Rocio stager Prostate cancer Paternal Grandfather Donovan stager Relation Name Status Comments Father Donovan stager Maternal Grandmother Denise deleon Mother Michelle mckeon stager Paternal Aunt Rocio stager Paternal Grandfather Donovan stager Social History Tobacco Use Types Packs/Day Years Used Date Smoking Tobacco: Every Day Cigarettes 0.5 15 Tobacco Cessation:Ready to Q uit: Yes; Counseling Given: Not Answered Alcohol Use Standard Drinks/Week Comments Not Currently 0 (1 standard drink = 0.6 oz pur e alcohol) Comments Unknown Sex and Gender Information Value Date Recorded Sex Assigned at Not on file Legal Sex Female 3:02 PM WAREHOUSE TECHNICIAN Gender Identity Not on file Sexual Orientation Not on file Obstetrics History Last Filed Vital Signs Vital Sign Reading Time Taken Comments Blood Pressure 110/63 05/19/2024 11:33 AM WAREHOUSE TECHNICIAN Pulse 73 05/19/2024 11:33 AM WAREHOUSE TECHNICIAN Temperature 36.5 C (97.7 F) 05/14/2024 10:[address] Respiratory Rate 18 05/14/2024 10:42 AM WAREHOUSE TECHNICIAN Oxygen Saturation 98% 05/19/2024 11:33 AM WAREHOUSE TECHNICIAN Inhaled Oxygen Concentration - - Weight 93.5 kg (206 lb 2.1 oz) 05/14/2024 10:41 AM WAREHOUSE TECHNICIAN Height 160 cm (5' 2.99") 05/14/2024 10:41 AM WAREHOUSE TECHNICIAN Body Mass Index 36.52 05/14/2024 10:41 AM WAREHOUSE TECHNICIAN Plan of Treatment Upcoming Encounters Date Type Department Care Team (Late st Contact Info) Description 07/15/2024 10:15 AM CDT Ancillary Procedure [facility] [address] [facility] 2nd [place] [address] Milvia Quintana APRN [address] [place], [place] [id number] [email or web address] 07/16/2024 11:00 AM CDT Follow-Up [facility] [address] [place] [address], 9th Floor Ele[address] [place], [place] [id number] Robert West MD [address] [place], [place] [id number] [email or web address] Maintenance Due Date Last Done Comments Pneumococcal Vaccine: 50+ Ye ars (1 of 2 - PCV) 1984 COVID-19 Vaccine (3 - season) 2023, 03/06/2021 Influenza Vaccine (#1) 2023 Procedures Procedure Name Priority Date/Time Associated Diagnosis Comments .CBC Routine 05/26/2024 12:41 PM WAREHOUSE TECHNICIAN Mass of soft tissue of right upper limb SPEP TOTAL PROTEIN Routine 05/26/2024 12 :41 PM WAREHOUSE TECHNICIAN Mass of soft tissue of right upper limb PROTEIN ELECTROPHORESIS Routine 05/26/19 12:41 PM WAREHOUSE TECHNICIAN Mass of soft tissue of right upper limb THYROID STIMULATING HORMONE Routine 05/26/2024 12:41 PM WAREHOUSE TECHNICIAN Mass of soft tissue of right upper limb SEDIMENTATION RATE NON-AUTOMATED Routine 05/26/2024 12:41 PM WAREHOUSE TECHNICIAN Mass of soft tissue of right upper limb PROTHROMBIN TIME Routine 05/26/2024 12:4 1 PM WAREHOUSE TECHNICIAN Mass of soft tissue of right upper limb FREE THYROXINE Routine 05/26/2024 12:41 PM WAREHOUSE TECHNICIAN Mass of soft tissue of right upper limb ELECTROLYTE PANEL Routine 05/26/2024 12: 41 PM WAREHOUSE TECHNICIAN Mass of soft tissue of right upper limb BLOOD UREA NITROGEN Routine 05/26/2024 1 2:41 PM WAREHOUSE TECHNICIAN Mass of soft tissue of right upper limb CREATININE Routine 05/26/2024 12:41 PM WAREHOUSE TECHNICIAN Mass of soft tissue of right upper limb C REACTIVE PROTEIN Routine 05/26/2024 12 :41 PM WAREHOUSE TECHNICIAN Mass of soft tissue of right upper limb COMPLETE BLOOD COUNT W/ DIFFERENTIAL Routine 05/26/2024 12:41 PM WAREHOUSE TECHNICIAN Mass of soft tissue of right upper limb PROTEIN ELECTROPHORESIS Routine 05/26/19 25 12:41 PM WAREHOUSE TECHNICIAN Mass of soft tissue of right upper limb US FINE NEEDLE ASPIRATION Routine 05/19/2024 11:48 AM WAREHOUSE TECHNICIAN Mass of soft tissue of right upper limb US SOFT TISSUE CORE NEEDLE BIOPSY Routine 05/19/2024 11:48 AM WAREHOUSE TECHNICIAN Mass of soft tissue of right upper limb US UPPER EXTREMITY LIMITED RIGHT Routine 05/19/2024 11:48 AM WAREHOUSE TECHNICIAN Mass of soft tissue of right upper limb PATHOLOGY BIOPSY INTERPRETATION Routine 05/19/2024 10:41 AM WAREHOUSE TECHNICIAN Mass of soft tissue of right upper limb CYTOLOGY IMAGE-GUIDED FNA INTERPRETATION Routine 05/19/2024 10:39 AM WAREHOUSE TECHNICIAN Mass of soft tissue of right upper limb CT CHEST ABDOMEN PELVIS W CONTRAST Routine 05/14/2024 2:22 PM WAREHOUSE TECHNICIAN Mass of soft tissue POC CREATININE Routine 05/14/2024 1:14 PM WAREHOUSE TECHNICIAN XR SHOULDER 2+ VW RIGHT Routine 05/14/19 10:23 AM WAREHOUSE TECHNICIAN Mass of soft tissue XR CHEST 2 VW Routine 05/14/2024 10:23 AM WAREHOUSE TECHNICIAN Mass of soft tissue OSI MRI UPPER EXT Routine 05/07/2024 1:5 9 AM WAREHOUSE TECHNICIAN Cancer after 06/21/2023 Results * SPEP Total Protein (05/26/2024 12:41 PM WAREHOUSE TECHNICIAN) Pathologist [facility] SPEP Total Protein 6.5 6.4 - 8.3 gm/dL 05/26/2024 1:22 PM [facility] Blood Peripheral blood specimen / Unknown Venipuncture / Unknown 05/26/2024 12:41 PM WAREHOUSE TECHNICIAN 05/26/2024 12:42 PM WAREHOUSE TECHNICIAN Narrative [facility]PLER - 05/26/2024 1:22 PM WAREHOUSE TECHNICIAN Reference range established based on adult population us Silvana ELLINGTON LAB BLOOD ORDERABLES Fin al Result Performing Organization Address City/State/[facility] Co de Phone Number [facility] [address] [facility], [facility] [address] [place] [address] * Serum Protein Electrophoresis (05/26/2024 12:41 PM WAREHOUSE TECHNICIAN) Albumin 3.8 3.6 - 5.4 gm/dL 05/27/2024 12:00 PM WAREHOUSE TECHNICIAN [facility] Alpha 1 Globulin 0.3 0.2 - 0.4 gm/dL 05/27/2024 12:00 PM WAREHOUSE TECHNICIAN [facility] Alpha 2 Globulin 0.8 0.5 - 1.0 gm/dL 05/27/2024 12:00 PM WAREHOUSE TECHNICIAN [facility] Beta Globulin 0.8 0.5 - 1.1 gm/dL 05/27/2024 12:00 PM WAREHOUSE TECHNICIAN [facility] Gamma Globulin 0.8 0.7 - 1.6 gm/dL 05/27/2024 12:00 PM WAREHOUSE TECHNICIAN [facility] SPE Path Interp The serum protein electrophoretic pattern shows no definitive evidence of a monoclonal protein peak. If a paraproteinemia is suspected clinically, however, serum protein PATRICE studies, serum immunoglobulin quantitation and urine Bence-Singh protein studies are recommended. 05/27/2024 12:00 PM WAREHOUSE TECHNICIAN [facility] Pathologist Signature . 05/27/2024 12:00 PM [facility] SPEP Total Protein 6.5 6.4 - 8.3 gm/dL 05/27/2024 12:00 PM [facility] Blood Peripheral blood specimen / Unknown Venipuncture / Unknown 05/26/2024 12:41 PM WAREHOUSE TECHNICIAN 05/26/2024 12:42 PM WAREHOUSE TECHNICIAN us Silvana ELLINGTON LAB BLOOD ORDERABLES Fin al Result [facility] Unless otherwise noted, all lab tests performed by: Division of Pathology and Laboratory Medicine [address] [place] [id number] * (ABNORMAL) .CBC (05/26/2024 12:41 PM WAREHOUSE TECHNICIAN) White Blood Cell 8.5 4.1 - 10.5 K/uL 05/26/2024 12:46 PM [facility] Red Blood Cell 5.31 3.99 - 5.46 M/uL 05/26/2024 12:46 PM [facility] Hemoglobin 14.6 12.2 - 15.3 g/dL 05/26/2024 12:46 PM [facility] Hematocrit 47.4(H) 36.4 - 46.8 % 05/26/2024 12:46 PM [facility] Mean Cell Volume 89 82 - 99 fL 05/26/2024 12:46 PM [facility] Mean Cell Hemoglobin 27.5 26.6 - 33.2 pg 05/26/2024 12:46 PM [facility] Mean Cell Hemoglobin Concentration 30.8(L) 31.1 - 35.2 g/dL 05/26/2024 12:46 PM [facility] RDW-SD 42.6 37.5 - 49.7 fL 05/26/2024 12:46 PM [facility] Red Cell Diameter Width 12.9 11.6 - 15.5 % 05/26/2024 12:46 PM [facility] Platelet 251 160 - 397 K/uL 05/26/2024 12:46 PM [facility] Mean Platelet Volume 10.2 9.1 - 12.6 fL 05/26/2024 12:46 PM [facility] Neutrophil % 62.2 43.2 - 72.7 % 05/26/2024 12:46 PM [facility] Lymphocyte % 27.2 16.8 - 46.2 % 05/26/2024 12:46 PM [facility] Monocyte % 6.6 5.1 - 12.5 % 05/26/2024 12:46 PM [facility] Eosinophil % 3.4 0.4 - 6.3 % 05/26/2024 12:46 PM [facility] Basophil % 0.5 0.2 - 1.4 % 05/26/2024 12:46 PM [facility] IGRE % 0.1 0.1 - 1.5 % 05/26/2024 12:46 PM [facility] Comment:The IGRE% includes M etamyelocytes, Myelocytes and Promyelocytes. Neutrophil Abs 5.32 1.95 - 7.25 K/uL 05/26/2024 12:46 PM [facility] Lymphocyte Abs 2.32 1.01 - 3.24 K/uL 05/26/2024 12:46 PM [facility] Monocyte Abs 0.56 0.24 - 0.85 K/uL 05/26/2024 12:46 PM [facility] Eosinophil Abs 0.29 0.02 - 0.50 K/uL 05/26/2024 12:46 PM [facility] Basophil Abs 0.04 0.02 - 0.09 K/uL 05/26/2024 12:46 PM [facility] IG Abs 0.01 0.01 - 0.12 K/uL 05/26/2024 12:46 PM [facility] Blood Peripheral blood specimen / Unknown Venipuncture / Unknown 05/26/2024 12:41 PM WAREHOUSE TECHNICIAN 05/26/2024 12:42 PM WAREHOUSE TECHNICIAN us Silvana ELLINGTON LAB BLOOD ORDERABLES Fin al Result [address], [address] [address] * Sed Rate (05/26/2024 12:41 PM WAREHOUSE TECHNICIAN) Sedimentation Rate 1 <=30 mm/hr 2024 2:01 PM [facility] Blood Peripheral blood specimen / Unknown Venipuncture / Unknown 05/26/2024 12:41 PM WAREHOUSE TECHNICIAN 05/26/2024 12:42 PM WAREHOUSE TECHNICIAN us Silvana ELLINGTON LAB BLOOD ORDERABLES Fin al Result [address] [address] * Prothrombin Time with INR (05/26/2024 12:41 PM WAREHOUSE TECHNICIAN) Prothrombin Time 13.2 12.2 - 14.4 second(s) 05/26/2024 1:07 PM [facility] International Normalization Ratio 0.97 0.91 - 1.10 05/26/2024 1:07 PM [facility] Blood Peripheral blood specimen / Unknown Venipuncture / Unknown 05/26/2024 12:41 PM WAREHOUSE TECHNICIAN 05/26/2024 12:42 PM WAREHOUSE TECHNICIAN us Silvana ELLINGTON LAB BLOOD ORDERABLES Fin al Result [address], [address] [address] * CRP (05/26/2024 12:41 PM WAREHOUSE TECHNICIAN) [facility] CRP (C Reactive Protein) 1.52 mg/L 05/26/2024 1:18 PM [facility] Blood Peripheral blood specimen / Unknown Venipuncture / Unknown 05/26/2024 12:41 PM WAREHOUSE TECHNICIAN 05/26/2024 12:42 PM WAREHOUSE TECHNICIAN [facility] - 05/26/2024 1:18 PM WAREHOUSE TECHNICIAN Adult Reference ranges for HS CRP assay are as follows: Reference ranges when used to assess cardiac risk: <1.00 mg/L Low cardiovascular risk 1.00-3.00 mg/L Average cardiovascular risk >3.00 mg/L High cardiovascular risk Reference ranges when used to assess inflammatory responses: > 10.00 mg/L Silvana ELLINGTON LAB BLOOD ORDERABLES Fin al Result [address], [address] [address] * BUN (05/26/2024 12:41 PM WAREHOUSE TECHNICIAN) [facility] BUN 14 6 - 23 mg/dL 05/26/2024 1 :05 PM [facility] Blood Peripheral blood specimen / Unknown Venipuncture / Unknown 05/26/2024 12:41 PM WAREHOUSE TECHNICIAN 05/26/2024 12:42 PM WAREHOUSE TECHNICIAN Silvana ELLINGTON LAB BLOOD ORDERABLES Fin al Result [address] [address] * TSH (05/26/2024 12:41 PM WAREHOUSE TECHNICIAN) [facility] Thyroid Stimulating Hormone 1.56 0.27 - 4.20 mcIU/mL 05/26/2024 1:46 PM [facility] Blood Peripheral blood specimen / Unknown Venipuncture / Unknown 05/26/2024 12:41 PM WAREHOUSE TECHNICIAN 05/26/2024 12:42 PM WAREHOUSE TECHNICIAN us Silvana ELLINGTON LAB BLOOD ORDERABLES Fin al Result [place] [address] [place] [address] * Free T4 (05/26/2024 12:41 PM WAREHOUSE TECHNICIAN) T4 (Thyroxine) Free 1.11 0.92 - 1.68 ng/dL 05/26/2024 1:46 PM [facility] Blood Peripheral blood specimen / Unknown Venipuncture / Unknown 05/26/2024 12:41 PM WAREHOUSE TECHNICIAN 05/26/2024 12:42 PM WAREHOUSE TECHNICIAN us Silvana ELLINGTON LAB BLOOD ORDERABLES Fin al Result [place] [address] [place] [address] * Creatinine (05/26/2024 12:41 PM WAREHOUSE TECHNICIAN) Creatinine 0.74 0.51 - 0.95 mg/dL 05/26/2024 1:05 PM [facility] eGFR 94 >=60 mL/min/1.7 3 sq. m 05/26/2024 1:05 PM [facility] Comment: The eGFRcr is calculated with the 2020 CKD-EPI creatinine equation using creatinine, patient's age, and sex for adults 18 years of age and older. Other factors, especially muscle mass, may affect accuracy and need to be considered. According to the Kidney Disease: Improving Global Outcomes (KDIGO) CKD Work Group 2012 Clinical Practice Guideline, chronic kidney disease (CKD) is defined as the abnormalities of kidney structure or function, present for more than 3 months, with implications for health. CKD should be classified by cause, GFR category, and albuminuria category. KDIGO guidelines provide the following GFR categories. Stage / Description / GFR mL/min/1.73 m2: G1* / Normal or high / >= 90 G2* / Mildly decreased / 60-89 G3a / Mildly to moderately decreased / 45-59 G3b / Moderately to severely decreased / 30-44 G4 / Severely decreased / 15-29 G5 / Kidney failure / <15 *In the absence of evidence of kidney damage, neither G1 nor G2 fulfill criteria for CKD. Blood Peripheral blood specimen / Unknown Venipuncture / Unknown 05/26/2024 12:41 PM WAREHOUSE TECHNICIAN 05/26/2024 12:42 PM WAREHOUSE TECHNICIAN us Silvana ELLINGTON LAB BLOOD ORDERABLES Fin al Result [address] [address] * Electrolyte Panel (05/26/2024 12:41 PM WAREHOUSE TECHNICIAN) Pathologist [facility] Sodium Level 143 136 - 145 mmol/L 05/26/2024 1:05 PM [facility] Potassium Level 3.9 3.4 - 4.5 mmol/L 05/26/2024 1:05 PM [facility] Chloride 105 98 - 107 mmol/L 05/26/2024 1:05 PM [facility] CO2 27 22 - 29 mmol/L 05/26/2024 1:05 PM [facility] Anion Gap 11 4 - 14 mmol/L 05/26/2024 1:05 PM [facility] Blood Peripheral blood specimen / Unknown Venipuncture / Unknown 05/26/2024 12:41 PM WAREHOUSE TECHNICIAN 05/26/2024 12:42 PM WAREHOUSE TECHNICIAN Silvana ELLINGTON LAB BLOOD ORDERABLES Fin al Result [address] [address] * US Fine Needle Aspiration (05/19/2024 11:48 AM WAREHOUSE TECHNICIAN) Anatomical Region Laterality Modality Ultrasound 05/19/2024 11:5 0 AM WAREHOUSE TECHNICIAN Impressions 05/19/2024 11:58 AM WAREHOUSE TECHNICIAN 1. Right anterior shoulder subcutaneous mass. 2. Percutaneous Ultrasound-Guided FNA and core Biopsy of the right anterior shoulder mass. I personally reviewed these image(s) along with the resident's/fellow's interpretations, certify that if a procedure was performed I was physically present, and agree with the final report. Narrative 05/19/2024 11:58 AM WAREHOUSE TECHNICIAN FULL RESULT: Examination: Percutaneous image guided biopsy, US Extremity Limited, 05/19/2024 11:48 AM Clinical History: Right shoulder mass. Indication: Mass of the anterior shoulder from other Imaging Comparison: MRI UPPER EXT 05/07/2024. Technique: Real-time cabrera scale and color Doppler evaluation of the right shoulder was performed. Subsequently, an ultrasound-guided biopsy was performed, as described in detail below. Findings: Ultrasound evaluation a heterogeneous masslike lesion in the subcutaneous tissues of the anterior aspect of the right shoulder measures 11.9 x 6.0 x 1.9 cm with minimal internal vascularity. The procedure(s) and associated risks, benefits, and alternatives were explained in detail to the patient, who agreed to proceed and signed an informed consent form. All questions were answered. A timeout was performed verifying the correct procedure, correct name and correct site. The skin was prepped in the usual sterile fashion with alcohol and/ or Betadine. Lidocaine 1 percent was administered for local anesthesia. Under direct sonographic guidance, the FNA was performed using 21- gauge needles and 3 passes were made. Subsequently, under direct sonographic guidance, core biopsy was performed using a18 -gauge Temno needle and 3 passes were made. Preprocedure Diagnosis: Right shoulder mass. Postprocedure Diagnosis: FNA and core biopsy of the right anterior shoulder mass without complication. Final pathologic evaluation is pending. Preliminary cytology results were negative for malignancy and final results are pending. Estimated Blood Loss: None. Immediate Complications: There were no immediate complications, and the patient was discharged in good condition. Procedure Note Analia Leblanc MD - 05/19/2024 FULL RESULT: Examination: Percutaneous image guided biopsy, US Extremity Limited,05/19/2024 11:48 AM Clinical History: Right shoulder mass. Indication: Mass of the anterior shoulder from other Imaging Comparison: MRI UPPER EXT 05/07/2024. Technique: Real-time cabrera scale and color Doppler evaluation of the rightshoulder was performed. Subsequently, an ultrasound-guided biopsy wasperformed, as described in detail below. Findings: Ultrasound evaluation a heterogeneous masslike lesion in the subcutaneoustissues of the anterior aspect of the right shoulder measures 11.9 x 6.0 x1.9 cm with minimal internal vascularity. The procedure(s) and associated risks, benefits, and alternatives wereexplained in detail to the patient, who agreed to proceed and signed aninformed consent form. All questions were answered. A timeout wasperformed verifying the correct procedure, correct name and correct site.The skin was prepped in the usual sterile fashion with alcohol and/ orBetadine. Lidocaine 1 percent was administered for local anesthesia.Under direct sonographic guidance, the FNA was performed using 21-gaugeneedles and 3 passes were made. Subsequently, under direct sonographicguidance, core biopsy was performed using a18 -gauge Temno needle and 3passes were made. Preprocedure Diagnosis: Right shoulder mass. Postprocedure Diagnosis: FNA and core biopsy of the right anteriorshoulder mass without complication. Final pathologic evaluation ispending. Preliminary cytology results were negative for malignancy and finalresults are pending. Estimated Blood Loss: None. Immediate Complications: There were no immediate complications, and thepatient was discharged in good condition. IMPRESSION: 1. Right anterior shoulder subcutaneous mass. 2. Percutaneous Ultrasound-Guided FNA and core Biopsy of the rightanterior shoulder mass. I personally reviewed these image(s) along with the resident's/fellow'sinterpretations, certify that if a procedure was performed I wasphysically present, and agree with the final report. us Robert West MD IMG US ORDERABLES Final Result * US Upper Extremity Limited Right (05/19/2024 11:48 AM WAREHOUSE TECHNICIAN) Anatomical Region Laterality Modality Arm, Extremity Right Ultrasound 05/19/2024 11:5 0 AM WAREHOUSE TECHNICIAN Impressions 05/19/2024 11:58 AM WAREHOUSE TECHNICIAN 1. Right anterior shoulder subcutaneous mass. 2. Percutaneous Ultrasound-Guided FNA and core Biopsy of the right anterior shoulder mass. I personally reviewed these image(s) along with the resident's/fellow's interpretations, certify that if a procedure was performed I was physically present, and agree with the final report. Narrative 05/19/2024 11:58 AM WAREHOUSE TECHNICIAN FULL RESULT: Examination: Percutaneous image guided biopsy, US Extremity Limited, 05/19/2024 11:48 AM Clinical History: Right shoulder mass. Indication: Mass of the anterior shoulder from other Imaging Comparison: MRI UPPER EXT 05/07/2024. Technique: Real-time cabrera scale and color Doppler evaluation of the right shoulder was performed. Subsequently, an ultrasound-guided biopsy was performed, as described in detail below. Findings: Ultrasound evaluation a heterogeneous masslike lesion in the subcutaneous tissues of the anterior aspect of the right shoulder measures 11.9 x 6.0 x 1.9 cm with minimal internal vascularity. The procedure(s) and associated risks, benefits, and alternatives were explained in detail to the patient, who agreed to proceed and signed an informed consent form. All questions were answered. A timeout was performed verifying the correct procedure, correct name and correct site. The skin was prepped in the usual sterile fashion with alcohol and/ or Betadine. Lidocaine 1 percent was administered for local anesthesia. Under direct sonographic guidance, the FNA was performed using 21- gauge needles and 3 passes were made. Subsequently, under direct sonographic guidance, core biopsy was performed using a18 -gauge Temno needle and 3 passes were made. Preprocedure Diagnosis: Right shoulder mass. Postprocedure Diagnosis: FNA and core biopsy of the right anterior shoulder mass without complication. Final pathologic evaluation is pending. Preliminary cytology results were negative for malignancy and final results are pending. Estimated Blood Loss: None. Immediate Complications: There were no immediate complications, and the patient was discharged in good condition. Procedure Note Analia Leblanc MD - 05/19/2024 FULL RESULT: Examination: Percutaneous image guided biopsy, US Extremity Limited,05/19/2024 11:48 AM Clinical History: Right shoulder mass. Indication: Mass of the anterior shoulder from other Imaging Comparison: MRI UPPER EXT 05/07/2024. Technique: Real-time cabrera scale and color Doppler evaluation of the rightshoulder was performed. Subsequently, an ultrasound-guided biopsy wasperformed, as described in detail below. Findings: Ultrasound evaluation a heterogeneous masslike lesion in the subcutaneoustissues of the anterior aspect of the right shoulder measures 11.9 x 6.0 x1.9 cm with minimal internal vascularity. The procedure(s) and associated risks, benefits, and alternatives wereexplained in detail to the patient, who agreed to proceed and signed aninformed consent form. All questions were answered. A timeout wasperformed verifying the correct procedure, correct name and correct site.The skin was prepped in the usual sterile fashion with alcohol and/ orBetadine. Lidocaine 1 percent was administered for local anesthesia.Under direct sonographic guidance, the FNA was performed using 21-gaugeneedles and 3 passes were made. Subsequently, under direct sonographicguidance, core biopsy was performed using a18 -gauge Temno needle and 3passes were made. Preprocedure Diagnosis: Right shoulder mass. Postprocedure Diagnosis: FNA and core biopsy of the right anteriorshoulder mass without complication. Final pathologic evaluation ispending. Preliminary cytology results were negative for malignancy and finalresults are pending. Estimated Blood Loss: None. Immediate Complications: There were no immediate complications, and thepatient was discharged in good condition. IMPRESSION: 1. Right anterior shoulder subcutaneous mass. 2. Percutaneous Ultrasound-Guided FNA and core Biopsy of the rightanterior shoulder mass. I personally reviewed these image(s) along with the resident's/fellow'sinterpretations, certify that if a procedure was performed I wasphysically present, and agree with the final report. us Robert West MD [facility] US ORDERABLES Final Result * US Soft Tissue Core Needle Biopsy (05/19/2024 11:48 AM WAREHOUSE TECHNICIAN) Anatomical Region Laterality Modality Whole Body Ultrasound 05/19/2024 11:5 0 AM WAREHOUSE TECHNICIAN Impressions 05/19/2024 11:58 AM WAREHOUSE TECHNICIAN 1. Right anterior shoulder subcutaneous mass. 2. Percutaneous Ultrasound-Guided FNA and core Biopsy of the right anterior shoulder mass. I personally reviewed these image(s) along with the resident's/fellow's interpretations, certify that if a procedure was performed I was physically present, and agree with the final report. Narrative 05/19/2024 11:58 AM WAREHOUSE TECHNICIAN FULL RESULT: Examination: Percutaneous image guided biopsy, US Extremity Limited, 05/19/2024 11:48 AM Clinical History: Right shoulder mass. Indication: Mass of the anterior shoulder from other Imaging Comparison: MRI UPPER EXT 05/07/2024. Technique: Real-time cabrera scale and color Doppler evaluation of the right shoulder was performed. Subsequently, an ultrasound-guided biopsy was performed, as described in detail below. Findings: Ultrasound evaluation a heterogeneous masslike lesion in the subcutaneous tissues of the anterior aspect of the right shoulder measures 11.9 x 6.0 x 1.9 cm with minimal internal vascularity. The procedure(s) and associated risks, benefits, and alternatives were explained in detail to the patient, who agreed to proceed and signed an informed consent form. All questions were answered. A timeout was performed verifying the correct procedure, correct name and correct site. The skin was prepped in the usual sterile fashion with alcohol and/ or Betadine. Lidocaine 1 percent was administered for local anesthesia. Under direct sonographic guidance, the FNA was performed using 21- gauge needles and 3 passes were made. Subsequently, under direct sonographic guidance, core biopsy was performed using a18 -gauge Temno needle and 3 passes were made. Preprocedure Diagnosis: Right shoulder mass. Postprocedure Diagnosis: FNA and core biopsy of the right anterior shoulder mass without complication. Final pathologic evaluation is pending. Preliminary cytology results were negative for malignancy and final results are pending. Estimated Blood Loss: None. Immediate Complications: There were no immediate complications, and the patient was discharged in good condition. Procedure Note Analia Leblanc MD - 05/19/2024 FULL RESULT: Examination: Percutaneous image guided biopsy, US Extremity Limited,05/19/2024 11:48 AM Clinical History: Right shoulder mass. Indication: Mass of the anterior shoulder from other Imaging Comparison: MRI UPPER EXT 05/07/2024. Technique: Real-time cabrera scale and color Doppler evaluation of the rightshoulder was performed. Subsequently, an ultrasound-guided biopsy wasperformed, as described in detail below. Findings: Ultrasound evaluation a heterogeneous masslike lesion in the subcutaneoustissues of the anterior aspect of the right shoulder measures 11.9 x 6.0 x1.9 cm with minimal internal vascularity. The procedure(s) and associated risks, benefits, and alternatives wereexplained in detail to the patient, who agreed to proceed and signed aninformed consent form. All questions were answered. A timeout wasperformed verifying the correct procedure, correct name and correct site.The skin was prepped in the usual sterile fashion with alcohol and/ orBetadine. Lidocaine 1 percent was administered for local anesthesia.Under direct sonographic guidance, the FNA was performed using 21-gaugeneedles and 3 passes were made. Subsequently, under direct sonographicguidance, core biopsy was performed using a18 -gauge Temno needle and 3passes were made. Preprocedure Diagnosis: Right shoulder mass. Postprocedure Diagnosis: FNA and core biopsy of the right anteriorshoulder mass without complication. Final pathologic evaluation ispending. Preliminary cytology results were negative for malignancy and finalresults are pending. Estimated Blood Loss: None. Immediate Complications: There were no immediate complications, and thepatient was discharged in good condition. IMPRESSION: 1. Right anterior shoulder subcutaneous mass. 2. Percutaneous Ultrasound-Guided FNA and core Biopsy of the rightanterior shoulder mass. I personally reviewed these image(s) along with the resident's/fellow'sinterpretations, certify that if a procedure was performed I wasphysically present, and agree with the final report. us Robert West MD IMG US ORDERABLES Final Result * Pathology Biopsy Interpretation (05/19/2024 10:41 AM WAREHOUSE TECHNICIAN) Submitted Clinical History Mass of soft tissue of right upper limb [R22.31] 05/20/2024 2:28 PM WAREHOUSE TECHNICIAN [facility] Diagnosis A: Soft tissue, right shoulder, core biopsy: Paucicellular proteinaceous material consistent with amyloid (see comment) Focal birefringence consistent with foreign material 05/20/2024 2:28 PM WAREHOUSE TECHNICIAN [facility] Comment A special stain for [place] red is positive. In the context of the reported history of subcutaneous medication injection, features are considered with a reaction to the injection (Haematologica. 2018 Mar;103(12):e610-e 612. doi: 10.3324/haematol.2 [id number]). Clinical-pathologi c correlation is necessary. 05/20/2024 2:28 PM [facility] Gross Description A: Shoulder, right, : Four cores of yellow soft tissue that aggregate to 1.0 x 0.3 x 0.1 cm, entirely submitted in A1. KR 05/20/2024 2:28 PM [facility] Biomarker Block(s) N/A 05/20/2024 2:[address] [facility] Disclaimer "Some tests reported here may have been developed and performance characteristics determined by [facility]. These tests have not been specifically cleared or approved by the U.S. Food and Drug Administration. If applicable, controls were reviewed and showed appropriate reactivity." 05/20/2024 2:28 PM [facility] Tissue (Shoulder, Right) 05/19/2024 10:41 AM WAREHOUSE TECHNICIAN 05/19/2024 1:23 PM WAREHOUSE TECHNICIAN us Robert West MD LAB PATHOLOGY ORDERABLES [place] [address], [place] * Cytology Image-Guided FNA Interpretation (05/19/2024 10:39 AM WAREHOUSE TECHNICIAN) Gross Description Specimens procured: 4 Diff Quik; 6 Pap Stain Slides 10 ml, slightly cloudy bloody fluid in RPMI 1 Cell Block Date/Time Placed in Formalin: 05/19/24 12:44 PM Size: 11.9 cm Immediate assessment for specimen adequacy was made x1 by Dr. Nina. 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 The cell block preparation was contributory toward making the above diagnosis. 05/20/2024 2:50 PM WAREHOUSE TECHNICIAN [facility] Retained/Biomark er Testing SR: 10 S, 1 CB 05/20/2024 2:50 PM WAREHOUSE TECHNICIAN [facility] Informational Points Some tests reported here may have been developed and performance characteristics determined by [facility]. These tests have not been specifically cleared or approved by the U.S. Food and Drug Administration. 05/20/2024 2:50 PM WAREHOUSE TECHNICIAN [facility] Fine Needle Asp (Shoulder, Right) 05/19/2024 10:39 AM WAREHOUSE TECHNICIAN 05/19/2024 11:25 AM WAREHOUSE TECHNICIAN us Robert West MD LAB CYTOLOGY ORDERABLES Final Result Performing Organization Address City/State/[facility] Co de Phone Number [facility] [address] [place] [id number], [place] * CT Chest Abdomen Pelvis with Contrast (05/14/2024 2:22 PM WAREHOUSE TECHNICIAN) Anatomical Region Laterality Modality Abdomen, Pelvis, Chest Computed Tomography 05/14/2024 2:29 PM WAREHOUSE TECHNICIAN Impressions 05/14/2024 2:46 PM WAREHOUSE TECHNICIAN 1. The subcutaneous soft tissue mass in the right shoulder anteriorly is not imaged on this exam. 2. No suspicious right axillary/subpectoral lymphadenopathy. 3. No definite metastatic disease in the chest, abdomen and pelvis. 4. Few small scattered lung nodules/opacities most likely represent a combination of sequela of infection/inflammation an mucus plugging and will be monitored on follow-up imaging. ACTIONABLE ITEMS/RECOMMENDATIONS*: See Impression . *An Actionable Finding is a finding that may be unrelated to the original reason for imaging but potentially actionable, meaning further investigation may be necessary. The Actionable Findings Vigilance Unit (AFVU) assists medical providers with responding to additional radiologic findings that are unexpected and potentially actionable. Narrative 05/14/2024 2:46 PM WAREHOUSE TECHNICIAN FULL RESULT: Examination: CT CHEST ABDOMEN PELVIS W CONTRAST on 05/14/2024 2:22 PM. Clinical History: Soft tissue mass anterior to the right shoulder. Indication: Baseline staging study. Comparison: MRI of the right shoulder from 05/07/2024. Technique: CT of the chest, abdomen and pelvis is performed after the administration of intravenous contrast. Findings: ONCOLOGIC FINDINGS: Primary tumor site: The subcutaneous soft tissue mass in the right shoulder anteriorly is not imaged on this exam. Locoregional lymph nodes:No suspicious right axillary or subpectoral lymphadenopathy is seen. Metastatic sites:No definite metastatic disease is seen. A few small scattered punctate lung nodules/opacities (series 4, images 31, 32, 35, 38, 39, 42, 43, 64) most likely represent a combination of sequela of infection/inflammation and mucous plugs and will be monitored on follow-up imaging. OTHER FINDINGS: Neck/Mediastinum/Heart/Nodes: The visualized thyroid gland is unremarkable. The aorta and central pulmonary arteries demonstrate normal course and caliber. Minimal atherosclerotic calcifications of the intrathoracic aorta and coronary arteries is seen. The heart size is within normal limits. No suspicious intrathoracic lymphadenopathy is seen. Airways/Lungs/Pleura: The trachea and central bronchi demonstrate normal course and caliber. Minimal emphysematous changes are seen with upper lobe predominance. Minimal peribronchial thickening/mucus plugging seen. No pleural effusions are seen. Abdomen and Pelvis: No suspicious focal liver parenchymal lesions are identified. A small calcified granuloma is seen in the right liver. The portal veins and hepatic veins are patent. The gallbladder has been resected. No intrahepatic or extrahepatic biliary ductal dilatation is seen. The spleen, pancreas, adrenal glands and both kidneys are unremarkable. The abdominal aorta and IVC demonstrate normal course and caliber. Moderate to severe atherosclerotic calcifications of the intra- abdominal aorta are seen extending into the iliofemoral vessels A few small subcentimeter iliac chain nodes are likely reactive in etiology. The urinary bladder is well- distended and is unremarkable. The uterus and both ovaries are unremarkable. No abnormally dilated small bowel or large bowel loops are identified. Scattered colonic diverticula are seen without any evidence of diverticulitis. No free intraperitoneal fluid is seen. Bones/Soft Tissues: No suspicious osseous lesions are identified. Mild multilevel degenerative changes are seen in the spine. Procedure Note Chaparrita Abdullahi MD - 05/14/2024 FULL RESULT: Examination: CT CHEST ABDOMEN PELVIS W CONTRAST on 05/14/2024 2:22 PM. Clinical History: Soft tissue mass anterior to the right shoulder. Indication: Baseline staging study. Comparison: MRI of the right shoulder from 05/07/2024. Technique: CT of the chest, abdomen and pelvis is performed after theadministration of intravenous contrast. Findings: ONCOLOGIC FINDINGS: Primary tumor site: The subcutaneous soft tissue mass in the rightshoulder anteriorly is not imaged on this exam. Locoregional lymph nodes:No suspicious right axillary or subpectorallymphadenopathy is seen. Metastatic sites:No definite metastatic disease is seen. A few small scattered punctate lung nodules/opacities (series 4, [id number], 32, 35, 38, 39, 42, 43, 64) most likely represent a combination ofsequela of infection/inflammation and mucous plugs and will be monitoredon follow-up imaging. OTHER FINDINGS: Neck/Mediastinum/Heart/Nodes: The visualized thyroid gland isunremarkable. The aorta and central pulmonary arteries demonstrate normalcourse and caliber. Minimal atherosclerotic calcifications of theintrathoracic aorta and coronary arteries is seen. The heart size iswithin normal limits. No suspicious intrathoracic lymphadenopathy isseen. Airways/Lungs/Pleura: The trachea and central bronchi demonstrate normalcourse and caliber. Minimal emphysematous changes are seen with upper lobepredominance. Minimal peribronchial thickening/mucus plugging seen. Nopleural effusions are seen. Abdomen and Pelvis: No suspicious focal liver parenchymal lesions areidentified. A small calcified granuloma is seen in the right liver. Theportal veins and hepatic veins are patent. The gallbladder has beenresected. No intrahepatic or extrahepatic biliary ductal dilatation isseen. The spleen, pancreas, adrenal glands and both kidneys areunremarkable. The abdominal aorta and IVC demonstrate normal course andcaliber. Moderate to severe atherosclerotic calcifications of theintra- abdominal aorta are seen extending into the iliofemoral vessels Afew small subcentimeter iliac chain nodes are likely reactive in etiology.The urinary bladder is well- distended and is unremarkable. The uterus andboth ovaries are unremarkable. No abnormally dilated small bowel or largebowel loops are identified. Scattered colonic diverticula are seen withoutany evidence of diverticulitis. No free intraperitoneal fluid is seen. Bones/Soft Tissues: No suspicious osseous lesions are identified. Mildmultilevel degenerative changes are seen in the spine. IMPRESSION: 1. The subcutaneous soft tissue mass in the right shoulder anteriorly isnot imaged on this exam. 2. No suspicious right axillary/subpectoral lymphadenopathy. 3. No definite metastatic disease in the chest, abdomen and pelvis. 4. Few small scattered lung nodules/opacities most likely represent acombination of sequela of infection/inflammation an mucus plugging andwill be monitored on follow-up imaging. ACTIONABLE ITEMS/RECOMMENDATIONS*: See Impression . *An Actionable Finding is a finding that may be unrelated to the originalreason for imaging but potentially actionable, meaning furtherinvestigation may be necessary. The Actionable Findings Vigilance Unit(AFVU) assists medical providers with responding to additional radiologicfindings that are unexpected and potentially actionable. us Silvana ELLINGTON IM CT ORDERABLES Final Result * POC Creatinine (05/14/2024 1:14 PM WAREHOUSE TECHNICIAN) POC Creatinine 0.8 0.6 - 1.3 mg/dL 05/14/2024 1:16 PM WAREHOUSE TECHNICIAN [facility] Comment:Medications, especia lly hydroxyurea or supplements, such as ascorbate, can interfere with test results causing a falsely and significantly higher result than expected. If a problem is suspected with a patient's result, a sample should be sent to the laboratory for confirmatory testing. POC eGFR 85 >=60 mL/min/1.7 3 sq. m 05/14/2024 1:16 PM WAREHOUSE TECHNICIAN [facility] Comment: The eGFRcr is calculated with the 2020 CKD-EPI creatinine equation using creatinine, patient's age, and sex for adults 18 years of age and older. Other factors, especially muscle mass, may affect accuracy and need to be considered. According to the Kidney Disease: Improving Global Outcomes (KDIGO) CKD Work Group 2012 Clinical Practice Guideline, chronic kidney disease (CKD) is defined as the abnormalities of kidney structure or function, present for more than 3 months, with implications for health. CKD should be classified by cause, GFR category, and albuminuria category. KDIGO guidelines provide the following GFR categories. Stage / Description / GFR mL/min/1.73 m2: G1* / Normal or high / >= 90 G2* / Mildly decreased / 60-89 G3a / Mildly to moderately decreased / 45-59 G3b / Moderately to severely decreased / 30-44 G4 / Severely decreased / 15-29 G5 / Kidney failure / <15 *In the absence of evidence of kidney damage, neither G1 nor G2 fulfill criteria for CKD. Blood 05/14/2024 1:14 PM WAREHOUSE TECHNICIAN 05/14/2024 1:16 PM WAREHOUSE TECHNICIAN Narrative [facility] - 05/14/2024 1:16 PM WAREHOUSE TECHNICIAN Method description: The i-STAT is an analyzer used for in vitro quantification of various analytes in whole blood. The device uses a single disposable cartridge which contains microfabricated sensors, a calibration solution, fluidics system, and a waste chamber. Each test cartridge contains chemically sensitive biosensors on a silicon chip that are configured to perform specific tests. The microfabricated sensors measure analyte concentration by an electrochemical assay. us Silvana ELLINGTON POCT ORDERABLES - DEVICE Final Result [facility] Unless otherwise noted, all lab tests performed by: Division of Pathology and Laboratory Medicine [address] [place] [id number] * X-ray Shoulder 2+ Views Right (05/14/2024 10:23 AM WAREHOUSE TECHNICIAN) Anatomical Region Laterality Modality Shoulder, Extremity Digital Radi ography 05/14/2024 10:3 1 AM WAREHOUSE TECHNICIAN Impressions 05/14/2024 11:25 AM WAREHOUSE TECHNICIAN Unremarkable right shoulder. Previously seen subcutaneous soft tissue mass not well-visualized on this radiograph. ACTIONABLE ITEMS/RECOMMENDATIONS*: None. *An Actionable Finding is a finding that may be unrelated to the original reason for imaging but potentially actionable, meaning further investigation may be necessary. The Actionable Findings Vigilance Unit (AFVU) assists medical providers with responding to additional radiologic findings that are unexpected and potentially actionable. I personally reviewed these image(s) along with the resident's/fellow's interpretations, certify that if a procedure was performed I was physically present, and agree with the final report. Narrative 05/14/2024 11:25 AM WAREHOUSE TECHNICIAN FULL RESULT: Examination: XR SHOULDER 2+ VW RIGHT, 05/14/2024 10:23 AM. Clinical History: Mass of soft tissue Indication: Restaging Disease Progression Comparison: 05/07/2024 upper extremity MRI Technique: XR SHOULDER 2+ VW RIGHT. Findings: No acute fracture or malalignment. Osseous density is within normal limits. No osteolytic or blastic metastasis. All joint spaces are well-preserved. No evidence of high riding humeral head to suggest old large complete full-thickness rotator cuff tear. Previously seen subcutaneous soft tissue mass superficial to the deltoid muscle is not well-visualized on this radiograph. Procedure Note Lee Fonseca MD - 05/14/2024 FULL RESULT: Examination: XR SHOULDER 2+ VW RIGHT, 05/14/2024 10:23 AM. Clinical History: Mass of soft tissue Indication: Restaging Disease Progression Comparison: 05/07/2024 upper extremity MRI Technique: XR SHOULDER 2+ VW RIGHT. Findings: No acute fracture or malalignment. Osseous density is within normallimits. No osteolytic or blastic metastasis. All joint spaces arewell-preserved. No evidence of high riding humeral head to suggest oldlarge complete full-thickness rotator cuff tear. Previously seen subcutaneous soft tissue mass superficial to the deltoidmuscle is not well-visualized on this radiograph. IMPRESSION: Unremarkable right shoulder. Previously seen subcutaneous soft tissue massnot well-visualized on this radiograph. ACTIONABLE ITEMS/RECOMMENDATIONS*: None. *An Actionable Finding is a finding that may be unrelated to the originalreason for imaging but potentially actionable, meaning furtherinvestigation may be necessary. The Actionable Findings Vigilance Unit(AFVU) assists medical providers with responding to additional radiologicfindings that are unexpected and potentially actionable. I personally reviewed these image(s) along with the resident's/fellow'sinterpretations, certify that if a procedure was performed I wasphysically present, and agree with the final report. us Silvana ELLINGTON IM[facility] DIAGNOST[facility] IMAG[facility] O RDERAALEX Final Result * X-ray Chest 2 Views (05/14/2024 10:23 AM WAREHOUSE TECHNICIAN) Anatomical Region Laterality Modality Chest Digital Radiogra phy 05/14/2024 10:2 7 AM WAREHOUSE TECHNICIAN Impressions 05/14/2024 10:28 AM WAREHOUSE TECHNICIAN No acute cardiopulmonary disease. ACTIONABLE ITEMS/RECOMMENDATIONS*: None. *An Actionable Finding is a finding that may be unrelated to the original reason for imaging but potentially actionable, meaning further investigation may be necessary. The Actionable Findings Vigilance Unit (AFVU) assists medical providers with responding to additional radiologic findings that are unexpected and potentially actionable. Narrative 05/14/2024 10:28 AM WAREHOUSE TECHNICIAN FULL RESULT: Examination: XR CHEST 2 VW on 05/14/2024 10:23 AM. Clinical History: Mass of soft tissue Indication: Evaluate Baseline Disease State Comparison: None Technique: Posteroanterior, lateral and dual-energy radiographs of the chest Findings: Support Apparatus: None. Lungs/Pleura/Mediastinum: The cardiomediastinal silhouette is within normal limits. The lungs and pleural spaces are clear. The visualized osseous structures and upper abdomen are within normal limits. Procedure Note Aly Ramírez MD - 05/14/2024 FULL RESULT: Examination: XR CHEST 2 VW on 05/14/2024 10:23 AM. Clinical History: Mass of soft tissue Indication: Evaluate Baseline Disease State Comparison: None Technique: Posteroanterior, lateral and dual-energy radiographs of thechest Findings: Support Apparatus: None. Lungs/Pleura/Mediastinum: The cardiomediastinal silhouette is withinnormal limits. The lungs and pleural spaces are clear. The visualized osseous structures and upper abdomen are within normallimits. IMPRESSION: No acute cardiopulmonary disease. ACTIONABLE ITEMS/RECOMMENDATIONS*: None. *An Actionable Finding is a finding that may be unrelated to the originalreason for imaging but potentially actionable, meaning furtherinvestigation may be necessary. The Actionable Findings Vigilance Unit(AFVU) assists medical providers with responding to additional radiologicfindings that are unexpected and potentially actionable. 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 For comparison only. No MD Urena originated interpretation requested or available. Marbella Leon NP IMG OUTSIDE IMAGE ORDERABLES F inal Result after 06/21/2023 Insurance Care Teams Fiscal Agent Relationship Specialty Start Date End Date Marbella Leon NP [address] [place], [place] [id number] PCP - External Primary Care Provider Family Practice 05/07/24 Robert West MD [address] [place] [address] [email or web address] PCP - General Orthopaedic Sarcoma 05/11/24 Thony Kim MD [facility] [address] [place] [address] PCP - External Referring Orthopedic Surgery 05/14/24 Noel Diaz MD [address] [place] [address] PCP - External Follow Up A Orthopedic Surgery 05/14/24
[2024-06-20] MEDS ORDERED: ONDANSETRON 4 MG/2 ML VIAL ONE (20:40)
[2024-06-20] MEDS ORDERED: METHOCARBAMOL 1,000 MG/10 ML VIAL ONE (20:40)
[2024-06-20] MEDS ORDERED: MORPHINE 4 MG/ML SYR ONE (20:41)
[2024-06-20] MEDS ORDERED: KETOROLAC 30 MG/ML INJ ONE (20:41)
[2024-06-20] MEDS ORDERED: NA CHLORIDE 0.9% 100 ML ONE (20:42)
--- NOTE | 2024-06-20 22:19 | RAD REPORT ---
EXAM: C Spine Wo Con HISTORY:: Fall with numbness COMPARISON: April 2024 TECHNIQUE: Multiple contiguous axial images were obtained in a CT of the cervical spine without contr ast. Sagittal and coronal reformats were performed. One or more of the following dose reduction techniques were used: Automated exposure control, adjustment of the mA and kV according to patient si ze, and iterative reconstruction. Unless otherwise specified, incidental findings do not require dedicated imaging follow-up. FINDINGS: Anterior fusion C4 and C5 by plate, screws and bone plug. The hardware is intact. No fracture No dislocation Spondylosis C3-4 results in mild to moderate narrowing of the right neural foramina Spondylosis Cc4-5 mild to moderate narrowing left neural foramina IMPRESSION: No fracture seen Spondylosis 3-4 results in mild to moderate right foraminal stenosis Spondylosis C4-5 results in mild to moderate left foraminal stenosis If the patient continues to have symptoms to suggest significant spinal pathology then MRI would be r ecommended
--- NOTE | 2024-06-20 22:42 | ER ---
Nurse's Notes [facility] Name: Lurdes Cordova Age: 58 yrs Sex: Female : 1965 Arrival Date: 06/20/2024 Time: 19:41 Bed 19 Private MD: Diagnosis: Cervical radiculopathy Presentation: 06/20 20:10 Chief complaint: Patient states: I WAS ABOUT TO FALL AND TWISTED MY BODY , WHEN I WAS ha1 GOING DOWN I HIT A DOOR KNOB AND BRUISE MY RIGHT LOWER ABDOMEN . PAIN ALL OVER BODY. 20:10 Coronavirus screen: Client denies travel out of the [place] in the last 14 days. Ebola ha1 Screen: No symptoms or risks identified at this time. Initial Sepsis Screen: Does the patient meet any 2 criteria? No. Patient's initial sepsis screen is negative. Does the patient have a suspected source of infection? No. Patient's initial sepsis screen is negative. Risk Assessment: Do you want to hurt yourself or someone else? Patient reports no desire to harm self or others. Onset of symptoms was June 20, 2024. 20:10 Method Of Arrival: Ambulatory ha1 20:10 Acuity: HAWK 4 ha1 Triage Assessment: 20:22 General: Appears uncomfortable, Behavior is cooperative. Pain: Complains of pain in ALL ha1 OVER BODY Pain currently is 8 out of 10 on a pain scale. Quality of pain is described as aching. Neuro: Level of Consciousness is awake, alert, obeys commands, Oriented to person, place, time, situation. Cardiovascular: Patient's skin is warm and dry. Respiratory: Airway is patent Respiratory effort is even, unlabored, Respiratory pattern is regular, symmetrical. GI: No signs and/or symptoms were reported involving the gastrointestinal system. Derm: Bruising that is on right lower quadrant. Musculoskeletal: Circulation, motion, and sensation intact. Range of motion: intact in all extremities. Historical: - Allergies: 20:22 No Known Allergies; ha1 - PMHx: 20:22 chronic back pain; COPD; Depression; Diabetes - IDDM; Hypercholesterolemia; ha1 Hypertension; Rheumatoid Arthritis; spinal stenosis; - PSHx: 20:22 section; Cholecystectomy; L arm; ha1 - Immunization history:: Adult Immunizations up to date. - Infectious Disease History:: Denies. - Social history:: Smoking status: Patient reports the use of cigarette tobacco products, smokes one-half pack cigarettes per day. - Family history:: not pertinent. Screenin:27 [facility] ED Fall Risk Assessment (Adult) History of falling in the last 3 months, ha1 including since admission No falls in past 3 months (0 pts) Confusion or Disorientation No (0 pts) Intoxicated or Sedated No (0 pts) Impaired Gait No (0 pts) Mobility Assist Device Used No (0 pt) Altered Elimination No (0 pt) Score/Fall Risk Level 0 - 2 = Low Risk Oriented to surroundings, Maintained a safe environment, Educated pt \T\ family on fall prevention, incl call for assistance when getting out of bed, Hourly rounding (assess needs \T\ fall precautionary measures) done. Abuse screen: Denies threats or abuse. Denies injuries from another. Nutritional screening: No deficits noted. Tuberculosis screening: No symptoms or risk factors identified. Primary Survey: 21:29 NO uncontrolled hemorrhage observed. Breathing/Chest: Spontaneous respiratory effort, ha1 equal unlabored respirations, breath sounds clear bilaterally, regular pattern, symmetrical chest rise and fall. Circulation: No external hemorrhage present. Regular and strong central pulse, skin warm/dry/normal color. Disability Pupils are equal, round, reactive to light and accommodation. Assessment: 20:15 General: SEE TRIAGE ASSESSMENT. ha1 21:00 Reassessment: Patient and/or family updated on plan of care and expected duration. Pain ha1 level reassessed. Patient is alert, oriented x 3, equal unlabored respirations, skin warm/dry/pink. 22:59 Reassessment: Patient appears in no apparent distress at this time. Patient and/or kj2 family updated on plan of care and expected duration. Pain level reassessed. Patient is alert, oriented x 3, equal unlabored respirations, skin warm/dry/pink. Vital Signs: 20:10 Weight 91.17 kg; Height 5 ft. 5 in. ; ha1 20:14 BP 179 / 84; Pulse 99; Resp 18; Temp 98.4; Pulse Ox 96% on R/A; af3 22:59 BP 155 / 59; Pulse 80; Resp 18; Temp 98; Pulse Ox 100% on R/A; kj2 20:10 Body Mass Index 33.45 (91.17 kg, 165.1 cm) ha1 ED Course: 19:43 Patient arrived in ED. im 19:46 Ernie Silver MD is Attending Physician. rt 20:08 Arm band placed on right wrist. ha1 20:08 Patient has correct armband on for positive identification. Placed in gown. Bed in low ha1 position. Call light in reach. Side rails up X 1. 20:22 Triage completed. ha1 21:08 Provided Education on: PLAN OF CARE . ha1 21:34 Carina Hodge, RN is Primary Nurse. ha1 21:49 CT C Spine In Process Unspecified. EDMS 23:00 No provider procedures requiring assistance completed. kj2 23:02 IV discontinued, intact, bleeding controlled, No redness/swelling at site. Pressure kj2 dressing applied. Administered Medications: 21:08 Drug: Ketorolac IVP 15 mg IVP once Route: IVP; Site: right forearm; ha1 23:01 Follow up: Response: No adverse reaction kj2 21:10 Drug: Ondansetron IVP 4 mg IVP once; over 2 minutes Route: IVP; Site: right forearm; ha1 23:01 Follow up: Response: No adverse reaction kj2 21:12 Drug: morphine IVP or IV 4 mg IVP once over 4 mins Route: IVP; Infused Over: 4 mins; ha1 Site: right forearm; 23:01 Follow up: Response: No adverse reaction kj2 21:14 Drug: Methocarbamol IVPB 1 grams IVPB once over 1 hrs; (mix in NS 100 mL) Route: IVPB; ha1 Infused Over: 1 hrs; Site: right forearm; 22:00 Follow up: Response: No adverse reaction; IV Status: Completed infusion ha1 23:01 Follow up: Response: No adverse reaction kj2 23:10 Drug: Gabapentin PO 300 mg PO once Route: PO; kj2 23:10 Follow up: Response: Medication administered at discharge. kj2 Medication: 21:32 VIS not applicable for this client. ha1 Outcome: 22:42 Discharge ordered by . rt 23:02 Discharged to home ambulatory, kj2 23:02 Condition: stable 23:02 Discharge instructions given to patient, Instructed on discharge instructions, Demonstrated understanding of instructions, follow-up care, 23:12 Patient left the ED. kj2 Signatures: Dispatcher [employer] EDTN Carina Hodge, RN RN ha1 Ernie Silver MD MD rt Eliza Doe Krystal, RN RN kj2 Adele Fischer
--- NOTE | 2024-06-20 22:43 | EDPHYS ---
Physician Documentation [facility] Name: Lurdes Cordova Age: 58 yrs Sex: Female : 1965 Arrival Date: 06/20/2024 Time: 19:41 Bed 19 Private MD: ED Physician Ernie Silver HPI: 06/20 20:31 This 58 yrs old Female presents to ER via Ambulatory with complaints of Pain All Over, rt Fall Injury. 20:31 Patient presents to the ED with reported fall which she states is not uncommon for her. rt She states that she twisted her body awkwardly trying not to fall. She excellently hit her abdomen into a doorknob but denies any significant pain to that area. She reports a worsening pain to the left side of her neck as well as some tingling and weakness down her left arm which she had previously after having surgery to the neck. She is concerned for the hardware on the neck surgery. She denies other acute complaints at this time, symptoms are moderate in severity, no other aggravating or alleviating factors.. Historical: - Allergies: 20:22 No Known Allergies; ha1 - PMHx: 20:22 chronic back pain; COPD; Depression; Diabetes - IDDM; Hypercholesterolemia; ha1 Hypertension; Rheumatoid Arthritis; spinal stenosis; - PSHx: 20:22 section; Cholecystectomy; L arm; ha1 - Immunization history:: Adult Immunizations up to date. - Infectious Disease History:: Denies. - Social history:: Smoking status: Patient reports the use of cigarette tobacco products, smokes one-half pack cigarettes per day. - Family history:: not pertinent. ROS: 20:31 Constitutional: Negative for fever, chills, and weight loss, Cardiovascular: Negative rt for chest pain, palpitations, and edema, Respiratory: Negative for shortness of breath, cough, wheezing, and pleuritic chest pain, Abdomen/GI: Negative for abdominal pain, nausea, vomiting, diarrhea, and constipation, 20:31 Neck: Positive for pain at rest, 20:31 MS/extremity: Positive for pain, 20:31 Neuro: Positive for tingling, Exam: 20:31 Constitutional: This is a well developed, well nourished patient who is awake, alert, rt and in no acute distress. Head/Face: Normocephalic, atraumatic. Chest/axilla: Normal chest wall appearance and motion. Nontender with no deformity. No lesions are appreciated. Cardiovascular: Regular rate and rhythm with a normal S1 and S2. No gallops, murmurs, or rubs. Normal PMI, no JVD. No pulse deficits. Respiratory: Lungs have equal breath sounds bilaterally, clear to auscultation and percussion. No rales, rhonchi or wheezes noted. No increased work of breathing, no retractions or nasal flaring. Abdomen/GI: Soft, non-tender, with normal bowel sounds. No distension or tympany. No guarding or rebound. No evidence of tenderness throughout. 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 Strength and sensation otherwise intact., Vital Signs: 20:10 Weight 91.17 kg; Height 5 ft. 5 in. ; ha1 20:14 BP 179 / 84; Pulse 99; Resp 18; Temp 98.4; Pulse Ox 96% on R/A; af3 22:59 BP 155 / 59; Pulse 80; Resp 18; Temp 98; Pulse Ox 100% on R/A; kj2 20:10 Body Mass Index 33.45 (91.17 kg, 165.1 cm) ha1 MDM: 20:12 Medical Screening Exam initiated rt 23:39 Differential diagnosis: Cervical radiculopathy, hardware malfunction. Data reviewed: rt vital signs, nurses notes, radiologic studies. I considered the following discharge prescriptions or medication management in the emergency department Medications were administered in the Emergency Department. See MAR. Independent interpretation of the following test(s) in the Emergency Department CT Scan: My interpretation is No fracture seen on interpretation of CT scan images. Care significantly affected by the following chronic conditions: Chronic Obstructive Pulmonary Disease. Counseling: I had a detailed discussion with the patient and/or guardian regarding the historical points, exam findings, and any diagnostic results supporting the discharge/admit diagnosis, radiology results, the need for outpatient follow up, to return to the emergency department if symptoms worsen or persist or if there are any questions or concerns that arise at home. Response to treatment: the patient's symptoms have mildly improved after treatment. 06/20 20:28 Order name: CT C Spine; Complete Time: 22:23 rt Administered Medications: 21:08 Drug: Ketorolac IVP 15 mg IVP once Route: IVP; Site: right forearm; ha1 23:01 Follow up: Response: No adverse reaction kj2 21:10 Drug: Ondansetron IVP 4 mg IVP once; over 2 minutes Route: IVP; Site: right forearm; ha1 23:01 Follow up: Response: No adverse reaction kj2 21:12 Drug: morphine IVP or IV 4 mg IVP once over 4 mins Route: IVP; Infused Over: 4 mins; ha1 Site: right forearm; 23:01 Follow up: Response: No adverse reaction kj2 21:14 Drug: Methocarbamol IVPB 1 grams IVPB once over 1 hrs; (mix in NS 100 mL) Route: IVPB; ha1 Infused Over: 1 hrs; Site: right forearm; 22:00 Follow up: Response: No adverse reaction; IV Status: Completed infusion ha1 23:01 Follow up: Response: No adverse reaction kj2 23:10 Drug: Gabapentin PO 300 mg PO once Route: PO; kj2 23:10 Follow up: Response: Medication administered at discharge. kj2 Disposition Summary: 06/20/24 22:42 Discharge Ordered Notes: Location: Home rt Problem: new rt Symptoms: have improved rt Condition: Stable rt Diagnosis - Cervical radiculopathy rt Followup: rt - With: Private Physician - When: 2 - 3 days - Reason: Discharge Instructions: - Discharge Summary Sheet rt - Cervical Radiculopathy rt Forms: - Medication Reconciliation Form rt - Antibiotic Education rt - Prescription Opioid Use rt - Patient Portal Instructions rt - Leadership Thank You Letter rt Signatures: Dispatcher [employer] Carina Nvooa RN RN ha1 Ernie Silver MD MD rt Silvana Nagy RN RN kj2
[2024-06-20] MEDS ORDERED: GABAPENTIN 300 MG CAP ONE (23:05)
[2024-06-20 23:21] VITALS: BP 155/59; TEMP 98; O2SAT 100
== END 2024-06-20 23:12 | disposition home or self-care (01) ==
LOC: ER 19:41
DX: M54.12 Radiculopathy, cervical region (principal); F17.210 Nicotine dependence, cigarettes, uncomplicated
CPT/HCPCS: 96365; 72125; 96375; 99284; J2405; J2800

== ENCOUNTER 2024-07-27 13:27 | Emergency (ER) | payer BC ==
--- NOTE | 2024-07-27 14:56 | RAD REPORT ---
EXAMINATION: XR RIGHT SHOUDLER CLINICAL INDICATION: Female, 58 years old. PAIN RIGHT TECHNIQUE: Multiple views of the right shoulder were obtained. COMPARISON: No prior exam. FINDINGS: AC joint degenerative changes are mild with inferiorly projecting osteophyte. Mild glenohum eral arthritic changes. No fracture, dislocation or aggressive marrow lesion.
--- NOTE | 2024-07-27 14:57 | RAD REPORT ---
EXAMINATION: XR RIGHT KNEE CLINICAL INDICATION: Female, 58 years old. PAIN TECHNIQUE: Multiple views of the right knee were obtained. COMPARISON: 06/30/2023 FINDINGS: Mild medial compartment space narrowing is present. No fracture, dislocation or joint effus ion.
--- NOTE | 2024-07-27 15:11 | RAD REPORT ---
EXAMINATION: LUMBAR SPINE MULTIPLE VIEWS CLINICAL INDICATION: Female, 58 years old. PAIN TECHNIQUE: Multiple views of the lumbar spine were obtained. COMPARISON: No prior exam. FINDINGS: For purposes of this dictation, it is assumed that there are 5 lumbar type vertebral bodies. ALIGNMENT: Mild levoscoliosis. BONES: Vertebral bodies are normal in height. No aggressive osseous lesions. DISCS: Degenerative disc disease is present with vacuum disc degeneration L3-4. IMPRESSION: Prominent spondylosis L3-4.
[2024-07-27] MEDS ORDERED: MORPHINE 4 MG/ML SYR ONE (15:17)
[2024-07-27] MEDS ORDERED: ONDANSETRON 4 MG (ODT) TAB ONE (15:17)
--- NOTE | 2024-07-27 15:42 | EDPHYS ---
Physician Documentation [facility] Name: Lurdes Cordova Age: 58 yrs Sex: Female : 1965 Arrival Date: 07/27/2024 Time: 13:27 Bed 11 Private MD: ED Physician Ernie Silver HPI: 07/27 13:44 This 58 yrs old Female presents to ER via Unassigned with complaints of Fall Injury. kb 13:44 Pt is a 58 year old female who presents for pain to right knee, right shoulder and low kb back after falling yesterday and today. States her knee goes out on her and she has spinal stenosis so it causes her to fall often. States she fell yesterday, causing pain to knee and shoulder. today she stood from the toilet, her knee went out and she fell back down hitting her low back on the commode. States she has chronic pain to back, but her lower back is worse than normal. . Historical: - Allergies: 13:40 No Known Allergies; iw - PMHx: 13:40 chronic back pain; COPD; Depression; Diabetes - IDDM; Hypercholesterolemia; iw Hypertension; Rheumatoid Arthritis; spinal stenosis; - PSHx: 13:40 Cholecystectomy; section; L arm; iw - Infectious Disease History:: Denies. - Social history:: Smoking status: Patient reports the use of cigarette tobacco products. ROS: 13:42 Constitutional: As per HPI kb Exam: 13:42 Constitutional: This is a well developed, well nourished patient who is awake, alert, kb and in no acute distress. Head/Face: Normocephalic, atraumatic. ENT: Moist Mucous membranes Cardiovascular: Regular rate Respiratory: Respirations even and unlabored. No increased work of breathing. Talking in full sentences Abdomen/GI: Soft, non-tender. No distention Skin: Warm, dry with normal turgor. Normal color. Neuro: Awake and alert, GCS 15, oriented to person, place, time, and situation. 13:42 Back: pain, that is moderate, vertebral tenderness, is appreciated at thoracic spine and lumbar spine, 13:42 Musculoskeletal/extremity: Extremities: grossly normal except: noted in the right knee: pain, tenderness, noted in the anterior aspect of right shoulder: decreased ROM, pain, tenderness, ROM: limited active range of motion due to pain, Circulation is intact in all extremities. Sensation intact. Weight bearing: able to fully bear weight, Vital Signs: 13:38 BP 189 / 80; Pulse 90; Resp 18; Pulse Ox 99% on R/A; Weight 86.18 kg; Height 5 ft. 6 iw in. ; Pain 10/10; 13:38 Body Mass Index 30.67 (86.18 kg, 167.64 cm) iw 13:38 Pain Scale: Adult iw MDM: 13:31 Medical Screening Exam initiated kb 13:44 Differential diagnosis: contusion, fracture, sprain, strain. Data reviewed: vital kb signs, nurses notes. 15:41 Counseling: I had a detailed discussion with the patient and/or guardian regarding the kb historical points, exam findings, and any diagnostic results supporting the discharge/admit diagnosis, radiology results, the need for outpatient follow up, a orthopedic surgeon, to return to the emergency department if symptoms worsen or persist or if there are any questions or concerns that arise at home. 07/27 13:42 Order name: Knee Right 3 View XRAY; Complete Time: 14:57 kb 07/27 13:42 Order name: Shoulder Right (2 View) XRAY; Complete Time: 14:57 kb 07/27 13:42 Order name: Lumbar Spine (3 Views) XRAY; Complete Time: 15:17 kb 07/27 15:41 Order name: Samson Wrap; Complete Time: 16:19 kb Administered Medications: 15:37 Drug: morphine IVP or IV 4 mg IVP once over 4 mins Route: IVP; Infused Over: 4 mins; jb4 Site: left antecubital; 16:17 Follow up: Response: No adverse reaction; Marked relief of symptoms jb4 15:37 Drug: Ondansetron Oral Disintegrating Tablet Oral Disintegrating Tablet 4 mg PO once jb4 Route: PO; 16:17 Follow up: Response: No adverse reaction; Marked relief of symptoms jb4 Disposition: 17:27 Co-signature as Attending Physician, Ernie Silver MD I reviewed the patient's care rt provided by the Advanced Practice Provider and agree with the diagnosis and treatment plan. Disposition Summary: 07/27/24 15:42 Discharge Ordered Notes: Location: Home kb Condition: Stable kb Diagnosis - Fall on same level, unspecified kb - Pain in right knee kb - Pain in right shoulder kb - Low back pain kb Followup: kb - With: Emergency Department - When: As needed - Reason: Worsening of condition Followup: kb - With: Private Physician - When: 2 - 3 days - Reason: Recheck today's complaints, Continuance of care, Re-evaluation by your physician Discharge Instructions: - Discharge Summary Sheet kb - Musculoskeletal Pain kb Forms: - Medication Reconciliation Form kb - Antibiotic Education kb - Prescription Opioid Use kb - Patient Portal Instructions kb - Leadership Thank You Letter kb Signatures: Dispatcher [employer] EDAlthea Carreno FNP-C FNP-Ann Franklin RN RN iw Brice Gleason RN RN jb4 Ernie Silver MD MD rt
--- NOTE | 2024-07-27 15:42 | ER ---
Nurse's Notes [facility] Name: Lurdes Cordova Age: 58 yrs Sex: Female : 1965 Arrival Date: 07/27/2024 Time: 13:27 Bed 11 Private MD: Diagnosis: Fall on same level, unspecified;Pain in right knee;Pain in right shoulder;Low back pain Presentation: 07/27 13:38 Chief complaint: Patient states: right knee and right shoulder pain. iw 13:38 Acuity: HAWK 3 iw Historical: - Allergies: 13:40 No Known Allergies; iw - PMHx: 13:40 chronic back pain; COPD; Depression; Diabetes - IDDM; Hypercholesterolemia; iw Hypertension; Rheumatoid Arthritis; spinal stenosis; - PSHx: 13:40 Cholecystectomy; section; L arm; iw - Infectious Disease History:: Denies. - Social history:: Smoking status: Patient reports the use of cigarette tobacco products. Screenin:18 [facility] [place] ED Fall Risk Assessment (Adult) History of falling in the last 3 months, jb4 including since admission Yes- single mechanical fall (1 pt) Confusion or Disorientation No (0 pts) Intoxicated or Sedated No (0 pts) Impaired Gait No (0 pts) Mobility Assist Device Used No (0 pt) Altered Elimination No (0 pt) Score/Fall Risk Level 0 - 2 = Low Risk Oriented to surroundings, Maintained a safe environment. Abuse screen: Denies threats or abuse. Nutritional screening: No deficits noted. Tuberculosis screening: No symptoms or risk factors identified. Assessment: 15:10 General: Appears in no apparent distress. comfortable, Behavior is calm, appropriate jb4 for age. Pain: Complains of pain in right leg Pain does not radiate. Pain currently is 10 out of 10 on a pain scale. Neuro: Level of Consciousness is awake, alert, obeys commands, Oriented to person, place, time, situation. Cardiovascular: Patient's skin is warm and dry. Respiratory: Airway is patent Respiratory effort is even, unlabored, Respiratory pattern is regular, symmetrical. Derm: Skin is intact, Skin is pink, warm \T\ dry. Musculoskeletal: Circulation, motion, and sensation intact. Range of motion: intact in all extremities. 16:18 Reassessment: Patient appears in no apparent distress at this time. Patient and/or jb4 family updated on plan of care and expected duration. Pain level reassessed. Patient is alert, oriented x 3, equal unlabored respirations, skin warm/dry/pink. Patient states feeling better. Vital Signs: 13:38 BP 189 / 80; Pulse 90; Resp 18; Pulse Ox 99% on R/A; Weight 86.18 kg; Height 5 ft. 6 iw in. ; Pain 10/10; 13:38 Body Mass Index 30.67 (86.18 kg, 167.64 cm) iw 13:38 Pain Scale: Adult iw ED Course: 13:31 Patient arrived in ED. im 13:31 Althea Mo FNP-C is PHCP. kb 13:31 Ernie Silver MD is Attending Physician. kb 13:38 Triage completed. iw 13:42 Arm band placed on. iw 14:38 Knee Right 3 View XRAY In Process Unspecified. EDMS 14:38 Shoulder Right (2 View) XRAY In Process Unspecified. EDMS 14:39 Lumbar Spine (3 Views) XRAY In Process Unspecified. EDMS 15:20 Inserted saline lock: 20 gauge in left antecubital area, using aseptic technique. jb4 15:37 Brice Gleason, RN is Primary Nurse. jb4 16:18 Patient has correct armband on for positive identification. Bed in low position. Call jb4 light in reach. Side rails up X 1. Provided Education on: discharge instructions.. 16:18 No provider procedures requiring assistance completed. IV discontinued, intact, jb4 bleeding controlled, No redness/swelling at site. Pressure dressing applied. Administered Medications: 15:37 Drug: morphine IVP or IV 4 mg IVP once over 4 mins Route: IVP; Infused Over: 4 mins; jb4 Site: left antecubital; 16:17 Follow up: Response: No adverse reaction; Marked relief of symptoms jb4 15:37 Drug: Ondansetron Oral Disintegrating Tablet Oral Disintegrating Tablet 4 mg PO once jb4 Route: PO; 16:17 Follow up: Response: No adverse reaction; Marked relief of symptoms jb4 Medication: 16:18 VIS not applicable for this client. jb4 Outcome: 15:20 Discharged to home ambulatory, jb4 15:20 Condition: stable 15:20 Discharge instructions given to patient, Instructed on discharge instructions, follow up and referral plans. Demonstrated understanding of instructions, follow-up care, 15:42 Discharge ordered by kb 16:20 Patient left the ED. jb4 Signatures: Dispatcher [employer] EDAlthea Carreno, MLEY BHAKTA-Ann Franklin, RN RN iw Brice Gleason RN RN jb4 Eliza Doe Corrections: (The following items were deleted from the chart) 13:41 13:38 Resp 18bpm; iw iw 13:42 13:38 BP 189 / 80; Pulse 90bpm; Resp 18bpm; Pulse Ox 99% RA; iw iw
[2024-07-27 16:52] VITALS: BP 189/80; O2SAT 99
== END 2024-07-27 16:20 | disposition home or self-care (01) ==
LOC: ER 13:27
DX: M25.561 Pain in right knee (principal); M25.511 Pain in right shoulder; M54.50 Low back pain, unspecified; W18.30XA Fall on same level, unspecified, initial encounter; Z72.0 Tobacco use
CPT/HCPCS: 72100; 73030; 73562; Q0162